=== PATIENT | female | born 1995 | race Caucasian/White ===

== ENCOUNTER 2016-11-01 23:36 | Emergency (ER) | payer OTHER ==
[2016-11-02] MEDS ORDERED: NORCO 5/325 MG PO ONE (01:12)
--- NOTE | 2016-11-02 01:18 | ERPHSYRPT ---
- History of Present Illness Time Seen by Provider: 11/02/16 01:05 Source: patient Exam Limitations: no limitations Patient Subjective Stated Complaint: 1999 pt stepped in a hole and twisted her rt ancle Triage Nursing Assessment: outter aspect of rt ancle traciolen. pt states movement is limited but she can painfully bear weight on it. pt states toes on rt side feel tingly and cool, and that in the middle top of her foot it is numb. other than ancle, negative assess. Physician History: ABOUT 5 HOURS AGO PT WAS AT HOME AND STEPPED IN A HOLE TWISTING HER RIGHT ANKLE WITH RESULTANT PAIN IN THE RIGHT ANKLE; ADMITS TO PRIOR RIGHT ANKLE FRACTURE 8 YEARS AGO; ADMITS TO TINGLING OF HER RIGHT TOES. Allergies/Adverse Reactions: amoxicillin trihydrate [From Augmentin] Allergy (Intermediate, Verified 14:57) CHILDHOOD cefaclor [From Ceclor] Allergy (Intermediate, Verified 11/06/15 14:57) Hives Home Medications: No Home Meds 11/02/16 [History] Hx Tetanus, Diphtheria Vaccination/Date Given: Yes Hx Influenza Vaccination/Date Given: Yes Hx Pneumococcal Vaccination/Date Given: No Immunizations Up to Date: Yes - Review of Systems Musculoskeletal: Joint Pain (RIGHT ANKLE PAIN) - Past Medical History Pertinent Past Medical History: Yes Neurological History: No Pertinent History ENT History: No Pertinent History Cardiac History: No Pertinent History Respiratory History: No Pertinent History Endocrine Medical History: No Pertinent History Musculoskeletal History: Other GI Medical History: Gallbladder Disease, Pancreatitis History: Other Psycho-Social History: Anxiety, Depression Female Reproductive Disorders: No Pertinent History Other Medical History: ovarian cysts,PANCREATITIS AND CHOLECYSTITIS, urinary retention 10/2015 - Past Surgical History Past Surgical History: Yes Neuro Surgical History: No Pertinent History Cardiac: No Pertinent History Respiratory: No Pertinent History Gastrointestinal: Cholecystectomy, Other Genitourinary: No Pertinent History Musculoskeletal: Orthopedic Surgery Female Surgical History: No Pertinent History Other Surgical History: TONSILLECTOMY, ERCP-rt KNEE, scope for pancreas - Social History Smoking Status: Current every day smoker How long have you smoked: 2 Exposure to second hand smoke: Yes Drug Use: none Patient Lives Alone: No - Female History Hx Last Menstrual Period: now Hx Now: No - Nursing Vital Signs Nursing Vital Signs: Initial Vital Signs Temperature 98.3 F Temperature Source Oral Pulse Rate 96 Respiratory Rate 18 Blood Pressure [Left Arm] 138/87 Pain Intensity 8 - Physical Exam General Appearance: alert Hips Exam: right: normal range of motion Legs Exam: right leg: normal range of motion Knees Exam: right knee: normal range of motion Ankle Exam: right ankle: soft tissue tenderness (MILD LATERAL TENDERNESS AND EDEMA OF THE RIGHT ANKLE WITH LIMITED ROM. ALL TOES OF THE RIGHT FOOT HAVE GOOD ROM, SENSATION AND CAPILLARY REFILL.) Foot Exam: right foot: normal range of motion Neuro/Tendon Exam: normal sensation Mental Status Exam: alert Skin Exam: warm, dry SpO2 Interpretation: normal SpO2: 98 Oxygen Delivery: Room Air - Course Nursing assessment & vital signs reviewed: Yes - Radiology Exams Right Ankle X-ray Interpretation: Interpreted by me, No Fracture Ordered Tests: Active Orders 24 hr Category Date Time Status [facility] 11/02/16 01:10 Active Crutches STAT Care 11/02/16 01:10 Active ANKLE (3 VIEWS) Stat Exams 11/02/16 01:10 Ordered Medication Summary Discontinued Medications Generic Name Dose Route Start Last Admin Trade Name Freq PRN Reason Stop Dose Admin Hydrocodone Bitart/Acetaminophen 2 tab 11/02/16 01:12 11/02/16 01:38 [place] 5/325 Mg PO 11/02/16 01:13 2 tab STAT ONE Administration Hydrocodone Bitart/Acetaminophen Confirm 11/02/16 01:37 [place] 5/325 Mg Administered 11/02/16 01:38 Dose 2 tab .ROUTE .STK-MED ONE - Departure Time of Disposition: 01:49 Departure Disposition: Home Clinical Impression: SPRAIN OF RIGHT ANKLE Condition: Fair Critical Care Time: No Instructions: Ankle Sprain Additional Instructions: FOLLOW UP WITH PRIVATE DOCTOR TOMORROW. ELEVATE RIGHT ANKLE ABOVE HEART LEVEL FOR 24 HOURS. COLT WRAP TO RIGHT ANKLE FOR 4 DAYS. NO WEIGHT BEARING ON RIGHT FOOT FOR 4 DAYS. USE CRUTCHES FOR 2 WEEKS. Prescriptions: Naproxen [Naprosyn] 500 mg PO [id number] PRN #20 tablet PRN Reason: Pain
[2016-11-02] MEDS ORDERED: NORCO 5/325 MG ONE (01:37)
[2016-11-02 02:07] VITALS: BP 138/76; PULSE 87; O2SAT 97
--- NOTE | 2016-11-02 09:10 | XRAY ---
Indication: Pain following injury. Comparison: None 3 views of the right ankle demonstrates anterior lateral soft tissue swelling. On the lateral view, there is cortical disruption involving the distal tibia anteriorly concerning for cortical fracture. No other bony, articular, or soft tissue abnormalities. Comment: Above finding not reported on preliminary interpretation by the interpreting ER clinician. I gave telephone report to Dr. Marie in the ER at 0905 hrs. on November 02, 2016.
== END 2016-11-02 02:08 | disposition home or self-care (01) ==
LOC: ED 23:36
DX: S93.401A Sprain of unspecified ligament of right ankle, initial encounter (principal); M25.571 Pain in right ankle and joints of right foot; W17.2XXA Fall into hole, initial encounter
CPT/HCPCS: 73610; 99283; A9270-GY

== ENCOUNTER 2017-01-23 13:22 | Emergency (ER) | payer OTHER ==
[2017-01-23 13:31] VITALS: O2SAT 98
[2017-01-23] MEDS ORDERED: TORAdol 30 mg Injection IM ONE (13:45)
[2017-01-23] MEDS ORDERED: BENADRYL 50 MG/ML IM ONE (13:45)
--- NOTE | 2017-01-23 13:45 | ERPHSYRPT ---
- History of Present Illness Time Seen by Provider: 01/23/17 13:35 Source: patient Exam Limitations: no limitations Patient Subjective Stated Complaint: headache since yesterday Triage Nursing Assessment: states started with lt headache since yesterday. states normally takes motrin for headache but 'couldnt get in to my doctor to get my ibuprofen 800mg'. skin warm and dry Physician History: 21-year-old white female with history of headaches, gallbladder disease, pancreatitis, anxiety, depression, urinary retention, Patient arrives with complaint of frontal headache and headache left side of head photophobia and nausea symptoms since yesterday, Patient does state she has a history of migraine she states she usually takes ibuprofen for pain however she ran out and has not been able to get into see her family doctor. She has not had any fevers been otherwise ill Past medical history includes headaches, gallbladder disease, anxiety, pancreatitis, urinary retention Past surgical history includes cholecystectomy, tonsillectomy, ERCP, Timing/Duration: yesterday Quality: aching Head Pain Location: frontal Severity of Pain-Max: moderate Severity of Pain-Current: moderate Recent Head Trauma: occasional headaches Modifying Factors: Improves With: other (patient states she took 2 Tylenol tablets today) Associated Symptoms: nausea/vomiting, other (photophobia), No confusion, No dizziness, No fatigue, No facial pain, No fever/chills, No flushing, No light- headedness, No loss of consciousness, No nasal congestion, No nasal drainage, No neck pain, No numbness in legs/feet, No rash, No sweating, No scotoma, No seizures, No sinus infection, No sensitive to light, No speech problems, No stiff neck, No trouble walking, No vision changes, No visual disturbance, No weakness Previous symptoms: same symptoms as today Allergies/Adverse Reactions: amoxicillin trihydrate [From Augmentin] Allergy (Intermediate, Verified 13:30) CHILDHOOD cefaclor [From Ceclor] Allergy (Intermediate, Verified 01/23/17 13:30) Hives Home Medications: No Home Meds 1 [facility] UD 01/23/17 [History] Hx Tetanus, Diphtheria Vaccination/Date Given: Yes Hx Influenza Vaccination/Date Given: Yes Hx Pneumococcal Vaccination/Date Given: No Immunizations Up to Date: Yes - Review of Systems Constitutional: No Fever, No Chills Eyes: Photophobia, No Discharge, No Eye Pain, No Eye Redness, No Itchy, No Tearing, No Vision Changes, No Double Vision, No Foreign Body Sensation Ears, Nose, & Throat: No Symptoms, No Ear Pain, No Ear Discharge, No Hearing Changes, No Tinnitus, No Nose Pain, No Nose Congestion, No Nose Discharge, No Sinus Drainage, No Epistaxis, No Mouth Pain, No Mouth Swelling, No Loose Teeth, No Throat Pain, No Throat Swelling, No Hoarse, No Painful Swallowing, No Snoring , No Stridor Respiratory: No Cough, No Dyspnea Cardiac: No Chest Pain, No Edema, No Syncope Abdominal/Gastrointestinal: Nausea, No Abdominal Pain, No Vomiting, No Diarrhea , No Constipation, No Hematemesis, No Hematochezia, No Melena, No Dysphagia, No Appetite Changes Genitourinary Symptoms: No Dysuria Musculoskeletal: No Back Pain, No Neck Pain Skin: No Rash Neurological: Headache, No Dizziness, No Focal Weakness, No Sensory Changes Psychological: No Symptoms Endocrine: No Symptoms All Other Systems: Reviewed and Negative - Past Medical History Pertinent Past Medical History: Yes Neurological History: No Pertinent History ENT History: No Pertinent History Cardiac History: No Pertinent History Respiratory History: No Pertinent History Endocrine Medical History: No Pertinent History Musculoskeletal History: Other GI Medical History: Gallbladder Disease, Pancreatitis History: Other Psycho-Social History: Anxiety, Depression Female Reproductive Disorders: No Pertinent History Other Medical History: ovarian cysts,PANCREATITIS AND CHOLECYSTITIS, urinary retention 10/2015 - Past Surgical History Past Surgical History: Yes Neuro Surgical History: No Pertinent History Cardiac: No Pertinent History Respiratory: No Pertinent History Gastrointestinal: Cholecystectomy, Other Genitourinary: No Pertinent History Musculoskeletal: Orthopedic Surgery Female Surgical History: No Pertinent History Other Surgical History: TONSILLECTOMY, ERCP, rt knee - Social History Smoking Status: Current every day smoker How long have you smoked: 2 Exposure to second hand smoke: No Drug Use: none Patient Lives Alone: No - Female History Hx Last Menstrual Period: 1 week Hx Now: No - Nursing Vital Signs Nursing Vital Signs: Initial Vital Signs Temperature 98.5 F 01/23/17 13:24 Pulse Rate 76 01/23/17 13:24 Respiratory Rate 18 01/23/17 13:24 Blood Pressure 143/68 01/23/17 13:24 O2 Sat by Pulse Oximetry 98 01/23/17 13:24 Pain Scale Pain Intensity 8 - Physical Exam General Appearance: other (morbidly obese white female moderate distress) Eye Exam: PERRL/EOMI, eyes nml inspection, other (fundi are unremarkable), No scleral icterus, No pale conjunctivae, No photophobia Ears, Nose, Throat Exam: normal ENT inspection, TMs normal, pharynx normal, moist mucous membranes Neck Exam: normal inspection, supple, full range of motion, other (no neck tenderness), No meningismus Respiratory Exam: normal breath sounds, lungs clear Cardiovascular Exam: regular rate/rhythm, normal heart sounds Gastrointestinal/Abdominal Exam: soft, No tenderness, No distention Back Exam: normal inspection, normal range of motion Extremity Exam: normal inspection, normal range of motion Mental Status Exam: alert, oriented x 3, cooperative 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 director Exam: normal speech, PERRL, No facial droop Coordination/Gait Exam: normal finger to nose, normal cerebellar function Motor/Sensory Exam: no motor deficit, no sensory deficit DTR Exam: ankle (R): 2+, ankle (L): 2+ Skin Exam: normal color, warm, dry, No rash SpO2 Interpretation: normal (98%) SpO2: 98 Oxygen Delivery: Room Air - Course Nursing assessment & vital signs reviewed: Yes Ordered Tests: Medication Summary Discontinued Medications Generic Name Dose Route Start Last Admin Trade Name Farhan PRN Reason Stop Dose Admin Diphenhydramine HCl 25 mg 01/23/17 13:45 01/23/17 13:53 Benadryl 50 Mg/Ml IM 01/23/17 13:46 25 mg STAT ONE Administration Diphenhydramine HCl Confirm 01/23/17 13:51 Benadryl 50 Mg/Ml Administered 01/23/17 13:52 Dose 50 mg .ROUTE .STK-MED ONE Ketorolac Tromethamine 60 mg 01/23/17 13:45 01/23/17 13:52 Toradol 30 Mg Injection IM 01/23/17 13:46 60 mg STAT ONE Administration Ketorolac Tromethamine Confirm 01/23/17 13:51 Toradol 30 Mg Injection Administered 01/23/17 13:52 Dose 60 mg .ROUTE .STK-MED ONE - Progress Progress: improved Air Movement: fair Progress Note: 01/23/17 14:27 Patient is feeling better after an injection of Toradol in the Benadryl. Will discharge patient. Patient to take [id number] Advil or Tylenol as needed for pain. Follow-up with her family doctor. - Departure Time of Disposition: 14:28 Departure Disposition: Home Clinical Impression: Headache Qualifiers: Headache type: unspecified Headache chronicity pattern: acute headache Intractability: not intractable Qualified Code(s): R51 - Headache Condition: Fair Critical Care Time: No Referrals: MELVA ROJO [Primary Care Provider] - Instructions: Headache Additional Instructions: Return home. Rest in a dark quiet room. Tylenol every 4 hours or Advil every 6 hours as needed for pain. Follow-up with your family doctor if symptoms are worse, no better in 24 hours or are recurrent. Return for acute distress or for severe symptoms.
[2017-01-23] MEDS ORDERED: BENADRYL 50 MG/ML ONE (13:51)
[2017-01-23] MEDS ORDERED: TORAdol 30 mg Injection ONE (13:51)
[2017-01-23 14:36] VITALS: BP 148/86; PULSE 78
== END 2017-01-23 14:35 | disposition home or self-care (01) ==
LOC: ED 13:22
DX: R51 Headache (principal)
CPT/HCPCS: 96372; 99284; J1200; J1885

== ENCOUNTER 2017-01-25 14:50 | Emergency (ER) | payer OTHER ==
[2017-01-25] MEDS ORDERED: Zofran 4 MG/2 ML VIAL IV ONE (15:17)
[2017-01-25] MEDS ORDERED: Sodium Chloride 0.9% 1000 ML 1,000 ML IV STA (15:17)
[2017-01-25] MEDS ORDERED: MORPHINE SULFATE 4 MG INJ IV ONE (15:17)
--- NOTE | 2017-01-25 15:22 | ERPHSYRPT ---
- History of Present Illness Time Seen by Provider: 01/25/17 15:17 Historian: patient Exam Limitations: no limitations Patient Subjective Stated Complaint: co pain to abd to upper abd that radiates to left side, states started at 0400. nausea, vomiting more than 10 times, no loose stools Triage Nursing Assessment: pt walked in crying and rocking back and forth, res\ sp easy , skin w/d,pink. abd soft with bs Physician History: This is a 21-year-old white female who was just seen here 2 days ago secondary to a headache. She arrives with complaint of pain in the epigastric area radiating to left upper abdomen symptoms since 4:00 this morning she states she vomited 10 times she has no melena no hematochezia no hematemesis she has no fevers. She describes her pain is crampy and nonradiating. Past medical history includes gallbladder disease, pancreatitis, anxiety, depression, ovarian cysts, urinary retention. Past surgical history includes tonsillectomy cholecystectomy, ERCP. Last menstrual period 2 days ago Timing/Duration: today (4:00 this morning) Activities at Onset: rest Quality: cramping Abdominal Pain Onset Location: LUQ, epigastric Pain Radiation: no radiation Severity of Pain-Max: moderate Severity of Pain-Current: moderate Modifying Factors: Improves With: nothing Associated Symptoms: nausea, vomiting, No back, No chest pain, No diaphoresis, No diarrhea, No fever/chills, No fatigue, No headache, No heartburn, No loss of appetite, No neck pain, No rash, No shortness of breath, No syncope, No weakness Previous symptoms: same symptoms as today Allergies/Adverse Reactions: amoxicillin trihydrate [From Augmentin] Allergy (Intermediate, Verified 14:56) CHILDHOOD cefaclor [From Ceclor] Allergy (Intermediate, Verified 01/25/17 14:56) Hives Home Medications: No Home Meds 1 [facility] UD 01/23/17 [History] Hx Tetanus, Diphtheria Vaccination/Date Given: Yes Hx Influenza Vaccination/Date Given: Yes Hx Pneumococcal Vaccination/Date Given: No Immunizations Up to Date: Yes - Review of Systems Constitutional: No Fever, No Chills Eyes: No Symptoms Ears, Nose, & Throat: No Symptoms Respiratory: No Cough, No Dyspnea Cardiac: No Chest Pain, No Edema, No Syncope Abdominal/Gastrointestinal: Abdominal Pain, Nausea, Vomiting, No Diarrhea, No Constipation, No Hematemesis, No Hematochezia, No Melena, No Dysphagia Genitourinary Symptoms: No Dysuria Musculoskeletal: No Back Pain, No Neck Pain Skin: No Rash Neurological: No Dizziness, No Focal Weakness, No Sensory Changes Psychological: No Symptoms Endocrine: No Symptoms All Other Systems: Reviewed and Negative - Past Medical History Pertinent Past Medical History: Yes Neurological History: No Pertinent History ENT History: No Pertinent History Cardiac History: No Pertinent History Respiratory History: No Pertinent History Endocrine Medical History: No Pertinent History Musculoskeletal History: Other GI Medical History: Gallbladder Disease, Pancreatitis History: Other Psycho-Social History: Anxiety, Depression Female Reproductive Disorders: No Pertinent History Other Medical History: ovarian cysts,PANCREATITIS AND CHOLECYSTITIS, urinary retention 10/2015 - Past Surgical History Past Surgical History: Yes Neuro Surgical History: No Pertinent History Cardiac: No Pertinent History Respiratory: No Pertinent History Gastrointestinal: Cholecystectomy, Other Genitourinary: No Pertinent History Musculoskeletal: Orthopedic Surgery Female Surgical History: No Pertinent History Other Surgical History: TONSILLECTOMY, ERCP, rt knee - Social History Smoking Status: Current every day smoker How long have you smoked: 2 Exposure to second hand smoke: Yes Drug Use: none Patient Lives Alone: No - Female History Hx Last Menstrual Period: 2 days ago Hx Now: No - Nursing Vital Signs Nursing Vital Signs: Initial Vital Signs Temperature 98.2 F 01/25/17 14:50 Pulse Rate 97 H 01/25/17 14:50 Respiratory Rate 20 01/25/17 14:50 Blood Pressure 135/67 01/25/17 14:50 O2 Sat by Pulse Oximetry 96 01/25/17 14:50 Pain Scale Pain Intensity 4 - Physical Exam General Appearance: other (morbidly obese white female moderate distress) Eye Exam: PERRL/EOMI, eyes nml inspection Ears, Nose, Throat Exam: normal ENT inspection, pharynx normal, moist mucous membranes Neck Exam: normal inspection, non-tender, supple, full range of motion Respiratory Exam: normal breath sounds, lungs clear, No respiratory distress Cardiovascular Exam: regular rate/rhythm, normal heart sounds Gastrointestinal/Abdomen Exam: soft, normal bowel sounds, tenderness (tender in the epigastric and left upper quadrant of the abdomen) Back Exam: normal inspection, normal range of motion, No CVA tenderness, No vertebral tenderness Extremity Exam: normal inspection, normal range of motion, pelvis stable Neurologic Exam: alert, oriented x 3, cooperative, normal mood/affect, nml cerebellar function, sensation nml, No motor deficits Skin Exam: normal color, warm, dry SpO2 Interpretation: normal (96%) SpO2: 96 Oxygen Delivery: Room Air - Course Nursing assessment & vital signs reviewed: Yes - CT Exams Abdomen/Pelvis CT Interpretation: Discussed w/radiologist (CT abdomen and pelvis: Impression 1. Fecal stasis without obstruction 2. 2.5 cm right ovarian cyst and increasing splenomegaly 3. No new or acute intra-abdominal/pelvic abnormalities on this noncontrast exam) Ordered Tests: Active Orders 24 hr Category Date Time Status IV Insertion STAT Care 01/25/17 15:17 Active ABDOMEN AND PELVIS W/0 CONTRAS [CT] Stat Exams 01/25/17 16:19 Completed AMYLASE Stat Lab 01/25/17 15:20 Completed CBC W DIFF Stat Lab 01/25/17 15:20 Completed CMP Stat Lab 01/25/17 15:20 Completed CULTURE,URINE Stat Lab 01/25/17 15:20 Received HCG QUALITATIVE,SERUM Stat Lab 01/25/17 15:20 Completed LIPASE Stat Lab 01/25/17 15:20 Completed Manual Differential NC Stat Lab 01/25/17 15:20 Completed UA W/ MICROSCOPIC Stat Lab 01/25/17 15:20 Completed Medication Summary Discontinued Medications Generic Name Dose Route Start Last Admin Trade Name Freq PRN Reason Stop Dose Admin Sodium Chloride 1,000 mls @ 999 mls/hr 01/25/17 15:17 01/25/17 15:28 Sodium Chloride 0.9% 1000 Ml IV 01/25/17 16:17 999 mls/hr .Q1H1M STA Administration Sodium Chloride Confirm 01/25/17 15:24 Sodium Chloride 0.9% 1000 Ml Administered 01/25/17 15:25 Dose 1,000 mls @ ud .ROUTE .STK-MED ONE Morphine Sulfate 4 mg 01/25/17 15:17 01/25/17 15:28 Morphine Sulfate 4 Mg Inj IV 01/25/17 15:18 4 mg STAT ONE Administration Morphine Sulfate Confirm 01/25/17 15:24 Morphine Sulfate 4 Mg Inj Administered 01/25/17 15:25 Dose 4 mg .ROUTE .STK-MED ONE Ondansetron HCl 4 mg 01/25/17 15:17 01/25/17 15:28 Zofran 4 Mg/2 Ml Vial IV 01/25/17 15:18 4 mg STAT ONE Administration Ondansetron HCl Confirm 01/25/17 15:23 Zofran 4 Mg/2 Ml Vial Administered 01/25/17 15:24 Dose 4 mg .ROUTE .STK-MED ONE Lab/Rad Data: Laboratory Result Diagrams 01/25/17 15:20 01/25/17 15:20 Laboratory Results 01/25/17 01/25/17 01/25/17 Range/Units 15:20 15:20 15:20 WBC 11.7 H (4.0-10.5) K/mm3 RBC 4.72 (4.1-5.4) M/mm3 Hgb 13.0 (12.0-16.0) gm/dl Hct 40.6 (35-47) % MCV 86.0 (78-100) fl MCH 27.5 (26-32) pg MCHC 32.0 (32-36) g/dl RDW 13.9 (11.5-14.0) % Plt Count 334 (150-450) K/mm3 MPV 11.6 H (6-9.5) fl Sodium 144 (136-145) mEq/L Potassium 3.7 (3.5-5.1) mEq/L Chloride 108 H (98-107) mEq/L Carbon Dioxide 26.7 (21-32) mEq/L Anion Gap 13.3 (5-15) MEQ/L BUN 10 (9-20) mg/dL Creatinine 0.95 (0.55-1.30) mg/dl Estimated GFR > 60 ML/MIN Glucose 87 (70-110) MG/DL Calcium 9.7 (8.5-10.1) mg/dL Total Bilirubin 0.30 (0.2-1.0) mg/dL AST 17 (15-37) U/L ALT 17 (12-78) U/L Alkaline Phosphatase 84 (46-116) U/L Serum Total Protein 7.8 (6.4-8.2) gm/dL Albumin 3.1 L (3.4-5.0) g/dL Amylase 39 (25-115) U/L Lipase 70 L (73-393) U/L Serum , Qual NEGATIVE (Negative) Ur Collection Type Urine Color (YELLOW) Urine Appearance (CLEAR) Urine pH (5-6) Ur Specific [place] (1.005-1.025) Urine Protein (Negative) Urine Ketones (NEGATIVE) Urine Blood (0-5) Jayden/ul Urine Nitrite (NEGATIVE) Urine Bilirubin (NEGATIVE) Urine Urobilinogen (0-1) mg/dL Ur Leukocyte Esterase (NEGATIVE) Urine Microscopic RBC (0-2) /HPF Urine Microscopic WBC (0-5) /HPF Ur Epithelial Cells (FEW) /HPF Urine Bacteria (NEGATIVE) /HPF Urine Glucose (NEGATIVE) mg/dL Specimen Received 01/25/17 Range/Units 15:20 WBC (4.0-10.5) K/mm3 RBC (4.1-5.4) M/mm3 Hgb (12.0-16.0) gm/dl Hct (35-47) % MCV (78-100) fl MCH (26-32) pg MCHC (32-36) g/dl RDW (11.5-14.0) % Plt Count (150-450) K/mm3 MPV (6-9.5) fl Sodium (136-145) mEq/L Potassium (3.5-5.1) mEq/L Chloride (98-107) mEq/L Carbon Dioxide (21-32) mEq/L Anion Gap (5-15) MEQ/L BUN (9-20) mg/dL Creatinine (0.55-1.30) mg/dl Estimated GFR ML/MIN Glucose (70-110) MG/DL Calcium (8.5-10.1) mg/dL Total Bilirubin (0.2-1.0) mg/dL AST (15-37) U/L ALT (12-78) U/L Alkaline Phosphatase (46-116) U/L Serum Total Protein (6.4-8.2) gm/dL Albumin (3.4-5.0) g/dL Amylase (25-115) U/L Lipase (73-393) U/L Serum , Qual (Negative) Ur Collection Type VOID Urine Color YELLOW (YELLOW) Urine Appearance CLEAR (CLEAR) Urine pH 5.0 (5-6) Ur Specific [place] 1.010 (1.005-1.025) Urine Protein 3+ (Negative) Urine Ketones NEGATIVE (NEGATIVE) Urine Blood 250 (0-5) Jayden/ul Urine Nitrite NEGATIVE (NEGATIVE) Urine Bilirubin NEGATIVE (NEGATIVE) Urine Urobilinogen NORMAL (0-1) mg/dL Ur Leukocyte Esterase TRACE (NEGATIVE) Urine Microscopic RBC 15-25 (0-2) /HPF Urine Microscopic WBC 2-5 (0-5) /HPF Ur Epithelial Cells FEW (FEW) /HPF Urine Bacteria FEW (NEGATIVE) /HPF Urine Glucose NEGATIVE (NEGATIVE) mg/dL Specimen Received 01/25/17 1520 - Progress Progress: improved Progress Note: 01/25/17 16:17 Patient feeling better after IV normal saline morphine and Zofran. Patient does appear to be tender in the right lower quadrant as well as the epigastric and left upper quadrant Patient does have a mild elevated white count also patient has some protein and 5-10 red cells in her urine Will go ahead and obtain CT of her abdomen and pelvis without contrast to rule out appendicitis Amylase and lipase are within normal limits 01/25/17 17:25 CT of the abdomen shows fecal stasis without obstruction at 2.5 cm right ovarian cyst, increasing splenomegaly. There are no new or acute intra-abdominal/pelvic abnormalities Appendix appears normal. Patient improved. Will plan to discharge with [place], Zofran, Brianne lax Patient is to follow-up with her family doctor - Departure Time of Disposition: 17:26 Departure Disposition: Home Clinical Impression: Right ovarian cyst, Splenomegaly Abdominal pain Qualifiers: Abdominal location: unspecified location Qualified Code(s): R10.9 - Unspecified abdominal pain Constipation Qualifiers: Constipation type: unspecified constipation type Qualified Code(s): K59.00 - Constipation, unspecified Vomiting Qualifiers: Vomiting type: unspecified Vomiting Intractability: non-intractable Condition: Fair Critical Care Time: No Instructions: Abdominal Pain-Adult Additional Instructions: Return home. Plenty of fluids clear fluids only 24-48 hours if abdominal pain nausea vomiting or diarrhea. [place] 5/325 #12 one orally every 4-6 hours as needed for pain. Zofran No. 10 one orally every 4-6 hours as needed for nausea or vomiting. Brianne lax one scoop in 8 ounces of water orally daily. Follow-up with your family doctor call for an appointment. Avoid contact activities or contusions to abdomen. Return for acute distress or for severe symptoms. Prescriptions: Hydrocodone/Acetaminophen [[place] 5-325 Tablet] 1 tab PO Q4-6HPRN PRN #12 tablet PRN Reason: Pain Ondansetron [Zofran Odt] 4 mg PO Q4-6HPRN PRN #10 tab.rapdis PRN Reason: nausea and vomiting
[2017-01-25] MEDS ORDERED: Zofran 4 MG/2 ML VIAL ONE (15:23)
[2017-01-25] MEDS ORDERED: Sodium Chloride 0.9% 1000 ML 1,000 ML ONE (15:24)
[2017-01-25] MEDS ORDERED: MORPHINE SULFATE 4 MG INJ ONE (15:24)
[2017-01-25 15:38] LABS: ADD URINE CULTURE? YES (NO); Bilirubin NEGATIVE (NEGATIVE); Blood 250 Ery/ul (0-5); COMPLETE URINE MICROSCOPIC? YES; Collection Type VOID; Glucose NEGATIVE (NEGATIVE); Leukocyte Esterase TRACE (NEGATIVE)
[2017-01-25 15:41] LABS: Mean Corpuscular Hemoglobin 27.5 pg (26-32); Mean Platelet Volume 11.6 fl (6-9.5); Platelet Count 334 K/mm3 (150-450); Red Blood Count 4.72 M/mm3 (4.1-5.4); Red Cell Distribution Width 13.9 % (11.5-14.0); White Blood Count 11.7 K/mm3 (4.0-10.5)
[2017-01-25 15:44] LABS: Bacteria FEW /HPF (NEGATIVE); Epithelial Cells FEW /HPF (FEW)
[2017-01-25 16:02] LABS: ALBUMIN 3.1 g/dL (3.4-5.0); ALKALINE PHOSPHATASE 84 U/L (46-116); ANION GAP 13.3 MEQ/L (5-15); BLOOD UREA NITROGEN 10 mg/dL (9-20); CHLORIDE 108 mEq/L (98-107); Carbon Dioxide 26.7 mEq/L (21-32); Glucose 87 MG/DL (70-110); LIPASE 70 U/L (73-393); Potassium 3.7 mEq/L (3.5-5.1); SGOT/AST 17 U/L (15-37); SGPT/ALT 17 U/L (12-78); SODIUM 144 mEq/L (136-145); Total Protein 7.8 gm/dL (6.4-8.2)
--- NOTE | 2017-01-25 17:05 | XRAY ---
Indication: Sharp abdomen pain. Vomiting bile. Multiple contiguous axial images obtained through the abdomen and pelvis without contrast as ordered. Comparison: August 08, 2015. Lung bases essentially clear. Heart is not enlarged. Noncontrasted stomach and bowel loops remain nonobstructed. Again mild scattered colonic fecal debris. Normal appendix. Again there is a dominant right ovary cyst measuring 2.5 cm. No free fluid/air. Again cholecystectomy and splenomegaly today measuring 16.1 cm in greatest axial dimension. Spleen previously measured 14.4 cm. Remaining liver, pancreas, spleen, adrenal glands, kidneys, ureters, bladder, uterus, and aorta appear unremarkable for noncontrast exam. Osseous structures intact. Impression: 1. Again fecal stasis without obstruction. 2. 2.5 cm right ovarian cyst and increasing splenomegaly. 3. No new or acute intra-abdominal/pelvic abnormalities on this noncontrast exam. CTDI 34.24
[2017-01-25 17:42] VITALS: BP 139/70; PULSE 80; O2SAT 97
== END 2017-01-25 17:44 | disposition home or self-care (01) ==
LOC: ED 14:50
DX: N83.201 Unspecified ovarian cyst, right side (principal); R10.9 Unspecified abdominal pain; K59.00 Constipation, unspecified; R11.10 Vomiting, unspecified
CPT/HCPCS: 36000; 36415; 74176; 80053; 81000; 82150; 83690; 84703; 85025; 87086; 96360; 96374; 96375; 99284; J2270; J2405

== ENCOUNTER 2017-06-06 17:53 | Emergency (ER) | payer OTHER ==
[2017-06-06 18:20] VITALS: BP 144/82; PULSE 85; O2SAT 98
[2017-06-06] MEDS ORDERED: TYLENOL 325 MG PO ONE (18:27)
--- NOTE | 2017-06-06 18:27 | ERPHSYRPT ---
- History of Present Illness Time Seen by Provider: 06/06/17 18:23 Source: patient Exam Limitations: no limitations Patient Subjective Stated Complaint: stepped in a whole around 4pm and fell down to knees. since that time the ankle has become swollen. Triage Nursing Assessment: pt was in wheelchair and limbed to the bed. ankle is swollen on the outer side. no bruising at this time. foot push on the left foot is extremely weak. pt denies numbness and can move toes. 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 Her left ankle still swollen and painful. She's been able to walk on it but it hurts to do so. She did not take any Tylenol because she did not have any at home. She did not put ice on it. She did not take ibuprofen because she had a reaction a few months ago to Toradol and she states her kidney specialist told her not to take any ibuprofen or Toradol for a few months. When she was 13 years old, she fractured her right ankle. Occurred: this afternoon, hours ago (2) Reason for Fall: tripped Injuries/Pain Location: lower extremity (left ankle) Loss of Consciousness: no loss of consciousness Quality: aching Severity of Pain-Max: moderate Severity of Pain-Current: moderate Modifying Factors: Improves With: nothing Associated Symptoms (Fall): denies symptoms Allergies/Adverse Reactions: amoxicillin trihydrate [From Augmentin] Allergy (Intermediate, Verified 14:56) CHILDHOOD cefaclor [From Ceclor] Allergy (Intermediate, Verified 01/25/17 14:56) Hives Home Medications: No Home Meds [No Home Meds] 1 [facility] UD 01/23/17 [History] Hx Tetanus, Diphtheria Vaccination/Date Given: Yes Hx Influenza Vaccination/Date Given: Yes Hx Pneumococcal Vaccination/Date Given: No Immunizations Up to Date: Yes - Review of Systems Constitutional: No Fever, No Chills Eyes: No Symptoms Ears, Nose, & Throat: No Symptoms Respiratory: No Cough, No Dyspnea Cardiac: No Chest Pain, No Edema, No Syncope Abdominal/Gastrointestinal: No Abdominal Pain, No Nausea, No Vomiting, No Diarrhea Genitourinary Symptoms: No Dysuria Musculoskeletal: Fall, Injury, Joint Pain, Joint Swelling (left ankle) Skin: No Rash Neurological: No Dizziness, No Focal Weakness, No Sensory Changes Psychological: No Symptoms Endocrine: No Symptoms Hematologic/Lymphatic: No Symptoms Immunological/Allergic: No Symptoms All Other Systems: Reviewed and Negative - Past Medical History Pertinent Past Medical History: Yes Neurological History: No Pertinent History ENT History: No Pertinent History Cardiac History: No Pertinent History Respiratory History: No Pertinent History Endocrine Medical History: No Pertinent History Musculoskeletal History: Other GI Medical History: Gallbladder Disease, Pancreatitis History: Other Psycho-Social History: Anxiety, Depression Female Reproductive Disorders: No Pertinent History Other Medical History: ovarian cysts,PANCREATITIS AND CHOLECYSTITIS, urinary retention 10/2015. KIDNEY FAILURE IN 01/2017 - Past Surgical History Past Surgical History: Yes Neuro Surgical History: No Pertinent History Cardiac: No Pertinent History Respiratory: No Pertinent History Gastrointestinal: Cholecystectomy, Other Genitourinary: No Pertinent History Musculoskeletal: Orthopedic Surgery Female Surgical History: No Pertinent History Other Surgical History: TONSILLECTOMY, ERCP, rt knee - Social History Smoking Status: Current every day smoker How long have you smoked: 4 Exposure to second hand smoke: Yes Drug Use: none Patient Lives Alone: No - Female History Hx Last Menstrual Period: 05/07/2017 Hx Now: No - Nursing Vital Signs Nursing Vital Signs: Initial Vital Signs Temperature 97.6 F 06/06/17 18:17 Pulse Rate 85 06/06/17 18:17 Respiratory Rate 20 06/06/17 18:17 Blood Pressure 144/82 06/06/17 18:17 O2 Sat by Pulse Oximetry 98 06/06/17 18:17 Pain Scale Pain Intensity 8 - Elva Coma Score Best Eye Response (Jackson): (4) open spontaneously Best Verbal Response (Elva): (5) oriented Best Motor Response (Jackson): (6) obeys commands Jackson Total: 15 - Physical Exam General Appearance: mild distress Head Injury: no evidence of injury Eye Exam: PERRL/EOMI ENT Exam: airway nml Neck Exam: normal inspection, No tenderness Respiratory/Chest Exam: normal breath sounds, No chest tenderness, No respiratory distress Cardiovascular Exam: normal heart sounds, regular rate/rhythm Gastrointestinal Exam: soft, No tenderness, No distention, No guarding, No ecchymosis Rectal Exam: not done Back Exam: normal inspection, No vertebral tenderness Extremity Exam: joint swelling (left ankle), limited range of motion, bony point tenderness, weight bearing, tenderness Neurologic Exam: alert, oriented x 3, cooperative, sensation nml, No motor deficits Skin Exam: normal color, warm, dry SpO2 Interpretation: normal SpO2: 98 Oxygen Delivery: Room Air - Radiology Exams Left Ankle X-ray Interpretation: Interpreted by me, Negative, No Fracture Ordered Tests: Active Orders 24 hr Category Date Time Status Cold Application STAT Care 06/06/17 18:27 Active ANKLE (3 VIEWS) Stat Exams 06/06/17 18:27 Taken Medication Summary Discontinued Medications Generic Name Dose Route Start Last Admin Trade Name Mikeq PRN Reason Stop Dose Admin Acetaminophen 975 mg 06/06/17 18:27 06/06/17 18:42 Tylenol 325 Mg PO 06/06/17 18:28 975 mg STAT ONE Administration Acetaminophen Confirm 06/06/17 18:42 Tylenol 325 Mg Administered 06/06/17 18:43 Dose 975 mg .ROUTE .STK-MED ONE - Progress Progress: improved - Departure Time of Disposition: 18:59 Departure Disposition: Home Clinical Impression: Left ankle sprain Condition: Stable Critical Care Time: No Referrals: MELVA ROJO [Primary Care Provider] - Additional Instructions: You have a left ankle sprain. An Colt wrap was placed to help reduce swelling. Use Colt wrap as needed. You were given Tylenol 975 mg orally in the ER. Apply ice for 10-15 minutes 2-3 times a day for the next 2 days. Keep the ankle elevated to help reduce swelling. Follow-up as needed.
[2017-06-06] MEDS ORDERED: TYLENOL 325 MG ONE (18:42)
--- NOTE | 2017-06-07 08:47 | XRAY ---
Indication: Pain following injury. Comparison: None 3 views of the left ankle demonstrates mild soft tissue swelling and small first cuneiform spurring. No other bony, articular, or soft tissue abnormalities.
== END 2017-06-06 19:14 | disposition home or self-care (01) ==
LOC: ED 17:53
DX: S93.402A Sprain of unspecified ligament of left ankle, initial encounter (principal); M25.572 Pain in left ankle and joints of left foot; W17.2XXA Fall into hole, initial encounter; X50.0XXA Overexertion from strenuous movement or load, initial encounter
CPT/HCPCS: 73610; 99282; 99283; A9270-GY

== ENCOUNTER 2017-09-23 20:11 | Emergency (ER) | payer OTHER ==
[2017-09-23] MEDS ORDERED: NORCO 5/325 MG PO ONE (20:22)
[2017-09-23] MEDS ORDERED: NORCO 5/325 MG ONE (20:24)
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
[2017-09-23 21:16] VITALS: O2SAT 99
[2017-09-23 21:39] VITALS: BP 142/100; PULSE 100
--- NOTE | 2017-09-24 08:35 | XRAY ---
Indication: Pain following fall. Comparison: None 3 views of the left knee demonstrates tiny inferior patellar spurring. No other bony, articular, or soft tissue abnormalities. Comment: Preliminary interpretation was made by [facility]. No discrepancy.
== END 2017-09-23 21:42 | disposition home or self-care (01) ==
LOC: ED 20:11
DX: S83.92XA Sprain of unspecified site of left knee, initial encounter (principal)
CPT/HCPCS: 73562; 99283; A9270-GY

== ENCOUNTER 2018-02-14 14:37 | Emergency (ER) | payer OTHER ==
--- NOTE | 2018-02-14 14:53 | ERPHSYRPT ---
- History of Present Illness Time Seen by Provider: 02/14/18 14:48 Source: patient Exam Limitations: no limitations Physician History: 22 y/o white female presents with 2 day h/o worsening rash. pt cannot take benadryl because she gets a rash from that. she has had zantac in the past without any issues. pts dog and sig other were out in the anand and likely brought in poison nimco/sumac which pt is allergic to. pt denies any respiratory issues Timing/Duration: day(s) (2) Quality: burning, itchy Severity: mild Location: generalized Possible Causes: poison nimco, other (poison sumac) Associated Symptoms: rash, No difficulty breathing, No fever, No sore throat, No swelling/mass/lumps Allergies/Adverse Reactions: amoxicillin trihydrate [From Augmentin] Allergy (Intermediate, Verified 20:27) CHILDHOOD cefaclor [From Ceclor] Allergy (Intermediate, Verified 09/23/17 20:27) Hives Home Medications: Escitalopram Oxalate [Lexapro] 20 mg PO DAILY 09/23/17 [History] Hx Tetanus, Diphtheria Vaccination/Date Given: Yes Hx Influenza Vaccination/Date Given: Yes Hx Pneumococcal Vaccination/Date Given: No - Review of Systems Constitutional: No Symptoms, No Fever Eyes: No Symptoms Ears, Nose, & Throat: No Symptoms, No Ear Pain Respiratory: No Symptoms, No Cough, No Dyspnea, No Stridor, No Wheezing Cardiac: No Symptoms Abdominal/Gastrointestinal: No Symptoms, No Abdominal Pain, No Nausea, No Vomiting Genitourinary Symptoms: No Symptoms, No Dysuria, No Frequency, No Hematuria Musculoskeletal: No Symptoms, No Back Pain, No Neck Pain, No Fall, No Injury Skin: Rash Neurological: No Symptoms Psychological: No Symptoms Endocrine: No Symptoms Hematologic/Lymphatic: No Symptoms Immunological/Allergic: No Symptoms All Other Systems: Reviewed and Negative - Past Medical History Pertinent Past Medical History: Yes Neurological History: No Pertinent History ENT History: No Pertinent History Cardiac History: No Pertinent History Respiratory History: No Pertinent History Endocrine Medical History: No Pertinent History Musculoskeletal History: Other GI Medical History: Gallbladder Disease, Pancreatitis History: Other Psycho-Social History: Anxiety, Depression Female Reproductive Disorders: No Pertinent History Other Medical History: ovarian cysts,PANCREATITIS AND CHOLECYSTITIS, urinary retention 10/2015. KIDNEY FAILURE IN 01/2017 - Past Surgical History Past Surgical History: Yes Neuro Surgical History: No Pertinent History Cardiac: No Pertinent History Respiratory: No Pertinent History Gastrointestinal: Cholecystectomy, Other Genitourinary: No Pertinent History Musculoskeletal: Orthopedic Surgery Female Surgical History: No Pertinent History Other Surgical History: TONSILLECTOMY, ERCP, rt knee - Social History Smoking Status: Current every day smoker How long have you smoked: 4 Exposure to second hand smoke: Yes Drug Use: none Patient Lives Alone: No - Nursing Vital Signs Nursing Vital Signs: Initial Vital Signs Temperature 98.1 F 02/14/18 14:46 Pulse Rate 89 02/14/18 14:46 Respiratory Rate 18 02/14/18 14:46 Blood Pressure 164/94 02/14/18 14:46 O2 Sat by Pulse Oximetry 98 02/14/18 14:46 Pain Scale Pain Intensity 4 - Physical Exam General Appearance: no apparent distress, alert, anxiety Eye Exam: PERRL/EOMI, eyes nml inspection Ears, Nose, Throat Exam: normal ENT inspection, TMs normal Neck Exam: normal inspection, non-tender, supple Respiratory Exam: normal breath sounds, lungs clear, airway intact, No chest tenderness, No respiratory distress, No accessory muscle use, No wheezing, No stridor Cardiovascular Exam: regular rate/rhythm, normal heart sounds, normal peripheral pulses Gastrointestinal/Abdomen Exam: soft, normal bowel sounds, No tenderness, No guarding, No rebound Pelvic Exam: not done Rectal Exam: not done Back Exam: normal inspection, normal range of motion, No CVA tenderness, No vertebral tenderness Extremity Exam: normal inspection Neurologic Exam: alert, oriented x 3, cooperative, 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 Skin Exam: rash (multiple small slight pink and sl raised irregular border rash patches) Lymphatic Exam: No adenopathy SpO2 Interpretation: normal Oxygen Delivery: Room Air - Course Nursing assessment & vital signs reviewed: Yes - Progress Progress: unchanged Counseled pt/family regarding: diagnosis, need for follow-up - Departure Time of Disposition: 14:54 Departure Disposition: Home Clinical Impression: Contact dermatitis Condition: Stable Critical Care Time: No Referrals: MELVA ROJO [Primary Care Provider] - Instructions: Poison Nimco, Poison [place], Poison Sumac (DC) Additional Instructions: do not scratch. keep skin clean daily with soap and water. Prescriptions: Prednisone 10 mg [Deltasone 10 mg] 10 mg PO TID #12 tablet Ranitidine HCl [Zantac] 150 mg PO BID #10 tablet
[2018-02-14] MEDS ORDERED: DELTASONE 10 MG PO ONE (14:56)
[2018-02-14] MEDS ORDERED: Pepcid 20 MG PO ONE (14:56)
[2018-02-14] MEDS ORDERED: DELTASONE 20 MG ONE (14:59)
[2018-02-14] MEDS ORDERED: Pepcid 20 MG ONE (14:59)
[2018-02-14 15:00] VITALS: BP 164/94; PULSE 89; O2SAT 98
== END 2018-02-14 15:09 | disposition home or self-care (01) ==
LOC: ED 14:37
DX: L25.9 Unspecified contact dermatitis, unspecified cause (principal)
CPT/HCPCS: 99283; A9270-GY

== ENCOUNTER 2018-05-10 18:03 | Emergency (ER) | payer OTHER ==
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
[2018-05-10] MEDS ORDERED: Adacel Vial IM ONE ×2 (19:36→19:46)
[2018-05-10] MEDS ORDERED: TORAdol 30 mg Injection IM ONE (19:36)
[2018-05-10] MEDS ORDERED: TORAdol 30 mg Injection ONE (19:43)
[2018-05-10] MEDS ORDERED: NORCO 5/325 MG PO ONE (21:02)
[2018-05-10 21:04] VITALS: BP 121/69
[2018-05-10] MEDS ORDERED: NORCO 5/325 MG ONE (21:17)
[2018-05-10 21:25] VITALS: PULSE 86; O2SAT 99
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
== END 2018-05-10 21:25 | disposition home or self-care (01) ==
LOC: ED 18:03
DX: S60.221A Contusion of right hand, initial encounter (principal); S20.211A Contusion of right front wall of thorax, initial encounter; S60.311A Abrasion of right thumb, initial encounter; M79.641 Pain in right hand; R07.81 Pleurodynia; R68.84 Jaw pain; V50.5XXA Driver of pick-up truck or van injured in collision with pedestrian or animal in traffic accident, initial encounter
CPT/HCPCS: 70110; 71250; 73130; 90471; 90715; 96372; 99285; J1885; A9270-GY

== ENCOUNTER 2018-10-08 23:22 | Emergency (ER) | payer MEDICAID, OTHER ==
[2018-10-08 23:41] VITALS: O2SAT 98
--- NOTE | 2018-10-09 00:11 | ERPHSYRPT ---
- History of Present Illness Time Seen by Provider: 10/09/18 00:02 Source: patient Exam Limitations: no limitations Patient Subjective Stated Complaint: pt c/o rt ankle pain that radiates up leg to rt hip x 2 weeks. denies injury. reports hx of rt ankle fx without surgery. Triage Nursing Assessment: [place]/warm/dry, resp easy, pt ambulated to room without difficulty, a&ox4, no deformity, swelling, or bruising noted. Physician History: 23-year-old morbidly obese white female arrives with complaints of pain in her right ankle, symptoms for several days she states a door fell and struck the posterior portion of her right ankle she also states she is having pain in her right hip she states that pain has been radiating up into her legs she states she's been having tingling she is not having any problems moving. Past medical history includes pancreatitis, gallbladder disease, anxiety, depression, ovarian cysts, pancreatitis, cholecystectomy, urinary retention, kidney failure. Past surgical history includes cholecystectomy, orthopedic surgery, tonsillectomy, ERCP, right knee surgery. Timing/Duration: other (pain in her right hip 2-3 weeks.Pain right ankle 2-3 days) Severity: moderate Modifying Factors: Improves With: nothing Associated Symptoms: No nausea, No vomiting, No abdominal pain, No shortness of breath, No heartburn, No diaphoresis, No cough, No chills, No chest pain, No fever, No headaches, No loss of appetite, No malaise, No rash, No syncope, No seizure, No weakness Allergies/Adverse Reactions: amoxicillin trihydrate [From Augmentin] Allergy (Intermediate, Verified 23:28) CHILDHOOD cefaclor [From Ceclor] Allergy (Intermediate, Verified 10/08/18 23:28) Hives ibuprofen Adverse Reaction (Verified 10/08/18 23:28) Hx Tetanus, Diphtheria Vaccination/Date Given: Yes Hx Influenza Vaccination/Date Given: No Hx Pneumococcal Vaccination/Date Given: No Immunizations Up to Date: Yes - Review of Systems Constitutional: No Fever, No Chills Eyes: No Symptoms Ears, Nose, & Throat: No Symptoms Respiratory: No Cough, No Dyspnea Cardiac: No Chest Pain, No Edema, No Syncope Abdominal/Gastrointestinal: No Abdominal Pain, No Nausea, No Vomiting, No Diarrhea Genitourinary Symptoms: No Dysuria Musculoskeletal: Other (right hip and right ankle pain) Skin: No Rash Neurological: Parasthesia (paresthesia right leg) Psychological: No Symptoms Endocrine: No Symptoms All Other Systems: Reviewed and Negative - Past Medical History Pertinent Past Medical History: Yes Neurological History: No Pertinent History ENT History: No Pertinent History Cardiac History: No Pertinent History Respiratory History: No Pertinent History Endocrine Medical History: No Pertinent History Musculoskeletal History: Other GI Medical History: Gallbladder Disease, Pancreatitis History: Other Psycho-Social History: Anxiety, Depression Female Reproductive Disorders: No Pertinent History Other Medical History: ovarian cysts,PANCREATITIS AND CHOLECYSTITIS, urinary retention 10/2015. KIDNEY FAILURE IN 01/2017 - Past Surgical History Past Surgical History: Yes Neuro Surgical History: No Pertinent History Cardiac: No Pertinent History Respiratory: No Pertinent History Gastrointestinal: Cholecystectomy, Other Genitourinary: No Pertinent History Musculoskeletal: Orthopedic Surgery Female Surgical History: No Pertinent History Other Surgical History: TONSILLECTOMY, ERCP, rt knee - Social History Smoking Status: Former smoker How long have you smoked: 4 Exposure to second hand smoke: Yes Drug Use: none Patient Lives Alone: No - Female History Hx Last Menstrual Period: 10/04/18 Hx Now: No - Nursing Vital Signs Nursing Vital Signs: Initial Vital Signs Temperature 98.2 F 10/08/18 23:29 Pulse Rate 112 H 10/08/18 23:29 Respiratory Rate 18 10/08/18 23:29 Blood Pressure 161/97 10/08/18 23:29 O2 Sat by Pulse Oximetry 98 10/08/18 23:29 Pain Scale Pain Intensity 8 - Physical Exam General Appearance: no apparent distress, alert, obese Eye Exam: PERRL/EOMI, eyes nml inspection Ears, Nose, Throat Exam: normal ENT inspection, TMs normal, pharynx normal, moist mucous membranes Neck Exam: normal inspection, non-tender, supple, full range of motion Respiratory Exam: normal breath sounds, lungs clear, No respiratory distress Cardiovascular Exam: regular rate/rhythm, normal heart sounds, normal peripheral pulses, capillary refill <2 sec Gastrointestinal/Abdomen Exam: soft, normal bowel sounds, No tenderness, No mass Extremity Exam: other (right ankle tender with palpation posterior and laterally , pain with movement right lateral hip patient able to sit with hips flexed to 90 and knees extended without pain) Neurologic Exam: alert, oriented x 3, cooperative, arts and sciences dean II-XII nml as tested, normal mood/affect, nml cerebellar function, nml station & gait, sensation nml, No motor deficits Skin Exam: normal color, warm, dry, No rash Lymphatic Exam: No adenopathy SpO2 Interpretation: normal (98%) SpO2: 98 - Course Nursing assessment & vital signs reviewed: Yes - Radiology Exams L-Spine X-ray Interpretation: Interpreted by me (x-ray lumbar spine: Chronic degenerative changes, no acute fractures or subluxation. Compared to July) Pelvis X-ray Interpretation: Interpreted by me (X-ray pelvis: No fractures or subluxation) Right Ankle X-ray Interpretation: Interpreted by me (X-ray right ankle: No fractures or subluxation) Ordered Tests: Active Orders 24 hr Category Date Time Status ANKLE (3 VIEWS) Stat Exams 10/09/18 00:50 Taken LUMBAR LIMITED (2 OR 3 VIEWS) Stat Exams 10/09/18 00:50 Taken PELVIS (1 OR 2 VIEWS) Stat Exams 10/09/18 00:50 Taken CULTURE,URINE Stat Lab 10/09/18 00:20 Received HCG,QUALITATIVE URINE Stat Lab 10/09/18 00:20 Completed UA W/RFX UR CULTURE Stat Lab 10/09/18 00:20 Completed Urine Triage Profile Stat Lab 10/09/18 00:20 Completed Medication Summary Discontinued Medications Generic Name Dose Route Start Last Admin Trade Name Farhan PRN Reason Stop Dose Admin Hydrocodone Bitart/Acetaminophen 1 tab 10/09/18 00:54 10/09/18 01:11 Raymond 5/325 Mg PO 10/09/18 00:55 1 tab STAT ONE Administration Hydrocodone Bitart/Acetaminophen Confirm 10/09/18 01:11 Raymond 5/325 Mg Administered 10/09/18 01:12 Dose 1 tab .ROUTE .STK-MED ONE Lab/Rad Data: Laboratory Results 10/09/18 10/09/18 10/09/18 Range/Units 00:20 00:20 00:20 Urine Color YELLOW (YELLOW) Urine Appearance SLIGHTLY CLOUDY (CLEAR) Urine pH 6.0 (5-6) Ur Specific [place] 1.018 (1.005-1.025) Urine Protein NEGATIVE (Negative) Urine Ketones NEGATIVE (NEGATIVE) Urine Blood LARGE (0-5) Jayden/ul Urine Nitrite NEGATIVE (NEGATIVE) Urine Bilirubin NEGATIVE (NEGATIVE) Urine Urobilinogen NEGATIVE (0-1) mg/dL Ur Leukocyte Esterase MODERATE (NEGATIVE) Urine WBC (Auto) 16-25 (0-5) /HPF Urine RBC (Auto) 11-15 (0-2) /HPF U Epithel Cells (Auto) FEW (FEW) /HPF Urine Bacteria (Auto) FEW (NEGATIVE) /HPF Urine Mucus (Auto) SLIGHT (NEGATIVE) /HPF Urine Culture Reflexed YES (NO) Urine Glucose NEGATIVE (NEGATIVE) mg/dL Urine HCG, Qual NEGATIVE (Negative) Urine Opiates Level NEGATIVE (NEGATIVE) Ur Methadone NEGATIVE (NEGATIVE) Urine Barbiturates NEGATIVE (NEGATIVE) Ur Phencyclidine (PCP) NEGATIVE (NEGATIVE) Urine Amphetamine NEGATIVE (NEGATIVE) U Benzodiazepine Level NEGATIVE (NEGATIVE) Urine Cocaine NEGATIVE (NEGATIVE) Urine Marijuana (THC) POSITIVE (NEGATIVE) - Progress Progress: improved Progress Note: 10/09/18 02:09 23-year-old white female arrives with complaint of 2-3 weeks of pain in her right hip radiating down her right leg she states she has occasional paresthesia. She is also complaining of pain in her right ankle she states a door fell and struck her right ankle several days ago. On physical examination patient with pain with movement of her right hip, patient also with tenderness with movement and palpation to the right lateral and posterior ankle. Patient's Achilles is stable patient is able to plantar flex her right foot without any problems. She is able to sit with her hips flexed to 90 and her knee straight without any problems. Sensation is intact to bilateral feet dorsal pedal posterior tibial pulses are intact. Patient does have a urinary tract infection with 16-25 white cells and 11-15 red cells hCG is negative urine drug screen is positive for THC. I have reviewed the patient's inspect report I do not see any recent narcotics. Patient's x-rays are reviewed x-ray lumbar spine chronic degenerative changes no subluxation or fractures no change from July in 2018. X-ray pelvis no fractures no subluxation. X-ray right ankle no fractures or subluxation. Will go ahead and place patient on Tapestry Flexeril and Bactrim. We'll place Aircast on the patient's right ankle. She was offered crutches she does not want this. Impression 1 right hip pain. 2 sciatica. 3 right ankle strain. Plan as noted above. Follow-up with family doctor. - Departure Departure Disposition: Home Clinical Impression: Right hip pain Sciatica Qualifiers: Laterality: right Qualified Code(s): M54.31 - Sciatica, right side Right ankle strain Qualifiers: Encounter type: initial encounter Qualified Code(s): S96.911A - Strain of unspecified muscle and tendon at ankle and foot level, right foot, initial encounter UTI (urinary tract infection) Qualifiers: Urinary tract infection type: site unspecified Hematuria presence: with hematuria Qualified Code(s): N39.0 - Urinary tract infection, site not specified ; R31.9 - Hematuria, unspecified Condition: Fair Critical Care Time: No Referrals: MELVA ROJO [Primary Care Provider] - Additional Instructions: Return home ice to right hip right ankle 24-48 hours. Raymond as prescribed. Flexeril as prescribed. Bactrim as prescribed. Follow-up with your family doctor. Return for acute distress or for severe symptoms. Your x-rays have been preliminarily read they will be reread later today. you will be contacted if any discrepancies are noted. Prescriptions: Hydrocodone/APAP 5-325 Tab^^^ [Raymond 5-325 Tablet^^^] 1 tab PO Q6HPRN PRN #10 tablet MDD 6 PRN Reason: right ankle pain Cyclobenzaprine HCl 10 mg [Cyclobenzaprine 10 MG] 10 mg PO TID PRN #15 tablet Smz/Tmp Ds Tablet [Bactrim Ds Tablet] 1 tab PO BID #20 tablet
[2018-10-09 00:51] LABS: Appearance SLIGHTLY CLOUDY (CLEAR); Bacteria FEW /HPF (NEGATIVE); Bilirubin NEGATIVE (NEGATIVE); Blood LARGE Ery/ul (0-5); Epithelial Cells FEW /HPF (FEW); Glucose NEGATIVE (NEGATIVE); Ketones NEGATIVE (NEGATIVE); Leukocyte Esterase MODERATE (NEGATIVE); Mucus SLIGHT /HPF (NEGATIVE); Nitrite NEGATIVE (NEGATIVE); Protein,Urine Dip NEGATIVE (Negative); Specific Gravity 1.018 (1.005-1.025); Urobilinogen NEGATIVE mg/dL (0-1)
[2018-10-09] MEDS ORDERED: NORCO 5/325 MG PO ONE ×2 (00:54→02:18)
[2018-10-09 00:58] LABS: Amphetamine,Urine NEGATIVE (NEGATIVE); Barbiturate,Urine NEGATIVE (NEGATIVE); Benzodiazepine,Urine NEGATIVE (NEGATIVE); Cocaine,Urine NEGATIVE (NEGATIVE); Methadone,Urine NEGATIVE (NEGATIVE); Opiate,Urine NEGATIVE (NEGATIVE); PCP,Urine NEGATIVE (NEGATIVE); THC,Urine POSITIVE (NEGATIVE)
[2018-10-09] MEDS ORDERED: NORCO 5/325 MG ONE ×2 (01:11→02:24)
[2018-10-09] MEDS ORDERED: BACTRIM DS TABLET PO ONE ×2 (02:19→02:24)
[2018-10-09 02:38] VITALS: BP 147/82; PULSE 72
--- NOTE | 2018-10-09 09:03 | XRAY ---
Indication: Right hip pain. Comparison: None Single AP pelvis demonstrates tiny radiolucency involving the tip of the right superior acetabulum. Nondisplaced fracture is of primary concern. No other bony, articular, or soft tissue abnormalities. Comment: Above finding not reported on preliminary interpretation by the interpreting ER clinician. Telephone report given to Dr. Ellington in the ER at 0858 hours on October 09, 2018.
--- NOTE | 2018-10-09 09:05 | XRAY ---
Indication: Right hip pain. Comparison: August 21, 2017. AP/lateral lumbar spine again demonstrates 4 lumbar segments with sacralized L5. Vertebral body heights and disc spaces maintained. Stable minimal multilevel anterior endplate spurring. No new/acute findings.
--- NOTE | 2018-10-09 09:07 | XRAY ---
Indication: Pain. No known injury. Comparison: None 3 views of the right ankle demonstrates tiny plantar heel spur. No other bony, articular, or soft tissue abnormalities.
== END 2018-10-09 02:36 | disposition home or self-care (01) ==
LOC: ED 23:22
DX: M25.551 Pain in right hip (principal); M54.31 Sciatica, right side; S96.911A Strain of unspecified muscle and tendon at ankle and foot level, right foot, initial encounter; N39.0 Urinary tract infection, site not specified
CPT/HCPCS: 72100; 72170; 73610; 80307; 81001; 84703; 87086; 99284; A9270-GY

== ENCOUNTER 2019-08-31 12:34 | Emergency (ER) | payer SELFPAY ==
[2019-08-31] MEDS ORDERED: BABY ASPIRIN 81 MG CHEW PO ONE (12:46)
[2019-08-31] MEDS ORDERED: MORPHINE SULFATE 4 MG INJ IV ONE (12:46)
--- NOTE | 2019-08-31 12:50 | ERPHSYRPT ---
- History of Present Illness Time Seen by Provider: 08/31/19 12:45 Historian: patient Exam Limitations: no limitations Physician History: Is a 29-year-old white female who presents with a complaint of intermittent heart racing and chest pain since yesterday evening she did have one episode of nausea and vomiting the pain comes and goes after the episode she does seem a little bit dizzy and short of breath. Her only risk factor is smoking. She has had anxiety in the past and thought this might be a panic attack. And under great stress recently because of the illness of her grandmother. Timing/Duration: yesterday Activities at Onset: none Quality: stabbing Location: substernal Chest Pain Radiation: no radiation Severity of Pain-Max: mild Severity of Pain-Current: mild Modifying Factors: Improves With: nothing Associated Symptoms: nausea, vomiting, palpitations Nitro Today/Relief: no nitro taken today Aspirin Treatment Today: no aspirin today Allergies/Adverse Reactions: amoxicillin trihydrate [From Augmentin] Allergy (Intermediate, Verified 12:48) CHILDHOOD cefaclor [From Ceclor] Allergy (Intermediate, Verified 08/31/19 12:48) Hives ibuprofen Adverse Reaction (Verified 08/31/19 12:48) Hx Tetanus, Diphtheria Vaccination/Date Given: Yes Hx Influenza Vaccination/Date Given: No Hx Pneumococcal Vaccination/Date Given: No - Review of Systems Constitutional: No Fever, No Chills Eyes: No Symptoms Ears, Nose, & Throat: No Symptoms Respiratory: Dyspnea, No Cough Cardiac: Chest Pain, No Edema, No Syncope Abdominal/Gastrointestinal: Nausea, Vomiting, No Abdominal Pain, No Diarrhea Genitourinary Symptoms: No Dysuria Musculoskeletal: No Back Pain, No Neck Pain Skin: No Rash Neurological: No Dizziness, No Focal Weakness, No Sensory Changes Psychological: No Symptoms Endocrine: No Symptoms All Other Systems: Reviewed and Negative - Past Medical History Pertinent Past Medical History: Yes Neurological History: No Pertinent History ENT History: No Pertinent History Cardiac History: No Pertinent History Respiratory History: No Pertinent History Endocrine Medical History: No Pertinent History Musculoskeletal History: Other GI Medical History: Gallbladder Disease, Pancreatitis History: Other Psycho-Social History: Anxiety, Depression Female Reproductive Disorders: No Pertinent History Other Medical History: ovarian cysts,PANCREATITIS AND CHOLECYSTITIS, urinary retention 10/2015. KIDNEY FAILURE IN 01/2017 - Past Surgical History Past Surgical History: Yes Neuro Surgical History: No Pertinent History Cardiac: No Pertinent History Respiratory: No Pertinent History Gastrointestinal: Cholecystectomy, Other Genitourinary: No Pertinent History Musculoskeletal: Orthopedic Surgery Female Surgical History: No Pertinent History Other Surgical History: TONSILLECTOMY, ERCP, rt knee - Social History Smoking Status: Former smoker How long have you smoked: 4 Exposure to second hand smoke: Yes Drug Use: none Patient Lives Alone: No - Nursing Vital Signs Nursing Vital Signs: Initial Vital Signs Temperature 97.5 F 08/31/19 12:35 Pulse Rate 97 H 08/31/19 12:35 Respiratory Rate 22 08/31/19 12:35 Blood Pressure 165/96 08/31/19 12:35 O2 Sat by Pulse Oximetry 100 08/31/19 12:35 Pain Scale Pain Intensity 4 - Physical Exam General Appearance: mild distress Eye Exam: PERRL/EOMI, eyes nml inspection Ears, Nose, Throat Exam: normal ENT inspection, moist mucous membranes Neck Exam: normal inspection, non-tender, supple, full range of motion Respiratory Exam: normal breath sounds, lungs clear, No respiratory distress Cardiovascular Exam: regular rate/rhythm, normal heart sounds Gastrointestinal/Abdomen Exam: soft, No tenderness, No mass Back Exam: normal inspection, No CVA tenderness, No vertebral tenderness Extremity Exam: normal inspection, normal range of motion Neurologic Exam: alert, oriented x 3, cooperative, normal mood/affect, sensation nml, No motor deficits Skin Exam: normal color, warm, dry - Course Nursing assessment & vital signs reviewed: Yes EKG Interpreted by Me: RATE ([id number]), Sinus Tach, NORMAL AXIS, NORMAL INTERVALS, NORMAL QRS, Non-specific ST Changes - Radiology Exams Chest X-ray Interpretation: Interpreted by me, Negative Ordered Tests: Active Orders 24 hr Category Date Time Status Assurance Specialist STAT Care 08/31/19 12:46 Active EKG-ER Only STAT Care 08/31/19 12:46 Active IV Insertion STAT Care 08/31/19 12:46 Active CHEST 1 VIEW (PORTABLE) Stat Exams 08/31/19 12:46 Taken CBC W DIFF Stat Lab 08/31/19 13:15 Completed CMP Stat Lab 08/31/19 13:15 Completed CULTURE,URINE Stat Lab 08/31/19 13:55 Received D-DIMER QUANTITATIVE Stat Lab 08/31/19 13:15 Completed HCG QUALITATIVE,SERUM Stat Lab 08/31/19 13:15 Completed NT PRO BNP Stat Lab 08/31/19 13:15 Completed TROPONIN Q3H Lab 08/31/19 13:15 Completed TROPONIN Q3H Lab 08/31/19 16:00 Ordered TROPONIN Q3H Lab 08/31/19 19:00 Ordered TROPONIN Q3H Lab 08/31/19 22:00 Ordered TROPONIN Q3H Lab 09/01/19 01:00 Ordered UA W/RFX UR CULTURE Stat Lab 08/31/19 13:55 Completed Medication Summary Generic Name Dose Route Start Last Admin Trade Name Freq PRN Reason Stop Dose Admin Sodium Chloride 1,000 mls @ 100 mls/hr 08/31/19 13:00 08/31/19 13:00 Sodium Chloride 0.9% 1000 Ml IV 09/30/19 12:59 100 mls/hr .Q10H FREDO Administration Discontinued Medications Generic Name Dose Route Start Last Admin Trade Name Freq PRN Reason Stop Dose Admin Aspirin 324 mg 08/31/19 12:46 08/31/19 12:53 Baby Aspirin 81 Mg Chew PO 08/31/19 12:47 324 mg STAT ONE Administration Aspirin Confirm 08/31/19 12:52 Baby Aspirin 81 Mg Chew Administered 08/31/19 12:53 Dose 324 mg .ROUTE .STK-MED ONE Morphine Sulfate 4 mg 08/31/19 12:46 08/31/19 12:54 Morphine Sulfate 4 Mg Inj IV 08/31/19 12:47 4 mg STAT ONE Administration Morphine Sulfate Confirm 08/31/19 12:52 Morphine Sulfate 4 Mg Inj Administered 08/31/19 12:53 Dose 4 mg .ROUTE .STK-MED ONE Lab/Rad Data: Laboratory Result Diagrams 08/31/19 13:15 08/31/19 13:15 Laboratory Results 08/31/19 08/31/19 08/31/19 Range/Units 13:55 13:15 13:15 WBC (4.0-10.5) K/mm3 RBC (4.1-5.4) M/mm3 Hgb (12.0-16.0) gm/dl Hct (35-47) % MCV (78-100) fl MCH (26-32) pg MCHC (32-36) g/dl RDW (11.5-14.0) % Plt Count (150-450) K/mm3 MPV (7.5-11.0) fl Gran % (36.0-66.0) % Eos # (Auto) (0-0.5) Absolute Lymphs (auto) (1.0-4.6) Absolute Monos (auto) (0.0-1.3) Lymphocytes % (24.0-44.0) % Monocytes % (0.0-12.0) % Eosinophils % (0.00-5.0) % Basophils % (0.0-0.4) % Absolute Granulocytes (1.4-6.9) Basophils # (0-0.4) D-Dimer (215-500) ng/mL Sodium (137-145) mmol/L Potassium (3.5-5.1) mmol/L Chloride (98-107) mmol/L Carbon Dioxide (22-30) mmol/L Anion Gap (5-15) MEQ/L BUN (7-17) mg/dL Creatinine (0.52-1.04) mg/dL Estimated GFR ML/MIN Glucose (74-106) mg/dL Calcium (8.4-10.2) mg/dL Total Bilirubin (0.2-1.3) mg/dL AST (14-36) U/L ALT (0-35) U/L Alkaline Phosphatase (38-126) U/L Troponin I < 0.012 (0.000-0.034) ng/mL NT-Pro-B Natriuret Pep (0-450) pg/mL Serum Total Protein (6.3-8.2) g/dL Albumin (3.5-5.0) g/dL Serum , Qual NEGATIVE (Negative) Urine Color YELLOW (YELLOW) Urine Appearance CLOUDY (CLEAR) Urine pH 8.0 (5-6) Ur Specific [place] 1.021 (1.005-1.025) Urine Protein 30 (Negative) Urine Ketones NEGATIVE (NEGATIVE) Urine Blood NEGATIVE (0-5) Jayden/ul Urine Nitrite NEGATIVE (NEGATIVE) Urine Bilirubin NEGATIVE (NEGATIVE) Urine Urobilinogen NEGATIVE (0-1) mg/dL Ur Leukocyte Esterase MODERATE (NEGATIVE) Urine WBC (Auto) 6-10 (0-5) /HPF Urine RBC (Auto) 3-5 (0-2) /HPF U Epithel Cells (Auto) MANY (FEW) /HPF Urine Bacteria (Auto) FEW (NEGATIVE) /HPF Urine Mucus (Auto) MODERATE (NEGATIVE) /HPF Urine Culture Reflexed YES (NO) Urine Glucose NEGATIVE (NEGATIVE) mg/dL Slides for Path Review 08/31/19 08/31/19 08/31/19 Range/Units 13:15 13:15 13:15 WBC 10.4 (4.0-10.5) K/mm3 RBC 4.33 (4.1-5.4) M/mm3 Hgb 8.9 L (12.0-16.0) gm/dl Hct 30.6 L (35-47) % MCV 70.7 L (78-100) fl MCH 20.6 L (26-32) pg MCHC 29.1 L (32-36) g/dl RDW 19.4 H (11.5-14.0) % Plt Count 410 (150-450) K/mm3 MPV 10.9 (7.5-11.0) fl Gran % 69.6 H (36.0-66.0) % Eos # (Auto) 0.33 (0-0.5) Absolute Lymphs (auto) 2.21 (1.0-4.6) Absolute Monos (auto) 0.60 (0.0-1.3) Lymphocytes % 21.2 L (24.0-44.0) % Monocytes % 5.7 (0.0-12.0) % Eosinophils % 3.2 (0.00-5.0) % Basophils % 0.3 (0.0-0.4) % Absolute Granulocytes 7.27 H (1.4-6.9) Basophils # 0.03 (0-0.4) D-Dimer 486 (215-500) ng/mL Sodium 141 (137-145) mmol/L Potassium 3.5 (3.5-5.1) mmol/L Chloride 106 (98-107) mmol/L Carbon Dioxide 28 (22-30) mmol/L Anion Gap 10.0 (5-15) MEQ/L BUN 8 (7-17) mg/dL Creatinine 0.59 (0.52-1.04) mg/dL Estimated GFR > 60.0 ML/MIN Glucose 110 H (74-106) mg/dL Calcium 9.2 (8.4-10.2) mg/dL Total Bilirubin 0.40 (0.2-1.3) mg/dL AST 29 (14-36) U/L ALT 21 (0-35) U/L Alkaline Phosphatase 78 (38-126) U/L Troponin I (0.000-0.034) ng/mL NT-Pro-B Natriuret Pep 78.1 (0-450) pg/mL Serum Total Protein 7.9 (6.3-8.2) g/dL Albumin 3.9 (3.5-5.0) g/dL Serum , Qual (Negative) Urine Color (YELLOW) Urine Appearance (CLEAR) Urine pH (5-6) Ur Specific [place] (1.005-1.025) Urine Protein (Negative) Urine Ketones (NEGATIVE) Urine Blood (0-5) Jayden/ul Urine Nitrite (NEGATIVE) Urine Bilirubin (NEGATIVE) Urine Urobilinogen (0-1) mg/dL Ur Leukocyte Esterase (NEGATIVE) Urine WBC (Auto) (0-5) /HPF Urine RBC (Auto) (0-2) /HPF U Epithel Cells (Auto) (FEW) /HPF Urine Bacteria (Auto) (NEGATIVE) /HPF Urine Mucus (Auto) (NEGATIVE) /HPF Urine Culture Reflexed (NO) Urine Glucose (NEGATIVE) mg/dL Slides for Path Review YES - Progress Progress: improved Air Movement: good Blood Culture(s) Obtained: No Antibiotics given: No - Departure Departure Disposition: Home Clinical Impression: Stress reaction, Microcytic anemia, UTI (urinary tract infection) Condition: Stable Critical Care Time: No Referrals: MELVA ROJO [Primary Care Provider] - Instructions: Adjustment Disorder, Chest Pain (DC) Prescriptions: Alprazolam 1 mg [Xanax 1 mg] 1 mg PO TID 3 Days #9 tablet Ferrous Sulfate 325 mg [Feosol 325 mg] 325 mg PO DAILY 30 Days #30 tablet Sulfamethoxazole/Trimethoprim [Bactrim Ds Tablet] 1 each PO BID 10 Days #20 tablet
[2019-08-31] MEDS ORDERED: MORPHINE SULFATE 4 MG INJ ONE (12:52)
[2019-08-31] MEDS ORDERED: Sodium Chloride 0.9% 1000 ML 1,000 ML ONE (12:52)
[2019-08-31] MEDS ORDERED: BABY ASPIRIN 81 MG CHEW ONE (12:52)
[2019-08-31] MEDS ORDERED: Sodium Chloride 0.9% 1000 ML 1,000 ML IV SCH (13:00)
[2019-08-31 13:23] LABS: Absolute Neutrophil Ct (ANC) 7.27 (1.4-6.9); BASOPHIL % 0.3 % (0.0-0.4); Basophil (Absolute #) 0.03 (0-0.4); Eosinophil % 3.2 % (0.00-5.0); Eosinophil (Absolute #) 0.33 (0-0.5); Hematocrit 30.6 % (35-47); Hemoglobin 8.9 gm/dl (12.0-16.0); Lymphocyte (Absolute #) 2.21 (1.0-4.6); Lymphocytes % 21.2 % (24.0-44.0); Mean Cell Volume 70.7 fl (78-100); Mean Corpuscular Hemoglobin 20.6 pg (26-32); Mean Corpuscular Hgb Concent. 29.1 g/dl (32-36); Mean Platelet Volume 10.9 fl (7.5-11.0); Monocytes % 5.7 % (0.0-12.0); Neutrophil % 69.6 % (36.0-66.0); Platelet Count 410 K/mm3 (150-450); Red Blood Count 4.33 M/mm3 (4.1-5.4); Red Cell Distribution Width 19.4 % (11.5-14.0); White Blood Count 10.4 K/mm3 (4.0-10.5)
[2019-08-31 13:45] LABS: ALBUMIN 3.9 g/dL (3.5-5.0); ALKALINE PHOSPHATASE 78 U/L (38-126); BLOOD UREA NITROGEN 8 mg/dL (7-17); CHLORIDE 106 mmol/L (98-107); Calcium 9.2 mg/dL (8.4-10.2); Carbon Dioxide 28 mmol/L (22-30); Creatinine 1 0.59 mg/dL (0.52-1.04); Glucose 110 mg/dL (74-106); NT PRO BNP 78.1 pg/mL (0-450); Potassium 3.5 mmol/L (3.5-5.1); SGOT/AST 29 U/L (14-36); SGPT/ALT 21 U/L (0-35); SODIUM 141 mmol/L (137-145); Total Protein 7.9 g/dL (6.3-8.2)
[2019-08-31 13:59] LABS: Slide Review 1 YES
[2019-08-31 14:03] LABS: Appearance CLOUDY (CLEAR); Bacteria FEW /HPF (NEGATIVE); Bilirubin NEGATIVE (NEGATIVE); Blood NEGATIVE Ery/ul (0-5); Epithelial Cells MANY /HPF (FEW); Glucose NEGATIVE (NEGATIVE); Ketones NEGATIVE (NEGATIVE); Leukocyte Esterase MODERATE (NEGATIVE); Mucus MODERATE /HPF (NEGATIVE); Nitrite NEGATIVE (NEGATIVE); Protein,Urine Dip 30 (Negative); Specific Gravity 1.021 (1.005-1.025); Urobilinogen NEGATIVE mg/dL (0-1)
[2019-08-31 14:45] VITALS: BP 159/90; PULSE 82; O2SAT 98
--- NOTE | 2019-08-31 20:33 | XRAY ---
Indication: Chest pain, short of breath, and tachycardia. Comparison: November 06, 2016. Portable chest again demonstrates normal heart, lungs, and bony thorax.
== END 2019-08-31 14:49 | disposition home or self-care (01) ==
LOC: ED 12:34
DX: F43.9 Reaction to severe stress, unspecified (principal); D50.9 Iron deficiency anemia, unspecified; N39.0 Urinary tract infection, site not specified; R07.9 Chest pain, unspecified; R11.2 Nausea with vomiting, unspecified; R00.2 Palpitations
CPT/HCPCS: 36415; 71045; 80053; 81001; 81025; 83880; 84484; 85025; 85379; 87086; 93005; 93041; 96360; 96374; 99284; J2270; A9270-GY

== ENCOUNTER 2019-11-02 17:22 | Emergency (ER) | payer OTHER ==
--- NOTE | 2019-11-02 18:03 | ERPHSYRPT ---
- History of Present Illness Time Seen by Provider: 11/02/19 17:35 Source: patient Exam Limitations: no limitations Patient Subjective Stated Complaint: pt reports approx 45 mins ago she stepped onto a wood pallet and it broke. pt reports her foot with through the pallet and turned inward at a sharp angle. pt reports pain to the lateral left ankle as well as the dorsal foot. pt unable to bear weight on the left foot at this time. Triage Nursing Assessment: pt is aox3, pupils perrl, afebrile, resps easy and non labored, cap refill < 3 seconds, radial pulses strong and equal, pt skin pink warm dry. slight swelling noted to the dorsal left foot. skin is intact. pedal pulse strong, regular. sensation intact, ROM decreased due to pain. Physician History: Twisted L ankle when she stepped on a pallet which broke. Happened 45 min [employer]. Unable to bear wt. c/o pain in ankle and lateral foot. Rates pain as severe. arrived per PV. Method of Injury: fell Occurred: this afternoon Quality: throbbing Severity of Pain-Max: severe Severity of Pain-Current: severe Lower Extremities Pain: foot: left, ankle: left Modifying Factors: Improves With: movement Associated Symptoms: unable to bear weight Allergies/Adverse Reactions: amoxicillin trihydrate [From Augmentin] Allergy (Intermediate, Verified 17:30) Hives cefaclor [From Ceclor] Allergy (Intermediate, Verified 11/02/19 17:30) Hives ibuprofen Adverse Reaction (Verified 11/02/19 17:30) hx of renal failure, advised by PCP to avoid Home Medications: Clonazepam 0.5 mg [Klonopin 0.5 MG] 0.5 mg PO DAILY 10/14/19 [History] Levothyroxine Sodium 25 Mcg [Synthroid 25 Mcg] 25 mcg PO DAILY 10/14/19 [ History] Sertraline HCl 50 mg [Zoloft 50 mg Tablet] 50 mg PO DAILY 10/14/19 [History] Hx Tetanus, Diphtheria Vaccination/Date Given: Yes Hx Influenza Vaccination/Date Given: Yes Hx Pneumococcal Vaccination/Date Given: No Immunizations Up to Date: Yes Travel Risk - International Travel Have you traveled outside of the country in past 3 weeks: No Have you or anyone close to you been diagnosed with or: No Do your reside in a community with a known COVID-19 case?: Yes If Yes where:: [place] - Coronavirus Screening Has patient experienced Coronavirus symptoms: No - Review of Systems Constitutional: No Fever, No Chills Eyes: No Symptoms Ears, Nose, & Throat: No Symptoms Respiratory: No Cough, No Dyspnea Cardiac: No Chest Pain, No Edema, No Syncope Abdominal/Gastrointestinal: No Abdominal Pain, No Nausea, No Vomiting, No Diarrhea Genitourinary Symptoms: No Dysuria Musculoskeletal: Joint Pain, Joint Swelling, No Back Pain, No Neck Pain Skin: No Rash Neurological: No Dizziness, No Focal Weakness, No Sensory Changes Psychological: No Symptoms Endocrine: No Symptoms All Other Systems: Reviewed and Negative - Past Medical History Pertinent Past Medical History: Yes Neurological History: No Pertinent History ENT History: No Pertinent History Cardiac History: No Pertinent History Respiratory History: No Pertinent History Endocrine Medical History: No Pertinent History Musculoskeletal History: Other GI Medical History: Gallbladder Disease, Pancreatitis History: Other Psycho-Social History: Anxiety, Depression Female Reproductive Disorders: No Pertinent History Other Medical History: ovarian cysts,PANCREATITIS AND CHOLECYSTITIS, urinary retention 10/2015. KIDNEY FAILURE IN 01/2017, low iron levels - Past Surgical History Past Surgical History: Yes Neuro Surgical History: No Pertinent History Cardiac: No Pertinent History Respiratory: No Pertinent History Gastrointestinal: Cholecystectomy, Other Genitourinary: No Pertinent History Musculoskeletal: Orthopedic Surgery Female Surgical History: No Pertinent History Other Surgical History: TONSILLECTOMY, ERCP, rt knee - Social History Smoking Status: Former smoker How long have you smoked: 4 Exposure to second hand smoke: Yes Drug Use: none Patient Lives Alone: No - Female History Hx Last Menstrual Period: 11/02/19 Hx Now: No - Nursing Vital Signs Nursing Vital Signs: Initial Vital Signs Pulse Rate 89 11/02/19 17:30 Respiratory Rate 24 11/02/19 17:30 O2 Sat by Pulse Oximetry 100 11/02/19 17:30 Pain Scale Pain Intensity 8 - Physical Exam General Appearance: mild distress Eyes, Ears, Nose, Throat Exam: moist mucous membranes Neck Exam: non-tender, supple Cardiovascular/Respiratory Exam: chest non-tender, normal breath sounds, regular rate/rhythm, no respiratory distress Gastrointestinal/Abdominal Exam: non-tender, guarding Back Exam: normal inspection, No vertebral tenderness Hips Exam: bilateral: non-tender, normal inspection, normal range of motion Legs Exam: bilateral leg: non-tender, normal inspection, normal range of motion Knees Exam: bilateral knee: non-tender, normal inspection, normal range of motion Ankle Exam: left ankle: bone tenderness, limited range of motion, pain, soft tissue tenderness, swelling Foot Exam: left foot: bone tenderness, soft tissue tenderness, swelling DTR - Lower Extremities Exam: knee (R): 2+, knee (L): 2+ Neuro/Tendon Exam: normal sensation, normal motor functions Mental Status Exam: alert, oriented x 3, cooperative Skin Exam: normal color, warm, dry SpO2 Interpretation: normal SpO2: 100 O2 Delivery: Room Air - Course Nursing assessment & vital signs reviewed: Yes - Radiology Exams Left Foot X-ray Interpretation: Interpreted by me, Other Ordered Tests: Active Orders 24 hr Category Date Time Status ANKLE (3 VIEWS) Stat Exams 11/02/19 17:52 Taken FOOT (MINIMUM 3 VIEWS) Stat Exams 11/02/19 17:52 Taken - Progress Progress: improved - Departure Departure Disposition: Home Clinical Impression: Sprain and strain of left ankle Condition: Stable Critical Care Time: No Referrals: MELVA ROJO [Primary Care Provider] - Instructions: Ankle Sprain (DC) Prescriptions: Tramadol HCl 50 mg PO Q6H 3 Days #10 tablet
[2019-11-02 18:25] VITALS: BP 118/74; PULSE 84; O2SAT 98
--- NOTE | 2019-11-02 19:30 | XRAY ---
Indication: Pain following fall. Comparison: June 06, 2017. 3 view left ankle again demonstrates mild lateral soft tissue swelling. No other bony, articular, or soft tissue abnormalities.
--- NOTE | 2019-11-02 19:32 | XRAY ---
Indication: Pain following fall. Comparison: None 3 nonweightbearing views left foot demonstrates 1st cuneiform spur similar in appearance to left ankle radiograph June 06, 2017. No other bony, articular, or soft tissue abnormalities.
== END 2019-11-02 18:24 | disposition home or self-care (01) ==
LOC: ED 17:22
DX: S93.402A Sprain of unspecified ligament of left ankle, initial encounter (principal); W01.198A Fall on same level from slipping, tripping and stumbling with subsequent striking against other object, initial encounter; Y93.89 Activity, other specified; Y92.89 Other specified places as the place of occurrence of the external cause; M25.572 Pain in left ankle and joints of left foot
CPT/HCPCS: 73610; 73630; 99283

== ENCOUNTER 2020-08-22 07:06 | Emergency (ER) | payer OTHER ==
[2020-08-22] MEDS ORDERED: Sodium Chloride 0.9% 1000 ML 1,000 ML IV STA (07:09)
[2020-08-22] MEDS ORDERED: Ativan 2 MG/1 ML VIAL IV ONE (07:19)
[2020-08-22] MEDS ORDERED: PROTONIX 40 MG IV IV ONE ×2 (07:20→07:24)
[2020-08-22] MEDS ORDERED: Sodium Chloride 0.9% 1000 ML 1,000 ML ONE (07:24)
[2020-08-22] MEDS ORDERED: Ativan 2 MG/1 ML VIAL ONE (07:24)
[2020-08-22 07:29] LABS: BASOPHIL % 0.4 % (0.0-0.4); Basophil (Absolute #) 0.04 (0-0.4); Hemoglobin 12.5 gm/dl (12.0-16.0); Lymphocyte (Absolute #) 3.46 (1.0-4.6); Lymphocytes % 34.6 % (24.0-44.0); Mean Cell Volume 83.5 fl (78-100); Mean Corpuscular Hemoglobin 25.5 pg (26-32); Mean Corpuscular Hgb Concent. 30.5 g/dl (32-36); Mean Platelet Volume 11.2 fl (7.5-11.0); PROTIME 11.3 SECONDS (9.95-12.35); Platelet Count 352 K/mm3 (150-450); Red Blood Count 4.91 M/mm3 (4.1-5.4); Red Cell Distribution Width 16.5 % (11.5-14.0)
[2020-08-22 07:37] LABS: Appearance CLOUDY (CLEAR); Bacteria FEW /HPF (NEGATIVE); Bilirubin NEGATIVE (NEGATIVE); Blood LARGE Ery/ul (0-5); Epithelial Cells RARE /HPF (FEW); Glucose NEGATIVE (NEGATIVE); Ketones NEGATIVE (NEGATIVE); Leukocyte Esterase SMALL (NEGATIVE); Nitrite NEGATIVE (NEGATIVE); Protein,Urine Dip 30 (Negative); Specific Gravity 1.009 (1.005-1.025); Urobilinogen NEGATIVE mg/dL (0-1); WBC >100 /HPF (0-5)
[2020-08-22 07:39] LABS: RBC >101 /HPF (0-2)
--- NOTE | 2020-08-22 07:43 | XRAY ---
Indication: Chest pain/pressure. Comparison: August 31, 2019. Portable chest again demonstrates normal heart, lungs, and bony thorax.
[2020-08-22 07:47] LABS: Amphetamine,Urine NEGATIVE (NEGATIVE); Barbiturate,Urine NEGATIVE (NEGATIVE); Benzodiazepine,Urine NEGATIVE (NEGATIVE); Cocaine,Urine NEGATIVE (NEGATIVE); Methadone,Urine NEGATIVE (NEGATIVE); Opiate,Urine NEGATIVE (NEGATIVE); PCP,Urine NEGATIVE (NEGATIVE); THC,Urine NEGATIVE (NEGATIVE)
[2020-08-22 07:53] LABS: NT PRO BNP 25.3 pg/mL (0-450)
[2020-08-22 07:55] LABS: ALBUMIN 3.8 g/dL (3.5-5.0); ALKALINE PHOSPHATASE 69 U/L (38-126); ANION GAP 11.1 MEQ/L (5-15); BLOOD UREA NITROGEN 11 mg/dL (7-17); CHLORIDE 106 mmol/L (98-107); Calcium 9.1 mg/dL (8.4-10.2); Carbon Dioxide 25 mmol/L (22-30); EST GLOMERULAR FILTRATION RATE > 60.0 ML/MIN; Glucose 104 mg/dL (74-106); Potassium 4.1 mmol/L (3.5-5.1); SGOT/AST 26 U/L (14-36); SGPT/ALT 27 U/L (0-35); SODIUM 137 mmol/L (137-145); TROPONIN < 0.012 ng/mL (0.000-0.034); Total Protein 7.1 g/dL (6.3-8.2)
--- NOTE | 2020-08-22 08:11 | ERPHSYRPT ---
- History of Present Illness Time Seen by Provider: 08/22/20 07:20 Source: patient Exam Limitations: no limitations Patient Subjective Stated Complaint: Chest pain Triage Nursing Assessment: Patient ambulated back to ED and transferred self to bed. Patient A+O X3. Patient's skin pink, warm and dry. Patient complains of chest pain in the middle of chest that goes underneath ari breasts constant sharp, pressure 8/10. Patient states the pain started on Sunday and it has gotten worse. Patient tearful. Patient states she had a panic attack late F riday night and the pain has gotten worse since. Lungs clear a/p ari. Physician History: Patient is a 25-year-old morbidly obese white female who presents with a complaint of chest pain and pressure. She has been followed recently for episodes of dizziness near syncope and palpitations. Her palpitations are worse at night. She had a prolonged episode of palpitations on Sunday night and had a subsequent panic attack which started her chest pain which has continued. She denies any vomiting diaphoresis she does state there is some nausea. Work-up to this point for the dizziness palpitations and near syncope etc. have included an EEG which was normal a Holter monitor which did show some episodes of Wenke Bach phenomena. And rare PACs. Risk factors are positive family history her cholesterol status is unknown. Patient has an appointment scheduled with cardio logy in 1 week. Timing/Duration: week(s) (Several) Activities at Onset: rest Quality: pressure Chest Pain Radiation: no radiation Severity of Pain-Max: moderate Severity of Pain-Current: moderate Modifying Factors: Improves With: nothing Nitro Today/Relief: no nitro taken today Aspirin Treatment Today: no aspirin today Allergies/Adverse Reactions: amoxicillin trihydrate [From Augmentin] Allergy (Intermediate, Verified 08/22/20 07:09) Hives cefaclor [From Ceclor] Allergy (Intermediate, Verified 08/22/20 07:09) Hives ibuprofen Adverse Reaction (Verified 08/22/20 07:09) hx of renal failure, advised by PCP to avoid Hx Tetanus, Diphtheria Vaccination/Date Given: Yes Hx Influenza Vaccination/Date Given: Yes Hx Pneumococcal Vaccination/Date Given: No Immunizations Up to Date: Yes Travel Risk - International Travel Have you traveled outside of the country in past 3 weeks: No - Coronavirus Screening Are you exhibiting any of the following symptoms?: No Close contact with a COVID-19 positive Pt in past 14-21 Days: No - Review of Systems Constitutional: No Fever, No Chills Eyes: No Symptoms Ears, Nose, & Throat: No Symptoms Respiratory: No Cough, No Dyspnea Cardiac: Chest Pain, Palpitations, Syncope (Near), No Edema Abdominal/Gastrointestinal: Nausea, No Abdominal Pain, No Vomiting, No Diarrhea Genitourinary Symptoms: No Dysuria Musculoskeletal: No Back Pain, No Neck Pain Skin: No Rash Neurological: No Dizziness, No Focal Weakness, No Sensory Changes Psychological: No Symptoms Endocrine: No Symptoms All Other Systems: Reviewed and Negative - Past Medical History Pertinent Past Medical History: Yes Neurological History: No Pertinent History ENT History: No Pertinent History Cardiac History: No Pertinent History Respiratory History: No Pertinent History Endocrine Medical History: No Pertinent History Musculoskeletal History: Other GI Medical History: Gallbladder Disease, Pancreatitis History: Other Psycho-Social History: Anxiety, Depression Female Reproductive Disorders: No Pertinent History Other Medical History: ovarian cysts,PANCREATITIS AND CHOLECYSTITIS, urinary retention 10/2015. KIDNEY FAILURE IN 01/2017, low iron levels - Past Surgical History Past Surgical History: Yes Neuro Surgical History: No Pertinent History Cardiac: No Pertinent History Respiratory: No Pertinent History Gastrointestinal: Cholecystectomy, Other Genitourinary: No Pertinent History Musculoskeletal: Orthopedic Surgery Female Surgical History: No Pertinent History Other Surgical History: TONSILLECTOMY, ERCP, rt knee - Social History Smoking Status: Former smoker How long have you smoked: 4 Exposure to second hand smoke: Yes Drug Use: none Patient Lives Alone: No - Female History Hx Last Menstrual Period: currently Hx Now: No - Nursing Vital Signs Nursing Vital Signs: Initial Vital Signs Temperature 98.2 F 08/22/20 07:10 Pulse Rate 92 H 08/22/20 07:10 Respiratory Rate 18 08/22/20 07:10 Blood Pressure 152/85 08/22/20 07:10 O2 Sat by Pulse Oximetry 98 08/22/20 07:10 Pain Scale Pain Intensity 8 - Physical Exam General Appearance: mild distress, alert, obese Eye Exam: PERRL/EOMI, eyes nml inspection Ears, Nose, Throat Exam: normal ENT inspection, moist mucous membranes Neck Exam: normal inspection, non-tender, supple Respiratory Exam: normal breath sounds, lungs clear, No respiratory distress Cardiovascular Exam: regular rate/rhythm, normal heart sounds, No edema Gastrointestinal/Abdomen Exam: soft, No tenderness, No mass Back Exam: normal inspection, No CVA tenderness, No vertebral tenderness Extremity Exam: normal inspection, normal range of motion Neurologic Exam: alert, oriented x 3, cooperative, normal mood/affect, nml cerebellar function, sensation nml, No motor deficits Skin Exam: normal color, warm, dry Lymphatic Exam: No adenopathy SpO2 Interpretation: normal SpO2: 98 O2 Delivery: Room Air - Course Nursing assessment & vital signs reviewed: Yes EKG Interpreted by Me: RATE (94), Sinus Rhythm, NORMAL AXIS, NORMAL INTERVALS, NORMAL QRS, NORMAL ST-T - Radiology Exams Chest X-ray Interpretation: Interpreted by me, Negative Ordered Tests: Active Orders 24 hr Category Date Time Status EKG-ER Only STAT Care 08/22/20 07:09 Active IV Insertion STAT Care 08/22/20 07:09 Active CHEST 1 VIEW (PORTABLE) Stat Exams 08/22/20 07:10 Completed AMYLASE Stat Lab 08/22/20 07:20 Completed CBC W DIFF Stat Lab 08/22/20 07:20 Completed CK-Creatinine Phosphokinase Stat Lab 08/22/20 07:20 Completed CMP Stat Lab 08/22/20 07:20 Completed CULTURE,URINE Stat Lab 08/22/20 07:27 Received D-DIMER QUANTITATIVE Stat Lab 08/22/20 07:20 Completed LIPASE Stat Lab 08/22/20 07:20 Completed Lactic Acid Stat Lab 08/22/20 07:25 Completed NT PRO BNP Stat Lab 08/22/20 07:20 Completed PROTIME WITH INR Stat Lab 08/22/20 07:20 Completed TROPONIN Q3H Lab 08/22/20 07:20 Completed TROPONIN Q3H Lab 08/22/20 10:15 Ordered TROPONIN Q3H Lab 08/22/20 13:15 Ordered TROPONIN Q3H Lab 08/22/20 16:15 Ordered TROPONIN Q3H Lab 08/22/20 19:15 Ordered UA W/RFX UR CULTURE Stat Lab 08/22/20 07:27 Completed Urine Triage Profile Stat Lab 08/22/20 07:27 Completed Medication Summary Generic Name Dose Route Start Last Admin Trade Name Freq PRN Reason Stop Dose Admin Sodium Chloride 1,000 mls @ 999 mls/hr 08/22/20 07:09 08/22/20 07:28 Sodium Chloride 0.9% 1000 Ml IV 08/22/20 08:09 999 mls/hr .Q1H1M STA Administration Discontinued Medications Generic Name Dose Route Start Last Admin Trade Name Farhan PRN Reason Stop Dose Admin Sodium Chloride Confirm 08/22/20 07:24 Sodium Chloride 0.9% 1000 Ml Administered 08/22/20 07:25 Dose 1,000 mls @ ud .ROUTE .STK-MED ONE Lorazepam 1 mg 08/22/20 07:19 08/22/20 07:28 Ativan 2 Mg/1 Ml Vial IV 08/22/20 07:20 1 mg STAT ONE Administration Lorazepam Confirm 08/22/20 07:24 Ativan 2 Mg/1 Ml Vial Administered 08/22/20 07:25 Dose 2 mg .ROUTE .STK-MED ONE Pantoprazole Sodium 40 mg 08/22/20 07:20 08/22/20 07:28 Protonix 40 Mg Iv IV 08/22/20 07:21 40 mg STAT ONE Administration Pantoprazole Sodium Confirm 08/22/20 07:24 Protonix 40 Mg Iv Administered 08/22/20 07:25 Dose 40 mg IV .STK-MED ONE Lab/Rad Data: Laboratory Result Diagrams 08/22/20 07:20 08/22/20 07:20 Laboratory Results 08/22/20 08/22/20 08/22/20 Range/Units 07:27 07:27 07:25 WBC (4.0-10.5) K/mm3 RBC (4.1-5.4) M/mm3 Hgb (12.0-16.0) gm/dl Hct (35-47) % MCV (78-100) fl MCH (26-32) pg MCHC (32-36) g/dl RDW (11.5-14.0) % Plt Count (150-450) K/mm3 MPV (7.5-11.0) fl Gran % (36.0-66.0) % Eos # (Auto) (0-0.5) Absolute Lymphs (auto) (1.0-4.6) Absolute Monos (auto) (0.0-1.3) Lymphocytes % (24.0-44.0) % Monocytes % (0.0-12.0) % Eosinophils % (0.00-5.0) % Basophils % (0.0-0.4) % Absolute Granulocytes (1.4-6.9) Basophils # (0-0.4) PT (9.95-12.35) SECONDS INR (0.8-3.0) D-Dimer (215-500) ng/mL Sodium (137-145) mmol/L Potassium (3.5-5.1) mmol/L Chloride (98-107) mmol/L Carbon Dioxide (22-30) mmol/L Anion Gap (5-15) MEQ/L BUN (7-17) mg/dL Creatinine (0.52-1.04) mg/dL Estimated GFR ML/MIN Glucose (74-106) mg/dL Lactic Acid 1.0 (0.4-2.0) Calcium (8.4-10.2) mg/dL Total Bilirubin (0.2-1.3) mg/dL AST (14-36) U/L ALT (0-35) U/L Alkaline Phosphatase (38-126) U/L Creatine Kinase (30-135) U/L Troponin I (0.000-0.034) ng/mL NT-Pro-B Natriuret Pep (0-450) pg/mL Serum Total Protein (6.3-8.2) g/dL Albumin (3.5-5.0) g/dL Amylase (30-110) U/L Lipase (23-300) U/L Urine Color RED (YELLOW) Urine Appearance CLOUDY (CLEAR) Urine pH 6.0 (5-6) Ur Specific Allen 1.009 (1.005-1.025) Urine Protein 30 (Negative) Urine Ketones NEGATIVE (NEGATIVE) Urine Blood LARGE (0-5) Jayden/ul Urine Nitrite NEGATIVE (NEGATIVE) Urine Bilirubin NEGATIVE (NEGATIVE) Urine Urobilinogen NEGATIVE (0-1) mg/dL Ur Leukocyte Esterase SMALL (NEGATIVE) Urine WBC (Auto) >100 (0-5) /HPF Urine RBC (Auto) >101 (0-2) /HPF U Epithel Cells (Auto) RARE (FEW) /HPF Urine Bacteria (Auto) FEW (NEGATIVE) /HPF Urine Culture Reflexed YES (NO) Urine Glucose NEGATIVE (NEGATIVE) mg/dL Urine Opiates Level NEGATIVE (NEGATIVE) Ur Methadone NEGATIVE (NEGATIVE) Urine Barbiturates NEGATIVE (NEGATIVE) Ur Phencyclidine (PCP) NEGATIVE (NEGATIVE) Urine Amphetamine NEGATIVE (NEGATIVE) U Benzodiazepine Level NEGATIVE (NEGATIVE) Urine Cocaine NEGATIVE (NEGATIVE) Urine Marijuana (THC) NEGATIVE (NEGATIVE) 08/22/20 08/22/20 08/22/20 Range/Units 07:20 07:20 07:20 WBC (4.0-10.5) K/mm3 RBC (4.1-5.4) M/mm3 Hgb (12.0-16.0) gm/dl Hct (35-47) % MCV (78-100) fl MCH (26-32) pg MCHC (32-36) g/dl RDW (11.5-14.0) % Plt Count (150-450) K/mm3 MPV (7.5-11.0) fl Gran % (36.0-66.0) % Eos # (Auto) (0-0.5) Absolute Lymphs (auto) (1.0-4.6) Absolute Monos (auto) (0.0-1.3) Lymphocytes % (24.0-44.0) % Monocytes % (0.0-12.0) % Eosinophils % (0.00-5.0) % Basophils % (0.0-0.4) % Absolute Granulocytes (1.4-6.9) Basophils # (0-0.4) PT 11.3 (9.95-12.35) SECONDS INR 1.00 (0.8-3.0) D-Dimer 445 (215-500) ng/mL Sodium 137 (137-145) mmol/L Potassium 4.1 (3.5-5.1) mmol/L Chloride 106 (98-107) mmol/L Carbon Dioxide 25 (22-30) mmol/L Anion Gap 11.1 (5-15) MEQ/L BUN 11 (7-17) mg/dL Creatinine 0.50 L (0.52-1.04) mg/dL Estimated GFR > 60.0 ML/MIN Glucose 104 (74-106) mg/dL Lactic Acid (0.4-2.0) Calcium 9.1 (8.4-10.2) mg/dL Total Bilirubin 0.20 (0.2-1.3) mg/dL AST 26 (14-36) U/L ALT 27 (0-35) U/L Alkaline Phosphatase 69 (38-126) U/L Creatine Kinase 43 (30-135) U/L Troponin I < 0.012 (0.000-0.034) ng/mL NT-Pro-B Natriuret Pep 25.3 (0-450) pg/mL Serum Total Protein 7.1 (6.3-8.2) g/dL Albumin 3.8 (3.5-5.0) g/dL Amylase 59 (30-110) U/L Lipase 66 (23-300) U/L Urine Color (YELLOW) Urine Appearance (CLEAR) Urine pH (5-6) Ur Specific Allen (1.005-1.025) Urine Protein (Negative) Urine Ketones (NEGATIVE) Urine Blood (0-5) Jayden/ul Urine Nitrite (NEGATIVE) Urine Bilirubin (NEGATIVE) Urine Urobilinogen (0-1) mg/dL Ur Leukocyte Esterase (NEGATIVE) Urine WBC (Auto) (0-5) /HPF Urine RBC (Auto) (0-2) /HPF U Epithel Cells (Auto) (FEW) /HPF Urine Bacteria (Auto) (NEGATIVE) /HPF Urine Culture Reflexed (NO) Urine Glucose (NEGATIVE) mg/dL Urine Opiates Level (NEGATIVE) Ur Methadone (NEGATIVE) Urine Barbiturates (NEGATIVE) Ur Phencyclidine (PCP) (NEGATIVE) Urine Amphetamine (NEGATIVE) U Benzodiazepine Level (NEGATIVE) Urine Cocaine (NEGATIVE) Urine Marijuana (THC) (NEGATIVE) 08/22/20 Range/Units 07:20 WBC 10.0 (4.0-10.5) K/mm3 RBC 4.91 (4.1-5.4) M/mm3 Hgb 12.5 (12.0-16.0) gm/dl Hct 41.0 (35-47) % MCV 83.5 (78-100) fl MCH 25.5 L (26-32) pg MCHC 30.5 L (32-36) g/dl RDW 16.5 H (11.5-14.0) % Plt Count 352 (150-450) K/mm3 MPV 11.2 H (7.5-11.0) fl Gran % 52.0 (36.0-66.0) % Eos # (Auto) 0.60 H (0-0.5) Absolute Lymphs (auto) 3.46 (1.0-4.6) Absolute Monos (auto) 0.70 (0.0-1.3) Lymphocytes % 34.6 (24.0-44.0) % Monocytes % 7.0 (0.0-12.0) % Eosinophils % 6.0 H (0.00-5.0) % Basophils % 0.4 (0.0-0.4) % Absolute Granulocytes 5.20 (1.4-6.9) Basophils # 0.04 (0-0.4) PT (9.95-12.35) SECONDS INR (0.8-3.0) D-Dimer (215-500) ng/mL Sodium (137-145) mmol/L Potassium (3.5-5.1) mmol/L Chloride (98-107) mmol/L Carbon Dioxide (22-30) mmol/L Anion Gap (5-15) MEQ/L BUN (7-17) mg/dL Creatinine (0.52-1.04) mg/dL Estimated GFR ML/MIN Glucose (74-106) mg/dL Lactic Acid (0.4-2.0) Calcium (8.4-10.2) mg/dL Total Bilirubin (0.2-1.3) mg/dL AST (14-36) U/L ALT (0-35) U/L Alkaline Phosphatase (38-126) U/L Creatine Kinase (30-135) U/L Troponin I (0.000-0.034) ng/mL NT-Pro-B Natriuret Pep (0-450) pg/mL Serum Total Protein (6.3-8.2) g/dL Albumin (3.5-5.0) g/dL Amylase (30-110) U/L Lipase (23-300) U/L Urine Color (YELLOW) Urine Appearance (CLEAR) Urine pH (5-6) Ur Specific Allen (1.005-1.025) Urine Protein (Negative) Urine Ketones (NEGATIVE) Urine Blood (0-5) Jayden/ul Urine Nitrite (NEGATIVE) Urine Bilirubin (NEGATIVE) Urine Urobilinogen (0-1) mg/dL Ur Leukocyte Esterase (NEGATIVE) Urine WBC (Auto) (0-5) /HPF Urine RBC (Auto) (0-2) /HPF U Epithel Cells (Auto) (FEW) /HPF Urine Bacteria (Auto) (NEGATIVE) /HPF Urine Culture Reflexed (NO) Urine Glucose (NEGATIVE) mg/dL Urine Opiates Level (NEGATIVE) Ur Methadone (NEGATIVE) Urine Barbiturates (NEGATIVE) Ur Phencyclidine (PCP) (NEGATIVE) Urine Amphetamine (NEGATIVE) U Benzodiazepine Level (NEGATIVE) Urine Cocaine (NEGATIVE) Urine Marijuana (THC) (NEGATIVE) - Progress Progress: improved Air Movement: good Blood Culture(s) Obtained: No Antibiotics given: No - Departure Departure Disposition: Home Clinical Impression: Palpitations Condition: Stable Critical Care Time: No Referrals: MELVA BATES [Primary Care Provider] - Instructions: Palpitations (DC) Prescriptions: Lorazepam 1 mg [Ativan 1 MG] 1 mg PO Q8H PRN PRN 3 Days #9 tablet PRN Reason: Anxiety
[2020-08-22 08:29] VITALS: BP 148/96; PULSE 73; O2SAT 97
== END 2020-08-22 08:35 | disposition home or self-care (01) ==
LOC: ED 07:06
DX: R00.2 Palpitations (principal); R07.89 Other chest pain; R55 Syncope and collapse
CPT/HCPCS: 36000; 36415; 71045; 80053; 80307; 81001; 82150; 82550; 83605; 83690; 83880; 84484; 85025; 85379; 85610; 87086; 93005; 96360; 96374; 96375; 99284; J2060

== ENCOUNTER 2020-08-27 22:00 | Emergency (ER) | payer OTHER ==
[2020-08-27] MEDS ORDERED: Ativan 2 MG/1 ML VIAL IV PRN (22:27)
[2020-08-27] MEDS ORDERED: Sodium Chloride 0.9% 1000 ML 1,000 ML IV STA (22:28)
--- NOTE | 2020-08-27 22:30 | ERPHSYRPT ---
- History of Present Illness Time Seen by Provider: 08/27/20 22:20 Historian: patient Exam Limitations: no limitations Patient Subjective Stated Complaint: chest pain through to back and up throat that worsens with taking enalapril Triage Nursing Assessment: pt is alert and oriented. pt is ambulatory with a steady gait. pt comes in with c/o chest pain radiating to back and "throat", sob, dizziness, and lightheadedness that started this AM after taking her enalapril. pt heart tones regular, tachycardic. pt skin is pwd. pt appears to be breathing nonlabored, lung sounds clear a-p throughout. no edema noted. Physician History: Patient is a 25-year-old white female seen approximately week ago for anxiety chest pain and multiple other problems. This morning she took enalapril new blood pressure pill that was prescribed for her and since then she has had chest tightness and pain in the upper chest and into the throat. Timing/Duration: today Activities at Onset: none Quality: pressure, stabbing, throbbing Location: substernal Chest Pain Radiation: neck Severity of Pain-Max: moderate Severity of Pain-Current: moderate Modifying Factors: Improves With: nothing Associated Symptoms: denies symptoms Prior Chest Pain/Cardiac Workup: recently seen/treated Nitro Today/Relief: no nitro taken today Aspirin Treatment Today: no aspirin today Allergies/Adverse Reactions: amoxicillin trihydrate [From Augmentin] Allergy (Intermediate, Verified 08/22/20 07:09) Hives cefaclor [From Ceclor] Allergy (Intermediate, Verified 08/22/20 07:09) Hives ibuprofen Adverse Reaction (Verified 08/22/20 07:09) hx of renal failure, advised by PCP to avoid Home Medications: Enalapril Maleate 2.5 mg PO BID 08/27/20 [History] Lorazepam 1 mg [Ativan 1 MG] 0.5 mg PO BID PRN 08/27/20 [History] PARoxetine HCL [Paroxetine HCl] 10 mg PO DAILY 08/27/20 [History] Hx Tetanus, Diphtheria Vaccination/Date Given: Yes Hx Influenza Vaccination/Date Given: No Hx Pneumococcal Vaccination/Date Given: No Immunizations Up to Date: Yes Travel Risk - International Travel Have you traveled outside of the country in past 3 weeks: No - Coronavirus Screening Are you exhibiting any of the following symptoms?: No Symptoms: Shortness of Breath Close contact with a COVID-19 positive Pt in past 14-21 Days: No - Review of Systems Constitutional: No Fever, No Chills Eyes: No Symptoms Ears, Nose, & Throat: No Symptoms Respiratory: No Cough, No Dyspnea Cardiac: Chest Pain, Palpitations, No Edema, No Syncope Abdominal/Gastrointestinal: No Abdominal Pain, No Nausea, No Vomiting, No Diarrhea Genitourinary Symptoms: No Dysuria Musculoskeletal: No Back Pain, No Neck Pain Skin: No Rash Neurological: No Dizziness, No Focal Weakness, No Sensory Changes Psychological: No Symptoms Endocrine: No Symptoms All Other Systems: Reviewed and Negative - Past Medical History Pertinent Past Medical History: Yes Neurological History: No Pertinent History ENT History: No Pertinent History Cardiac History: No Pertinent History, Hypertension Respiratory History: No Pertinent History Endocrine Medical History: No Pertinent History Musculoskeletal History: Other GI Medical History: Gallbladder Disease, Pancreatitis History: Other Psycho-Social History: Anxiety, Depression Female Reproductive Disorders: No Pertinent History Other Medical History: ovarian cysts,PANCREATITIS AND CHOLECYSTITIS, urinary retention 10/2015. KIDNEY FAILURE IN 01/2017, low iron levels - Past Surgical History Past Surgical History: Yes Neuro Surgical History: No Pertinent History Cardiac: No Pertinent History Respiratory: No Pertinent History Gastrointestinal: Cholecystectomy, Other Genitourinary: No Pertinent History Musculoskeletal: Orthopedic Surgery Female Surgical History: No Pertinent History Other Surgical History: TONSILLECTOMY, ERCP, rt knee - Social History Smoking Status: Former smoker How long have you smoked: 4 Exposure to second hand smoke: Yes Drug Use: none Patient Lives Alone: No - Female History Hx Last Menstrual Period: 08/27/2020 Hx Now: No - Nursing Vital Signs Nursing Vital Signs: Initial Vital Signs Temperature 98.2 F 08/27/20 22:01 Pulse Rate 115 H 08/27/20 22:01 Respiratory Rate 20 08/27/20 22:01 Blood Pressure 151/94 08/27/20 22:01 O2 Sat by Pulse Oximetry 99 08/27/20 22:01 Pain Scale Pain Intensity 7 - Physical Exam General Appearance: moderate distress, alert, anxiety, obese Eye Exam: PERRL/EOMI, eyes nml inspection Ears, Nose, Throat Exam: normal ENT inspection, moist mucous membranes Neck Exam: normal inspection, non-tender, supple, full range of motion Respiratory Exam: normal breath sounds, lungs clear, No respiratory distress Cardiovascular Exam: regular rate/rhythm, normal heart sounds Gastrointestinal/Abdomen Exam: soft, No tenderness, No mass Back Exam: normal inspection, No CVA tenderness, No vertebral tenderness Extremity Exam: normal inspection, normal range of motion Neurologic Exam: alert, oriented x 3, cooperative, normal mood/affect, sensation nml, No motor deficits Skin Exam: normal color, warm, dry SpO2: 99 - Course Nursing assessment & vital signs reviewed: Yes EKG Interpreted by Me: RATE, Sinus Tach, NORMAL AXIS, NORMAL INTERVALS, NORMAL QRS - Radiology Exams Chest X-ray Interpretation: Interpreted by me, Negative Ordered Tests: Active Orders 24 hr Category Date Time Status EKG-ER Only STAT Care 08/27/20 22:28 Active CHEST 1 VIEW (PORTABLE) Stat Exams 08/27/20 22:28 Taken CBC W DIFF Stat Lab 08/27/20 22:35 Completed CMP Stat Lab 08/27/20 22:35 Completed D-DIMER QUANTITATIVE Stat Lab 08/27/20 22:35 Completed TROPONIN Q3H Lab 08/27/20 22:35 Completed TROPONIN Q3H Lab 08/28/20 01:30 Ordered TROPONIN Q3H Lab 08/28/20 04:30 Ordered TROPONIN Q3H Lab 08/28/20 07:30 Ordered TROPONIN Q3H Lab 08/28/20 10:30 Ordered Medication Summary Generic Name Dose Route Start Last Admin Trade Name Freq PRN Reason Stop Dose Admin Sodium Chloride 1,000 mls @ 999 mls/hr 08/27/20 22:28 08/27/20 22:33 Sodium Chloride 0.9% 1000 Ml IV 08/27/20 23:28 999 mls/hr .Q1H1M STA Administration Lorazepam 1 mg 08/27/20 22:27 08/27/20 22:35 Ativan 2 Mg/1 Ml Vial IV 09/26/20 22:26 1 mg PRN PRN Administration CIWA SCORE Discontinued Medications Generic Name Dose Route Start Last Admin Trade Name Freq PRN Reason Stop Dose Admin Sodium Chloride Confirm 08/27/20 22:32 Sodium Chloride 0.9% 1000 Ml Administered 08/27/20 22:33 Dose 1,000 mls @ ud .ROUTE .STK-MED ONE Lab/Rad Data: Laboratory Result Diagrams 08/27/20 22:35 08/27/20 22:35 Laboratory Results 08/27/20 08/27/20 08/27/20 Range/Units 22:35 22:35 22:35 WBC (4.0-10.5) K/mm3 RBC (4.1-5.4) M/mm3 Hgb (12.0-16.0) gm/dl Hct (35-47) % MCV (78-100) fl MCH (26-32) pg MCHC (32-36) g/dl RDW (11.5-14.0) % Plt Count (150-450) K/mm3 MPV (7.5-11.0) fl Gran % (36.0-66.0) % Eos # (Auto) (0-0.5) Absolute Lymphs (auto) (1.0-4.6) Absolute Monos (auto) (0.0-1.3) Lymphocytes % (24.0-44.0) % Monocytes % (0.0-12.0) % Eosinophils % (0.00-5.0) % Basophils % (0.0-0.4) % Absolute Granulocytes (1.4-6.9) Basophils # (0-0.4) D-Dimer 431 (215-500) ng/mL Sodium 139 (137-145) mmol/L Potassium 3.9 (3.5-5.1) mmol/L Chloride 102 (98-107) mmol/L Carbon Dioxide 30 (22-30) mmol/L Anion Gap 11.1 (5-15) MEQ/L BUN 10 (7-17) mg/dL Creatinine 0.70 (0.52-1.04) mg/dL Estimated GFR > 60.0 ML/MIN Glucose 107 H (74-106) mg/dL Calcium 9.9 (8.4-10.2) mg/dL Total Bilirubin 0.20 (0.2-1.3) mg/dL AST 30 (14-36) U/L ALT 30 (0-35) U/L Alkaline Phosphatase 76 (38-126) U/L Troponin I < 0.012 (0.000-0.034) ng/mL Serum Total Protein 8.1 (6.3-8.2) g/dL Albumin 4.3 (3.5-5.0) g/dL 08/27/20 Range/Units 22:35 WBC 12.6 H (4.0-10.5) K/mm3 RBC 4.95 (4.1-5.4) M/mm3 Hgb 12.8 (12.0-16.0) gm/dl Hct 41.3 (35-47) % MCV 83.4 (78-100) fl MCH 25.9 L (26-32) pg MCHC 31.0 L (32-36) g/dl RDW 16.3 H (11.5-14.0) % Plt Count 379 (150-450) K/mm3 MPV 11.1 H (7.5-11.0) fl Gran % 58.3 (36.0-66.0) % Eos # (Auto) 0.52 H (0-0.5) Absolute Lymphs (auto) 3.75 (1.0-4.6) Absolute Monos (auto) 0.95 (0.0-1.3) Lymphocytes % 29.8 (24.0-44.0) % Monocytes % 7.5 (0.0-12.0) % Eosinophils % 4.1 (0.00-5.0) % Basophils % 0.3 (0.0-0.4) % Absolute Granulocytes 7.34 H (1.4-6.9) Basophils # 0.04 (0-0.4) D-Dimer (215-500) ng/mL Sodium (137-145) mmol/L Potassium (3.5-5.1) mmol/L Chloride (98-107) mmol/L Carbon Dioxide (22-30) mmol/L Anion Gap (5-15) MEQ/L BUN (7-17) mg/dL Creatinine (0.52-1.04) mg/dL Estimated GFR ML/MIN Glucose (74-106) mg/dL Calcium (8.4-10.2) mg/dL Total Bilirubin (0.2-1.3) mg/dL AST (14-36) U/L ALT (0-35) U/L Alkaline Phosphatase (38-126) U/L Troponin I (0.000-0.034) ng/mL Serum Total Protein (6.3-8.2) g/dL Albumin (3.5-5.0) g/dL - Progress Progress: improved Air Movement: good Blood Culture(s) Obtained: No Antibiotics given: No - Departure Departure Disposition: Home Clinical Impression: Stress reaction, Medication reaction Condition: Stable Critical Care Time: No Referrals: MELVA BATES [Primary Care Provider] - Instructions: Adverse Drug Reactions, Adult (DC) Prescriptions: Paroxetine HCl 20 mg [Paxil 20 MG] 20 mg PO DAILY 30 Days #30 tablet
[2020-08-27] MEDS ORDERED: Sodium Chloride 0.9% 1000 ML 1,000 ML ONE (22:32)
[2020-08-27] MEDS ORDERED: Ativan 2 MG/1 ML VIAL ONE (22:32)
[2020-08-27 22:42] LABS: Absolute Neutrophil Ct (ANC) 7.34 (1.4-6.9); BASOPHIL % 0.3 % (0.0-0.4); Basophil (Absolute #) 0.04 (0-0.4); Eosinophil % 4.1 % (0.00-5.0); Eosinophil (Absolute #) 0.52 (0-0.5); Hematocrit 41.3 % (35-47); Hemoglobin 12.8 gm/dl (12.0-16.0); Lymphocyte (Absolute #) 3.75 (1.0-4.6); Lymphocytes % 29.8 % (24.0-44.0); Mean Cell Volume 83.4 fl (78-100); Mean Corpuscular Hemoglobin 25.9 pg (26-32); Mean Platelet Volume 11.1 fl (7.5-11.0); Monocyte (Absolute #) 0.95 (0.0-1.3); Monocytes % 7.5 % (0.0-12.0); Neutrophil % 58.3 % (36.0-66.0); Platelet Count 379 K/mm3 (150-450); Red Blood Count 4.95 M/mm3 (4.1-5.4); Red Cell Distribution Width 16.3 % (11.5-14.0); White Blood Count 12.6 K/mm3 (4.0-10.5)
[2020-08-27 22:55] LABS: ALBUMIN 4.3 g/dL (3.5-5.0); ALKALINE PHOSPHATASE 76 U/L (38-126); ANION GAP 11.1 MEQ/L (5-15); BLOOD UREA NITROGEN 10 mg/dL (7-17); CHLORIDE 102 mmol/L (98-107); Calcium 9.9 mg/dL (8.4-10.2); Carbon Dioxide 30 mmol/L (22-30); EST GLOMERULAR FILTRATION RATE > 60.0 ML/MIN; Glucose 107 mg/dL (74-106); Potassium 3.9 mmol/L (3.5-5.1); SGOT/AST 30 U/L (14-36); SGPT/ALT 30 U/L (0-35); SODIUM 139 mmol/L (137-145); Total Protein 8.1 g/dL (6.3-8.2)
[2020-08-27 23:11] VITALS: BP 161/100; PULSE 88
[2020-08-27 23:20] VITALS: O2SAT 99
--- NOTE | 2020-08-28 07:39 | XRAY ---
Indication: Pain. Comparison: August 22, 2020. Portable chest again demonstrates normal heart, lungs, and bony thorax.
== END 2020-08-27 23:37 | disposition home or self-care (01) ==
LOC: ED 22:00
DX: R07.9 Chest pain, unspecified (principal); R07.0 Pain in throat; R06.02 Shortness of breath; F43.9 Reaction to severe stress, unspecified; R42 Dizziness and giddiness; R00.0 Tachycardia, unspecified; I10 Essential (primary) hypertension; T50.905A Adverse effect of unspecified drugs, medicaments and biological substances, initial encounter
CPT/HCPCS: 36000; 36415; 71045; 80053; 84484; 85025; 85379; 93005; 96360; 96374; 99284; J2060

== ENCOUNTER 2020-10-31 07:08 | Emergency (ER) | payer OTHER ==
[2020-10-31] MEDS ORDERED: MORPHINE SULFATE 4 MG INJ IV ONE (07:20)
[2020-10-31] MEDS ORDERED: Pepcid 20 MG VIAL IV ONE ×2 (07:20→07:29)
[2020-10-31] MEDS ORDERED: Zofran 4 MG/2 ML VIAL IV ONE (07:20)
[2020-10-31] MEDS ORDERED: BABY ASPIRIN 81 MG CHEW PO ONE (07:20)
--- NOTE | 2020-10-31 07:26 | ERPHSYRPT ---
- History of Present Illness Time Seen by Provider: 10/31/20 07:19 Historian: patient Exam Limitations: no limitations Patient Subjective Stated Complaint: Chest pain Triage Nursing Assessment: Patient ambulated back to ED and transferred self to bed. Patient A+O x3. Patient's skin pink, warm and dry. Patient complains of waking up around 0630 with chest pain. Patient states pain is 7/10 in the middle of chest, constant sharp pain. Physician History: 25 years old morbidly obese female with history of hypertension, a nxiety/depression presented in the ER with chief complaint of sudden onset of substernal chest pain waking her up from sleep almost an hour prior to arrival. Continuous sharp nonradiating pain without any significant aggravating or relieving factors and minimal shortness of breath associated with it. Denies any palpitations. Patient denies any history of lower extremity swelling, DVT/PEs. Does have similar chest pains in the past with no known history of CAD. Denies fever chills or cough. Timing/Duration: hour(s) (1), sudden, worse Activities at Onset: sleep Quality: sharpness Location: central Chest Pain Radiation: no radiation Severity of Pain-Max: moderate Severity of Pain-Current: moderate Modifying Factors: Improves With: nothing Associated Symptoms: shortness of breath Prior Chest Pain/Cardiac Workup: non-cardiac Nitro Today/Relief: no nitro taken today Aspirin Treatment Today: no aspirin today Allergies/Adverse Reactions: amoxicillin trihydrate [From Augmentin] Allergy (Intermediate, Verified 10/31/20 07:18) Hives cefaclor [From Ceclor] Allergy (Intermediate, Verified 10/31/20 07:18) Hives ibuprofen Adverse Reaction (Verified 10/31/20 07:18) hx of renal failure, advised by PCP to avoid Home Medications: Amlodipine Besylate 1 tab PO DAILY 10/31/20 [History] Losartan/Hydrochlorothiazide [Losartan-Hctz 50-12.5 mg Tab] 1 tab PO DAILY 10/31/20 [History] Hx Tetanus, Diphtheria Vaccination/Date Given: Yes Hx Influenza Vaccination/Date Given: No Hx Pneumococcal Vaccination/Date Given: No Immunizations Up to Date: Yes Travel Risk - International Travel Have you traveled outside of the country in past 3 weeks: No - Coronavirus Screening Are you exhibiting any of the following symptoms?: No Close contact with a COVID-19 positive Pt in past 14-21 Days: No - Vaccine Status Have you recieved a Covid-19 vaccination: Yes [employer] Chief: [employer] - Vaccination Dates Date of 2cond Vaccination (if applicable): 10/22/2020 - Review of Systems Constitutional: No Symptoms Eyes: No Symptoms Ears, Nose, & Throat: No Symptoms Respiratory: Dyspnea Cardiac: Chest Pain Abdominal/Gastrointestinal: No Symptoms Genitourinary Symptoms: No Symptoms Musculoskeletal: No Symptoms Neurological: No Symptoms Psychological: No Symptoms Endocrine: No Symptoms Hematologic/Lymphatic: No Symptoms Immunological/Allergic: No Symptoms - Past Medical History Pertinent Past Medical History: Yes Neurological History: No Pertinent History ENT History: No Pertinent History Cardiac History: Hypertension Respiratory History: No Pertinent History Endocrine Medical History: No Pertinent History Musculoskeletal History: Other GI Medical History: Gallbladder Disease, Pancreatitis History: Other Psycho-Social History: Anxiety, Depression Female Reproductive Disorders: No Pertinent History Other Medical History: ovarian cysts,PANCREATITIS AND CHOLECYSTITIS, urinary retention 10/2015. KIDNEY FAILURE IN 01/2017, low iron levels - Past Surgical History Past Surgical History: Yes Neuro Surgical History: No Pertinent History Cardiac: No Pertinent History Respiratory: No Pertinent History Gastrointestinal: Cholecystectomy, Other Genitourinary: No Pertinent History Musculoskeletal: Orthopedic Surgery Female Surgical History: No Pertinent History Other Surgical History: TONSILLECTOMY, ERCP, rt knee - Social History Smoking Status: Former smoker How long have you smoked: 4 Exposure to second hand smoke: No Drug Use: none Patient Lives Alone: No - Female History Hx Last Menstrual Period: one month ago Hx Now: No - Nursing Vital Signs Nursing Vital Signs: Initial Vital Signs Temperature 97.9 F 10/31/20 07:11 Pulse Rate 85 10/31/20 07:11 Respiratory Rate 18 10/31/20 07:11 Blood Pressure 148/84 10/31/20 07:11 O2 Sat by Pulse Oximetry 97 10/31/20 07:11 Pain Scale Pain Intensity 0 - Physical Exam General Appearance: no apparent distress, alert, anxiety Eye Exam: PERRL/EOMI, eyes nml inspection Ears, Nose, Throat Exam: normal ENT inspection, dry mucous membranes Neck Exam: normal inspection, non-tender, supple, full range of motion Respiratory Exam: normal breath sounds, lungs clear Cardiovascular Exam: regular rate/rhythm, normal heart sounds Gastrointestinal/Abdomen Exam: soft, No tenderness Back Exam: normal inspection Extremity Exam: normal inspection, normal range of motion, pelvis stable Neurologic Exam: alert, oriented x 3, cooperative Skin Exam: normal color SpO2 Interpretation: normal SpO2: 97 O2 Delivery: Room Air - Course EKG Interpreted by Me: RATE ([id number]), Sinus Rhythm, NORMAL AXIS, NORMAL INTERVALS, NORMAL QRS Ordered Tests: Active Orders 24 hr Category Date Time Status Quality Control Scientist STAT Care 10/31/20 07:20 Completed EKG-ER Only STAT Care 10/31/20 07:20 Completed IV Insertion STAT Care 10/31/20 07:20 Completed CHEST 1 VIEW (PORTABLE) Stat Exams 10/31/20 07:20 Completed CBC W DIFF Stat Lab 10/31/20 07:23 Completed CMP Stat Lab 10/31/20 07:23 Completed D-DIMER QUANTITATIVE Stat Lab 10/31/20 07:23 Completed HCG,QUALITATIVE URINE Stat Lab 10/31/20 07:26 Completed NT PRO BNP Stat Lab 10/31/20 07:23 Completed TROPONIN Q3H Lab 10/31/20 07:23 Completed TROPONIN Q3H Lab 10/31/20 10:50 Completed Medication Summary Discontinued Medications Generic Name Dose Route Start Last Admin Trade Name Freq PRN Reason Stop Dose Admin Aspirin 324 mg 10/31/20 07:20 10/31/20 07:32 Baby Aspirin 81 Mg Chew PO 10/31/20 07:21 324 mg STAT ONE Administration Aspirin Confirm 10/31/20 07:29 Baby Aspirin 81 Mg Chew Administered 10/31/20 07:30 Dose 324 mg .ROUTE .STK-MED ONE Famotidine 20 mg 10/31/20 07:20 10/31/20 07:31 Pepcid 20 Mg Vial IV 10/31/20 07:21 20 mg STAT ONE Administration Famotidine Confirm 10/31/20 07:29 Pepcid 20 Mg Vial Administered 10/31/20 07:30 Dose 20 mg IV .STK-MED ONE Morphine Sulfate 4 mg 10/31/20 07:20 10/31/20 07:31 Morphine Sulfate 4 Mg Inj IV 10/31/20 07:21 4 mg STAT ONE Administration Morphine Sulfate Confirm 10/31/20 07:29 Morphine Sulfate 4 Mg Inj Administered 10/31/20 07:30 Dose 4 mg .ROUTE .STK-MED ONE Ondansetron HCl 4 mg 10/31/20 07:20 10/31/20 07:31 Zofran 4 Mg/2 Ml Vial IV 10/31/20 07:21 4 mg STAT ONE Administration Ondansetron HCl Confirm 10/31/20 07:29 Zofran 4 Mg/2 Ml Vial Administered 10/31/20 07:30 Dose 4 mg .ROUTE .STK-MED ONE Lab/Rad Data: Laboratory Result Diagrams 10/31/20 07:23 10/31/20 07:23 Laboratory Results 10/31/20 10/31/20 10/31/20 Range/Units 10:50 07:26 07:23 WBC (4.0-10.5) K/mm3 RBC (4.1-5.4) M/mm3 Hgb (12.0-16.0) gm/dl Hct (35-47) % MCV (78-100) fl MCH (26-32) pg MCHC (32-36) g/dl RDW (11.5-14.0) % Plt Count (150-450) K/mm3 MPV (7.5-11.0) fl Gran % (36.0-66.0) % Eos # (Auto) (0-0.5) Absolute Lymphs (auto) (1.0-4.6) Absolute Monos (auto) (0.0-1.3) Lymphocytes % (24.0-44.0) % Monocytes % (0.0-12.0) % Eosinophils % (0.00-5.0) % Basophils % (0.0-0.4) % Absolute Granulocytes (1.4-6.9) Basophils # (0-0.4) D-Dimer (215-500) ng/mL Sodium (137-145) mmol/L Potassium (3.5-5.1) mmol/L Chloride (98-107) mmol/L Carbon Dioxide (22-30) mmol/L Anion Gap (5-15) MEQ/L BUN (7-17) mg/dL Creatinine (0.52-1.04) mg/dL Estimated GFR ML/MIN Glucose (74-106) mg/dL Calcium (8.4-10.2) mg/dL Total Bilirubin (0.2-1.3) mg/dL AST (14-36) U/L ALT (0-35) U/L Alkaline Phosphatase (38-126) U/L Troponin I < 0.012 < 0.012 (0.000-0.034) ng/mL NT-Pro-B Natriuret Pep (0-450) pg/mL Serum Total Protein (6.3-8.2) g/dL Albumin (3.5-5.0) g/dL Urine HCG, Qual NEGATIVE (Negative) 10/31/20 10/31/20 10/31/20 Range/Units 07:23 07:23 07:23 WBC 8.4 (4.0-10.5) K/mm3 RBC 5.14 (4.1-5.4) M/mm3 Hgb 13.4 (12.0-16.0) gm/dl Hct 43.0 (35-47) % MCV 83.7 (78-100) fl MCH 26.1 (26-32) pg MCHC 31.2 L (32-36) g/dl RDW 14.6 H (11.5-14.0) % Plt Count 329 (150-450) K/mm3 MPV 11.2 H (7.5-11.0) fl Gran % 50.9 (36.0-66.0) % Eos # (Auto) 0.39 (0-0.5) Absolute Lymphs (auto) 3.05 (1.0-4.6) Absolute Monos (auto) 0.65 (0.0-1.3) Lymphocytes % 36.4 (24.0-44.0) % Monocytes % 7.8 (0.0-12.0) % Eosinophils % 4.7 (0.00-5.0) % Basophils % 0.2 (0.0-0.4) % Absolute Granulocytes 4.26 (1.4-6.9) Basophils # 0.02 (0-0.4) D-Dimer 375 (215-500) ng/mL Sodium 140 (137-145) mmol/L Potassium 3.8 (3.5-5.1) mmol/L Chloride 102 (98-107) mmol/L Carbon Dioxide 29 (22-30) mmol/L Anion Gap 12.5 (5-15) MEQ/L BUN 15 (7-17) mg/dL Creatinine 0.57 (0.52-1.04) mg/dL Estimated GFR > 60.0 ML/MIN Glucose 94 (74-106) mg/dL Calcium 9.6 (8.4-10.2) mg/dL Total Bilirubin 0.40 (0.2-1.3) mg/dL AST 27 (14-36) U/L ALT 27 (0-35) U/L Alkaline Phosphatase 75 (38-126) U/L Troponin I (0.000-0.034) ng/mL NT-Pro-B Natriuret Pep 34.0 (0-450) pg/mL Serum Total Protein 7.9 (6.3-8.2) g/dL Albumin 4.2 (3.5-5.0) g/dL Urine HCG, Qual (Negative) - Progress Progress: improved, re-examined Air Movement: fair Progress Note: 10/31/20 11:15 Ruled out acute coronary syndrome, pneumonia, pneumothorax, pulmonary embolism. Feeling better on reevaluation after symptomatic treatment. Low heart score. Do not seem cardiac in nature. Recommended outpatient follow-up with primary care and cardiology. Discussed signs symptoms of worsening needing return to ER which she seemed understanding. Blood Culture(s) Obtained: No Antibiotics given: No Counseled pt/family regarding: lab results, diagnosis, need for follow-up, rad results - Departure Departure Disposition: Home Clinical Impression: Atypical chest pain Condition: Stable Critical Care Time: No Referrals: MELVA BATES [Primary Care Provider] - (1-2 days for reevaluation) Manan Drew MD [CONSULTING PHYSICIAN] - (1-2 days for reevaluation.) Instructions: Chest Pain (DC) Additional Instructions: And Tylenol as needed for pain. Follow-up with your primary care and french teacher for reevaluation. Return to ER for worsening pain or if develop increasing shortness of breath palpitations etc.
[2020-10-31] MEDS ORDERED: BABY ASPIRIN 81 MG CHEW ONE (07:29)
[2020-10-31] MEDS ORDERED: MORPHINE SULFATE 4 MG INJ ONE (07:29)
[2020-10-31] MEDS ORDERED: Zofran 4 MG/2 ML VIAL ONE (07:29)
[2020-10-31 07:37] LABS: Absolute Neutrophil Ct (ANC) 4.26 (1.4-6.9); BASOPHIL % 0.2 % (0.0-0.4); Basophil (Absolute #) 0.02 (0-0.4); Eosinophil % 4.7 % (0.00-5.0); Eosinophil (Absolute #) 0.39 (0-0.5); Hemoglobin 13.4 gm/dl (12.0-16.0); Lymphocyte (Absolute #) 3.05 (1.0-4.6); Lymphocytes % 36.4 % (24.0-44.0); Mean Cell Volume 83.7 fl (78-100); Mean Corpuscular Hemoglobin 26.1 pg (26-32); Mean Corpuscular Hgb Concent. 31.2 g/dl (32-36); Mean Platelet Volume 11.2 fl (7.5-11.0); Monocyte (Absolute #) 0.65 (0.0-1.3); Monocytes % 7.8 % (0.0-12.0); Neutrophil % 50.9 % (36.0-66.0); Platelet Count 329 K/mm3 (150-450); Red Blood Count 5.14 M/mm3 (4.1-5.4); Red Cell Distribution Width 14.6 % (11.5-14.0); White Blood Count 8.4 K/mm3 (4.0-10.5)
[2020-10-31 07:58] LABS: ALBUMIN 4.2 g/dL (3.5-5.0); ALKALINE PHOSPHATASE 75 U/L (38-126); ANION GAP 12.5 MEQ/L (5-15); BLOOD UREA NITROGEN 15 mg/dL (7-17); CHLORIDE 102 mmol/L (98-107); Calcium 9.6 mg/dL (8.4-10.2); Carbon Dioxide 29 mmol/L (22-30); Creatinine 1 0.57 mg/dL (0.52-1.04); EST GLOMERULAR FILTRATION RATE > 60.0 ML/MIN; Glucose 94 mg/dL (74-106); Potassium 3.8 mmol/L (3.5-5.1); SGOT/AST 27 U/L (14-36); SGPT/ALT 27 U/L (0-35); SODIUM 140 mmol/L (137-145); Total Protein 7.9 g/dL (6.3-8.2)
[2020-10-31 11:21] VITALS: BP 125/67; PULSE 58
--- NOTE | 2020-10-31 18:11 | XRAY ---
Indication: Chest pain and short of breath. Comparison: August 27, 2020. Portable chest again demonstrates normal heart, lungs, and bony thorax.
[2020-10-31 23:02] VITALS: O2SAT 97
== END 2020-10-31 11:49 | disposition home or self-care (01) ==
LOC: ED 07:08
DX: R07.89 Other chest pain (principal); I10 Essential (primary) hypertension; I25.10 Atherosclerotic heart disease of native coronary artery without angina pectoris
CPT/HCPCS: 36000; 36415; 71045; 80053; 83880; 84484; 84703; 85025; 85379; 93005; 93041; 96374; 96375; 99284; J2270; J2405; A9270-GY

== ENCOUNTER 2020-11-20 22:34 | Emergency (ER) | payer OTHER ==
[2020-11-20] MEDS ORDERED: Sodium Chloride 0.9% 1000 ML 1,000 ML IV STA (22:52)
[2020-11-20] MEDS ORDERED: Zofran 4 MG/2 ML VIAL IV ONE (22:52)
[2020-11-20] MEDS ORDERED: Zofran 4 MG/2 ML VIAL ONE (22:55)
[2020-11-20] MEDS ORDERED: Sodium Chloride 0.9% 1000 ML 1,000 ML ONE (22:55)
--- NOTE | 2020-11-20 22:57 | ERPHSYRPT ---
- History of Present Illness Time Seen by Provider: 11/20/20 22:54 Source: patient Exam Limitations: no limitations Patient Subjective Stated Complaint: pt c/o chest pain, sob, tightness to chest Triage Nursing Assessment: pt c/o tightness to chest, chest pain that radiated to back, hands were evan and sob. Lungs clear, heart tones reg. Pt does not appear to be sob, talking without diff. Pt started new b/p pill yesterday (verapamil) and losartan was increased. Physician History: pt c/o chest pain, sob, tightness to chest started around 9.30 pm tonight. pt c/o tightness to chest, chest pain that radiated to back, hands were tingly and sob. talking without diff. Pt started new b/p pill yesterday (verapamil) and losartan was increased. c/o nausea and vomiting Timing/Duration: today Severity: moderate Associated Symptoms: nausea, vomiting Allergies/Adverse Reactions: amoxicillin trihydrate [From Augmentin] Allergy (Intermediate, Verified 11/20/20 22:44) Hives cefaclor [From Ceclor] Allergy (Intermediate, Verified 11/20/20 22:44) Hives enalapril Adverse Reaction (Intermediate, Verified 11/20/20 22:44) Cough ibuprofen Adverse Reaction (Verified 11/20/20 22:44) hx of renal failure, advised by PCP to avoid Home Medications: Buspirone HCl [Buspar] 15 mg PO DAILY 11/20/20 [History] Losartan/Hydrochlorothiazide [Losartan-Hctz 100-12.5 mg Tab] 1 tab PO DAILY 11/20/20 [History] Paroxetine HCl 20 mg [Paxil 20 MG] 10 mg PO DAILY 11/20/20 [History] Verapamil HCl [Verapamil ER] 120 mg PO DAILY 11/20/20 [History] Hx Tetanus, Diphtheria Vaccination/Date Given: Yes Hx Influenza Vaccination/Date Given: No Hx Pneumococcal Vaccination/Date Given: No Immunizations Up to Date: Yes Travel Risk - International Travel Have you traveled outside of the country in past 3 weeks: No - Coronavirus Screening Are you exhibiting any of the following symptoms?: No Close contact with a COVID-19 positive Pt in past 14-21 Days: No - Vaccine Status Have you recieved a Covid-19 vaccination: Yes [employer]: [employer] - Vaccination Dates Date of 2cond Vaccination (if applicable): 10/22/20 - Review of Systems Constitutional: No Fever, No Chills Eyes: No Symptoms Ears, Nose, & Throat: No Symptoms Respiratory: No Cough, No Dyspnea Cardiac: Chest Pain, No Edema, No Syncope Abdominal/Gastrointestinal: Nausea, Vomiting, No Abdominal Pain, No Diarrhea Genitourinary Symptoms: No Dysuria Musculoskeletal: No Back Pain, No Neck Pain Skin: No Rash Neurological: No Dizziness, No Focal Weakness, No Sensory Changes Psychological: No Symptoms Endocrine: No Symptoms All Other Systems: Reviewed and Negative - Past Medical History Pertinent Past Medical History: Yes Neurological History: No Pertinent History ENT History: No Pertinent History Cardiac History: Hypertension Respiratory History: No Pertinent History Endocrine Medical History: No Pertinent History Musculoskeletal History: Other GI Medical History: Gallbladder Disease, Pancreatitis History: Other Psycho-Social History: Anxiety, Depression Female Reproductive Disorders: No Pertinent History Other Medical History: ovarian cysts,PANCREATITIS AND CHOLECYSTITIS, urinary retention 10/2015. KIDNEY FAILURE IN 01/2017, low iron levels - Past Surgical History Past Surgical History: Yes Neuro Surgical History: No Pertinent History Cardiac: No Pertinent History Respiratory: No Pertinent History Gastrointestinal: Cholecystectomy, Other Genitourinary: No Pertinent History Musculoskeletal: Orthopedic Surgery Female Surgical History: No Pertinent History Other Surgical History: ERCP, rt knee - Social History Smoking Status: Never smoker How long have you smoked: 4 Exposure to second hand smoke: No Drug Use: none Patient Lives Alone: No - Female History Hx Now: No - Nursing Vital Signs Nursing Vital Signs: Initial Vital Signs Temperature 98.2 F 11/20/20 22:35 Pulse Rate 96 H 11/20/20 22:35 Respiratory Rate 22 11/20/20 22:35 Blood Pressure 133/60 11/20/20 22:35 O2 Sat by Pulse Oximetry 100 11/20/20 22:35 Pain Scale Pain Intensity 7 - Physical Exam General Appearance: mild distress, alert Eye Exam: PERRL/EOMI, eyes nml inspection Ears, Nose, Throat Exam: normal ENT inspection, TMs normal, pharynx normal, moist mucous membranes Neck Exam: normal inspection, non-tender, supple, full range of motion Respiratory Exam: normal breath sounds, lungs clear, No respiratory distress Cardiovascular Exam: regular rate/rhythm, normal heart sounds, normal peripheral pulses Gastrointestinal/Abdomen Exam: soft, normal bowel sounds, No tenderness, No mass Back Exam: normal inspection, normal range of motion, No CVA tenderness, No vertebral tenderness Extremity Exam: normal inspection, normal range of motion, pelvis stable Neurologic Exam: alert, oriented x 3, cooperative, normal mood/affect, nml cerebellar function, nml station & gait, sensation nml, No motor deficits Skin Exam: normal color, warm, dry, No rash Lymphatic Exam: No adenopathy SpO2: 100 - Course Nursing assessment & vital signs reviewed: Yes - Radiology Exams Chest X-ray Interpretation: Reviewed by me, Negative Ordered Tests: Active Orders 24 hr Category Date Time Status EKG-ER Only STAT Care 11/20/20 22:52 Active CHEST 1 VIEW (PORTABLE) Stat Exams 11/20/20 22:53 Taken AMYLASE Stat Lab 11/20/20 23:06 Completed CBC W DIFF Stat Lab 11/20/20 23:06 Completed CMP Stat Lab 11/20/20 23:06 Completed LIPASE Stat Lab 11/20/20 23:06 Completed Lactic Acid Stat Lab 11/20/20 22:52 Completed TROPONIN Q3H Lab 11/20/20 23:06 Completed TROPONIN Q3H Lab 11/21/20 02:00 Ordered TROPONIN Q3H Lab 11/21/20 05:00 Ordered TROPONIN Q3H Lab 11/21/20 08:00 Ordered TROPONIN Q3H Lab 11/21/20 11:00 Ordered UA W/RFX UR CULTURE Stat Lab 11/20/20 22:52 Completed Medication Summary Discontinued Medications Generic Name Dose Route Start Last Admin Trade Name Freq PRN Reason Stop Dose Admin Sodium Chloride 1,000 mls @ 999 mls/hr 11/20/20 22:52 11/20/20 23:00 Sodium Chloride 0.9% 1000 Ml IV 11/20/20 23:52 999 mls/hr .Q1H1M STA Administration Sodium Chloride Confirm 11/20/20 22:55 Sodium Chloride 0.9% 1000 Ml Administered 11/20/20 22:56 Dose 1,000 mls @ ud .ROUTE .STK-MED ONE Ondansetron HCl 4 mg 11/20/20 22:52 11/20/20 23:00 Zofran 4 Mg/2 Ml Vial IV 11/20/20 22:53 4 mg STAT ONE Administration Ondansetron HCl Confirm 11/20/20 22:55 Zofran 4 Mg/2 Ml Vial Administered 11/20/20 22:56 Dose 4 mg .ROUTE .STK-MED ONE Lab/Rad Data: Laboratory Result Diagrams 11/20/20 23:06 11/20/20 23:06 Laboratory Results 11/20/20 11/20/20 11/20/20 Range/Units 23:06 23:06 23:06 WBC 10.2 (4.0-10.5) K/mm3 RBC 5.10 (4.1-5.4) M/mm3 Hgb 13.1 (12.0-16.0) gm/dl Hct 42.9 (35-47) % MCV 84.1 (78-100) fl MCH 25.7 L (26-32) pg MCHC 30.5 L (32-36) g/dl RDW 15.0 H (11.5-14.0) % Plt Count 350 (150-450) K/mm3 MPV 11.2 H (7.5-11.0) fl Gran % 60.9 (36.0-66.0) % Eos # (Auto) 0.39 (0-0.5) Absolute Lymphs (auto) 2.86 (1.0-4.6) Absolute Monos (auto) 0.72 (0.0-1.3) Lymphocytes % 28.0 (24.0-44.0) % Monocytes % 7.0 (0.0-12.0) % Eosinophils % 3.8 (0.00-5.0) % Basophils % 0.3 (0.0-0.4) % Absolute Granulocytes 6.22 (1.4-6.9) Basophils # 0.03 (0-0.4) Sodium 139 (137-145) mmol/L Potassium 3.6 (3.5-5.1) mmol/L Chloride 100 (98-107) mmol/L Carbon Dioxide 30 (22-30) mmol/L Anion Gap 13.3 (5-15) MEQ/L BUN 14 (7-17) mg/dL Creatinine 0.60 (0.52-1.04) mg/dL Estimated GFR > 60.0 ML/MIN Glucose 74 (74-106) mg/dL Lactic Acid (0.4-2.0) Calcium 9.7 (8.4-10.2) mg/dL Total Bilirubin 0.40 (0.2-1.3) mg/dL AST 45 H (14-36) U/L ALT 53 H (0-35) U/L Alkaline Phosphatase 77 (38-126) U/L Troponin I < 0.012 (0.000-0.034) ng/mL Serum Total Protein 8.4 H (6.3-8.2) g/dL Albumin 4.5 (3.5-5.0) g/dL Amylase 65 (30-110) U/L Lipase 71 (23-300) U/L Urine Color (YELLOW) Urine Appearance (CLEAR) Urine pH (5-6) Ur Specific Finley (1.005-1.025) Urine Protein (Negative) Urine Ketones (NEGATIVE) Urine Blood (0-5) Jayden/ul Urine Nitrite (NEGATIVE) Urine Bilirubin (NEGATIVE) Urine Urobilinogen (0-1) mg/dL Ur Leukocyte Esterase (NEGATIVE) Urine WBC (Auto) (0-5) /HPF Urine RBC (Auto) (0-2) /HPF U Epithel Cells (Auto) (FEW) /HPF Urine Bacteria (Auto) (NEGATIVE) /HPF Urine Mucus (Auto) (NEGATIVE) /HPF Urine Culture Reflexed (NO) Urine Glucose (NEGATIVE) mg/dL 11/20/20 11/20/20 Range/Units 22:52 22:52 WBC (4.0-10.5) K/mm3 RBC (4.1-5.4) M/mm3 Hgb (12.0-16.0) gm/dl Hct (35-47) % MCV (78-100) fl MCH (26-32) pg MCHC (32-36) g/dl RDW (11.5-14.0) % Plt Count (150-450) K/mm3 MPV (7.5-11.0) fl Gran % (36.0-66.0) % Eos # (Auto) (0-0.5) Absolute Lymphs (auto) (1.0-4.6) Absolute Monos (auto) (0.0-1.3) Lymphocytes % (24.0-44.0) % Monocytes % (0.0-12.0) % Eosinophils % (0.00-5.0) % Basophils % (0.0-0.4) % Absolute Granulocytes (1.4-6.9) Basophils # (0-0.4) Sodium (137-145) mmol/L Potassium (3.5-5.1) mmol/L Chloride (98-107) mmol/L Carbon Dioxide (22-30) mmol/L Anion Gap (5-15) MEQ/L BUN (7-17) mg/dL Creatinine (0.52-1.04) mg/dL Estimated GFR ML/MIN Glucose (74-106) mg/dL Lactic Acid 1.3 (0.4-2.0) Calcium (8.4-10.2) mg/dL Total Bilirubin (0.2-1.3) mg/dL AST (14-36) U/L ALT (0-35) U/L Alkaline Phosphatase (38-126) U/L Troponin I (0.000-0.034) ng/mL Serum Total Protein (6.3-8.2) g/dL Albumin (3.5-5.0) g/dL Amylase (30-110) U/L Lipase (23-300) U/L Urine Color STRAW (YELLOW) Urine Appearance CLEAR (CLEAR) Urine pH 6.0 (5-6) Ur Specific Finley 1.004 (1.005-1.025) Urine Protein NEGATIVE (Negative) Urine Ketones NEGATIVE (NEGATIVE) Urine Blood NEGATIVE (0-5) Jayden/ul Urine Nitrite NEGATIVE (NEGATIVE) Urine Bilirubin NEGATIVE (NEGATIVE) Urine Urobilinogen NEGATIVE (0-1) mg/dL Ur Leukocyte Esterase NEGATIVE (NEGATIVE) Urine WBC (Auto) NONE (0-5) /HPF Urine RBC (Auto) NONE (0-2) /HPF U Epithel Cells (Auto) RARE (FEW) /HPF Urine Bacteria (Auto) NONE (NEGATIVE) /HPF Urine Mucus (Auto) SLIGHT (NEGATIVE) /HPF Urine Culture Reflexed NO (NO) Urine Glucose NEGATIVE (NEGATIVE) mg/dL - Progress Progress: improved Counseled pt/family regarding: lab results, diagnosis, need for follow-up (with Dr Hinkle), rad results - Departure Departure Disposition: Home Clinical Impression: Atypical chest pain Adverse drug effect Qualifiers: Encounter type: initial encounter Qualified Code(s): T50.905A - Adverse effect of unspecified drugs, medicaments and biological substances, initial encounter Nausea and vomiting Qualifiers: Vomiting type: unspecified Vomiting Intractability: non-intractable Qualified Code(s): R11.2 - Nausea with vomiting, unspecified Condition: Stable Critical Care Time: No Referrals: MELVA HINKLE [Primary Care Provider] - Follow Up with PCP/3 days Instructions: Adverse Drug Reactions, Adult (DC), Adverse Drug Reactions, Adult, Side Effects From Medicines Additional Instructions: STOP VERAPAMIL. YOU CAN START YOUR ATENOLOL BACK. SEE DR. HINKLE ON SUNDAY. Discharge/Care Plan ALLIE BERGMAN was seen on 11/21/20 in the Emergency Room. The patient was counseled regarding Diagnosis,Lab results, Imaging studies, need for follow up and when to return to the Emergency Room. Prescriptions given: Discharge Note I have spoken with the patient and/or caregivers. I have explained the patient's condition, diagnosis and treatment plan based on the information available to me at this time. I have answered the patient's and/or caregiver's questions and addressed any concerns. The patient and/or caregivers have as good understanding of the patient's diagnosis, condition and treatment plan as can be expected at this point. The vital signs have been stable. The patient's condition is stable and appropriate for discharge from the emergency department. The patient will pursue further outpatient evaluation with the primary care physician or other designated or consulting physician as outlined in the discharge instructions. The patient and/or caregivers are agreeable to this plan of care and follow-up instructions have been explained in detail. The patient and/or caregivers have received these instruction. The patient/and or caregivers are aware that any significant change in condition or worsening of symptoms should prompt an immediate return to this or the closest emergency department or call 911. ALLIE BERGMAN was seen on 11/21/20 n the Emergency Room. At that time you were treated for an emergent condition, during your visit Laboratory, Radiology and/or other procedures may have been ordered. It is very important that you follow-up with your Primary Care Physician MELVA HINKLE within the next 24-48 hours to review your Emergency Room visit and the final results of testing that was ordered. Some test results such as Urine Cultures, Blood Cultures, and other cultures if ordered will not be finalized for 24-48 hours. If you do not have a Primary Care Provider please call the medical records department at [phone] to obtain a copy of your results or you may sign into our patient portal to obtain these results by visiting us @ [email or web address] and completing the following steps: 1. Click on the Patient Portal link 2. Click the Patient Self Enrollment Link to complete the enrollment form and entering your 3. Once the enrollment form is completed you will receive an email with a temporary ID and password at the email address you provided. 4. Next choose a user name and password. Your user name must be at least 4 characters long and your password must be at least 4 characters long. 5. Choose a security question from the list and provide your answer to the quest ion. If you already have signed into the Health Portal you may access your Health Care Information 15/01 by the following steps: 1. Login to our website @ [email or web address] 2. Enter your original user name and password. FAQS [facility] Health Portal is an online tool that contains your Lab Results, Radiology Reports, Visit History, Discharge Instructions and Health Summary Lab and Radiology Results will not be available for 72 hours on the portal. The Portal is a secure site, passwords are encryted and URLs are re-written so they cannot be copied and pasted. You and authorized family members are the only ones who can access your Portal. Also there is a timeout feature that protects your information if you leave the Portal page open. If you have technical difficulty please use the Contact Us link on the page this will allow you to submit any questions you have regarding the Portal or you may contact the Medical Record Department at [phone] ext [phone].
[2020-11-20 23:10] LABS: Absolute Neutrophil Ct (ANC) 6.22 (1.4-6.9); BASOPHIL % 0.3 % (0.0-0.4); Basophil (Absolute #) 0.03 (0-0.4); Eosinophil % 3.8 % (0.00-5.0); Eosinophil (Absolute #) 0.39 (0-0.5); Hematocrit 42.9 % (35-47); Hemoglobin 13.1 gm/dl (12.0-16.0); Lymphocyte (Absolute #) 2.86 (1.0-4.6); Mean Cell Volume 84.1 fl (78-100); Mean Corpuscular Hemoglobin 25.7 pg (26-32); Mean Corpuscular Hgb Concent. 30.5 g/dl (32-36); Mean Platelet Volume 11.2 fl (7.5-11.0); Monocyte (Absolute #) 0.72 (0.0-1.3); Neutrophil % 60.9 % (36.0-66.0); Platelet Count 350 K/mm3 (150-450); White Blood Count 10.2 K/mm3 (4.0-10.5)
[2020-11-20 23:23] LABS: ALBUMIN 4.5 g/dL (3.5-5.0); ALKALINE PHOSPHATASE 77 U/L (38-126); AMYLASE 65 U/L (30-110); ANION GAP 13.3 MEQ/L (5-15); BLOOD UREA NITROGEN 14 mg/dL (7-17); CHLORIDE 100 mmol/L (98-107); Calcium 9.7 mg/dL (8.4-10.2); Carbon Dioxide 30 mmol/L (22-30); EST GLOMERULAR FILTRATION RATE > 60.0 ML/MIN; Glucose 74 mg/dL (74-106); LIPASE 71 U/L (23-300); Potassium 3.6 mmol/L (3.5-5.1); SGOT/AST 45 U/L (14-36); SGPT/ALT 53 U/L (0-35); SODIUM 139 mmol/L (137-145); Total Protein 8.4 g/dL (6.3-8.2)
[2020-11-20 23:35] LABS: Appearance CLEAR (CLEAR); Bilirubin NEGATIVE (NEGATIVE); Blood NEGATIVE Ery/ul (0-5); Epithelial Cells RARE /HPF (FEW); Glucose NEGATIVE (NEGATIVE); Ketones NEGATIVE (NEGATIVE); Leukocyte Esterase NEGATIVE (NEGATIVE); Mucus SLIGHT /HPF (NEGATIVE); Nitrite NEGATIVE (NEGATIVE); Protein,Urine Dip NEGATIVE (Negative); Specific Gravity 1.004 (1.005-1.025); Urobilinogen NEGATIVE mg/dL (0-1)
[2020-11-21 00:35] VITALS: BP 90/54; PULSE 79; O2SAT 96
--- NOTE | 2020-11-21 07:25 | XRAY ---
Indication: Chest pain, nausea, and vomiting. Comparison: October 31, 2020. Portable apical lordotic chest continues to demonstrate normal heart, lungs, and bony thorax.
== END 2020-11-21 00:36 | disposition home or self-care (01) ==
LOC: ED 22:34
DX: R07.89 Other chest pain (principal); T50.905A Adverse effect of unspecified drugs, medicaments and biological substances, initial encounter; R11.2 Nausea with vomiting, unspecified
CPT/HCPCS: 36000; 36415; 71045; 80053; 81001; 82150; 83605; 83690; 84484; 85025; 93005; 96374; 99284; J2405

== ENCOUNTER 2021-03-30 18:14 | Emergency (ER) | payer OTHER ==
--- NOTE | 2021-03-30 18:26 | ERPHSYRPT ---
- History of Present Illness Time Seen by Provider: 03/30/21 18:25 Historian: patient Exam Limitations: no limitations Patient Subjective Stated Complaint: Pt states "My chest is really hurting. It started about an hour ago." Triage Nursing Assessment: Pt presented alert and oriented X 3, skin pwd. Pt ambulates with an upright steady gait, able to speak in clear full sentences. pt tachypneic, holding her chest. Physician History: This is a 25-year-old morbidly obese white female patient of Dr. Manan Gant who 1 hour prior to arrival had sudden onset of central chest pain which was described as sharp and radiated around bilaterally into her back. Patient has a history of anxiety, depression, pancreatitis and hypertension. Patient was recently given a prescription for Lasix to treat leg swelling. However, the patient has not filled the prescription as of yet. Patient has seen Dr. Drew as her photography editor. She just saw him Sunday prior to this evaluation and from the cardiac standpoint it was clear per her report. Timing/Duration: today Activities at Onset: none Quality: sharpness Location: substernal, central Chest Pain Radiation: back (And bilateral subcostal regions around to her back) Severity of Pain-Max: mild (To moderate) Severity of Pain-Current: mild (To moderate) Associated Symptoms: denies symptoms Prior Chest Pain/Cardiac Workup: recently seen/treated Nitro Today/Relief: no nitro taken today Aspirin Treatment Today: 81 mg x 4, provided by ED Allergies/Adverse Reactions: amoxicillin trihydrate [From Augmentin] Allergy (Intermediate, Verified 11/20/20 22:44) Hives cefaclor [From Ceclor] Allergy (Intermediate, Verified 11/20/20 22:44) Hives enalapril Adverse Reaction (Intermediate, Verified 11/20/20 22:44) Cough ibuprofen Adverse Reaction (Verified 11/20/20 22:44) hx of renal failure, advised by PCP to avoid Home Medications: Buspirone HCl [Buspar] 15 mg PO BID 11/20/20 [History] Losartan/Hydrochlorothiazide [Losartan-Hctz 100-12.5 mg Tab] 1 tab PO DAILY 11/20/20 [History] Norethindrone [Incassia] 0.35 mg PO DAILY 03/30/21 [History] Spironolactone 25 mg [Aldactone 25 MG] 25 mg PO DAILY 03/30/21 [History] Hx Tetanus, Diphtheria Vaccination/Date Given: Yes Hx Influenza Vaccination/Date Given: Yes Hx Pneumococcal Vaccination/Date Given: No Immunizations Up to Date: Yes Travel Risk - International Travel Have you traveled outside of the country in past 3 weeks: No - Coronavirus Screening Are you exhibiting any of the following symptoms?: No Close contact with a COVID-19 positive Pt in past 14-21 Days: No - Vaccine Status Have you recieved a Covid-19 vaccination: Yes 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[employer] - Vaccination Dates Date of 2cond Vaccination (if applicable): 10/2020 - Review of Systems Constitutional: No Symptoms Eyes: No Symptoms Ears, Nose, & Throat: No Symptoms Respiratory: No Symptoms Cardiac: Chest Pain Abdominal/Gastrointestinal: No Symptoms Genitourinary Symptoms: No Symptoms Musculoskeletal: No Symptoms Skin: No Symptoms Neurological: No Symptoms Psychological: Anxiety Endocrine: No Symptoms Hematologic/Lymphatic: No Symptoms Immunological/Allergic: No Symptoms All Other Systems: Reviewed and Negative - Past Medical History Pertinent Past Medical History: Yes Neurological History: No Pertinent History ENT History: No Pertinent History Cardiac History: Hypertension Respiratory History: No Pertinent History Endocrine Medical History: No Pertinent History Musculoskeletal History: Other GI Medical History: Gallbladder Disease, Pancreatitis History: Other Psycho-Social History: Anxiety, Depression Female Reproductive Disorders: No Pertinent History Other Medical History: ovarian cysts,PANCREATITIS AND CHOLECYSTITIS, urinary retention 10/2015. KIDNEY FAILURE IN 01/2017, low iron levels - Past Surgical History Past Surgical History: Yes Neuro Surgical History: No Pertinent History Cardiac: No Pertinent History Respiratory: No Pertinent History Gastrointestinal: Cholecystectomy, Other Genitourinary: No Pertinent History Musculoskeletal: Orthopedic Surgery Female Surgical History: No Pertinent History Other Surgical History: ERCP, rt knee - Social History Smoking Status: Former smoker How long have you smoked: 4 Exposure to second hand smoke: Yes Drug Use: none Patient Lives Alone: No - Female History Hx Last Menstrual Period: 02/28/2021 Hx Now: No - Nursing Vital Signs Nursing Vital Signs: Initial Vital Signs Temperature 98.1 F 03/30/21 18:18 Pulse Rate 108 H 03/30/21 18:18 Respiratory Rate 26 H 03/30/21 18:18 Blood Pressure 143/94 03/30/21 18:18 O2 Sat by Pulse Oximetry 97 03/30/21 18:18 Pain Scale Pain Intensity 8 - Physical Exam General Appearance: no apparent distress, alert, anxiety, obese Eye Exam: PERRL/EOMI, eyes nml inspection Ears, Nose, Throat Exam: normal ENT inspection, moist mucous membranes Neck Exam: normal inspection, non-tender, supple, full range of motion Respiratory Exam: normal breath sounds, chest tenderness, lungs clear, airway intact, No respiratory distress Cardiovascular Exam: regular rate/rhythm, normal heart sounds, normal peripheral pulses Gastrointestinal/Abdomen Exam: soft, normal bowel sounds, No tenderness Pelvic Exam: not done Rectal Exam: not done Back Exam: normal inspection, normal range of motion, No CVA tenderness Extremity Exam: normal range of motion, pelvis stable, other (Patient has bilateral lower extremity lymphedema. No evidence of cellulitis) Neurologic Exam: alert, oriented x 3, cooperative, banana grader II-XII nml as tested, normal mood/affect, nml cerebellar function, nml station & gait, sensation nml Skin Exam: normal color, warm, dry Lymphatic Exam: other (Bilateral lower extremity lymphedema (chronic)) SpO2 Interpretation: normal SpO2: 97 O2 Delivery: Room Air - Course Nursing assessment & vital signs reviewed: Yes EKG Interpreted by Me: RATE (90), NORMAL AXIS, NORMAL INTERVALS, NORMAL QRS, NORMAL ST-T, Other (No acute ischemic changes. No changes when compared to comparison EKG dated 02/23/2021) Ordered Tests: Active Orders 24 hr Category Date Time Status EKG-ER Only STAT Care 03/30/21 18:28 Active IV Insertion STAT Care 03/30/21 18:28 Active Pulse Oximetry (ED) STAT Care 03/30/21 18:28 Active CHEST 1 VIEW (PORTABLE) Stat Exams 03/30/21 18:29 Taken CHEST WITH CONTRAST [CT] Stat Exams 03/30/21 19:45 Taken CBC W DIFF Stat Lab 03/30/21 18:40 Completed CMP Stat Lab 03/30/21 18:40 Completed D-DIMER QUANTITATIVE Stat Lab 03/30/21 18:40 Completed PROTIME WITH INR Stat Lab 03/30/21 18:40 Completed TROPONIN Q3H Lab 03/30/21 18:40 Completed TROPONIN Q3H Lab 03/30/21 21:43 Received TROPONIN Q3H Lab 03/31/21 00:30 Ordered TROPONIN Q3H Lab 03/31/21 03:30 Ordered TROPONIN Q3H Lab 03/31/21 06:30 Ordered Medication Summary Discontinued Medications Generic Name Dose Route Start Last Admin Trade Name Farhan PRN Reason Stop Dose Admin Aspirin 324 mg 03/30/21 18:28 03/30/21 18:32 Baby Aspirin 81 Mg Chew PO 03/30/21 18:29 324 mg STAT ONE Administration Sodium Chloride 500 mls @ 500 mls/hr 03/30/21 19:46 03/30/21 19:51 Sodium Chloride 0.9% 500 Ml IV 03/30/21 20:45 500 mls/hr .Q1H ONE Administration Sodium Chloride Confirm 03/30/21 19:48 Sodium Chloride 0.9% 500 Ml Administered 03/30/21 19:49 Dose 500 mls @ ud IV .STK-MED ONE Lab/Rad Data: Laboratory Result Diagrams 03/30/21 18:40 03/30/21 18:40 Laboratory Results 03/30/21 03/30/21 03/30/21 Range/Units 18:40 18:40 18:40 WBC (4.0-10.5) K/mm3 RBC (4.1-5.4) M/mm3 Hgb (12.0-16.0) gm/dl Hct (35-47) % MCV (78-100) fl MCH (26-32) pg MCHC (32-36) g/dl RDW (11.5-14.0) % Plt Count (150-450) K/mm3 MPV (7.5-11.0) fl Gran % (36.0-66.0) % Eos # (Auto) (0-0.5) Absolute Lymphs (auto) (1.0-4.6) Absolute Monos (auto) (0.0-1.3) Lymphocytes % (24.0-44.0) % Monocytes % (0.0-12.0) % Eosinophils % (0.00-5.0) % Basophils % (0.0-0.4) % Absolute Granulocytes (1.4-6.9) Basophils # (0-0.4) PT 11.5 (9.4-12.5) SECONDS INR 0.97 (0.8-3.0) D-Dimer 591 H* (215-500) ng/mL Sodium 140 (137-145) mmol/L Potassium 3.5 (3.5-5.1) mmol/L Chloride 102 (98-107) mmol/L Carbon Dioxide 26 (22-30) mmol/L Anion Gap 15.6 H (5-15) MEQ/L BUN 18 H (7-17) mg/dL Creatinine 0.66 (0.52-1.04) mg/dL Estimated GFR > 60.0 ML/MIN Glucose 127 H (74-106) mg/dL Calcium 9.4 (8.4-10.2) mg/dL Total Bilirubin 0.30 (0.2-1.3) mg/dL AST 31 (14-36) U/L ALT 30 (0-35) U/L Alkaline Phosphatase 69 (38-126) U/L Troponin I < 0.012 (0.000-0.034) ng/mL Serum Total Protein 7.5 (6.3-8.2) g/dL Albumin 4.0 (3.5-5.0) g/dL 03/30/21 Range/Units 18:40 WBC 11.2 H (4.0-10.5) K/mm3 RBC 4.63 (4.1-5.4) M/mm3 Hgb 12.4 (12.0-16.0) gm/dl Hct 39.0 (35-47) % MCV 84.2 (78-100) fl MCH 26.8 (26-32) pg MCHC 31.8 L (32-36) g/dl RDW 14.9 H (11.5-14.0) % Plt Count 314 (150-450) K/mm3 MPV 11.2 H (7.5-11.0) fl Gran % 63.2 (36.0-66.0) % Eos # (Auto) 0.29 (0-0.5) Absolute Lymphs (auto) 3.12 (1.0-4.6) Absolute Monos (auto) 0.68 (0.0-1.3) Lymphocytes % 27.9 (24.0-44.0) % Monocytes % 6.1 (0.0-12.0) % Eosinophils % 2.6 (0.00-5.0) % Basophils % 0.2 (0.0-0.4) % Absolute Granulocytes 7.08 H (1.4-6.9) Basophils # 0.02 (0-0.4) PT (9.4-12.5) SECONDS INR (0.8-3.0) D-Dimer (215-500) ng/mL Sodium (137-145) mmol/L Potassium (3.5-5.1) mmol/L Chloride (98-107) mmol/L Carbon Dioxide (22-30) mmol/L Anion Gap (5-15) MEQ/L BUN (7-17) mg/dL Creatinine (0.52-1.04) mg/dL Estimated GFR ML/MIN Glucose (74-106) mg/dL Calcium (8.4-10.2) mg/dL Total Bilirubin (0.2-1.3) mg/dL AST (14-36) U/L ALT (0-35) U/L Alkaline Phosphatase (38-126) U/L Troponin I (0.000-0.034) ng/mL Serum Total Protein (6.3-8.2) g/dL Albumin (3.5-5.0) g/dL - Progress Progress: improved, re-examined Air Movement: good Progress Note: 03/30/21 21:46 CAT scan of the chest with contrast shows poor opacification. However there are no central pulmonary emboli appreciated. Blood Culture(s) Obtained: No Antibiotics given: No Counseled pt/family regarding: lab results, diagnosis, need for follow-up, rad results - Departure Departure Disposition: Home Clinical Impression: Chest pain, non-cardiac Condition: Stable Critical Care Time: No Referrals: MELVA DEGROOT [Primary Care Provider] - Additional Instructions: Follow-up with your primary care physician and photography editor tomorrow morning for further management. Take all your medications as prescribed.
[2021-03-30] MEDS ORDERED: BABY ASPIRIN 81 MG CHEW PO ONE (18:28)
[2021-03-30 18:50] LABS: Absolute Neutrophil Ct (ANC) 7.08 (1.4-6.9); BASOPHIL % 0.2 % (0.0-0.4); Basophil (Absolute #) 0.02 (0-0.4); Eosinophil % 2.6 % (0.00-5.0); Eosinophil (Absolute #) 0.29 (0-0.5); Hemoglobin 12.4 gm/dl (12.0-16.0); Lymphocyte (Absolute #) 3.12 (1.0-4.6); Lymphocytes % 27.9 % (24.0-44.0); Mean Cell Volume 84.2 fl (78-100); Mean Corpuscular Hemoglobin 26.8 pg (26-32); Mean Corpuscular Hgb Concent. 31.8 g/dl (32-36); Mean Platelet Volume 11.2 fl (7.5-11.0); Monocyte (Absolute #) 0.68 (0.0-1.3); Monocytes % 6.1 % (0.0-12.0); Neutrophil % 63.2 % (36.0-66.0); Platelet Count 314 K/mm3 (150-450); Red Blood Count 4.63 M/mm3 (4.1-5.4); Red Cell Distribution Width 14.9 % (11.5-14.0); White Blood Count 11.2 K/mm3 (4.0-10.5)
[2021-03-30 18:58] LABS: INR 0.97 (0.8-3.0); PROTIME 11.5 SECONDS (9.4-12.5)
[2021-03-30 19:02] LABS: ALKALINE PHOSPHATASE 69 U/L (38-126); ANION GAP 15.6 MEQ/L (5-15); BLOOD UREA NITROGEN 18 mg/dL (7-17); CHLORIDE 102 mmol/L (98-107); Calcium 9.4 mg/dL (8.4-10.2); Carbon Dioxide 26 mmol/L (22-30); Creatinine 1 0.66 mg/dL (0.52-1.04); EST GLOMERULAR FILTRATION RATE > 60.0 ML/MIN; Glucose 127 mg/dL (74-106); Potassium 3.5 mmol/L (3.5-5.1); SGOT/AST 31 U/L (14-36); SGPT/ALT 30 U/L (0-35); SODIUM 140 mmol/L (137-145); Total Protein 7.5 g/dL (6.3-8.2)
[2021-03-30] MEDS ORDERED: Sodium Chloride 0.9% 500 ML 500 ML IV ONE ×2 (19:46→19:48)
[2021-03-30 22:07] VITALS: BP 132/64; PULSE 88; O2SAT 96
--- NOTE | 2021-03-31 09:01 | XRAY ---
Indication: Chest pain and short of breath. Elevated d-dimer. Multiple contiguous axial images obtained through the chest using 100 cc Isovue 370 contrast and PE protocol. Comparison: May 10, 2018. There is poor opacification of the pulmonary arteries limiting evaluation for pulmonary embolus. No obvious central pulmonary embolus. Heart remains enlarged. Aorta is normal in course and caliber. No pathologic mediastinal/hilar lymphadenopathy. Lungs are inflated and clear. Bony thorax intact. Limited upper abdomen again demonstrates fatty liver, 17 cm splenomegaly, and cholecystectomy clips. Impression: 1. Pulmonary embolus evaluation limited by poor contrast opacification. No obvious central pulmonary embolus. 2. Again cardiomegaly, fatty liver, and splenomegaly. 3. Remaining CT chest with contrast exam is negative.
--- NOTE | 2021-03-31 09:03 | XRAY ---
Indication: Chest pain. Comparison: February 23, 2021. Portable chest less inflated and remains clear. Heart within normal limits for AP portable technique. Bony thorax intact. No new/acute findings.
== END 2021-03-30 22:10 | disposition home or self-care (01) ==
LOC: ED 18:14
DX: R07.89 Other chest pain (principal)
CPT/HCPCS: 36000; 36415; 71045; 71260; 80053; 84484; 85025; 85379; 85610; 93005; 94760; 99284; A9270-GY

== ENCOUNTER 2021-05-01 15:13 | Emergency (ER) | payer OTHER ==
[2021-05-01] MEDS ORDERED: TORAdol 30 mg Injection IM ONE (15:28)
[2021-05-01] MEDS ORDERED: Cleocin Phosphate IV 600 MG/4 ML IM STA (15:31)
[2021-05-01] MEDS ORDERED: Cleocin Phosphate IV 600 MG/4 ML ONE (15:35)
[2021-05-01] MEDS ORDERED: TORAdol 30 mg Injection ONE (15:35)
--- NOTE | 2021-05-01 15:37 | ERPHSYRPT ---
- History of Present Illness Time Seen by Provider: 05/01/21 15:28 Source: patient Exam Limitations: no limitations Patient Subjective Stated Complaint: Pt complains of an abcess on her labia Triage Nursing Assessment: Pt was brought to the ER by her fiance, hypertensive, rates pain as 8/10, reddened/swollen area to the right labia, no visible discharge Physician History: 25 years old morbidly obese female presented to the ER with chief complaint of right labial swelling/lump noticed 2 days ago with progressively worsening. Patient report associated moderate to severe sharp throbbing pain which is more with ambulation/palpation and better with being still. She has been taking [id number] medication with no significant relief. Patient denies any history of MRSA. Timing/Duration: day(s) (2), constant, gradual onset, worse Quality: painful Severity: moderate Location: genitalia Possible Causes: no cause identified Associated Symptoms: rash, swelling/mass/lumps Allergies/Adverse Reactions: amoxicillin trihydrate [From Augmentin] Allergy (Intermediate, Verified 05/01/21 15:29) Hives cefaclor [From Ceclor] Allergy (Intermediate, Verified 05/01/21 15:29) Hives enalapril Adverse Reaction (Intermediate, Verified 05/01/21 15:29) Cough ibuprofen Adverse Reaction (Verified 05/01/21 15:29) hx of renal failure, advised by PCP to avoid Home Medications: Buspirone HCl [Buspar] 15 mg PO BID 11/20/20 [History] Losartan/Hydrochlorothiazide [Losartan-Hctz 100-12.5 mg Tab] 1 tab PO DAILY 11/20/20 [History] Norethindrone [Incassia] 0.35 mg PO DAILY 03/30/21 [History] Spironolactone 25 mg [Aldactone 25 MG] 25 mg PO DAILY 03/30/21 [History] Hx Tetanus, Diphtheria Vaccination/Date Given: Yes Hx Influenza Vaccination/Date Given: Yes Hx Pneumococcal Vaccination/Date Given: No Travel Risk - International Travel Have you traveled outside of the country in past 3 weeks: No - Coronavirus Screening Are you exhibiting any of the following symptoms?: No Close contact with a COVID-19 positive Pt in past 14-21 Days: No - Vaccine Status Have you recieved a Covid-19 vaccination: Yes 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[employer] - Vaccination Dates Date of 2cond Vaccination (if applicable): 10/2020 - Review of Systems Constitutional: No Symptoms Eyes: No Symptoms Ears, Nose, & Throat: No Symptoms Respiratory: No Symptoms Cardiac: No Symptoms Musculoskeletal: No Symptoms Skin: Cellulitis, Rash Neurological: No Symptoms Endocrine: No Symptoms Hematologic/Lymphatic: No Symptoms Immunological/Allergic: No Symptoms - Past Medical History Pertinent Past Medical History: Yes Neurological History: No Pertinent History ENT History: No Pertinent History Cardiac History: Hypertension Respiratory History: No Pertinent History Endocrine Medical History: No Pertinent History Musculoskeletal History: Other GI Medical History: Gallbladder Disease, Pancreatitis History: Other Psycho-Social History: Anxiety, Depression Female Reproductive Disorders: No Pertinent History Other Medical History: ovarian cysts,PANCREATITIS AND CHOLECYSTITIS, urinary retention 10/2015. KIDNEY FAILURE IN 01/2017, low iron levels - Past Surgical History Past Surgical History: Yes Neuro Surgical History: No Pertinent History Cardiac: No Pertinent History Respiratory: No Pertinent History Gastrointestinal: Cholecystectomy, Other Genitourinary: No Pertinent History Musculoskeletal: Orthopedic Surgery Female Surgical History: No Pertinent History Other Surgical History: ERCP, rt knee - Social History Smoking Status: Former smoker How long have you smoked: 4 Exposure to second hand smoke: No Drug Use: none Patient Lives Alone: No - Female History Hx Last Menstrual Period: 04/18/2021 Hx Now: No - Nursing Vital Signs Nursing Vital Signs: Initial Vital Signs Temperature 97.6 F 05/01/21 15:21 Pulse Rate 100 H 05/01/21 15:21 Blood Pressure 167/101 05/01/21 15:21 O2 Sat by Pulse Oximetry 98 05/01/21 15:21 Pain Scale Pain Intensity 8 - Physical Exam General Appearance: no apparent distress Eye Exam: PERRL/EOMI Neck Exam: normal inspection, full range of motion Respiratory Exam: normal breath sounds, lungs clear Cardiovascular Exam: regular rate/rhythm, normal heart sounds Gastrointestinal/Abdomen Exam: soft, No tenderness Pelvic Exam: other (3 x 2 cm area of induration right lower labial fold. Warm, firm consistency, tender to touch. Negative fluctuation.) Extremity Exam: normal inspection Neurologic Exam: alert, oriented x 3, cooperative Skin Exam: normal color SpO2 Interpretation: normal SpO2: 98 O2 Delivery: Room Air - Progress Progress: unchanged Progress Note: 11/07/21 15:37 She is given Toradol for symptomatic relief and started on clindamycin. Do not think she needs incision drainage at this point. Recommended outpatient follow- up. Counseled pt/family regarding: diagnosis, need for follow-up - Departure Departure Disposition: Home Clinical Impression: Labial swelling Condition: Stable Critical Care Time: No Referrals: MELVA DEGROOT [Primary Care Provider] - Follow up/PCP as directed (In 2 days for reevaluation) Instructions: Skin Abscess, MRSA (DC) Additional Instructions: Take Tylenol as needed for pain. Apply warm compresses. Follow-up with primary care/[facility] MANUFACTURING CONSULTANT for reevaluation. Return to ER for increasing pain, swelling, fever chills etc. Prescriptions: Ibuprofen 600 mg PO Q6HPRN PRN 10 Days #20 tablet PRN Reason: Pain Clindamycin HCl 150 mg [Cleocin 150 mg Capsule] 2 cap PO QID #56 cap
== END 2021-05-01 15:56 | disposition home or self-care (01) ==
LOC: ED 15:13
DX: N76.89 Other specified inflammation of vagina and vulva (principal)
CPT/HCPCS: 96372; 99283; J1885

== ENCOUNTER 2021-07-17 14:21 | Emergency (ER) | payer OTHER ==
[2021-07-17 14:35] VITALS: O2SAT 98
[2021-07-17] MEDS ORDERED: Imitrex 6 MG/0.5 ML SQ STA ×2 (14:42→15:48)
--- NOTE | 2021-07-17 14:45 | ERPHSYRPT ---
- History of Present Illness Time Seen by Provider: 07/17/21 14:30 Source: patient Exam Limitations: no limitations Patient Subjective Stated Complaint: Pt has had a migraine for 3 days with no relief, hx of migraines Triage Nursing Assessment: Pt was brought to the ER by her boyfriend, hypertensive, rates pain as 03/04, usually treats migraines with Tylenol but unsuccessful this time, photophobia, N&V, dizziness Physician History: Patient is a 26-year-old female with a history of migraines who has not suffered an attack for some time she presents today with a 3-day headache which will not get relief. She has had nausea and vomiting photophobia. This headache is very typical of her migraines. Timing/Duration: day(s) (3) Quality: throbbing Head Pain Location: global Severity of Pain-Max: moderate Severity of Pain-Current: moderate Recent Head Trauma: no recent headache/trauma Modifying Factors: Improves With: exposure to light, noise Associated Symptoms: nausea/vomiting, sensitive to light Previous symptoms: same symptoms as today Allergies/Adverse Reactions: amoxicillin trihydrate [From Augmentin] Allergy (Intermediate, Verified 07/17/21 14:35) Hives cefaclor [From Ceclor] Allergy (Intermediate, Verified 07/17/21 14:35) Hives enalapril Adverse Reaction (Intermediate, Verified 07/17/21 14:35) Cough ibuprofen Adverse Reaction (Verified 07/17/21 14:35) hx of renal failure, advised by PCP to avoid Home Medications: Buspirone HCl [Buspar] 15 mg PO BID 11/20/20 [History] Losartan/Hydrochlorothiazide [Losartan-Hctz 100-12.5 mg Tab] 1 tab PO DAILY 11/20/20 [History] Spironolactone 25 mg [Aldactone 25 MG] 25 mg PO DAILY 03/30/21 [History] Hx Tetanus, Diphtheria Vaccination/Date Given: Yes Hx Influenza Vaccination/Date Given: Yes Hx Pneumococcal Vaccination/Date Given: No Travel Risk - International Travel Have you traveled outside of the country in past 3 weeks: No - Coronavirus Screening Are you exhibiting any of the following symptoms?: Yes Symptoms: Headaches/Body Aches/Fatigue Close contact with a COVID-19 positive Pt in past 14-21 Days: No - Vaccine Status Have you recieved a Covid-19 vaccination: Yes 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[employer] - Vaccination Dates Date of 2cond Vaccination (if applicable): 11/2020 - Review of Systems Constitutional: No Fever, No Chills Eyes: No Symptoms Ears, Nose, & Throat: No Symptoms Respiratory: No Cough, No Dyspnea Cardiac: No Chest Pain, No Edema, No Syncope Abdominal/Gastrointestinal: No Abdominal Pain, No Nausea, No Vomiting, No Diarrhea Genitourinary Symptoms: No Dysuria Musculoskeletal: No Back Pain, No Neck Pain Skin: No Rash Neurological: Headache, No Dizziness, No Focal Weakness, No Sensory Changes Psychological: No Symptoms Endocrine: No Symptoms All Other Systems: Reviewed and Negative - Past Medical History Pertinent Past Medical History: Yes Neurological History: Migraines ENT History: No Pertinent History Cardiac History: Hypertension Respiratory History: No Pertinent History Endocrine Medical History: No Pertinent History Musculoskeletal History: Other GI Medical History: Gallbladder Disease, Pancreatitis History: Other Psycho-Social History: Anxiety, Depression Female Reproductive Disorders: No Pertinent History Other Medical History: ovarian cysts,PANCREATITIS AND CHOLECYSTITIS, urinary retention 10/2015. KIDNEY FAILURE IN 01/2017, low iron levels - Past Surgical History Past Surgical History: Yes Neuro Surgical History: No Pertinent History Cardiac: No Pertinent History Respiratory: No Pertinent History Gastrointestinal: Cholecystectomy, Other Genitourinary: No Pertinent History Musculoskeletal: Orthopedic Surgery Female Surgical History: No Pertinent History Other Surgical History: ERCP, rt knee - Social History Smoking Status: Never smoker How long have you smoked: 4 Exposure to second hand smoke: Yes Drug Use: none Patient Lives Alone: No - Female History Hx Last Menstrual Period: 06/17/2021 Hx Now: No - Nursing Vital Signs Nursing Vital Signs: Initial Vital Signs Temperature 97.7 F 07/17/21 14:28 Pulse Rate 108 H 07/17/21 14:28 Blood Pressure 163/99 07/17/21 14:28 O2 Sat by Pulse Oximetry 98 07/17/21 14:28 Pain Scale Pain Intensity 9 - Physical Exam General Appearance: mild distress Eye Exam: PERRL/EOMI Ears, Nose, Throat Exam: normal ENT inspection, moist mucous membranes Neck Exam: normal inspection, supple, full range of motion, No meningismus Respiratory Exam: normal breath sounds, lungs clear Cardiovascular Exam: regular rate/rhythm, normal heart sounds Gastrointestinal/Abdominal Exam: soft, No tenderness, No distention Back Exam: normal inspection, normal range of motion Mental Status Exam: alert, oriented x 3, 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 Exam: normal speech, PERRL, No facial droop Coordination/Gait Exam: normal cerebellar function Motor/Sensory Exam: no motor deficit, no sensory deficit Skin Exam: normal color, warm, dry, No rash SpO2: 98 - Course Nursing assessment & vital signs reviewed: Yes Ordered Tests: Medication Summary Discontinued Medications Generic Name Dose Route Start Last Admin Trade Name Freq PRN Reason Stop Dose Admin Hydromorphone HCl 1 mg 07/17/21 15:49 07/17/21 15:59 Hydromorphone 1 Mg/1ml Inj 1 Mg/Ml Syringe IM 07/17/21 15:50 1 mg STAT ONE Administration Hydromorphone HCl Confirm 07/17/21 15:58 Hydromorphone 1 Mg/1ml Inj 1 Mg/Ml Syringe Administered 07/17/21 15:59 Dose 1 mg .ROUTE .STK-MED ONE Sumatriptan Succinate 6 mg 07/17/21 14:42 07/17/21 14:58 Sumatriptan Succinate 6 Mg/0.5 Ml Vial SQ 07/17/21 14:43 6 mg STAT STA Administration Sumatriptan Succinate Confirm 07/17/21 14:56 Sumatriptan Succinate 6 Mg/0.5 Ml Vial Administered 07/17/21 14:57 Dose 6 mg SQ .STK-MED ONE Sumatriptan Succinate 6 mg 07/17/21 15:48 07/17/21 15:59 Sumatriptan Succinate 6 Mg/0.5 Ml Vial SQ 07/17/21 15:49 6 mg STAT STA Administration Sumatriptan Succinate Confirm 07/17/21 15:58 Sumatriptan Succinate 6 Mg/0.5 Ml Vial Administered 07/17/21 15:59 Dose 6 mg SQ .STK-MED ONE - Progress Progress: improved Air Movement: good Blood Culture(s) Obtained: No Antibiotics given: No - Departure Departure Disposition: Home Clinical Impression: Migraine headache Condition: Stable Critical Care Time: No Referrals: MELVA DEGROOT [Primary Care Provider] - Follow up/PCP as directed Instructions: Headache, Adult (DC) Prescriptions: SUMAtriptan succinate [Imitrex 50 mg] 50 mg PO DAILY PRN PRN #9 tablet PRN Reason: Headache
[2021-07-17] MEDS ORDERED: Imitrex 6 MG/0.5 ML SQ ONE ×2 (14:56→15:58)
[2021-07-17] MEDS ORDERED: Hydromorphone 1 mg/ml Injection IM ONE (15:49)
[2021-07-17] MEDS ORDERED: Hydromorphone 1 mg/ml Injection ONE (15:58)
[2021-07-17 16:42] VITALS: BP 115/63; PULSE 66
== END 2021-07-17 16:46 | disposition home or self-care (01) ==
LOC: ED 14:21
DX: G43.909 Migraine, unspecified, not intractable, without status migrainosus (principal); I10 Essential (primary) hypertension
CPT/HCPCS: 96372; 99283; J1170; J3030

== ENCOUNTER 2021-07-19 17:49 | Emergency (ER) | payer OTHER ==
[2021-07-19] MEDS ORDERED: HYDROCODONE-ACETAMIN 2.5-108/5 ML SOLUTION PO STA (18:00)
[2021-07-19] MEDS ORDERED: solu-MEDROL 125 MG, Sterile H2O 10 ml 2 ML IV ONE ×2 (18:00)
--- NOTE | 2021-07-19 18:00 | ERPHSYRPT ---
- History of Present Illness Time Seen by Provider: 07/19/21 17:55 Source: patient Exam Limitations: no limitations Physician History: This is a 26-year-old morbidly obese white female with a history of anxiety and hypertension and chronic recurring migraine headaches. She presents today with complaints of sore throat and throat tightening. She thinks she might be having an allergic reaction. 2 days ago, she was seen in this emergency department and was diagnosed and treated for a migraine headache with both intramuscular/subcutaneous Imitrex and Dilaudid. She tolerated the Imitrex well. However, she took her 1st dose of Imitrex approximately 45 minutes before her sudden onset of sore throat and throat swelling. She has also been exposed to individuals with flulike symptoms. She has no chest pain. She is not short of breath. She has no abdominal pain. She has no nausea vomiting or diarrhea. Cough Quality/Degree: no cough Possible Cause: illness exposure, unknown cause (Possible allergic reaction to oral Imitrex) Modifying Factors: Improves With: activity Associated Symptoms: sore throat Allergies/Adverse Reactions: amoxicillin trihydrate [From Augmentin] Allergy (Intermediate, Verified 07/19/21 18:01) Hives cefaclor [From Ceclor] Allergy (Intermediate, Verified 07/19/21 18:01) Hives enalapril Adverse Reaction (Intermediate, Verified 07/19/21 18:01) Cough ibuprofen Adverse Reaction (Verified 07/19/21 18:01) hx of renal failure, advised by PCP to avoid Home Medications: Buspirone HCl [Buspar] 15 mg PO BID 11/20/20 [History] Losartan/Hydrochlorothiazide [Losartan-Hctz 100-12.5 mg Tab] 1 tab PO DAILY 11/20/20 [History] Spironolactone 25 mg [Aldactone 25 MG] 25 mg PO DAILY 03/30/21 [History] Hx Tetanus, Diphtheria Vaccination/Date Given: Yes Hx Influenza Vaccination/Date Given: Yes Hx Pneumococcal Vaccination/Date Given: No Travel Risk - International Travel Have you traveled outside of the country in past 3 weeks: No - Coronavirus Screening Are you exhibiting any of the following symptoms?: No Close contact with a COVID-19 positive Pt in past 14-21 Days: Yes - Vaccine Status Have you recieved a Covid-19 vaccination: Yes 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: [place] - Vaccination Dates Date of 2cond Vaccination (if applicable): 11/2020 - Review of Systems Constitutional: No Symptoms Eyes: No Symptoms Ears, Nose, & Throat: Throat Pain Respiratory: No Symptoms Cardiac: No Symptoms Abdominal/Gastrointestinal: No Symptoms Genitourinary Symptoms: No Symptoms Musculoskeletal: No Symptoms Skin: No Symptoms Neurological: No Symptoms Psychological: No Symptoms Endocrine: No Symptoms Hematologic/Lymphatic: No Symptoms Immunological/Allergic: No Symptoms All Other Systems: Reviewed and Negative - Past Medical History Pertinent Past Medical History: Yes Neurological History: Migraines ENT History: No Pertinent History Cardiac History: Hypertension Respiratory History: No Pertinent History Endocrine Medical History: No Pertinent History Musculoskeletal History: Other GI Medical History: Gallbladder Disease, Pancreatitis History: Other Psycho-Social History: Anxiety, Depression Female Reproductive Disorders: No Pertinent History Other Medical History: ovarian cysts,PANCREATITIS AND CHOLECYSTITIS, urinary retention 10/2015. KIDNEY FAILURE IN 01/2017, low iron levels - Past Surgical History Past Surgical History: Yes Neuro Surgical History: No Pertinent History Cardiac: No Pertinent History Respiratory: No Pertinent History Gastrointestinal: Cholecystectomy, Other Genitourinary: No Pertinent History Musculoskeletal: Orthopedic Surgery Female Surgical History: No Pertinent History Other Surgical History: ERCP, rt knee - Social History Smoking Status: Never smoker How long have you smoked: 4 Exposure to second hand smoke: Yes Drug Use: none Patient Lives Alone: No - Nursing Vital Signs Nursing Vital Signs: Initial Vital Signs Temperature 96.6 F 07/19/21 17:50 Pulse Rate 103 H 07/19/21 17:50 Blood Pressure 177/117 07/19/21 17:50 O2 Sat by Pulse Oximetry 98 07/19/21 17:50 Pain Scale Pain Intensity 5 - Physical Exam General Appearance: no apparent distress, alert, anxiety, obese Eye Exam: PERRL/EOMI, eyes nml inspection Ears, Nose, Throat Exam: normal ENT inspection, pharynx normal, moist mucous membranes Neck Exam: normal inspection, non-tender, supple, full range of motion Respiratory Exam: normal breath sounds, lungs clear, airway intact, No chest tenderness, No respiratory distress Cardiovascular Exam: regular rate/rhythm, normal heart sounds, normal peripheral pulses Gastrointestinal/Abdomen Exam: soft, normal bowel sounds, No tenderness Pelvic Exam: not done Rectal Exam: not done Back Exam: normal inspection, normal range of motion, No CVA tenderness, No vert ebral tenderness Extremity Exam: normal inspection, normal range of motion, pelvis stable Neurologic Exam: alert, oriented x 3, cooperative, 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 as tested, normal mood/affect, nml cerebellar function, nml station & gait, sensation nml Skin Exam: normal color, warm, dry Lymphatic Exam: No adenopathy SpO2 Interpretation: normal O2 Delivery: Room Air - Course Nursing assessment & vital signs reviewed: Yes Ordered Tests: Active Orders 24 hr Category Date Time Status IV Insertion STAT Care 07/19/21 18:00 Active Isolation, Initiate & Maintain STAT Care 07/19/21 18:01 Active COVID AG-BINAX NOW RAPID TEST Stat Lab 07/19/21 18:25 Completed INFLUENZA A+B MACY Stat Lab 07/19/21 18:04 Completed [place] Screen Stat Lab 07/19/21 17:55 Completed Medication Summary Discontinued Medications Generic Name Dose Route Start Last Admin Trade Name Freq PRN Reason Stop Dose Admin Hydrocodone Bitart/Acetaminophen 10 ml 07/19/21 18:00 07/19/21 18:09 Hydrocodone/Acetaminophen 5 Ml Udcup PO 07/19/21 18:01 10 ml STAT STA Administration Hydrocodone Bitart/Acetaminophen Confirm 07/19/21 18:06 Hydrocodone/Acetaminophen 5 Ml Udcup Administered 07/19/21 18:07 Dose 10 ml .ROUTE .STK-MED ONE Methylprednisolone Sodium 0 mg 07/19/21 18:00 07/19/21 18:17 Succinate 125 mg/ Sterile IV 07/19/21 18:01 125 mg Water 2 ml STAT ONE Administration Diphenhydramine HCl 25 mg 07/19/21 18:02 07/19/21 18:17 Diphenhydramine Hcl 50 Mg/Ml Vial IV 07/19/21 18:03 25 mg STAT ONE Administration Diphenhydramine HCl Confirm 07/19/21 18:06 Diphenhydramine Hcl 50 Mg/Ml Vial Administered 07/19/21 18:07 Dose 50 mg .ROUTE .STK-MED ONE Famotidine 20 mg 07/19/21 18:03 07/19/21 18:10 Famotidine 20 Mg/1 Vial IV 07/19/21 18:04 20 mg STAT ONE Administration Famotidine Confirm 07/19/21 18:06 Famotidine 20 Mg/1 Vial Administered 07/19/21 18:07 Dose 20 mg IV .STK-MED ONE Methylprednisolone Sodium Succinate Confirm 07/19/21 18:07 Methylprednis Sod Succ 125 Mg/2 Ml Vial Administered 07/19/21 18:08 Dose 125 mg .ROUTE .STK-MED ONE Sterile Water Confirm 07/19/21 18:07 Water For Injection,Sterile 10 Ml Vial Administered 07/19/21 18:08 Dose 10 ml IJ .STK-MED ONE Lab/Rad Data: Laboratory Results 07/19/21 07/19/21 07/19/21 Range/Units 18:25 18:04 18:04 Monoscreen (Negative) Influenza Type A Ag NEGATIVE (NEGATIVE) Influenza Type B Ag NEGATIVE (NEGATIVE) SARS-CoV-2 Ag (Rapid) NEGATIVE (NEGATIVE) Group A Strep Antibody NOT DETECTED (NEGATIVE) 07/19/21 Range/Units 17:55 Monoscreen NEGATIVE (Negative) Influenza Type A Ag (NEGATIVE) Influenza Type B Ag (NEGATIVE) SARS-CoV-2 Ag (Rapid) (NEGATIVE) Group A Strep Antibody (NEGATIVE) - Progress Progress: improved, re-examined Air Movement: good Progress Note: 07/19/21 19:20 I looked at the medication profile of oral Imitrex. The symptoms the patient is experiencing could be merely a side effect of the patient's medication. It is not uncommon to see a sore throat or neck pain after taking the medication. We will treat her as though this is a medication side effect since her serology and strep tests are negative. She does not have any shortness of breath or rash. 07/19/21 19:21 Blood Culture(s) Obtained: No Antibiotics given: No - Departure Departure Disposition: Home Clinical Impression: Medication side effect Condition: Stable Critical Care Time: No Referrals: MELVA DEGROOT [Primary Care Provider] - Follow up/PCP as directed Additional Instructions: Take your medication as prescribed. Note the side effects of the medication. Follow-up with your prescribing physician for further management.
[2021-07-19] MEDS ORDERED: BENADRYL 50 MG/ML IV ONE (18:02)
[2021-07-19] MEDS ORDERED: Pepcid 20 MG VIAL IV ONE ×2 (18:03→18:06)
[2021-07-19] MEDS ORDERED: HYDROCODONE-ACETAMIN 2.5-108/5 ML SOLUTION ONE (18:06)
[2021-07-19] MEDS ORDERED: BENADRYL 50 MG/ML ONE (18:06)
[2021-07-19] MEDS ORDERED: solu-MEDROL ONE (18:07)
[2021-07-19] MEDS ORDERED: Sterile H2O 10 ml IJ ONE (18:07)
[2021-07-19 18:50] LABS: INFLUENZA A NEGATIVE (NEGATIVE); INFLUENZA B NEGATIVE (NEGATIVE)
[2021-07-19 19:12] LABS: COVID AG -BINAX NOW RAPID TEST NEGATIVE (NEGATIVE)
[2021-07-19 19:18] VITALS: BP 123/77; O2SAT 97
[2021-07-19 19:32] VITALS: PULSE 82
== END 2021-07-19 19:32 | disposition home or self-care (01) ==
LOC: ED 17:49
DX: R07.0 Pain in throat (principal); T39.8X5A Adverse effect of other nonopioid analgesics and antipyretics, not elsewhere classified, initial encounter; I10 Essential (primary) hypertension; F41.9 Anxiety disorder, unspecified
CPT/HCPCS: 36000; 36415; 86308; 87400; 87651; 96374; 96375; 99000; 99284; J1200; J2930; A9270-GY

== ENCOUNTER 2021-07-21 20:57 | Emergency (ER) | payer OTHER ==
[2021-07-21] MEDS ORDERED: PROTONIX 40 MG IV IV ONE ×2 (21:41→23:51)
[2021-07-21] MEDS ORDERED: Zofran 4 MG/2 ML VIAL IV ONE (21:41)
[2021-07-21] MEDS ORDERED: Sodium Chloride 0.9% 1000 ML 1,000 ML IV STA (21:41)
[2021-07-21] MEDS ORDERED: MORPHINE SULFATE 4 MG INJ IV ONE (21:41)
[2021-07-21 21:49] LABS: COVID AG -BINAX NOW RAPID TEST NEGATIVE (NEGATIVE)
[2021-07-21 22:57] LABS: Absolute Neutrophil Ct (ANC) 6.54 (1.4-6.9); Basophil (Absolute #) 0.03 (0-0.4); Eosinophil (Absolute #) 0.22 (0-0.5); Hematocrit 42.5 % (35-47); Hemoglobin 13.5 gm/dl (12.0-16.0); Lymphocyte (Absolute #) 3.62 (1.0-4.6); Lymphocytes % 32.3 % (24.0-44.0); Mean Cell Volume 83.3 fl (78-100); Mean Corpuscular Hemoglobin 26.5 pg (26-32); Mean Corpuscular Hgb Concent. 31.8 g/dl (32-36); Monocyte (Absolute #) 0.79 (0.0-1.3); Monocytes % 7.1 % (0.0-12.0); Neutrophil % 58.3 % (36.0-66.0); Platelet Count 338 K/mm3 (150-450); Red Cell Distribution Width 14.9 % (11.5-14.0); White Blood Count 11.2 K/mm3 (4.0-10.5)
[2021-07-21 23:02] LABS: Appearance CLEAR (CLEAR); Bilirubin NEGATIVE (NEGATIVE); Blood LARGE Ery/ul (0-5); Glucose NEGATIVE (NEGATIVE); Ketones NEGATIVE (NEGATIVE); Leukocyte Esterase NEGATIVE (NEGATIVE); Nitrite NEGATIVE (NEGATIVE); Protein,Urine Dip NEGATIVE (Negative); RBC 26-50 /HPF (0-2); Specific Gravity 1.017 (1.005-1.025); Urobilinogen NEGATIVE mg/dL (0-1); WBC 0-2 /HPF (0-5)
[2021-07-21 23:10] LABS: ALBUMIN 4.3 g/dL (3.5-5.0); ALKALINE PHOSPHATASE 72 U/L (38-126); ANION GAP 13.7 MEQ/L (5-15); BLOOD UREA NITROGEN 13 mg/dL (7-17); CHLORIDE 100 mmol/L (98-107); Calcium 9.3 mg/dL (8.4-10.2); Carbon Dioxide 31 mmol/L (22-30); Creatinine 1 0.75 mg/dL (0.52-1.04); EST GLOMERULAR FILTRATION RATE > 60.0 ML/MIN; Glucose 107 mg/dL (74-106); LIPASE 47 U/L (23-300); SGOT/AST 34 U/L (14-36); SGPT/ALT 42 U/L (0-35); SODIUM 141 mmol/L (137-145)
--- NOTE | 2021-07-21 23:28 | ERPHSYRPT ---
- History of Present Illness Time Seen by Provider: 07/21/21 20:59 Historian: patient Exam Limitations: no limitations Patient Subjective Stated Complaint: vomiting several times today Triage Nursing Assessment: pt was here for headache/vomiting with the pain on Sunday07/19/21. Pt felt better Sunday. This morning began vomiting again. Has vomited several times today, but is now down to just bile. Pt c/o abd pain all over, radiating to mid back area. Abd lg, obese with active bs x4 quad, tender on palpation. Pt has had diarrhea 1-2 times today. Pt was swabbed for Covid, Flu A & B, strep and [place] on 07/19/21 and was negative for all. Physician History: 26 years old morbidly obese female presented in the ER with 3-4 days history of nausea vomiting with upper abdominal pain. Patient reports multiple episodes of nonprojectile, nonbilious vomiting without hematemesis and is not able to hold anything down. He is complaining of pain in the upper abdomen with radiation to the back. Denies associated fever chills or shortness of breath. No diarrhea. Timing/Duration: day(s) (3), constant, gradual onset, worse Activities at Onset: rest Quality: sharpness Abdominal Pain Onset Location: RUQ, LUQ, epigastric, periumbilical Pain Radiation: back Severity of Pain-Max: severe Severity of Pain-Current: moderate Modifying Factors: Improves With: nothing Associated Symptoms: nausea, vomiting Previous symptoms: no prior history Allergies/Adverse Reactions: amoxicillin trihydrate [From Augmentin] Allergy (Intermediate, Verified 07/21/21 21:05) Hives cefaclor [From Ceclor] Allergy (Intermediate, Verified 07/21/21 21:05) Hives enalapril Adverse Reaction (Intermediate, Verified 07/21/21 21:05) Cough ibuprofen Adverse Reaction (Verified 07/21/21 21:05) hx of renal failure, advised by PCP to avoid Home Medications: Buspirone HCl [Buspar] 15 mg PO BID 11/20/20 [History] Losartan/Hydrochlorothiazide [Losartan-Hctz 100-12.5 mg Tab] 1 tab PO DAILY 11/20/20 [History] Spironolactone 25 mg [Aldactone 25 MG] 25 mg PO DAILY 03/30/21 [History] Hx Tetanus, Diphtheria Vaccination/Date Given: Yes Hx Influenza Vaccination/Date Given: Yes Hx Pneumococcal Vaccination/Date Given: No Immunizations Up to Date: Yes Travel Risk - International Travel Have you traveled outside of the country in past 3 weeks: No - Coronavirus Screening Are you exhibiting any of the following symptoms?: Yes Symptoms: Vomiting/Diarrhea, Headaches/Body Aches/Fatigue Close contact with a COVID-19 positive Pt in past 14-21 Days: No - Vaccine Status Have you recieved a Covid-19 vaccination: Yes 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: [facility] - Vaccination Dates Date of 2cond Vaccination (if applicable): 11/18/20 - Review of Systems Constitutional: No Symptoms Eyes: No Symptoms Ears, Nose, & Throat: No Symptoms Respiratory: No Symptoms Cardiac: No Symptoms Abdominal/Gastrointestinal: Abdominal Pain, Nausea, Vomiting Genitourinary Symptoms: No Symptoms Musculoskeletal: Myalgias Neurological: No Symptoms Psychological: No Symptoms Endocrine: No Symptoms Hematologic/Lymphatic: No Symptoms Immunological/Allergic: No Symptoms - Past Medical History Pertinent Past Medical History: Yes Neurological History: Migraines ENT History: No Pertinent History Cardiac History: Hypertension Respiratory History: No Pertinent History Endocrine Medical History: No Pertinent History Musculoskeletal History: Other GI Medical History: Gallbladder Disease, Pancreatitis History: Other Psycho-Social History: Anxiety, Depression Female Reproductive Disorders: No Pertinent History Other Medical History: ovarian cysts,PANCREATITIS AND CHOLECYSTITIS, urinary retention 10/2015. KIDNEY FAILURE IN 01/2017, low iron levels - Past Surgical History Past Surgical History: Yes Neuro Surgical History: No Pertinent History Cardiac: No Pertinent History Respiratory: No Pertinent History Gastrointestinal: Cholecystectomy, Other Genitourinary: No Pertinent History Musculoskeletal: Orthopedic Surgery Female Surgical History: No Pertinent History Other Surgical History: ERCP, rt knee - Social History Smoking Status: Former smoker How long have you smoked: 4 Exposure to second hand smoke: Yes Drug Use: none Patient Lives Alone: No - Female History Hx Last Menstrual Period: 07/19/21 Hx Now: (Unknown) - Nursing Vital Signs Nursing Vital Signs: Initial Vital Signs Temperature 98.3 F 07/21/21 20:58 Pulse Rate 105 H 07/21/21 20:58 Respiratory Rate 20 07/21/21 20:58 Blood Pressure 173/92 07/21/21 20:58 O2 Sat by Pulse Oximetry 99 07/21/21 20:58 Pain Scale Pain Intensity 8 - Physical Exam General Appearance: no apparent distress, alert Eye Exam: PERRL/EOMI, eyes nml inspection Ears, Nose, Throat Exam: TMs normal, moist mucous membranes, pharyngeal erythema Neck Exam: normal inspection, non-tender, full range of motion Respiratory Exam: normal breath sounds, lungs clear Cardiovascular Exam: regular rate/rhythm, normal heart sounds Gastrointestinal/Abdomen Exam: soft, normal bowel sounds, tenderness (Upper abdomen), No guarding Back Exam: normal inspection, normal range of motion Extremity Exam: normal inspection, normal range of motion Neurologic Exam: alert, oriented x 3, cooperative, 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 as tested, normal mood/affect, sensation nml Skin Exam: normal color SpO2 Interpretation: normal SpO2: 98 O2 Delivery: Room Air Ordered Tests: Active Orders 24 hr Category Date Time Status IV Insertion STAT Care 07/21/21 21:41 Active NPO (ED) STAT Care 07/21/21 21:41 Active ABDOMEN AND PELVIS W/0 CONTRAS [CT] Stat Exams 07/21/21 21:41 Taken CBC W DIFF Stat Lab 07/21/21 22:35 Completed CMP Stat Lab 07/21/21 22:35 Completed COVID AG-BINAX NOW RAPID TEST Stat Lab 07/21/21 21:30 Completed HCG,QUALITATIVE URINE Stat Lab 07/21/21 22:28 Completed LIPASE Stat Lab 07/21/21 22:35 Completed UA W/RFX UR CULTURE Stat Lab 07/21/21 22:28 Completed Medication Summary Discontinued Medications Generic Name Dose Route Start Last Admin Trade Name Farhan PRN Reason Stop Dose Admin Sodium Chloride 1,000 mls @ 999 mls/hr 07/21/21 21:41 07/21/21 23:56 Sodium Chloride 0.9% 1000 Ml IV 07/21/21 22:41 999 mls/hr .Q1H1M STA Administration Sodium Chloride Confirm 07/21/21 23:52 Sodium Chloride 0.9% 1000 Ml Administered 07/21/21 23:53 Dose 1,000 mls @ ud .ROUTE .STK-MED ONE Morphine Sulfate 4 mg 07/21/21 21:41 07/21/21 23:57 Morphine Sulfate 4 Mg/Ml Injection IV 07/21/21 21:42 4 mg STAT ONE Administration Morphine Sulfate Confirm 07/21/21 23:51 Morphine Sulfate 4 Mg/Ml Injection Administered 07/21/21 23:52 Dose 4 mg .ROUTE .STK-MED ONE Ondansetron HCl 4 mg 07/21/21 21:41 07/21/21 23:54 Ondansetron Hcl 4 Mg/2 Ml Vial IV 07/21/21 21:42 4 mg STAT ONE Administration Ondansetron HCl Confirm 07/21/21 23:51 Ondansetron Hcl 4 Mg/2 Ml Vial Administered 07/21/21 23:52 Dose 4 mg .ROUTE .STK-MED ONE Pantoprazole Sodium 40 mg 07/21/21 21:41 07/21/21 23:54 Pantoprazole 40 Mg Vial IV 07/21/21 21:42 40 mg STAT ONE Administration Pantoprazole Sodium Confirm 07/21/21 23:51 Pantoprazole 40 Mg Vial Administered 07/21/21 23:52 Dose 40 mg IV .STK-MED ONE Lab/Rad Data: Laboratory Result Diagrams 07/21/21 22:35 07/21/21 22:35 Laboratory Results 07/21/21 07/21/21 07/21/21 Range/Units 22:35 22:35 22:28 WBC 11.2 H (4.0-10.5) K/mm3 RBC 5.10 (4.1-5.4) M/mm3 Hgb 13.5 (12.0-16.0) gm/dl Hct 42.5 (35-47) % MCV 83.3 (78-100) fl MCH 26.5 (26-32) pg MCHC 31.8 L (32-36) g/dl RDW 14.9 H (11.5-14.0) % Plt Count 338 (150-450) K/mm3 MPV 11.0 (7.5-11.0) fl Gran % 58.3 (36.0-66.0) % Eos # (Auto) 0.22 (0-0.5) Absolute Lymphs (auto) 3.62 (1.0-4.6) Absolute Monos (auto) 0.79 (0.0-1.3) Lymphocytes % 32.3 (24.0-44.0) % Monocytes % 7.1 (0.0-12.0) % Eosinophils % 2.0 (0.00-5.0) % Basophils % 0.3 (0.0-0.4) % Absolute Granulocytes 6.54 (1.4-6.9) Basophils # 0.03 (0-0.4) Sodium 141 (137-145) mmol/L Potassium 4.0 (3.5-5.1) mmol/L Chloride 100 (98-107) mmol/L Carbon Dioxide 31 H (22-30) mmol/L Anion Gap 13.7 (5-15) MEQ/L BUN 13 (7-17) mg/dL Creatinine 0.75 (0.52-1.04) mg/dL Estimated GFR > 60.0 ML/MIN Glucose 107 H (74-106) mg/dL Calcium 9.3 (8.4-10.2) mg/dL Total Bilirubin 0.40 (0.2-1.3) mg/dL AST 34 (14-36) U/L ALT 42 H (0-35) U/L Alkaline Phosphatase 72 (38-126) U/L Serum Total Protein 8.0 (6.3-8.2) g/dL Albumin 4.3 (3.5-5.0) g/dL Lipase 47 (23-300) U/L Urine Color (YELLOW) Urine Appearance (CLEAR) Urine pH (5-6) Ur Specific [place] (1.005-1.025) Urine Protein (Negative) Urine Ketones (NEGATIVE) Urine Blood (0-5) Jayden/ul Urine Nitrite (NEGATIVE) Urine Bilirubin (NEGATIVE) Urine Urobilinogen (0-1) mg/dL Ur Leukocyte Esterase (NEGATIVE) Urine WBC (Auto) (0-5) /HPF Urine RBC (Auto) (0-2) /HPF U Epithel Cells (Auto) (FEW) /HPF Urine Bacteria (Auto) (NEGATIVE) /HPF Urine Culture Reflexed (NO) Urine Glucose (NEGATIVE) mg/dL Urine HCG, Qual NEGATIVE (Negative) SARS-CoV-2 Ag (Rapid) (NEGATIVE) 07/21/21 07/21/21 Range/Units 22:28 21:30 WBC (4.0-10.5) K/mm3 RBC (4.1-5.4) M/mm3 Hgb (12.0-16.0) gm/dl Hct (35-47) % MCV (78-100) fl MCH (26-32) pg MCHC (32-36) g/dl RDW (11.5-14.0) % Plt Count (150-450) K/mm3 MPV (7.5-11.0) fl Gran % (36.0-66.0) % Eos # (Auto) (0-0.5) Absolute Lymphs (auto) (1.0-4.6) Absolute Monos (auto) (0.0-1.3) Lymphocytes % (24.0-44.0) % Monocytes % (0.0-12.0) % Eosinophils % (0.00-5.0) % Basophils % (0.0-0.4) % Absolute Granulocytes (1.4-6.9) Basophils # (0-0.4) Sodium (137-145) mmol/L Potassium (3.5-5.1) mmol/L Chloride (98-107) mmol/L Carbon Dioxide (22-30) mmol/L Anion Gap (5-15) MEQ/L BUN (7-17) mg/dL Creatinine (0.52-1.04) mg/dL Estimated GFR ML/MIN Glucose (74-106) mg/dL Calcium (8.4-10.2) mg/dL Total Bilirubin (0.2-1.3) mg/dL AST (14-36) U/L ALT (0-35) U/L Alkaline Phosphatase (38-126) U/L Serum Total Protein (6.3-8.2) g/dL Albumin (3.5-5.0) g/dL Lipase (23-300) U/L Urine Color YELLOW (YELLOW) Urine Appearance CLEAR (CLEAR) Urine pH 8.0 (5-6) Ur Specific [place] 1.017 (1.005-1.025) Urine Protein NEGATIVE (Negative) Urine Ketones NEGATIVE (NEGATIVE) Urine Blood LARGE (0-5) Jayden/ul Urine Nitrite NEGATIVE (NEGATIVE) Urine Bilirubin NEGATIVE (NEGATIVE) Urine Urobilinogen NEGATIVE (0-1) mg/dL Ur Leukocyte Esterase NEGATIVE (NEGATIVE) Urine WBC (Auto) 0-2 (0-5) /HPF Urine RBC (Auto) 26-50 (0-2) /HPF U Epithel Cells (Auto) NONE (FEW) /HPF Urine Bacteria (Auto) NONE (NEGATIVE) /HPF Urine Culture Reflexed NO (NO) Urine Glucose NEGATIVE (NEGATIVE) mg/dL Urine HCG, Qual (Negative) SARS-CoV-2 Ag (Rapid) NEGATIVE (NEGATIVE) - Progress Progress: improved, pain not gone completely, re-examined Progress Note: 07/22/21 00:08 26 years old is evaluated for upper abdominal pain with multiple episodes of vomiting. She is given fluid bolus and symptomatic treatment for pain. Acute abdomen work-up is grossly negative including CT abdomen pelvis. Could be viral etiology symptoms but has negative COVID-19. Recommended increase hydration, Tylenol and Zofran as needed and outpatient follow-up. Do not think she needs to be admitted and stable for discharge. Counseled pt/family regarding: lab results, diagnosis, need for follow-up, rad results - Departure Departure Disposition: Home Clinical Impression: Nausea and vomiting, Upper abdominal pain Condition: Stable Critical Care Time: No Referrals: MELVA DEGROOT [Primary Care Provider] - Follow up/PCP as directed (1-2 days for reevaluation) Instructions: Acute Abdomen (Belly Pain), Adult (DC), Nausea and Vomiting, Adult (DC) Additional Instructions: Drink plenty of fluids. Take Zofran/Tylenol as needed. Follow-up with primary care for reevaluation. Return to ER for worsening abdominal pain, nausea vomiting/fever chills etc. Prescriptions: PANTOPRAZOLE 40 mg Tablet [Protonix 40MG Tablet] 40 mg PO QAM #30 tab Ondansetron ODT 4 MG [Zofran Odt 4 mg] 1 ea PO QIDPRN PRN #7 tablet PRN Reason: n/v
[2021-07-21] MEDS ORDERED: Zofran 4 MG/2 ML VIAL ONE (23:51)
[2021-07-21] MEDS ORDERED: MORPHINE SULFATE 4 MG INJ ONE (23:51)
[2021-07-21] MEDS ORDERED: Sodium Chloride 0.9% 1000 ML 1,000 ML ONE (23:52)
[2021-07-22 00:19] VITALS: PULSE 70
[2021-07-22 01:14] VITALS: BP 121/61; O2SAT 97
--- NOTE | 2021-07-22 08:52 | XRAY ---
Indication: Abdomen and back pain. Nausea, vomiting, diarrhea. Multiple contiguous axial images obtained through the abdomen and pelvis without contrast. Comparison: January 25, 2017. Lung bases demonstrates minimal dependent atelectasis. No infiltrate or effusion. Heart not enlarged. Noncontrasted stomach and bowel loops nonobstructed. Normal appendix. Fatty hepatomegaly measuring 27.9 cm and 16.8 cm splenomegaly. Previous cholecystectomy. No free fluid/air. Remaining pancreas, adrenal glands, kidneys, ureters, bladder, uterus, and aorta are unremarkable for noncontrast exam. Osseous structures intact. Impression: 1. Fatty hepatomegaly and splenomegaly. 2. Remaining CT abdomen/pelvis without contrast exam is negative. Comment: Preliminary interpretation made by C. No critical discrepancy.
== END 2021-07-22 01:10 | disposition home or self-care (01) ==
LOC: ED 20:57
DX: R10.11 Right upper quadrant pain (principal); R10.12 Left upper quadrant pain; R11.2 Nausea with vomiting, unspecified; I10 Essential (primary) hypertension; Z79.899 Other long term (current) drug therapy
CPT/HCPCS: 36000; 36415; 74176; 80053; 81001; 83690; 84703; 85025; 96360; 96374; 96375; 99000; 99284; J2270; J2405

== ENCOUNTER 2021-09-20 23:38 | Emergency (ER) | payer OTHER ==
--- NOTE | 2021-09-20 23:47 | ERPHSYRPT ---
- History of Present Illness Time Seen by Provider: 09/20/21 23:50 Historian: patient Exam Limitations: no limitations Physician History: Patient is a 26-year-old female presents to our ED with complaints of left-sided chest pain. Chest pain occurred while she was asleep. Patient awoke from her sleep due to the pain. Pain described as an ache that is well localized. No radiation. Palpation to left chest reproduces symptoms. Pain improved with rest. No nausea vomiting or diaphoresis. Patient denies history of the same. Patient otherwise healthy. She voices no other complaints or concerns at this time. Timing/Duration: today Activities at Onset: sleep Quality: aching Location: other (Left chest) Chest Pain Radiation: no radiation Severity of Pain-Max: moderate Severity of Pain-Current: mild Modifying Factors: Improves With: palpation (Palpation to left chest reproduces symptoms.) Associated Symptoms: nausea, No vomiting, No palpitations, No cough, No hurts to breathe, No diaphoresis, No fever, No syncope, No headache, No dizziness, No edema Nitro Today/Relief: no nitro taken today Aspirin Treatment Today: no aspirin today Allergies/Adverse Reactions: amoxicillin trihydrate [From Augmentin] Allergy (Intermediate, Verified 09/20/21 23:40) Hives cefaclor [From Ceclor] Allergy (Intermediate, Verified 09/20/21 23:40) Hives enalapril Adverse Reaction (Intermediate, Verified 09/20/21 23:40) Cough ibuprofen Adverse Reaction (Verified 09/20/21 23:40) hx of renal failure, advised by PCP to avoid Home Medications: Buspirone HCl [Buspar] 15 mg PO BID 11/20/20 [History] Losartan/Hydrochlorothiazide [Losartan-Hctz 100-12.5 mg Tab] 1 tab PO DAILY 11/20/20 [History] Spironolactone 25 mg [Aldactone 25 MG] 25 mg PO DAILY 03/30/21 [History] Topiramate [Topamax] 1 tab PO BID 09/20/21 [History] Hx Tetanus, Diphtheria Vaccination/Date Given: Yes Hx Influenza Vaccination/Date Given: Yes Hx Pneumococcal Vaccination/Date Given: No Travel Risk - Vaccine Status Have you recieved a Covid-19 vaccination: Yes [employer]: [employer] - Vaccination Dates Date of 2cond Vaccination (if applicable): 11/18/20 - Review of Systems Constitutional: No Symptoms, No Fever, No Chills Eyes: No Symptoms Ears, Nose, & Throat: No Symptoms Respiratory: No Symptoms, No Cough, No Dyspnea Cardiac: No Symptoms, No Chest Pain, No Edema, No Syncope Abdominal/Gastrointestinal: No Symptoms, No Abdominal Pain, No Nausea, No Vomiting, No Diarrhea Genitourinary Symptoms: No Symptoms, No Dysuria Musculoskeletal: No Symptoms, No Back Pain, No Neck Pain Skin: No Symptoms, No Rash Neurological: No Symptoms, No Dizziness, No Focal Weakness, No Sensory Changes Psychological: No Symptoms Endocrine: No Symptoms Hematologic/Lymphatic: No Symptoms Immunological/Allergic: No Symptoms All Other Systems: Reviewed and Negative - Past Medical History Pertinent Past Medical History: Yes Neurological History: Migraines ENT History: No Pertinent History Cardiac History: Hypertension Respiratory History: No Pertinent History Endocrine Medical History: No Pertinent History Musculoskeletal History: Other GI Medical History: Gallbladder Disease, Pancreatitis History: Other Psycho-Social History: Anxiety, Depression Female Reproductive Disorders: No Pertinent History Other Medical History: ovarian cysts,PANCREATITIS AND CHOLECYSTITIS, urinary retention 10/2015. KIDNEY FAILURE IN 01/2017, low iron levels - Past Surgical History Past Surgical History: Yes Neuro Surgical History: No Pertinent History Cardiac: No Pertinent History Respiratory: No Pertinent History Gastrointestinal: Cholecystectomy, Other Genitourinary: No Pertinent History Musculoskeletal: Orthopedic Surgery Female Surgical History: No Pertinent History Other Surgical History: ERCP, rt knee - Social History Smoking Status: Former smoker How long have you smoked: 4 Exposure to second hand smoke: Yes Drug Use: none Patient Lives Alone: No - Female History Hx Now: No - Nursing Vital Signs Nursing Vital Signs: Initial Vital Signs Temperature 97.9 F 09/20/21 23:43 Pulse Rate 89 09/20/21 23:43 Respiratory Rate 18 09/20/21 23:43 Blood Pressure 116/46 09/20/21 23:43 O2 Sat by Pulse Oximetry 100 09/20/21 23:43 Pain Scale Pain Intensity 8 - Physical Exam General Appearance: no apparent distress, alert Eye Exam: PERRL/EOMI, eyes nml inspection Ears, Nose, Throat Exam: normal ENT inspection, TMs normal, pharynx normal, moist mucous membranes Neck Exam: normal inspection, non-tender, supple, full range of motion Respiratory Exam: normal breath sounds, lungs clear, airway intact, No respiratory distress Cardiovascular Exam: regular rate/rhythm, normal heart sounds, normal peripheral pulses Gastrointestinal/Abdomen Exam: soft, normal bowel sounds, No tenderness, No distention, No mass Back Exam: normal inspection, No CVA tenderness, No vertebral tenderness Extremity Exam: normal inspection, normal range of motion Neurologic Exam: alert, oriented x 3, cooperative, enterer II-XII nml as tested, normal mood/affect, nml cerebellar function, nml station & gait, sensation nml, No motor deficits Skin Exam: normal color, warm, dry Lymphatic Exam: No adenopathy SpO2 Interpretation: normal SpO2: 100 O2 Delivery: Room Air - Course Nursing assessment & vital signs reviewed: Yes EKG Interpreted by Me: RATE (90), Sinus Rhythm, NORMAL AXIS, NORMAL INTERVALS - Radiology Exams Chest X-ray Interpretation: Interpreted by me (Lungs are clear. Normal cardiac silhouette. Intact bony thorax.) Ordered Tests: Active Orders 24 hr Category Date Time Status CHEST 1 VIEW (PORTABLE) Stat Exams 09/21/21 01:26 Taken TROPONIN Q3H Lab 09/21/21 02:53 Completed TROPONIN Q3H Lab 09/21/21 05:45 Ordered TROPONIN Q3H Lab 09/21/21 08:45 Ordered TROPONIN Q3H Lab 09/21/21 11:45 Ordered Lab/Rad Data: Laboratory Result Diagrams 09/20/21 00:59 09/20/21 00:59 Laboratory Results 09/21/21 09/20/21 09/20/21 Range/Units 02:53 00:59 00:59 WBC (4.0-10.5) K/mm3 RBC (4.1-5.4) M/mm3 Hgb (12.0-16.0) gm/dl Hct (35-47) % MCV (78-100) fl MCH (26-32) pg MCHC (32-36) g/dl RDW (11.5-14.0) % Plt Count (150-450) K/mm3 MPV (7.5-11.0) fl Gran % (36.0-66.0) % Eos # (Auto) (0-0.5) Absolute Lymphs (auto) (1.0-4.6) Absolute Monos (auto) (0.0-1.3) Lymphocytes % (24.0-44.0) % Monocytes % (0.0-12.0) % Eosinophils % (0.00-5.0) % Basophils % (0.0-0.4) % Absolute Granulocytes (1.4-6.9) Basophils # (0-0.4) D-Dimer 401 (215-500) ng/mL Sodium (137-145) mmol/L Potassium (3.5-5.1) mmol/L Chloride (98-107) mmol/L Carbon Dioxide (22-30) mmol/L Anion Gap (5-15) MEQ/L BUN (7-17) mg/dL Creatinine (0.52-1.04) mg/dL Estimated GFR ML/MIN Glucose (74-106) mg/dL Calcium (8.4-10.2) mg/dL Total Bilirubin (0.2-1.3) mg/dL AST (14-36) U/L ALT (0-35) U/L Alkaline Phosphatase (38-126) U/L Troponin I < 0.012 < 0.012 (0.000-0.034) ng/mL NT-Pro-B Natriuret Pep (0-450) pg/mL Serum Total Protein (6.3-8.2) g/dL Albumin (3.5-5.0) g/dL 09/20/21 09/20/21 Range/Units 00:59 00:59 WBC 10.7 H (4.0-10.5) K/mm3 RBC 4.71 (4.1-5.4) M/mm3 Hgb 12.9 (12.0-16.0) gm/dl Hct 39.5 (35-47) % MCV 83.9 (78-100) fl MCH 27.4 (26-32) pg MCHC 32.7 (32-36) g/dl RDW 15.0 H (11.5-14.0) % Plt Count 354 (150-450) K/mm3 MPV 10.5 (7.5-11.0) fl Gran % 60.3 (36.0-66.0) % Eos # (Auto) 0.31 (0-0.5) Absolute Lymphs (auto) 3.16 (1.0-4.6) Absolute Monos (auto) 0.76 (0.0-1.3) Lymphocytes % 29.5 (24.0-44.0) % Monocytes % 7.1 (0.0-12.0) % Eosinophils % 2.9 (0.00-5.0) % Basophils % 0.2 (0.0-0.4) % Absolute Granulocytes 6.45 (1.4-6.9) Basophils # 0.02 (0-0.4) D-Dimer (215-500) ng/mL Sodium 139 (137-145) mmol/L Potassium 3.7 (3.5-5.1) mmol/L Chloride 107 (98-107) mmol/L Carbon Dioxide 23 (22-30) mmol/L Anion Gap 13.3 (5-15) MEQ/L BUN 12 (7-17) mg/dL Creatinine 0.60 (0.52-1.04) mg/dL Estimated GFR > 60.0 ML/MIN Glucose 124 H (74-106) mg/dL Calcium 9.2 (8.4-10.2) mg/dL Total Bilirubin 0.40 (0.2-1.3) mg/dL AST 29 (14-36) U/L ALT 34 (0-35) U/L Alkaline Phosphatase 71 (38-126) U/L Troponin I (0.000-0.034) ng/mL NT-Pro-B Natriuret Pep 28.3 (0-450) pg/mL Serum Total Protein 7.6 (6.3-8.2) g/dL Albumin 4.0 (3.5-5.0) g/dL - Progress Progress: improved Air Movement: good Progress Note: No aspirin given. Patient is allergic to NSAIDs. 09/20/21 23:59 Patient reassessed. She remains asymptomatic. EKG normal sinus rhythm. Troponin negative x2. X-ray unchanged as compared to 03/30/2021. Vital stable. Patient's pain was reproduced with chest palpation. It is possible that her symptoms is likely chest wall tenderness. However patient may benefit from continued outpatient cardiac work-up including exercise stress test and echocardiogram. Heart score is 2 Patient states he is ready for discharge. She voices no other complaints or concerns at this time. Patient agrees to follow-up with her primary care doctor within 48 hours for evaluation. Portions of this note were created with voice recognition technology. There may be grammatical, spelling, punctuation or sound alike errors 09/21/21 03:50 09/21/21 03:51 Blood Culture(s) Obtained: No Antibiotics given: No Counseled pt/family regarding: lab results, diagnosis, need for follow-up, rad results - Departure Departure Disposition: Home Clinical Impression: Nonspecific chest pain, Chest wall tenderness Condition: Stable Critical Care Time: No Referrals: MELVA DEGROOT [Primary Care Provider] - Follow up/PCP as directed Additional Instructions: Discharge/Care Plan TAYLOR BERGMANN ANA was seen on 09/21/21 in the Emergency Room. The patient was counseled regarding Diagnosis,Lab results, Imaging studies, need for follow up and when to return to the Emergency Room. Prescriptions given: Discharge Note I have spoken with the patient and/or caregivers. I have explained the patient's condition, diagnosis and treatment plan based on the information available to me at this time. I have answered the patient's and/or caregiver's questions and addressed any concerns. The patient and/or caregivers have as good understanding of the patient's diagnosis, condition and treatment plan as can be expected at this point. The vital signs have been stable. The patient's condition is stable and appropriate for discharge from the emergency department. The patient will pursue further outpatient evaluation with the primary care physician or other designated or consulting physician as outlined in the discharge instructions. The patient and/or caregivers are agreeable to this plan of care and follow-up instructions have been explained in detail. The patient and/or caregivers have received these instruction. The patient/and or caregivers are aware that any significant change in condition or worsening of symptoms should prompt an immediate return to this or the closest emergency department or call 911.
[2021-09-21 01:09] LABS: Absolute Neutrophil Ct (ANC) 6.45 (1.4-6.9); Basophil (Absolute #) 0.02 (0-0.4); Eosinophil % 2.9 % (0.00-5.0); Eosinophil (Absolute #) 0.31 (0-0.5); Hematocrit 39.5 % (35-47); Hemoglobin 12.9 gm/dl (12.0-16.0); Lymphocyte (Absolute #) 3.16 (1.0-4.6); Lymphocytes % 29.5 % (24.0-44.0); Mean Cell Volume 83.9 fl (78-100); Mean Corpuscular Hemoglobin 27.4 pg (26-32); Mean Corpuscular Hgb Concent. 32.7 g/dl (32-36); Mean Platelet Volume 10.5 fl (7.5-11.0); Monocyte (Absolute #) 0.76 (0.0-1.3); Monocytes % 7.1 % (0.0-12.0); Neutrophil % 60.3 % (36.0-66.0); Platelet Count 354 K/mm3 (150-450); Red Blood Count 4.71 M/mm3 (4.1-5.4); White Blood Count 10.7 K/mm3 (4.0-10.5)
[2021-09-21 01:24] LABS: ALKALINE PHOSPHATASE 71 U/L (38-126); ANION GAP 13.3 MEQ/L (5-15); BLOOD UREA NITROGEN 12 mg/dL (7-17); CHLORIDE 107 mmol/L (98-107); Calcium 9.2 mg/dL (8.4-10.2); Carbon Dioxide 23 mmol/L (22-30); EST GLOMERULAR FILTRATION RATE > 60.0 ML/MIN; Glucose 124 mg/dL (74-106); NT PRO BNP 28.3 pg/mL (0-450); Potassium 3.7 mmol/L (3.5-5.1); SGOT/AST 29 U/L (14-36); SGPT/ALT 34 U/L (0-35); SODIUM 139 mmol/L (137-145); Total Protein 7.6 g/dL (6.3-8.2)
[2021-09-21 04:01] VITALS: BP 107/65; PULSE 88; O2SAT 95
--- NOTE | 2021-09-21 08:53 | XRAY ---
Indication: Chest pain. Comparison: March 30, 2021. Portable apical chest again demonstrates normal heart, lungs, and bony thorax.
== END 2021-09-21 04:02 | disposition home or self-care (01) ==
LOC: ED 23:38
DX: R07.9 Chest pain, unspecified (principal); R11.0 Nausea; I10 Essential (primary) hypertension; Z79.899 Other long term (current) drug therapy
CPT/HCPCS: 36000; 36415; 71045; 80053; 83880; 84484; 85025; 85379; 93005; 99284

== ENCOUNTER 2021-12-05 14:10 | Emergency (ER) | payer OTHER ==
--- NOTE | 2021-12-05 14:26 | ERPHSYRPT ---
- History of Present Illness Time Seen by Provider: 12/05/21 14:26 Historian: patient Exam Limitations: no limitations Physician History: This is a morbidly obese 26-year-old white female who presents with abdominal pain. The pain is generalized. She is also had associated vomiting as well. Patient denies flank pain. She denies dysuria and hematuria. Patient denies chest pain. She denies shortness of breath. She has not had fevers or chills. Patient has a history of migraine headaches, hypertension and anxiety. She also has a history of pancreatitis and ovarian cysts. Patient has had a cholecystectomy in the past. Timing/Duration: day(s) (Symptoms for the last day or 2 that have worsened), worse Quality: cramping, pressure Abdominal Pain Onset Location: generalized abdomen Severity of Pain-Max: moderate Severity of Pain-Current: moderate Modifying Factors: Improves With: vomiting Associated Symptoms: loss of appetite, nausea, vomiting Previous symptoms: no prior history, recently seen Allergies/Adverse Reactions: amoxicillin trihydrate [From Augmentin] Allergy (Intermediate, Verified 09/20/21 23:40) Hives cefaclor [From Ceclor] Allergy (Intermediate, Verified 09/20/21 23:40) Hives enalapril Adverse Reaction (Intermediate, Verified 09/20/21 23:40) Cough ibuprofen Adverse Reaction (Verified 09/20/21 23:40) hx of renal failure, advised by PCP to avoid Home Medications: Losartan/Hydrochlorothiazide [Losartan-Hctz 100-12.5 mg Tab] 1 tab PO DAILY 11/20/20 [History] Spironolactone 25 mg [Aldactone 25 MG] 25 mg PO DAILY 03/30/21 [History] Topiramate [Topamax] 1 tab PO BID 09/20/21 [History] Hx Tetanus, Diphtheria Vaccination/Date Given: Yes Hx Influenza Vaccination/Date Given: Yes Hx Pneumococcal Vaccination/Date Given: No Travel Risk - International Travel Have you traveled outside of the country in past 3 weeks: No - Coronavirus Screening Are you exhibiting any of the following symptoms?: Yes Symptoms: Vomiting/Diarrhea, Headaches/Body Aches/Fatigue - Vaccine Status Have you recieved a Covid-19 vaccination: Yes R[employer]: [employer] - Vaccination Dates Date of 2cond Vaccination (if applicable): 11/18/20 - Review of Systems Constitutional: Weakness Eyes: No Symptoms Ears, Nose, & Throat: No Symptoms Respiratory: No Symptoms Cardiac: No Symptoms Abdominal/Gastrointestinal: Abdominal Pain, Nausea, Vomiting Genitourinary Symptoms: No Symptoms Musculoskeletal: Arthralgias, Myalgias Skin: No Symptoms Neurological: No Symptoms Psychological: No Symptoms Endocrine: No Symptoms Hematologic/Lymphatic: No Symptoms Immunological/Allergic: No Symptoms All Other Systems: Reviewed and Negative - Past Medical History Pertinent Past Medical History: Yes Neurological History: Migraines ENT History: No Pertinent History Cardiac History: Hypertension Respiratory History: No Pertinent History Endocrine Medical History: No Pertinent History Musculoskeletal History: Other GI Medical History: Gallbladder Disease, Pancreatitis History: Other Psycho-Social History: Anxiety, Depression Female Reproductive Disorders: No Pertinent History Other Medical History: ovarian cysts,PANCREATITIS AND CHOLECYSTITIS, urinary retention 10/2015. KIDNEY FAILURE IN 01/2017, low iron levels - Past Surgical History Past Surgical History: Yes Neuro Surgical History: No Pertinent History Cardiac: No Pertinent History Respiratory: No Pertinent History Gastrointestinal: Cholecystectomy, Other Genitourinary: No Pertinent History Musculoskeletal: Orthopedic Surgery Female Surgical History: No Pertinent History Other Surgical History: ERCP, rt knee - Social History Smoking Status: Former smoker How long have you smoked: 4 Exposure to second hand smoke: Yes Drug Use: none Patient Lives Alone: No - Nursing Vital Signs Nursing Vital Signs: Initial Vital Signs Temperature 98.8 F 12/05/21 14:37 Pulse Rate 88 12/05/21 14:37 Respiratory Rate 16 12/05/21 14:37 Blood Pressure 105/81 12/05/21 14:37 O2 Sat by Pulse Oximetry 99 12/05/21 14:37 Pain Scale Pain Intensity 7 - Physical Exam General Appearance: mild distress, alert, anxiety, obese Eye Exam: PERRL/EOMI, eyes nml inspection Ears, Nose, Throat Exam: normal ENT inspection, moist mucous membranes Neck Exam: normal inspection, non-tender, supple, full range of motion Respiratory Exam: normal breath sounds, lungs clear, No chest tenderness, No respiratory distress Cardiovascular Exam: regular rate/rhythm, normal heart sounds, normal peripheral pulses Gastrointestinal/Abdomen Exam: soft, normal bowel sounds, tenderness, guarding (Mild diffuse) Pelvic Exam: not done Rectal Exam: not done Back Exam: normal inspection, normal range of motion, No CVA tenderness, No vertebral tenderness Extremity Exam: normal inspection, normal range of motion, pelvis stable Neurologic Exam: alert, oriented x 3, cooperative, clinical audiologist II-XII nml as tested, normal mood/affect, nml cerebellar function, nml station & gait, sensation nml Skin Exam: normal color, warm, dry Lymphatic Exam: No adenopathy SpO2 Interpretation: normal O2 Delivery: Room Air - Course Nursing assessment & vital signs reviewed: Yes Ordered Tests: Active Orders 24 hr Category Date Time Status IV Insertion STAT Care 12/05/21 14:47 Active ABDOMEN AND PELVIS W/0 CONTRAS [CT] Stat Exams 12/05/21 14:47 Completed AMYLASE Stat Lab 12/05/21 15:00 Completed CBC W DIFF Stat Lab 12/05/21 15:00 Completed CMP Stat Lab 12/05/21 15:00 Completed CULTURE,URINE Stat Lab 12/05/21 15:04 Received HCG,QUALITATIVE URINE Stat Lab 12/05/21 15:04 Completed LIPASE Stat Lab 12/05/21 15:00 Completed Lactic Acid Stat Lab 12/05/21 14:47 Completed [place] Screen Stat Lab 12/05/21 17:05 Completed UA W/RFX CULTURE Stat Lab 12/05/21 15:04 Completed Medication Summary Discontinued Medications Generic Name Dose Route Start Last Admin Trade Name Freq PRN Reason Stop Dose Admin Ciprofloxacin 500 mg 12/05/21 16:39 12/05/21 16:50 Ciprofloxacin 500 Mg Tablet PO 12/05/21 16:40 500 mg STAT ONE Administration Ciprofloxacin Confirm 12/05/21 16:49 Ciprofloxacin 500 Mg Tablet Administered 12/05/21 16:50 Dose 500 mg .ROUTE .STK-MED ONE Hydromorphone HCl 1 mg 12/05/21 15:15 12/05/21 15:22 Hydromorphone 1 Mg/1ml Inj 1 Mg/Ml Syringe IV 12/05/21 15:16 1 mg STAT ONE Administration Hydromorphone HCl Confirm 12/05/21 15:17 Hydromorphone 1 Mg/1ml Inj 1 Mg/Ml Syringe Administered 12/05/21 15:18 Dose 1 mg .ROUTE .STK-MED ONE Sodium Chloride 1,000 mls @ 999 mls/hr 12/05/21 14:47 12/05/21 16:36 Sodium Chloride 0.9% 1000 Ml IV 12/05/21 15:47 Infused .Q1H1M STA Infusion Sodium Chloride Confirm 12/05/21 14:53 Sodium Chloride 0.9% 1000 Ml Administered 12/05/21 14:54 Dose 1,000 mls @ ud .ROUTE .STK-MED ONE Ondansetron HCl 4 mg 12/05/21 14:47 12/05/21 14:55 Ondansetron Hcl 4 Mg/2 Ml Vial IV 12/05/21 14:48 4 mg STAT ONE Administration Ondansetron HCl Confirm 12/05/21 14:53 Ondansetron Hcl 4 Mg/2 Ml Vial Administered 12/05/21 14:54 Dose 4 mg .ROUTE .STK-MED ONE Lab/Rad Data: Laboratory Result Diagrams 12/05/21 15:00 12/05/21 15:00 Laboratory Results 12/05/21 12/05/21 12/05/21 Range/Units 17:05 15:04 15:04 WBC (4.0-10.5) x10^3/uL RBC (4.1-5.4) x10^6/uL Hgb (12.0-16.0) g/dL Hct (35-47) % MCV (78-100) fL MCH (26-32) pg MCHC (32-36) g/dL RDW (11.5-14.0) % Plt Count (150-450) x10^3/uL MPV (7.5-11.0) fL Gran % (36.0-66.0) % Immature Gran % (Auto) (0.00-0.4) % Nucleat RBC Rel Count (0.00-0.1) % Eos # (Auto) (0-0.5) x10^3/uL Immature Gran # (Auto) (0.00-0.03) x10^3u/L Absolute Lymphs (auto) (1.0-4.6) x10^3/uL Absolute Monos (auto) (0.0-1.3) x10^3/uL Absolute Nucleated RBC (0.00-0.01) x10^3u/L Lymphocytes % (24.0-44.0) % Monocytes % (0.0-12.0) % Eosinophils % (0.00-5.0) % Basophils % (0.0-0.4) % Absolute Granulocytes (1.4-6.9) x10^3/uL Basophils # (0-0.4) x10^3/uL Sodium (137-145) mmol/L Potassium (3.5-5.1) mmol/L Chloride (98-107) mmol/L Carbon Dioxide (22-30) mmol/L Anion Gap (5-15) MEQ/L BUN (7-17) mg/dL Creatinine (0.52-1.04) mg/dL Estimated GFR ML/MIN Glucose (74-106) mg/dL Lactic Acid (0.4-2.0) Calcium (8.4-10.2) mg/dL Total Bilirubin (0.2-1.3) mg/dL AST (14-36) U/L ALT (0-35) U/L Alkaline Phosphatase (38-126) U/L Serum Total Protein (6.3-8.2) g/dL Albumin (3.5-5.0) g/dL Amylase (30-110) U/L Lipase (23-300) U/L Urinalys Dipstick Clnc MAIN LAB Urine Color YELLOW (YELLOW) Urine Appearance CLOUDY (CLEAR) Urine pH 5.5 (5-6) Ur Specific Buckner 1.025 (1.005-1.025) POC Urine Protein Conf NEGATIVE (Negative) Urine Ketones NEGATIVE (NEGATIVE) Urine Nitrite NEGATIVE (NEGATIVE) Urine Bilirubin NEGATIVE (NEGATIVE) Urine Urobilinogen 0.2 (0-1) mg/dL Urine Leukocytes SMALL (NEGATIVE) Urine WBC (Auto) 6-10 (0-5) /HPF Urine RBC (Auto) 6-10 (0-2) /HPF U Epithel Cells (Auto) FEW (FEW) /HPF Urine Bacteria (Auto) NONE (NEGATIVE) /HPF Urine RBC NEGATIVE (0-5) Jayden/ul Urine Mucus (Auto) SLIGHT (NEGATIVE) /HPF Ur Culture Indicated? YES Urine Glucose NEGATIVE (NEGATIVE) mg/dL Urine HCG, Qual NEGATIVE (Negative) Monoscreen WEAKLY POSITIVE (Negative) Slides for Path Review 12/05/21 12/05/21 12/05/21 Range/Units 15:00 15:00 14:47 WBC 8.4 (4.0-10.5) x10^3/uL RBC 4.94 (4.1-5.4) x10^6/uL Hgb 13.4 (12.0-16.0) g/dL Hct 42.3 (35-47) % MCV 85.6 (78-100) fL MCH 27.1 (26-32) pg MCHC 31.7 L (32-36) g/dL RDW 13.7 (11.5-14.0) % Plt Count 334 (150-450) x10^3/uL MPV 11.2 H (7.5-11.0) fL Gran % 58.0 (36.0-66.0) % Immature Gran % (Auto) 0.5 H (0.00-0.4) % Nucleat RBC Rel Count 0.0 (0.00-0.1) % Eos # (Auto) 0.24 (0-0.5) x10^3/uL Immature Gran # (Auto) 0.04 H (0.00-0.03) x10^3u/L Absolute Lymphs (auto) 2.61 (1.0-4.6) x10^3/uL Absolute Monos (auto) 0.60 (0.0-1.3) x10^3/uL Absolute Nucleated RBC 0.00 (0.00-0.01) x10^3u/L Lymphocytes % 31.0 (24.0-44.0) % Monocytes % 7.1 (0.0-12.0) % Eosinophils % 2.9 (0.00-5.0) % Basophils % 0.5 (0.0-0.4) % Absolute Granulocytes 4.89 (1.4-6.9) x10^3/uL Basophils # 0.04 (0-0.4) x10^3/uL Sodium 141 (137-145) mmol/L Potassium 4.0 (3.5-5.1) mmol/L Chloride 105 (98-107) mmol/L Carbon Dioxide 25 (22-30) mmol/L Anion Gap 14.7 (5-15) MEQ/L BUN 11 (7-17) mg/dL Creatinine 0.80 (0.52-1.04) mg/dL Estimated GFR > 60.0 ML/MIN Glucose 95 (74-106) mg/dL Lactic Acid 1.0 (0.4-2.0) Calcium 9.4 (8.4-10.2) mg/dL Total Bilirubin 0.60 (0.2-1.3) mg/dL AST 31 (14-36) U/L ALT 34 (0-35) U/L Alkaline Phosphatase 80 (38-126) U/L Serum Total Protein 7.7 (6.3-8.2) g/dL Albumin 4.1 (3.5-5.0) g/dL Amylase 63 (30-110) U/L Lipase 62 (23-300) U/L Urinalys Dipstick Clnc Urine Color (YELLOW) Urine Appearance (CLEAR) Urine pH (5-6) Ur Specific Buckner (1.005-1.025) POC Urine Protein Conf (Negative) Urine Ketones (NEGATIVE) Urine Nitrite (NEGATIVE) Urine Bilirubin (NEGATIVE) Urine Urobilinogen (0-1) mg/dL Urine Leukocytes (NEGATIVE) Urine WBC (Auto) (0-5) /HPF Urine RBC (Auto) (0-2) /HPF U Epithel Cells (Auto) (FEW) /HPF Urine Bacteria (Auto) (NEGATIVE) /HPF Urine RBC (0-5) Jayden/ul Urine Mucus (Auto) (NEGATIVE) /HPF Ur Culture Indicated? Urine Glucose (NEGATIVE) mg/dL Urine HCG, Qual (Negative) Monoscreen (Negative) Slides for Path Review NO - Progress Progress: improved, re-examined Progress Note: 12/05/21 17:09 The pharmacist from the patient's pharmacy called and felt that we should not prescribe Bactrim because of the interactions that are present with her other medicines. He recommended Cipro. I gave the pharmacist a verbal order over the phone for Cipro 500 mg orally twice a day for 7 days. I also canceled the prescription for the Bactrim DS. 12/05/21 17:28 CAT scan of the abdomen pelvis without contrast shows no acute intra-abdominal or intrapelvic abnormality Counseled pt/family regarding: lab results, diagnosis, need for follow-up, rad results - Departure Departure Disposition: Home Clinical Impression: Abdominal pain, Vomiting, UTI (urinary tract infection) Condition: Stable Critical Care Time: No Referrals: MELVA DEGROOT [Primary Care Provider] - Follow up/PCP as directed Additional Instructions: Drink plenty of fluids. Take your medication as prescribed. Follow-up with your primary care physician for further evaluation and management. Prescriptions: Ondansetron ODT 4 MG [Zofran Odt 4 mg] 4 mg PO Q6H PRN PRN #10 tablet PRN Reason: Vomiting
[2021-12-05] MEDS ORDERED: Zofran 4 MG/2 ML VIAL IV ONE ×2 (14:47→17:30)
[2021-12-05] MEDS ORDERED: Sodium Chloride 0.9% 1000 ML 1,000 ML IV STA (14:47)
[2021-12-05] MEDS ORDERED: Sodium Chloride 0.9% 1000 ML 1,000 ML ONE (14:53)
[2021-12-05] MEDS ORDERED: Zofran 4 MG/2 ML VIAL ONE ×2 (14:53→17:32)
[2021-12-05] MEDS ORDERED: Hydromorphone 1 mg/ml Injection IV ONE (15:15)
[2021-12-05] MEDS ORDERED: Hydromorphone 1 mg/ml Injection ONE (15:17)
[2021-12-05 15:23] LABS: ALBUMIN 4.1 g/dL (3.5-5.0); ALKALINE PHOSPHATASE 80 U/L (38-126); AMYLASE 63 U/L (30-110); ANION GAP 14.7 MEQ/L (5-15); BLOOD UREA NITROGEN 11 mg/dL (7-17); CHLORIDE 105 mmol/L (98-107); Calcium 9.4 mg/dL (8.4-10.2); Carbon Dioxide 25 mmol/L (22-30); EST GLOMERULAR FILTRATION RATE > 60.0 ML/MIN; Glucose 95 mg/dL (74-106); LIPASE 62 U/L (23-300); SGOT/AST 31 U/L (14-36); SGPT/ALT 34 U/L (0-35); SODIUM 141 mmol/L (137-145); Total Protein 7.7 g/dL (6.3-8.2)
[2021-12-05 15:48] LABS: Absolute Neutrophil Ct (ANC) 4.89 x10^3/uL (1.4-6.9); Basophil (Absolute #) 0.04 x10^3/uL (0-0.4); Eosinophil % 2.9 % (0.00-5.0); Eosinophil (Absolute #) 0.24 x10^3/uL (0-0.5); Hematocrit 42.3 % (35-47); Hemoglobin 13.4 g/dL (12.0-16.0); Lymphocyte (Absolute #) 2.61 x10^3/uL (1.0-4.6); Mean Cell Volume 85.6 fL (78-100); Mean Corpuscular Hemoglobin 27.1 pg (26-32); Mean Corpuscular Hgb Concent. 31.7 g/dL (32-36); Mean Platelet Volume 11.2 fL (7.5-11.0); Monocytes % 7.1 % (0.0-12.0); Platelet Count 334 x10^3/uL (150-450); Red Blood Count 4.94 x10^6/uL (4.1-5.4); Red Cell Distribution Width 13.7 % (11.5-14.0)
[2021-12-05 16:13] VITALS: BP 113/66
[2021-12-05 16:25] LABS: Epithelial Cells FEW /HPF (FEW); Mucus SLIGHT /HPF (NEGATIVE)
[2021-12-05 16:30] LABS: White Blood Count 8.4 x10^3/uL (4.0-10.5)
[2021-12-05 16:34] LABS: Appearance CLOUDY (CLEAR); Bilirubin NEGATIVE (NEGATIVE); Glucose NEGATIVE (NEGATIVE); Ketones NEGATIVE (NEGATIVE); Nitrite NEGATIVE (NEGATIVE); Ph 5.5 (5-6); Protein,Urine Dip NEGATIVE (Negative); RBC NEGATIVE Ery/ul (0-5); Specific Gravity 1.025 (1.005-1.025); Urobilinogen 0.2 mg/dL (0-1)
[2021-12-05 16:36] LABS: Urine Cultured Indicated? YES
[2021-12-05 16:37] LABS: Slide Review 1 NO
[2021-12-05 16:39] LABS: Dipstick done @ ? MAIN LAB
[2021-12-05] MEDS ORDERED: Cipro 500 MG PO ONE (16:39)
[2021-12-05] MEDS ORDERED: Cipro 500 MG ONE (16:49)
[2021-12-05 17:21] VITALS: PULSE 84; O2SAT 97
--- NOTE | 2021-12-05 17:21 | XRAY ---
Indication: Abdomen pain, nausea, and vomiting. Multiple contiguous axial images obtained through the abdomen and pelvis without contrast. Comparison: July 21, 2021. Lung bases remain clear. Heart now borderline enlarged. Noncontrasted stomach and bowel loops remain nonobstructed with normal appendix. Minimal scattered colonic diverticulosis without diverticulitis. Again fatty hepatomegaly measuring 26 cm, 16.8 cm splenomegaly, and cholecystectomy. No free fluid/air. Remaining pancreas, adrenal glands, kidneys, ureters, bladder, uterus, and aorta are unremarkable for noncontrast exam. Osseous structures intact. Impression: 1. Again colonic diverticulosis, fatty hepatomegaly, and splenomegaly. 2. Remaining CT abdomen/pelvis without contrast exam continues to be negative.
[2021-12-05] MEDS ORDERED: NORCO 5/325 MG PO ONE (17:29)
[2021-12-05] MEDS ORDERED: NORCO 5/325 MG ONE (17:32)
[2021-12-05 17:49] LABS: INFLUENZA A NEGATIVE (NEGATIVE); INFLUENZA B NEGATIVE (NEGATIVE); RESPIRATORY SYNCTIAL VIRUS NEGATIVE (Negative); SARS-CoV-2 Xpert Express NEGATIVE (NEGATIVE)
== END 2021-12-05 17:57 | disposition home or self-care (01) ==
LOC: ED 14:10
DX: N39.0 Urinary tract infection, site not specified (principal); B27.90 Infectious mononucleosis, unspecified without complication; R10.84 Generalized abdominal pain; R11.2 Nausea with vomiting, unspecified; I10 Essential (primary) hypertension; Z79.899 Other long term (current) drug therapy
CPT/HCPCS: 0241U; 36000; 36415; 74176; 80053; 81015; 81025; 82150; 83605; 83690; 85025; 86308; 87086; 96360; 96374; 96375; 96376; 99284; J1170; J2405; A9270-GY

== ENCOUNTER 2021-12-14 23:01 | Emergency (ER) | payer OTHER ==
[2021-12-14 23:20] VITALS: O2SAT 98
[2021-12-15] MEDS ORDERED: TYLENOL 325 MG PO ONE (00:04)
[2021-12-15] MEDS ORDERED: TYLENOL 325 MG ONE (00:13)
--- NOTE | 2021-12-15 00:30 | ERPHSYRPT ---
- History of Present Illness Time Seen by Provider: 12/14/21 23:15 Exam Limitations: no limitations Patient Subjective Stated Complaint: pt states "My foot and ankle are swollen Triage Nursing Assessment: pt ambulated into the er; pt is axo x4; c/o swelling to RLE; pt states 8/10 to RLE; pt is obese; 2+ edema to rt foot and ankle; pt denies trauma or injury to RLE; strong rt pedal pulse; good cap refill to RLE; no reddness or warmth present to RLE Physician History: Patient is a 26-year-old female presents to our ED with complaints of right ankle pain and swelling for 1 day. Pain described as an ache that is localized to the anterior lateral ankle. There is minimal pain at the proximal dorsum foot at the junction of the ankle joint. No recent trauma. Patient states she fractured her distal tibial growth plate at the age of 14. Patient symptoms are mild to moderate in intensity. Patient took a gram of Tylenol at approximately noon today. Patient cannot take ibuprofen as it has caused her to develop renal compromise in the past. Patient denies chest pain or shortness of breath. No nausea vomiting or diaphoresis. Patient otherwise has no pain in any other locale. Patient voices no other complaints or concerns at this time. Method of Injury: unknown Occurred: this afternoon Quality: constant Severity of Pain-Max: moderate Severity of Pain-Current: mild Lower Extremities Pain: ankle: right Modifying Factors: Improves With: other (Movement palpation and weightbearing reproduce symptoms.) Associated Symptoms: none, No dizzy, No fainted, No seizure, No snapping sensation, No popping sensation Allergies/Adverse Reactions: amoxicillin trihydrate [From Augmentin] Allergy (Intermediate, Verified 12/14/21 23:10) Hives cefaclor [From Ceclor] Allergy (Intermediate, Verified 12/14/21 23:10) Hives enalapril Adverse Reaction (Intermediate, Verified 12/14/21 23:10) Cough ibuprofen Adverse Reaction (Verified 12/14/21 23:10) hx of renal failure, advised by PCP to avoid Home Medications: Losartan/Hydrochlorothiazide [Losartan-Hctz 100-12.5 mg Tab] 1 tab PO DAILY 11/20/20 [History] Spironolactone 25 mg [Aldactone 25 MG] 25 mg PO DAILY 03/30/21 [History] Topiramate [Topamax] 1 tab PO BID 09/20/21 [History] Hx Tetanus, Diphtheria Vaccination/Date Given: Yes Hx Influenza Vaccination/Date Given: Yes Hx Pneumococcal Vaccination/Date Given: No Travel Risk - International Travel Have you traveled outside of the country in past 3 weeks: No - Coronavirus Screening Are you exhibiting any of the following symptoms?: No Close contact with a COVID-19 positive Pt in past 14-21 Days: No - Vaccine Status Have you recieved a Covid-19 vaccination: Yes 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[email or web address] - Vaccination Dates Date of 2cond Vaccination (if applicable): 11/18/20 - Review of Systems Constitutional: No Symptoms, No Fever, No Chills Eyes: No Symptoms Ears, Nose, & Throat: No Symptoms Respiratory: No Symptoms, No Cough, No Dyspnea Cardiac: No Symptoms, No Chest Pain, No Edema, No Syncope Abdominal/Gastrointestinal: No Symptoms, No Abdominal Pain, No Nausea, No Vomiting, No Diarrhea Genitourinary Symptoms: No Symptoms, No Dysuria Musculoskeletal: No Symptoms, No Back Pain, No Neck Pain Skin: No Symptoms, No Rash Neurological: No Symptoms, No Dizziness, No Focal Weakness, No Sensory Changes Psychological: No Symptoms Endocrine: No Symptoms Hematologic/Lymphatic: No Symptoms Immunological/Allergic: No Symptoms All Other Systems: Reviewed and Negative - Past Medical History Pertinent Past Medical History: Yes Neurological History: Migraines ENT History: No Pertinent History Cardiac History: Hypertension Respiratory History: No Pertinent History Endocrine Medical History: No Pertinent History Musculoskeletal History: Other GI Medical History: Gallbladder Disease, Pancreatitis History: Other Psycho-Social History: Anxiety, Depression Female Reproductive Disorders: No Pertinent History Other Medical History: ovarian cysts,PANCREATITIS AND CHOLECYSTITIS, urinary retention 10/2015. KIDNEY FAILURE IN 01/2017, low iron levels - Past Surgical History Past Surgical History: Yes Neuro Surgical History: No Pertinent History Cardiac: No Pertinent History Respiratory: No Pertinent History Gastrointestinal: Cholecystectomy, Other Genitourinary: No Pertinent History Musculoskeletal: Orthopedic Surgery Female Surgical History: No Pertinent History Other Surgical History: ERCP, rt knee - Social History Smoking Status: Former smoker How long have you smoked: 4 Exposure to second hand smoke: Yes Drug Use: none Patient Lives Alone: No - Female History Hx Now: No - Nursing Vital Signs Nursing Vital Signs: Initial Vital Signs Temperature 97.8 F 12/14/21 23:11 Pulse Rate 89 12/14/21 23:11 Respiratory Rate 20 12/14/21 23:11 Blood Pressure 134/81 12/14/21 23:11 O2 Sat by Pulse Oximetry 98 12/14/21 23:11 Pain Scale Pain Intensity 8 - Physical Exam General Appearance: no apparent distress, alert, obese Eyes, Ears, Nose, Throat Exam: normal ENT inspection, TMs normal, pharynx normal, moist mucous membranes Neck Exam: normal inspection, non-tender, supple, full range of motion Cardiovascular/Respiratory Exam: chest non-tender, normal breath sounds, regular rate/rhythm, heart sounds normal, no respiratory distress Gastrointestinal/Abdominal Exam: non-tender, soft, guarding Back Exam: normal inspection, normal range of motion, No CVA tenderness, No vertebral tenderness Hips Exam: bilateral: non-tender, normal inspection, normal range of motion, no evidence of injury Legs Exam: bilateral leg: non-tender, normal inspection, normal range of motion, no evidence of injury Knees Exam: bilateral knee: non-tender, normal inspection, normal range of motion, no evidence of injury Ankle Exam: right ankle: pain, soft tissue tenderness, swelling, other (Tenderness to palpation over the anterolateral ankle. There is swelling at this location as well. Pain rated 8 out of 10. ), left ankle: non-tender, normal inspection, normal range of motion, no evidence of injury Foot Exam: bilateral foot: non-tender, normal inspection, normal range of motion, no evidence of injury Neuro/Tendon Exam: normal sensation, normal motor functions Mental Status Exam: alert, oriented x 3, cooperative Skin Exam: normal color, warm, dry SpO2 Interpretation: normal SpO2: 98 O2 Delivery: Room Air - Course Nursing assessment & vital signs reviewed: Yes - Radiology Exams Foot X-ray Interpretation: Interpreted by me (Old distal fibular fracture versus ossicle. No acute fractures or dislocations. Soft tissue swelling over the lateral malleolus. Heel spur pes planus) - Radiology Ultrasound Exam Venous Lower Extremity Ultrasound: discussed w/radiologist (Per high speed operator exam limited however no DVT visualized.) Ordered Tests: Active Orders 24 hr Category Date Time Status ANKLE (3 VIEWS) Stat Exams 12/15/21 00:02 Taken VENOUS UNILAT/LIMITED EXTREMIT [US] Stat Exams 12/15/21 00:03 Ordered Medication Summary Discontinued Medications Generic Name Dose Route Start Last Admin Trade Name Farhan PRN Reason Stop Dose Admin Acetaminophen 975 mg 12/15/21 00:04 12/15/21 00:13 Acetaminophen 325 Mg Tablet PO 12/15/21 00:05 975 mg STAT ONE Administration Acetaminophen Confirm 12/15/21 00:13 Acetaminophen 325 Mg Tablet Administered 12/15/21 00:14 Dose 975 mg .ROUTE .STK-MED ONE - Progress Progress: improved Progress Note: Patient reassessed. She feels well. Patient received Tylenol for pain control. X-ray negative for fracture dislocation. There is soft tissue swelling consistent with a ankle sprain. Incidental pes planus and heel spur. Right lower extremity ultrasound performed to rule out DVT. Ultrasound was negative. No indication for further work-up at this time. Patient agrees to follow-up with primary care doctor within 48 hours for evaluation. She voices no other complaints or concerns at this time. Portions of this note were created with voice recognition technology. There may be grammatical, spelling, punctuation or sound alike errors 12/15/21 01:10 Patient declined crutches and Colt wrap. 12/15/21 01:15 Counseled pt/family regarding: diagnosis, need for follow-up, rad results - Departure Departure Disposition: Home Clinical Impression: Ankle sprain, Pes planus Condition: Stable Critical Care Time: No Referrals: MELVA DEGROOT [Primary Care Provider] - Follow up/PCP as directed Additional Instructions: Discharge/Care Plan JAMALALLIE ANA was seen on 12/15/21 in the Emergency Room. The patient was counseled regarding Diagnosis,Lab results, Imaging studies, need for follow up and when to return to the Emergency Room. Prescriptions given: Discharge Note I have spoken with the patient and/or caregivers. I have explained the patient's condition, diagnosis and treatment plan based on the information available to me at this time. I have answered the patient's and/or caregiver's questions and addressed any concerns. The patient and/or caregivers have as good understanding of the patient's diagnosis, condition and treatment plan as can be expected at this point. The vital signs have been stable. The patient's condition is stable and appropriate for discharge from the emergency department. The patient will pursue further outpatient evaluation with the primary care physician or other designated or consulting physician as outlined in the discharge instructions. The patient and/or caregivers are agreeable to this plan of care and follow-up instructions have been explained in detail. The patient and/or caregivers have received these instruction. The patient/and or caregivers are aware that any significant change in condition or worsening of symptoms should prompt an immediate return to this or the closest emergency department or call 911.
[2021-12-15 01:35] VITALS: BP 134/86; PULSE 73
--- NOTE | 2021-12-15 08:58 | XRAY ---
Indication: Pain. No known injury. Comparison: None 3 view right ankle demonstrates small well-circumscribed lateral malleolus tip heterotopic ossification either degenerative versus old injury and tiny plantar heel spur. No other bony, articular, or soft tissue abnormalities.
--- NOTE | 2021-12-15 08:58 | XRAY ---
Indication: Swelling. Two-dimensional sonogram and color Doppler imaging of the major venous vessels of the right leg performed. Comparison: None No thrombus seen in the examined deep venous vessels of the right leg including greater saphenous vein. Veins demonstrate normal compressibility. Venous waveforms are normal with and without augmentation. Impression: Right leg negative for DVT. Comment: Preliminary report was given.
== END 2021-12-15 01:36 | disposition home or self-care (01) ==
LOC: ED 23:01
DX: S93.401A Sprain of unspecified ligament of right ankle, initial encounter (principal); M21.41 Flat foot [pes planus] (acquired), right foot; M25.571 Pain in right ankle and joints of right foot; I10 Essential (primary) hypertension; Z79.899 Other long term (current) drug therapy
CPT/HCPCS: 73610; 93971; 99284; A9270-GY

== ENCOUNTER 2022-01-07 18:28 | Emergency (ER) | payer OTHER ==
[2022-01-07 18:39] VITALS: BP 138/73
[2022-01-07] MEDS ORDERED: HYDROCODONE-ACETAMIN 10-325 MG PO ONE (18:50)
--- NOTE | 2022-01-07 18:55 | ERPHSYRPT ---
- History of Present Illness Source: patient Exam Limitations: no limitations Patient Subjective Stated Complaint: pt here for abscess to vagina for a couple days,no fever Triage Nursing Assessment: pt alert,resp easy.skin w.d.p, crying with pain, face mask in place, Physician History: 26 yo wf w labial lesion x 2 days. Pt states that it is painful. She denies trauma/discharge/dysuria/hematuria/fever. Timing/Duration: other (2 days) Activites at Onset: none Quality: sharpness Onset Location: other (L labia minora) Pain Radiation: none Severity of Pain-Max: moderate Severity of Pain-Current: moderate Prior abdominal problems: none Sexual intercourse history: non-contributory Modifying Factors: Improves With: nothing, movement Associated Symptoms: denies symptoms Allergies/Adverse Reactions: amoxicillin trihydrate [From Augmentin] Allergy (Intermediate, Verified 01/07/22 18:33) Hives cefaclor [From Ceclor] Allergy (Intermediate, Verified 01/07/22 18:33) Hives enalapril Adverse Reaction (Intermediate, Verified 01/07/22 18:33) Cough ibuprofen Adverse Reaction (Verified 01/07/22 18:33) hx of renal failure, advised by PCP to avoid Home Medications: Losartan/Hydrochlorothiazide [Losartan-Hctz 100-12.5 mg Tab] 1 tab PO DAILY 11/20/20 [History] Spironolactone 25 mg [Aldactone 25 MG] 25 mg PO DAILY 03/30/21 [History] Topiramate [Topamax] 1 tab PO BID 09/20/21 [History] Hx Tetanus, Diphtheria Vaccination/Date Given: Yes Hx Influenza Vaccination/Date Given: Yes Hx Pneumococcal Vaccination/Date Given: No Travel Risk - International Travel Have you traveled outside of the country in past 3 weeks: No - Coronavirus Screening Are you exhibiting any of the following symptoms?: No - Vaccine Status Have you recieved a Covid-19 vaccination: Yes 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[employer] - Vaccination Dates Date of 2cond Vaccination (if applicable): 11/18/20 - Review of Systems Constitutional: No Symptoms Eyes: No Symptoms Ears, Nose, & Throat: No Symptoms Respiratory: No Symptoms Cardiac: No Symptoms Abdominal/Gastrointestinal: No Symptoms Genitourinary Symptoms: No Dysuria, No Frequency, No Hematuria, No Hesitancy, No Incontinence, No Urgency, No Urinary Retention, No Flank Pain, No Menorrhagia, No , No Vaginal Bleeding, No Vaginal Discharge, No Vaginal Itching Musculoskeletal: No Symptoms Skin: No Symptoms Neurological: No Symptoms Psychological: No Symptoms Endocrine: No Symptoms Hematologic/Lymphatic: No Symptoms Immunological/Allergic: No Symptoms - Past Medical History Pertinent Past Medical History: Yes Neurological History: Migraines ENT History: No Pertinent History Cardiac History: Hypertension Respiratory History: No Pertinent History Endocrine Medical History: No Pertinent History Musculoskeletal History: Other GI Medical History: Gallbladder Disease, Pancreatitis History: Other Psycho-Social History: Anxiety, Depression Female Reproductive Disorders: No Pertinent History Other Medical History: ovarian cysts,PANCREATITIS AND CHOLECYSTITIS, urinary retention 10/2015. KIDNEY FAILURE IN 01/2017, low iron levels - Past Surgical History Past Surgical History: Yes Neuro Surgical History: No Pertinent History Cardiac: No Pertinent History Respiratory: No Pertinent History Gastrointestinal: Cholecystectomy, Other Genitourinary: No Pertinent History Musculoskeletal: Orthopedic Surgery Female Surgical History: No Pertinent History Other Surgical History: ERCP, rt knee - Social History Smoking Status: Former smoker How long have you smoked: 4 Exposure to second hand smoke: No Drug Use: none Patient Lives Alone: No Significant Family History: no pertinent family hx - Female History Hx Last Menstrual Period: october Hx Now: No - Nursing Vital Signs Nursing Vital Signs: Initial Vital Signs Temperature 98.3 F 01/07/22 18:34 Pulse Rate 78 01/07/22 18:34 Respiratory Rate 24 01/07/22 18:34 Blood Pressure 138/73 01/07/22 18:34 O2 Sat by Pulse Oximetry 97 01/07/22 18:34 Pain Scale Pain Intensity 8 Borderline hypertension - Physical Exam General Appearance: no apparent distress Eye Exam: PERRL/EOMI, eyes nml inspection Ears, Nose, Throat Exam: normal ENT inspection, TMs normal, pharynx normal, moist mucous membranes Neck Exam: normal inspection, non-tender, supple, full range of motion, No meningismus, No mass, No Brudzinski, No Kernig's Respiratory Exam: normal breath sounds, lungs clear, airway intact Cardiovascular Exam: regular rate/rhythm, normal heart sounds, normal peripheral pulses, capillary refill <2 sec, No murmur Gastrointestinal/Abdomen Exam: soft, normal bowel sounds, No tenderness Pelvic Exam: other (Very small early, abscess formation L labia minora/No drainage/TTP) Back Exam: normal inspection, normal range of motion, No CVA tenderness, No vertebral tenderness Extremity Exam: normal inspection, normal range of motion Neurologic Exam: alert, oriented x 3, cooperative, 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, normal mood/affect, nml cerebellar function, nml station & gait, sensation nml Skin Exam: normal color, warm, dry Lymphatic Exam: No adenopathy SpO2 Interpretation: normal SpO2: 97 O2 Delivery: Room Air - Course Nursing assessment & vital signs reviewed: Yes Ordered Tests: Medication Summary Discontinued Medications Generic Name Dose Route Start Last Admin Trade Name Mikeq PRN Reason Stop Dose Admin Hydrocodone Bitart/Acetaminophen 1 tablet 01/07/22 18:50 01/07/22 18:52 Hydrocodone/Acetamin 10-325 Mg Tablet PO 01/07/22 18:51 1 tablet STAT ONE Administration - Progress Progress: improved Progress Note: 01/07/22 18:54 Norco10 po x1 Counseled pt/family regarding: diagnosis, need for follow-up - Departure Departure Disposition: Home Clinical Impression: Labial abscess Condition: Stable Critical Care Time: No Referrals: MELVA DEGROOT [Primary Care Provider] - Follow up/PCP as directed Instructions: Skin Abscess Additional Instructions: Start Doxycycline twice a day for 1 week Warm compresses 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
[2022-01-07 19:06] VITALS: PULSE 72
[2022-01-07 20:46] VITALS: O2SAT 97
== END 2022-01-07 19:06 | disposition home or self-care (01) ==
LOC: ED 18:28
DX: N76.4 Abscess of vulva (principal); I10 Essential (primary) hypertension; Z79.899 Other long term (current) drug therapy
CPT/HCPCS: 99281; A9270-GY

== ENCOUNTER 2022-01-08 15:03 | Observation (INO) | payer OTHER ==
[2022-01-08] MEDS ORDERED: MORPHINE SULFATE 4 MG INJ IM ONE (15:37)
[2022-01-08] MEDS ORDERED: MORPHINE SULFATE 4 MG INJ ONE (15:42)
--- NOTE | 2022-01-08 15:42 | ERPHSYRPT ---
- History of Present Illness Time Seen by Provider: 01/08/22 15:04 Source: patient Exam Limitations: no limitations Patient Subjective Stated Complaint: Pt has an abcsess by her left side of vagina and was here yesterday and states that the pain has gotten worse and that it has gotten larger, pt unable to sleep or sit Triage Nursing Assessment: Pt was brought to the ER by her , hypertensive, tachycardic, rates pain 10/10, pulses normal, skin n/w/d, painful when walking, uncomfortable when laying in the bed and shifts from side to side Physician History: 26 years old morbidly obese female presented in the ER with chief complaint of left labial swelling/abscess. Patient report this has been slowly growing for almost 1 week. She was seen in the ER here yesterday, was small enough that did not need I&D and was placed on antibiotics but its getting way worse and swelling and pain. Reports 10/10 intensity sharp shooting pain with movements and palpation. Denies any discharge. No fever or chills reported. Timing/Duration: week(s) Activites at Onset: rest Quality: sharpness, stabbing Onset Location: vulvar pain Severity of Pain-Max: severe Severity of Pain-Current: severe Sexual intercourse history: non-contributory Modifying Factors: Worsens With: movement, palpation Associated Symptoms: No vaginal discharge, No vaginal fluid leakage Allergies/Adverse Reactions: amoxicillin trihydrate [From Augmentin] Allergy (Intermediate, Verified 01/08/22 15:23) Hives cefaclor [From Ceclor] Allergy (Intermediate, Verified 01/08/22 15:23) Hives enalapril Adverse Reaction (Intermediate, Verified 01/08/22 15:23) Cough ibuprofen Adverse Reaction (Verified 01/08/22 15:23) hx of renal failure, advised by PCP to avoid Home Medications: Losartan/Hydrochlorothiazide [Losartan-Hctz 100-12.5 mg Tab] 1 tab PO DAILY 11/20/20 [History] Spironolactone 25 mg [Aldactone 25 MG] 25 mg PO DAILY 03/30/21 [History] Topiramate [Topamax] 1 tab PO BID 09/20/21 [History] Hx Tetanus, Diphtheria Vaccination/Date Given: Yes Hx Influenza Vaccination/Date Given: Yes Hx Pneumococcal Vaccination/Date Given: No Travel Risk - International Travel Have you traveled outside of the country in past 3 weeks: No - Coronavirus Screening Are you exhibiting any of the following symptoms?: No Close contact with a COVID-19 positive Pt in past 14-21 Days: No - Vaccine Status Have you recieved a Covid-19 vaccination: Yes [employer]: Pfizer - Vaccination Dates Date of 2cond Vaccination (if applicable): 11/18/20 - Review of Systems Constitutional: No Symptoms Ears, Nose, & Throat: No Symptoms Respiratory: No Symptoms Cardiac: No Symptoms Abdominal/Gastrointestinal: No Symptoms Genitourinary Symptoms: Other Musculoskeletal: No Symptoms Skin: No Symptoms Neurological: No Symptoms Endocrine: No Symptoms Hematologic/Lymphatic: No Symptoms - Past Medical History Pertinent Past Medical History: Yes Neurological History: Migraines ENT History: No Pertinent History Cardiac History: Hypertension Respiratory History: No Pertinent History Endocrine Medical History: No Pertinent History Musculoskeletal History: Other GI Medical History: Gallbladder Disease, Pancreatitis History: Other Psycho-Social History: Anxiety, Depression Female Reproductive Disorders: No Pertinent History Other Medical History: ovarian cysts,PANCREATITIS AND CHOLECYSTITIS, urinary retention 10/2015. KIDNEY FAILURE IN 01/2017, low iron levels - Past Surgical History Past Surgical History: Yes Neuro Surgical History: No Pertinent History Cardiac: No Pertinent History Respiratory: No Pertinent History Gastrointestinal: Cholecystectomy, Other Genitourinary: No Pertinent History Musculoskeletal: Orthopedic Surgery Female Surgical History: No Pertinent History Other Surgical History: ERCP, rt knee - Social History Smoking Status: Former smoker How long have you smoked: 4 Exposure to second hand smoke: No Drug Use: none Patient Lives Alone: No Significant Family History: no pertinent family hx - Female History Hx Last Menstrual Period: unknown Hx Now: No - Nursing Vital Signs Nursing Vital Signs: Initial Vital Signs Temperature 99.0 F 01/08/22 15:09 Pulse Rate 109 H 01/08/22 15:09 Blood Pressure 148/93 01/08/22 15:09 O2 Sat by Pulse Oximetry 97 01/08/22 15:09 Pain Scale Pain Intensity 4 - Physical Exam General Appearance: no apparent distress, alert Ears, Nose, Throat Exam: normal ENT inspection Neck Exam: normal inspection, full range of motion Respiratory Exam: normal breath sounds, lungs clear Cardiovascular Exam: normal heart sounds, tachycardia Gastrointestinal/Abdomen Exam: soft, No tenderness Pelvic Exam: other (5 x 4 cm left upper labia minora swelling, positive fluctuation. Very tender to touch. Induration around.) Back Exam: normal inspection, normal range of motion Extremity Exam: normal inspection, normal range of motion, pelvis stable Neurologic Exam: alert, oriented x 3, cooperative Skin Exam: normal color SpO2 Interpretation: normal SpO2: 97 O2 Delivery: Room Air Ordered Tests: Medication Summary Discontinued Medications Generic Name Dose Route Start Last Admin Trade Name Freq PRN Reason Stop Dose Admin Acetaminophen 650 mg 01/08/22 17:56 Acetaminophen 325 Mg Tablet PO 02/07/22 17:55 Q4H PRN PRN PAIN AND/OR FEVER Hydrocodone Bitart/Acetaminophen 1 tablet 01/08/22 18:33 01/09/22 23:57 Hydrocodone/Acetamin 10-325 Mg Tablet PO 01/13/22 18:32 1 tablet Q4H PRN PRN Administration PAIN Albuterol/Ipratropium 3 ml 01/08/22 17:56 Ipratropium/Albuterol Sulfate 3 Ml Ampul.Neb IH 02/07/22 17:55 Q4HPRN PRN SHORTNESS OF BREATH/WHEEZING Hydrochlorothiazide 12.5 mg 01/09/22 10:00 01/09/22 09:56 Hydrochlorothiazide 25 Mg Tablet PO 02/08/22 09:59 Not Given DAILY FREDO Sodium Chloride 1,000 mls @ 100 mls/hr 01/08/22 16:30 01/08/22 17:04 Sodium Chloride 0.9% 1000 Ml IV 02/07/22 16:29 100 mls/hr .Q10H FREDO Administration Clindamycin HCl/Dextrose 900 mg in 50 mls @ 100 mls/hr 01/08/22 16:17 01/08 17:37 Clindamycin-D5w 900 Mg/50 Ml IV 01/08/22 16:46 Infused STAT STA Infusion Clindamycin HCl/Dextrose Confirm 01/08/22 16:59 Clindamycin-D5w 900 Mg/50 Ml Administered 01/08/22 17:00 Dose 900 mg in 50 mls @ ud IV .STK-MED ONE Sodium Chloride Confirm 01/08/22 17:00 Sodium Chloride 0.9% 1000 Ml Administered 01/08/22 17:01 Dose 1,000 mls @ ud .ROUTE .STK-MED ONE Clindamycin HCl/Dextrose 600 mg in 50 mls @ 100 mls/hr 01/08/22 22:00 01/09/22 22:09 Clindamycin-D5w 600 Mg/50 Ml IV 02/07/22 21:59 100 mls/hr Q8HT FREDO Administration Sodium Chloride Confirm 01/09/22 02:53 Sodium Chloride 0.9% 1000 Ml Administered 01/09/22 02:54 Dose 1,000 mls @ ud .ROUTE .STK-MED ONE Losartan Potassium 100 mg 01/09/22 10:00 01/09/22 09:55 Losartan Potassium 50 Mg Tablet PO 02/08/22 09:59 Not Given DAILY FREDO Miscellaneous Information 1 each 01/09/22 08:00 Medication Intervention 1 Each Each 02/08/22 07:59 .RN TO CHECK FREDO Morphine Sulfate 4 mg 01/08/22 15:37 01/08/22 15:45 Morphine Sulfate 4 Mg/Ml Injection IM 01/08/22 15:38 4 mg STAT ONE Administration Morphine Sulfate Confirm 01/08/22 15:42 Morphine Sulfate 4 Mg/Ml Injection Administered 01/08/22 15:43 Dose 4 mg .ROUTE .STK-MED ONE Morphine Sulfate 4 mg 01/08/22 17:56 01/09/22 22:08 Morphine Sulfate 4 Mg/Ml Injection IV 01/13/22 17:55 4 mg Q4H PRN PRN Administration PAIN Non-Formulary Medication 1 tab 01/09/22 10:00 Losartan/Hydrochlorothiazide [Losartan-Hctz 100-12.5 Mg Tab] PO 02/08/22 09:59 DAILY FREDO Non-Formulary Medication 100 mg 01/09/22 10:00 Doxycycline Monohydrate [Doxycycline Monohydrate] PO 02/08/22 09:59 BID FREDO Ondansetron HCl 4 mg 01/08/22 17:56 01/09/22 20:39 Ondansetron Hcl 4 Mg/2 Ml Vial IV 02/07/22 17:55 4 mg Q6H PRN PRN Administration NAUSEA/VOMITING Ondansetron HCl 4 mg 01/08/22 19:17 Zofran 4 Mg/Udtablet Orally Disintegrating PO 02/07/22 19:16 Q6H PRN PRN NAUSEA/VOMITING Ondansetron HCl 4 mg 01/09/22 07:51 Zofran 4 Mg/Udtablet Orally Disintegrating PO 02/08/22 07:50 Q6H PRN PRN VOMITING Pantoprazole Sodium 40 mg 01/09/22 10:00 01/09/22 09:30 Pantoprazole 40 Mg Vial IV 02/08/22 09:59 40 mg Q24H10 FREDO Administration Spironolactone 25 mg 01/09/22 10:00 01/09/22 09:55 Spironolactone 25 Mg Tablet PO 02/08/22 09:59 Not Given DAILY FREDO Topiramate 50 mg 01/08/22 22:00 01/09/22 20:20 Topiramate 50 Mg Tablet PO 02/07/22 21:59 50 mg BID FREDO Administration Lab/Rad Data: Laboratory Result Diagrams 01/08/22 16:30 01/08/22 16:30 Laboratory Results 01/08/22 01/08/22 01/08/22 Range/Units 16:30 16:30 16:30 WBC 13.5 H (4.0-10.5) x10^3/uL RBC 5.05 (4.1-5.4) x10^6/uL Hgb 13.5 (12.0-16.0) g/dL Hct 43.0 (35-47) % MCV 85.1 (78-100) fL MCH 26.7 (26-32) pg MCHC 31.4 L (32-36) g/dL RDW 13.7 (11.5-14.0) % Plt Count 314 (150-450) x10^3/uL MPV 10.5 (7.5-11.0) fL Gran % 76.4 H (36.0-66.0) % Immature Gran % (Auto) 0.4 (0.00-0.4) % Nucleat RBC Rel Count 0.0 (0.00-0.1) % Eos # (Auto) 0.11 (0-0.5) x10^3/uL Immature Gran # (Auto) 0.05 H (0.00-0.03) x10^3u/L Absolute Lymphs (auto) 2.19 (1.0-4.6) x10^3/uL Absolute Monos (auto) 0.80 (0.0-1.3) x10^3/uL Absolute Nucleated RBC 0.00 (0.00-0.01) x10^3u/L Lymphocytes % 16.3 L (24.0-44.0) % Monocytes % 5.9 (0.0-12.0) % Eosinophils % 0.8 (0.00-5.0) % Basophils % 0.2 (0.0-0.4) % Absolute Granulocytes 10.27 H (1.4-6.9) x10^3/uL Basophils # 0.03 (0-0.4) x10^3/uL Sodium 139 (137-145) mmol/L Potassium 3.5 (3.5-5.1) mmol/L Chloride 102 (98-107) mmol/L Carbon Dioxide 27 (22-30) mmol/L Anion Gap 13.1 (5-15) MEQ/L BUN 10 (7-17) mg/dL Creatinine 0.76 (0.52-1.04) mg/dL Estimated GFR > 60.0 ML/MIN Glucose 105 (74-106) mg/dL Hemoglobin A1c (4.5-6.0) % Calcium 9.7 (8.4-10.2) mg/dL Total Bilirubin 0.80 (0.2-1.3) mg/dL AST 32 (14-36) U/L ALT 37 H (0-35) U/L Alkaline Phosphatase 82 (38-126) U/L Serum Total Protein 8.3 H (6.3-8.2) g/dL Albumin 4.3 (3.5-5.0) g/dL Urinalys Dipstick Clnc Urine Color (YELLOW) Urine Appearance (CLEAR) Urine pH (5-6) Ur Specific Garrison (1.005-1.025) POC Urine Protein Conf (Negative) Urine Ketones (NEGATIVE) Urine Nitrite (NEGATIVE) Urine Bilirubin (NEGATIVE) Urine Urobilinogen (0-1) mg/dL Urine Leukocytes (NEGATIVE) Urine WBC (Auto) (0-5) /HPF Urine RBC (Auto) (0-2) /HPF U Epithel Cells (Auto) (FEW) /HPF Urine Bacteria (Auto) (NEGATIVE) /HPF Urine RBC (0-5) Jayden/ul Ur Culture Indicated? Urine Glucose (NEGATIVE) mg/dL Urine HCG, Qual (Negative) Influenza Type A Ag NEGATIVE (NEGATIVE) Influenza Type B Ag NEGATIVE (NEGATIVE) RSV (PCR) NEGATIVE (Negative) SARS-CoV-2 (PCR) NEGATIVE (NEGATIVE) 01/08/22 01/08/22 01/08/22 Range/Units 16:17 16:17 15:45 WBC (4.0-10.5) x10^3/uL RBC (4.1-5.4) x10^6/uL Hgb (12.0-16.0) g/dL Hct (35-47) % MCV (78-100) fL MCH (26-32) pg MCHC (32-36) g/dL RDW (11.5-14.0) % Plt Count (150-450) x10^3/uL MPV (7.5-11.0) fL Gran % (36.0-66.0) % Immature Gran % (Auto) (0.00-0.4) % Nucleat RBC Rel Count (0.00-0.1) % Eos # (Auto) (0-0.5) x10^3/uL Immature Gran # (Auto) (0.00-0.03) x10^3u/L Absolute Lymphs (auto) (1.0-4.6) x10^3/uL Absolute Monos (auto) (0.0-1.3) x10^3/uL Absolute Nucleated RBC (0.00-0.01) x10^3u/L Lymphocytes % (24.0-44.0) % Monocytes % (0.0-12.0) % Eosinophils % (0.00-5.0) % Basophils % (0.0-0.4) % Absolute Granulocytes (1.4-6.9) x10^3/uL Basophils # (0-0.4) x10^3/uL Sodium (137-145) mmol/L Potassium (3.5-5.1) mmol/L Chloride (98-107) mmol/L Carbon Dioxide (22-30) mmol/L Anion Gap (5-15) MEQ/L BUN (7-17) mg/dL Creatinine (0.52-1.04) mg/dL Estimated GFR ML/MIN Glucose (74-106) mg/dL Hemoglobin A1c 5.35 (4.5-6.0) % Calcium (8.4-10.2) mg/dL Total Bilirubin (0.2-1.3) mg/dL AST (14-36) U/L ALT (0-35) U/L Alkaline Phosphatase (38-126) U/L Serum Total Protein (6.3-8.2) g/dL Albumin (3.5-5.0) g/dL Urinalys Dipstick Clnc MAIN LAB Urine Color YELLOW (YELLOW) Urine Appearance CLEAR (CLEAR) Urine pH 7.0 (5-6) Ur Specific Garrison 1.020 (1.005-1.025) POC Urine Protein Conf NEGATIVE (Negative) Urine Ketones NEGATIVE (NEGATIVE) Urine Nitrite NEGATIVE (NEGATIVE) Urine Bilirubin NEGATIVE (NEGATIVE) Urine Urobilinogen 0.2 (0-1) mg/dL Urine Leukocytes NEGATIVE (NEGATIVE) Urine WBC (Auto) NONE (0-5) /HPF Urine RBC (Auto) NONE (0-2) /HPF U Epithel Cells (Auto) NONE (FEW) /HPF Urine Bacteria (Auto) NONE (NEGATIVE) /HPF Urine RBC NEGATIVE (0-5) Jayden/ul Ur Culture Indicated? NO Urine Glucose NEGATIVE (NEGATIVE) mg/dL Urine HCG, Qual NEGATIVE (Negative) Influenza Type A Ag (NEGATIVE) Influenza Type B Ag (NEGATIVE) RSV (PCR) (Negative) SARS-CoV-2 (PCR) (NEGATIVE) - Progress Progress: improved Air Movement: good Progress Note: 01/08/22 15:41 Patient has excruciating pain left labia. I have discussed with patient about local anesthesia and incision and drainage which she refused. I have discussed with Dr. Burrell who recommended transfer patient to [place] for I&D under sedation. [facility] is on diversion and [facility] transfer center is called. 01/08/22 16:37 I have discussed with Dr. Aguilar Arreola, reviewed history and recommended admission and will plan on doing I&D either tonight or tomorrow. In the meanwhile patient is started on antibiotics. Discussed with Dr. Nelson and patient is admitted to hospitalist/primary care service in consultation with general surgery. Blood Culture(s) Obtained: No Antibiotics given: No Discussed with Dr.: Wilberto, Other (Aguilar Arreola MD) Counseled pt/family regarding: diagnosis, need for follow-up - Departure Departure Disposition: Observation Clinical Impression: Labial abscess Condition: Stable Critical Care Time: No
[2022-01-08] MEDS ORDERED: CLINDAMYCIN-D5W 900 MG/50 ML*** 900 MG/50 ML BAG IV STA (16:17)
[2022-01-08] MEDS ORDERED: Sodium Chloride 0.9% 1000 ML 1,000 ML IV SCH (16:30)
[2022-01-08 16:34] LABS: Absolute Neutrophil Ct (ANC) 10.27 x10^3/uL (1.4-6.9); Basophil (Absolute #) 0.03 x10^3/uL (0-0.4); Eosinophil % 0.8 % (0.00-5.0); Eosinophil (Absolute #) 0.11 x10^3/uL (0-0.5); Hemoglobin 13.5 g/dL (12.0-16.0); Lymphocyte (Absolute #) 2.19 x10^3/uL (1.0-4.6); Lymphocytes % 16.3 % (24.0-44.0); Mean Cell Volume 85.1 fL (78-100); Mean Corpuscular Hemoglobin 26.7 pg (26-32); Mean Corpuscular Hgb Concent. 31.4 g/dL (32-36); Mean Platelet Volume 10.5 fL (7.5-11.0); Monocytes % 5.9 % (0.0-12.0); Neutrophil % 76.4 % (36.0-66.0); Platelet Count 314 x10^3/uL (150-450); Red Blood Count 5.05 x10^6/uL (4.1-5.4); Red Cell Distribution Width 13.7 % (11.5-14.0); White Blood Count 13.5 x10^3/uL (4.0-10.5)
[2022-01-08 16:57] LABS: ALBUMIN 4.3 g/dL (3.5-5.0); ALKALINE PHOSPHATASE 82 U/L (38-126); ANION GAP 13.1 MEQ/L (5-15); BLOOD UREA NITROGEN 10 mg/dL (7-17); CHLORIDE 102 mmol/L (98-107); Calcium 9.7 mg/dL (8.4-10.2); Carbon Dioxide 27 mmol/L (22-30); Creatinine 1 0.76 mg/dL (0.52-1.04); EST GLOMERULAR FILTRATION RATE > 60.0 ML/MIN; Glucose 105 mg/dL (74-106); Potassium 3.5 mmol/L (3.5-5.1); SGOT/AST 32 U/L (14-36); SGPT/ALT 37 U/L (0-35); SODIUM 139 mmol/L (137-145); Total Protein 8.3 g/dL (6.3-8.2)
[2022-01-08] MEDS ORDERED: CLINDAMYCIN-D5W 900 MG/50 ML*** 900 MG/50 ML BAG IV ONE (16:59)
[2022-01-08] MEDS ORDERED: Sodium Chloride 0.9% 1000 ML 1,000 ML ONE (17:00)
[2022-01-08 17:24] LABS: INFLUENZA A NEGATIVE (NEGATIVE); INFLUENZA B NEGATIVE (NEGATIVE); RESPIRATORY SYNCTIAL VIRUS NEGATIVE (Negative); SARS-CoV-2 Xpert Express NEGATIVE (NEGATIVE)
[2022-01-08] MEDS ORDERED: Zofran 4 MG/2 ML VIAL IV PRN (17:56)
[2022-01-08] MEDS ORDERED: DUONEB 0.5-3 MG/3 ml Neb IH PRN (17:56)
[2022-01-08] MEDS ORDERED: TYLENOL 325 MG PO PRN (17:56)
[2022-01-08 19:07] LABS: Appearance CLEAR (CLEAR); Bilirubin NEGATIVE (NEGATIVE); Glucose NEGATIVE (NEGATIVE); Ketones NEGATIVE (NEGATIVE); RBC NEGATIVE Ery/ul (0-5)
[2022-01-08 19:08] LABS: Dipstick done @ ? MAIN LAB; Nitrite NEGATIVE (NEGATIVE); Protein,Urine Dip NEGATIVE (Negative); Urobilinogen 0.2 mg/dL (0-1)
[2022-01-08 19:12] LABS: Urine Cultured Indicated? NO
[2022-01-08] MEDS ORDERED: ZOFRAN ODT 4 MG PO PRN (19:17)
[2022-01-08] MEDS: HYDROCODONE-ACETAMIN 10-325 MG PO PRN (20:03)
[2022-01-08] MEDS: TOPIRAMATE PO SCH (21:39)
[2022-01-08] MEDS: CLINDAMYCIN-D5W 600 MG/50 ML*** 600 MG/50 ML BAG IV SCH (23:44)
[2022-01-08] MEDS: MORPHINE SULFATE 4 MG INJ IV PRN (23:58)
[2022-01-09] MEDS ORDERED: Sodium Chloride 0.9% 1000 ML 0 ML ONE (02:53)
[2022-01-09] MEDS: MORPHINE SULFATE 4 MG INJ IV PRN ×4 (04:26→22:08)
[2022-01-09] MEDS: CLINDAMYCIN-D5W 600 MG/50 ML*** 600 MG/50 ML BAG IV SCH ×3 (06:23→22:09)
[2022-01-09] MEDS: HYDROCODONE-ACETAMIN 10-325 MG PO PRN ×4 (07:33→23:57)
[2022-01-09] MEDS ORDERED: NON-FORMULARY ITEM (Sumatriptan Succinate [Imitrex 50 Mg] 50 MG Tablet) PO PRN (07:51)
[2022-01-09] MEDS ORDERED: ZOFRAN ODT 4 MG PO PRN (07:51)
[2022-01-09] MEDS ORDERED: MEDICATION INTERVENTION MC SCH (08:00)
[2022-01-09] MEDS: TOPIRAMATE PO SCH ×2 (09:35→20:20)
[2022-01-09] MEDS ORDERED: Cozaar 50 MG PO SCH (10:00)
[2022-01-09] MEDS ORDERED: PROTONIX 40 MG IV IV SCH (10:00)
[2022-01-09] MEDS ORDERED: Aldactone 25 MG PO SCH (10:00)
[2022-01-09] MEDS ORDERED: DOXYCYCLINE MONOHYDRATE 100 MG PO SCH (10:00)
[2022-01-09] MEDS ORDERED: hydroDIURIL 25 MG PO SCH (10:00)
[2022-01-09] MEDS ORDERED: NON-FORMULARY ITEM (Losartan/Hydrochlorothiazide [Losartan-Hctz 100-12.5 Mg Tab] 1 EACH Ta PO SCH (10:00)
--- NOTE | 2022-01-09 22:56 | PCM.HP ---
History of Present Illness - Chief Complaint Chief Complaint: Labial abscess History of Present Illness: is a 26 year old morbidly obese female patient of Dr Johnson who presented to ER for the 2nd time c/o swelling and pain left vagina/labia . C/O pain 04/03. Denies fever or vaginal discharge or abdominal pain. PMHx includes HTN,PCOS,Hx ERIC and pancreatitis post cholecystectomy . IV Clindamycin started in ER and admitted to [facility] awaiting surgery consult. - Review of Systems Constitutional: No Symptoms Eyes: No Symptoms Ears, Nose, & Throat: No Symptoms Respiratory: No Symptoms Cardiac: No Symptoms Abdominal/Gastrointestinal: No Symptoms Genitourinary Symptoms: Other (see HPI) Musculoskeletal: No Symptoms Psychological: No Symptoms Endocrine: No Symptoms Hematologic/Lymphatic: No Symptoms Medications & Allergies Home Medications: Home Medication List Losartan/Hydrochlorothiazide [Losartan-Hctz 100-12.5 mg Tab] 1 tab PO DAILY 11/20/20 [History Confirmed 01/08/22] Spironolactone 25 mg [Aldactone 25 MG] 25 mg PO DAILY 03/30/21 [History Confirmed 01/08/22] SUMAtriptan succinate [Imitrex 50 mg] 50 mg PO DAILY PRN PRN #9 tablet 07/17/21 [Rx Confirmed 01/08/22] Topiramate [Topamax] 1 tab PO BID 09/20/21 [History Confirmed 01/08/22] Ondansetron ODT 4 MG [Zofran Odt 4 mg] 4 mg PO Q6H PRN PRN #10 tablet 12/05/21 [Rx Confirmed 01/08/22] Doxycycline Monohydrate 100 mg PO BID #14 01/07/22 [Rx Confirmed 01/08/22] Allergies/Adverse Reactions: Allergies Allergy/AdvReac Type Severity Reaction Status Date / Time amoxicillin trihydrate Allergy Intermediate Hives Verified 01/08/22 15:23 [From Augmentin] cefaclor [From Ceclor] Allergy Intermediate Hives Verified 01/08/22 15:23 enalapril AdvReac Intermediate Cough Verified 01/08/22 15:23 ibuprofen AdvReac Verified 01/08/22 15:23 - Past Medical History Past Medical History: Yes Neurological History: Migraines ENT History: No Pertinent History Cardiac History: Hypertension Respiratory History: No Pertinent History Endocrine Medical History: No Pertinent History Musculoskelatal History: Other GI Medical History: No Pertinent History History: Other Pyscho-Social History: Anxiety, Depression Reproductive Disorders: No Pertinent History Comment: KIDNEY FAILURE IN 01/2017, low iron levels - Female History Hx Last Menstrual Period: 12/12/21 Are you now?: No - Past Surgical History Past Surgical History: Yes Neuro Surgical History: No Pertinent History Cardiac History: No Pertinent History Respiratory Surgery: No Pertinent History GI Surgical History: Cholecystectomy, Other Genitourinary Surgical Hx: No Pertinent History Musculskeletal Surgical Hx: Orthopedic Surgery Female Surgical History: No Pertinent History Other Surgical History: ERCP, rt knee scope - Social History Smoking Status: Former smoker How long have you smoked: 4 Exposure to second hand smoke: No Alcohol: None Drug Use: none Significant Family History: no pertinent family hx - Physical Exam Vital Signs: Vital Signs - 24 hr Temp Pulse Resp BP Pulse Ox 01/09/22 18:35 97.9 F 95 H 18 120/71 97 01/09/22 16:00 97.5 F 97 H 23 132/67 98 01/09/22 12:00 97.1 F 81 19 121/63 97 01/09/22 08:00 97.5 F 91 H 21 109/65 95 01/09/22 04:00 97.8 F 95 H 22 108/68 95 01/08/22 23:55 97 H 126/58 01/08/22 23:36 97.3 F 101 H 16 101/52 95 General Appearance: mild distress (lying still in bed ,pain increases with movement) Neurologic Exam: alert, oriented x 3, cooperative, normal mood/affect Eye Exam: eyes nml inspection Ears, Nose, Throat Exam: normal ENT inspection Neck Exam: normal inspection Respiratory Exam: normal breath sounds Cardiovascular Exam: regular rate/rhythm Gastrointestinal/Abdomen Exam: soft (nontender) Pelvic Exam: other (external exam -left labial fullness,tenderness,no vaginal discharge) Rectal Exam: not done Back Exam: normal inspection Extremity Exam: normal inspection Skin Exam: warm, dry, pale Wound Assessment: Skin/Wound Assessment Wound/Incision Assessment Start: 01/08/22 19:05 Text: Status: Active Freq: Q6H Protocol: Document 01/09/22 19:00 RB (Rec: 01/09/22 21:19 RB [id number]) Wound/Incision Assessment LEFT lABIA Wound Assessment Shift Assessment Wound Type ABCESS Wound Stage Non Pressure Wound Drainage Amount None Drainage Odor None/Absent General Appearance Open to air,Reddened Surrounding Tissue Bright Red,Taut,Edematous Comment open to air, no drainage. fresh ice pack applied Assessment/Plan (1) Labial abscess Current Visit: Yes Status: Acute Assessment & Plan: plan I&D ,general anesthesia-needs bariatric surgery setting,confirmed with Orin at [facility] surgery that this is available Code(s): N76.4 - ABSCESS OF VULVA (2) Morbid obesity Current Visit: Yes Status: Chronic Code(s): E66.01 - MORBID (SEVERE) OBESITY DUE TO EXCESS CALORIES (3) HTN (hypertension) Current Visit: Yes Status: Chronic Assessment & Plan: continue present meds and monitor Code(s): I10 - ESSENTIAL (PRIMARY) HYPERTENSION (4) Leukocytosis Current Visit: Yes Status: Acute Assessment & Plan: IV Clindamycin Code(s): D72.829 - ELEVATED WHITE BLOOD CELL COUNT, UNSPECIFIED
[2022-01-09 23:30] VITALS: BP 138/71; PULSE 99
[2022-01-12 07:52] VITALS: O2SAT 97
== END 2022-01-10 00:55 | disposition home or self-care (01) ==
LOC: ED 15:03 → MED SURG 17:47
PROVIDERS: ADMIT Family Medicine; ATTEND Family Medicine
DX: N76.4 Abscess of vulva (principal); I10 Essential (primary) hypertension; E66.01 Morbid (severe) obesity due to excess calories; D72.829 Elevated white blood cell count, unspecified; E28.2 Polycystic ovarian syndrome; Z79.899 Other long term (current) drug therapy; Z20.828 Contact with and (suspected) exposure to other viral communicable diseases
CPT/HCPCS: 0241U; 36000; 36415; 80053; 81015; 81025; 83036; 85025; 96365; 96372; 99284; G0378; J2270; J2405; A9270-GY

== ENCOUNTER 2022-04-13 20:35 | Emergency (ER) | payer OTHER ==
--- NOTE | 2022-04-13 20:37 | ERPHSYRPT ---
- History of Present Illness Time Seen by Provider: 04/13/22 20:37 Historian: patient Exam Limitations: no limitations Physician History: This is a morbidly obese 26-year-old white female patient who recently underwent a laparoscopic gastric bypass procedure presents with left anterior chest pain that radiates into and down her left arm. Patient has no diagnosed cardiac history. She does have a history of hypertension and migraine headaches as well as anxiety and depression. The pain is sharp. She cannot take aspirin or ibuprofen secondary to the bypass procedure. Patient denies cough and shortness of breath. She denies fever. Timing/Duration: yesterday Quality: sharpness Location: other (Left anterior chest wall) Chest Pain Radiation: arm (Left shoulder and left arm) Severity of Pain-Max: mild (To moderate) Severity of Pain-Current: mild (To moderate) Modifying Factors: Improves With: nothing Associated Symptoms: denies symptoms Prior Chest Pain/Cardiac Workup: no prior chest pain Nitro Today/Relief: no nitro taken today Aspirin Treatment Today: no aspirin today Allergies/Adverse Reactions: amoxicillin trihydrate [From Augmentin] Allergy (Intermediate, Verified 04/13/22 21:03) Hives cefaclor [From Ceclor] Allergy (Intermediate, Verified 04/13/22 21:03) Hives enalapril Adverse Reaction (Intermediate, Verified 04/13/22 21:03) Cough ibuprofen Adverse Reaction (Verified 04/13/22 21:03) hx of renal failure, advised by PCP to avoid Home Medications: Topiramate [Topamax] 1 tab PO BID 09/20/21 [History] Hx Tetanus, Diphtheria Vaccination/Date Given: Yes Hx Influenza Vaccination/Date Given: Yes Hx Pneumococcal Vaccination/Date Given: No Travel Risk - International Travel Have you traveled outside of the country in past 3 weeks: No - Coronavirus Screening Are you exhibiting any of the following symptoms?: No Close contact with a COVID-19 positive Pt in past 14-21 Days: No - Vaccine Status Have you recieved a Covid-19 vaccination: Yes 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[employer] - Vaccination Dates Date of 2cond Vaccination (if applicable): 11/18/20 - Review of Systems Constitutional: No Symptoms Eyes: No Symptoms Ears, Nose, & Throat: No Symptoms Respiratory: No Symptoms Cardiac: Chest Pain Abdominal/Gastrointestinal: No Symptoms Genitourinary Symptoms: No Symptoms Musculoskeletal: No Symptoms Skin: No Symptoms Neurological: No Symptoms Psychological: No Symptoms Endocrine: No Symptoms Hematologic/Lymphatic: No Symptoms Immunological/Allergic: No Symptoms All Other Systems: Reviewed and Negative - Past Medical History Pertinent Past Medical History: Yes Neurological History: Migraines ENT History: No Pertinent History Cardiac History: Hypertension Respiratory History: No Pertinent History Endocrine Medical History: No Pertinent History Musculoskeletal History: Other GI Medical History: Gallbladder Disease, Pancreatitis History: Other Psycho-Social History: Anxiety, Depression Female Reproductive Disorders: No Pertinent History Other Medical History: ovarian cysts,PANCREATITIS AND CHOLECYSTITIS, urinary retention 10/2015. KIDNEY FAILURE IN 01/2017, low iron levels - Past Surgical History Past Surgical History: Yes Neuro Surgical History: No Pertinent History Cardiac: No Pertinent History Respiratory: No Pertinent History Gastrointestinal: Cholecystectomy, Other Genitourinary: No Pertinent History Musculoskeletal: Orthopedic Surgery Female Surgical History: No Pertinent History Other Surgical History: ERCP, rt knee - Social History Smoking Status: Former smoker How long have you smoked: 4 Exposure to second hand smoke: No Drug Use: none Patient Lives Alone: No Significant Family History: no pertinent family hx - Nursing Vital Signs Nursing Vital Signs: Initial Vital Signs Temperature 98.1 F 04/13/22 20:40 Pulse Rate 80 04/13/22 20:40 Respiratory Rate 18 04/13/22 20:40 Blood Pressure 150/83 04/13/22 20:40 O2 Sat by Pulse Oximetry 99 04/13/22 20:40 Pain Scale Pain Intensity 0 - Physical Exam General Appearance: no apparent distress, alert, anxiety, obese Eye Exam: PERRL/EOMI, eyes nml inspection Ears, Nose, Throat Exam: normal ENT inspection, moist mucous membranes Neck Exam: normal inspection, non-tender, supple, full range of motion Respiratory Exam: normal breath sounds, chest tenderness, lungs clear, airway intact, No respiratory distress Cardiovascular Exam: regular rate/rhythm, normal heart sounds, normal peripheral pulses Gastrointestinal/Abdomen Exam: soft, normal bowel sounds, other (Incision sites are healing well without evidence of infection.), No tenderness Pelvic Exam: not done Rectal Exam: not done Back Exam: normal inspection, normal range of motion, No CVA tenderness, No vertebral tenderness Extremity Exam: normal inspection, normal range of motion, pelvis stable Neurologic Exam: alert, oriented x 3, cooperative, telephone clerk II-XII nml as tested, normal mood/affect, nml cerebellar function, nml station & gait, sensation nml Skin Exam: normal color, warm, dry Lymphatic Exam: No adenopathy SpO2 Interpretation: normal O2 Delivery: Room Air - Course Nursing assessment & vital signs reviewed: Yes EKG Interpreted by Me: RATE (92), Sinus Rhythm, NORMAL AXIS, NORMAL INTERVALS, NORMAL QRS, NORMAL ST-T, Other (No acute ischemic changes.) Ordered Tests: Active Orders 24 hr Category Date Time Status EKG-ER Only STAT Care 04/13/22 21:09 Active IV Insertion STAT Care 04/13/22 21:09 Active Pulse Oximetry (ED) STAT Care 04/13/22 21:09 Active CHEST WITH CONTRAST [CT] Stat Exams 04/13/22 21:59 Taken CBC W DIFF Stat Lab 04/13/22 21:14 Completed D-DIMER QUANTITATIVE Stat Lab 04/13/22 21:14 Completed TROPONIN Q4H Lab 04/13/22 21:15 Completed TROPONIN Q4H Lab 04/14/22 05:15 Ordered TROPONIN Q4H Lab 04/14/22 12:00 Completed Medication Summary Discontinued Medications Generic Name Dose Route Start Last Admin Trade Name Mikeq PRN Reason Stop Dose Admin Sodium Chloride 500 mls @ 500 mls/hr 04/13/22 22:00 04/13/22 23:57 Sodium Chloride 0.9% 500 Ml IV 04/13/22 22:59 Infused .Q1H ONE Infusion Sodium Chloride Confirm 04/13/22 22:03 Sodium Chloride 0.9% 500 Ml Administered 04/13/22 22:04 Dose 500 mls @ ud IV .STK-MED ONE Ondansetron HCl 4 mg 04/13/22 23:35 04/13/22 23:38 Ondansetron Hcl 4 Mg/2 Ml Vial IV 04/13/22 23:36 4 mg STAT ONE Administration Ondansetron HCl Confirm 04/13/22 23:36 Ondansetron Hcl 4 Mg/2 Ml Vial Administered 04/13/22 23:37 Dose 4 mg .ROUTE .STK-MED ONE Lab/Rad Data: Laboratory Result Diagrams 04/13/22 21:14 Laboratory Results 04/14/22 04/13/22 04/13/22 Range/Units 12:00 21:15 21:14 WBC (4.0-10.5) x10^3/uL RBC (4.1-5.4) x10^6/uL Hgb (12.0-16.0) g/dL Hct (35-47) % MCV (78-100) fL MCH (26-32) pg MCHC (32-36) g/dL RDW (11.5-14.0) % Plt Count (150-450) x10^3/uL MPV (7.5-11.0) fL Gran % (36.0-66.0) % Immature Gran % (Auto) (0.00-0.4) % Nucleat RBC Rel Count (0.00-0.1) % Eos # (Auto) (0-0.5) x10^3/uL Immature Gran # (Auto) (0.00-0.03) x10^3u/L Absolute Lymphs (auto) (1.0-4.6) x10^3/uL Absolute Monos (auto) (0.0-1.3) x10^3/uL Absolute Nucleated RBC (0.00-0.01) x10^3u/L Lymphocytes % (24.0-44.0) % Monocytes % (0.0-12.0) % Eosinophils % (0.00-5.0) % Basophils % (0.0-0.4) % Absolute Granulocytes (1.4-6.9) x10^3/uL Basophils # (0-0.4) x10^3/uL D-Dimer 3.23 H* (0.0-0.50) mg/L Troponin I < 0.012 < 0.012 (0.000-0.034) ng/mL 04/13/22 Range/Units 21:14 WBC 7.6 (4.0-10.5) x10^3/uL RBC 4.83 (4.1-5.4) x10^6/uL Hgb 12.8 (12.0-16.0) g/dL Hct 41.9 (35-47) % MCV 86.7 (78-100) fL MCH 26.5 (26-32) pg MCHC 30.5 L (32-36) g/dL RDW 15.0 H (11.5-14.0) % Plt Count 358 (150-450) x10^3/uL MPV 11.3 H (7.5-11.0) fL Gran % 54.3 (36.0-66.0) % Immature Gran % (Auto) 0.4 (0.00-0.4) % Nucleat RBC Rel Count 0.0 (0.00-0.1) % Eos # (Auto) 0.54 H (0-0.5) x10^3/uL Immature Gran # (Auto) 0.03 (0.00-0.03) x10^3u/L Absolute Lymphs (auto) 2.30 (1.0-4.6) x10^3/uL Absolute Monos (auto) 0.55 (0.0-1.3) x10^3/uL Absolute Nucleated RBC 0.00 (0.00-0.01) x10^3u/L Lymphocytes % 30.3 (24.0-44.0) % Monocytes % 7.2 (0.0-12.0) % Eosinophils % 7.1 H (0.00-5.0) % Basophils % 0.7 (0.0-0.4) % Absolute Granulocytes 4.13 (1.4-6.9) x10^3/uL Basophils # 0.05 (0-0.4) x10^3/uL D-Dimer (0.0-0.50) mg/L Troponin I (0.000-0.034) ng/mL - Progress Progress: improved, re-examined Air Movement: good Progress Note: 04/14/22 00:23 CTA of the chest shows no pulmonary embolus. However there is right lobe infiltrate present. There are slightly enlarged mediastinal and hilar lymph nodes present. Blood Culture(s) Obtained: No Antibiotics given: Yes Counseled pt/family regarding: lab results, diagnosis, need for follow-up, rad results - Departure Departure Disposition: Home Clinical Impression: Chest pain, Right pulmonary infiltrate on CXR Condition: Stable Critical Care Time: No Referrals: MELVA DEGROOT [Primary Care Provider] - Follow up/PCP as directed Additional Instructions: Take antibiotics as prescribed. Follow all your other postoperative instructions. Call your primary care physician for further evaluation and management. Prescriptions: Azithromycin 250 mg [Zithromax 250 MG TABLET] 250 mg PO ZPACK #6 tablet
[2022-04-13 21:15] LABS: Absolute Neutrophil Ct (ANC) 4.13 x10^3/uL (1.4-6.9); Basophil (Absolute #) 0.05 x10^3/uL (0-0.4); Eosinophil % 7.1 % (0.00-5.0); Eosinophil (Absolute #) 0.54 x10^3/uL (0-0.5); Hematocrit 41.9 % (35-47); Hemoglobin 12.8 g/dL (12.0-16.0); Lymphocytes % 30.3 % (24.0-44.0); Mean Cell Volume 86.7 fL (78-100); Mean Corpuscular Hemoglobin 26.5 pg (26-32); Mean Corpuscular Hgb Concent. 30.5 g/dL (32-36); Mean Platelet Volume 11.3 fL (7.5-11.0); Monocyte (Absolute #) 0.55 x10^3/uL (0.0-1.3); Monocytes % 7.2 % (0.0-12.0); Neutrophil % 54.3 % (36.0-66.0); Platelet Count 358 x10^3/uL (150-450); Red Blood Count 4.83 x10^6/uL (4.1-5.4); White Blood Count 7.6 x10^3/uL (4.0-10.5)
[2022-04-13] MEDS ORDERED: Sodium Chloride 0.9% 500 ML 500 ML IV ONE ×2 (22:00→22:03)
[2022-04-13 23:05] VITALS: PULSE 71
[2022-04-13] MEDS ORDERED: Zofran 4 MG/2 ML VIAL IV ONE (23:35)
[2022-04-13] MEDS ORDERED: Zofran 4 MG/2 ML VIAL ONE (23:36)
[2022-04-14 00:13] VITALS: BP 119/67; O2SAT 98
[2022-04-14] MEDS ORDERED: ROCEPHIN 1 Gm-D5w 50 ml Bag** 0 G/0 ML IVPB IV ONE (00:25)
[2022-04-14] MEDS: ROCEPHIN 1 Gm-D5w 50 ml Bag** 1 G/50 ML IVPB IV STA ×2 (00:26→02:17)
[2022-04-14] MEDS ORDERED: Levofloxacin 500 MG Tablet ONE (00:40)
[2022-04-14] MEDS ORDERED: Levofloxacin 500 MG Tablet PO ONE (02:17)
--- NOTE | 2022-04-14 08:49 | XRAY ---
Indication: Chest pain. Elevated d-dimer. Multiple contiguous axial images obtained through the chest using 100 cc Isovue 370 contrast and PE protocol. Comparison: March 30, 2021 Suboptimal opacification of the pulmonary arteries and diffuse respiration artifact limits evaluation for pulmonary embolus. No obvious central pulmonary embolus. Heart remains enlarged. Aorta is normal in course and caliber without aneurysm/dissection. New right hilar lymphadenopathy, largest 2.4 x 2.8 cm. Lungs demonstrates new small patchy consolidation in the superior segment of the right lower lobe with air bronchograms favoring pneumonic infiltrate. No effusion. Minimal bilateral dependent atelectasis. Bony thorax intact. Limited upper abdomen again demonstrates cholecystectomy clips, fatty liver, and 16.5 cm splenomegaly. New postsurgical changes related to gastric bypass surgery. Impression: 1. Pulmonary embolus evaluation again limited due to suboptimal contrast opacification and respiration artifact. No obvious central pulmonary embolus. 2. New patchy right lower lobe pneumonic infiltrate. Also new right hilar reactive lymphadenopathy. 3. Again cardiomegaly, fatty liver, and splenomegaly. Comment: Preliminary interpretation made by C. No critical discrepancy.
== END 2022-04-14 00:32 | disposition home or self-care (01) ==
LOC: ED 20:35
DX: R91.8 Other nonspecific abnormal finding of lung field (principal); R07.9 Chest pain, unspecified; I10 Essential (primary) hypertension; Z98.84 Bariatric surgery status; Z98.0 Intestinal bypass and anastomosis status; Z79.899 Other long term (current) drug therapy
CPT/HCPCS: 36000; 36415; 71260; 84484; 85025; 85379; 93005; 94760; 96360; 96375; 99284; J0696; J2405; A9270-GY

== ENCOUNTER 2022-04-25 23:43 | Emergency (ER) | payer OTHER ==
[2022-04-26 00:17] VITALS: O2SAT 98
[2022-04-26 00:28] LABS: Absolute Neutrophil Ct (ANC) 2.55 x10^3/uL (1.4-6.9); Basophil (Absolute #) 0.03 x10^3/uL (0-0.4); Eosinophil % 6.9 % (0.00-5.0); Eosinophil (Absolute #) 0.38 x10^3/uL (0-0.5); Hematocrit 42.3 % (35-47); Hemoglobin 13.2 g/dL (12.0-16.0); Lymphocyte (Absolute #) 1.87 x10^3/uL (1.0-4.6); Lymphocytes % 34.1 % (24.0-44.0); Mean Cell Volume 85.6 fL (78-100); Mean Corpuscular Hemoglobin 26.7 pg (26-32); Mean Corpuscular Hgb Concent. 31.2 g/dL (32-36); Mean Platelet Volume 12.2 fL (7.5-11.0); Monocyte (Absolute #) 0.63 x10^3/uL (0.0-1.3); Monocytes % 11.5 % (0.0-12.0); Neutrophil % 46.6 % (36.0-66.0); Platelet Count 230 x10^3/uL (150-450); Red Blood Count 4.94 x10^6/uL (4.1-5.4); Red Cell Distribution Width 15.9 % (11.5-14.0); White Blood Count 5.5 x10^3/uL (4.0-10.5)
[2022-04-26 00:45] LABS: ALBUMIN 4.3 g/dL (3.5-5.0); ALKALINE PHOSPHATASE 82 U/L (38-126); ANION GAP 17.5 MEQ/L (5-15); BLOOD UREA NITROGEN 6 mg/dL (7-17); CHLORIDE 101 mmol/L (98-107); Calcium 9.2 mg/dL (8.4-10.2); Carbon Dioxide 24 mmol/L (22-30); Creatinine 1 0.78 mg/dL (0.52-1.04); EST GLOMERULAR FILTRATION RATE > 60.0 ML/MIN; Glucose 91 mg/dL (74-106); Potassium 3.2 mmol/L (3.5-5.1); SGOT/AST 78 U/L (14-36); SGPT/ALT 94 U/L (0-35); SODIUM 139 mmol/L (137-145); Total Protein 7.7 g/dL (6.3-8.2)
--- NOTE | 2022-04-26 02:54 | ERPHSYRPT ---
- History of Present Illness Time Seen by Provider: 04/26/22 02:57 Source: patient Exam Limitations: no limitations Patient Subjective Stated Complaint: pt states she has been having heavy vaginal bleeding, changing her pad approx 5 times every hour. states she is passing large blood clots. heavy bleeding started at approx 2000 Triage Nursing Assessment: pt alert and oriented, answers questions approp. pt ambulatory with steady gait noted. respirations nonlabored. skin pink warm and dry. abd soft and nontender. Physician History: Patient is a 26-year-old female presents to emergency department for evaluation of vaginal bleeding. Patient reports that she is soaking through 5 pads per hour. Vaginal bleeding began today. No trauma. No fever. Intermittent pelvic cramping. Patient believes she is not . However she is not 100% sure. Patient has no other complaints. Significant other at bedside. Patient denies the possibility of STI. Patient declined a pelvic exam. Patient voices no other complaints or concerns at this time. Portions of this note were created with voice recognition technology. There may be grammatical, spelling, punctuation or sound alike errors Timing/Duration: today Severity: moderate Modifying Factors: Improves With: nothing Associated Symptoms: denies symptoms Allergies/Adverse Reactions: amoxicillin trihydrate [From Augmentin] Allergy (Intermediate, Verified 04/26/22 00:22) Hives cefaclor [From Ceclor] Allergy (Intermediate, Verified 04/26/22 00:22) Hives enalapril Adverse Reaction (Intermediate, Verified 04/26/22 00:22) Cough ibuprofen Adverse Reaction (Verified 04/26/22 00:22) hx of renal failure, advised by PCP to avoid Home Medications: Topiramate [Topamax] 1 tab PO BID 09/20/21 [History] Hx Tetanus, Diphtheria Vaccination/Date Given: Yes Hx Influenza Vaccination/Date Given: Yes Hx Pneumococcal Vaccination/Date Given: No Immunizations Up to Date: Yes Travel Risk - International Travel Have you traveled outside of the country in past 3 weeks: No - Coronavirus Screening Are you exhibiting any of the following symptoms?: No Close contact with a COVID-19 positive Pt in past 14-21 Days: No - Vaccine Status Have you recieved a Covid-19 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: 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[employer] - Vaccination Dates Date of 2cond Vaccination (if applicable): 11/18/20 - Review of Systems Constitutional: No Symptoms, No Fever, No Chills Eyes: No Symptoms Ears, Nose, & Throat: No Symptoms Respiratory: No Symptoms, No Cough, No Dyspnea Cardiac: No Symptoms, No Chest Pain, No Edema, No Syncope Abdominal/Gastrointestinal: No Symptoms, No Abdominal Pain, No Nausea, No Vomiting, No Diarrhea Genitourinary Symptoms: No Symptoms, No Dysuria Musculoskeletal: No Symptoms, No Back Pain, No Neck Pain Skin: No Symptoms, No Rash Neurological: No Symptoms, No Dizziness, No Focal Weakness, No Sensory Changes Psychological: No Symptoms Endocrine: No Symptoms Hematologic/Lymphatic: No Symptoms Immunological/Allergic: No Symptoms All Other Systems: Reviewed and Negative - Past Medical History Pertinent Past Medical History: Yes Neurological History: Migraines ENT History: No Pertinent History Cardiac History: Hypertension Respiratory History: No Pertinent History Endocrine Medical History: No Pertinent History Musculoskeletal History: Other GI Medical History: Gallbladder Disease, Pancreatitis History: Other Psycho-Social History: Anxiety, Depression Female Reproductive Disorders: No Pertinent History Other Medical History: ovarian cysts,PANCREATITIS AND CHOLECYSTITIS, urinary retention 10/2015. KIDNEY FAILURE IN 01/2017, low iron levels - Past Surgical History Past Surgical History: Yes Neuro Surgical History: No Pertinent History Cardiac: No Pertinent History Respiratory: No Pertinent History Gastrointestinal: Cholecystectomy, Other Genitourinary: No Pertinent History Musculoskeletal: Orthopedic Surgery Female Surgical History: No Pertinent History Other Surgical History: ERCP, rt knee, gastric bypass apr 04, 2022 - Social History Smoking Status: Former smoker How long have you smoked: 4 Exposure to second hand smoke: No Drug Use: none Patient Lives Alone: No Significant Family History: no pertinent family hx - Female History Hx Last Menstrual Period: current Hx Now: No - Nursing Vital Signs Nursing Vital Signs: Initial Vital Signs Temperature 97.8 F 04/25/22 23:56 Pulse Rate 93 H 04/25/22 23:56 Respiratory Rate 18 04/25/22 23:56 Blood Pressure 164/91 04/25/22 23:56 O2 Sat by Pulse Oximetry 98 04/25/22 23:56 Pain Scale Pain Intensity 8 - Physical Exam General Appearance: no apparent distress, alert Eye Exam: PERRL/EOMI, eyes nml inspection Ears, Nose, Throat Exam: normal ENT inspection, TMs normal, pharynx normal, moist mucous membranes Neck Exam: normal inspection, non-tender, supple, full range of motion Respiratory Exam: normal breath sounds, lungs clear, airway intact, No respi ratory distress Cardiovascular Exam: regular rate/rhythm, normal heart sounds, normal peripheral pulses Gastrointestinal/Abdomen Exam: soft, normal bowel sounds, No tenderness, No mass Pelvic Exam: not done (Patient declined a pelvic exam.) Back Exam: normal inspection, normal range of motion, No CVA tenderness, No vertebral tenderness Extremity Exam: normal inspection, normal range of motion, pelvis stable Neurologic Exam: alert, oriented x 3, cooperative, normal mood/affect, nml cerebellar function, nml station & gait, sensation nml, No motor deficits Skin Exam: normal color, warm, dry, No rash Lymphatic Exam: No adenopathy SpO2 Interpretation: normal SpO2: 98 O2 Delivery: Room Air - Course Nursing assessment & vital signs reviewed: Yes - Radiology Ultrasound Exam Pelvis Ultrasound: discussed w/radiologist (Per sociology faculty member pelvic ultrasound is negative for torsion.) Ordered Tests: Active Orders 24 hr Category Date Time Status PELVIC [US] Stat Exams 04/26/22 01:06 Ordered CBC W DIFF Stat Lab 04/26/22 00:25 Completed CMP Stat Lab 04/26/22 00:25 Completed HCG QUALITATIVE,SERUM Stat Lab 04/26/22 Ordered HCG,QUALITATIVE URINE Stat Lab 04/26/22 00:11 Ordered UA W/RFX CULTURE Stat Lab 04/26/22 Ordered Medication Summary Discontinued Medications Generic Name Dose Route Start Last Admin Trade Name Freq PRN Reason Stop Dose Admin Potassium Chloride 40 meq 04/26/22 02:52 Potassium Chloride Tab 10 Meq Tab PO 04/26/22 02:53 STAT ONE Lab/Rad Data: Laboratory Result Diagrams 04/26/22 00:25 04/26/22 00:25 Laboratory Results 04/26/22 04/26/22 Range/Units 00:25 00:25 WBC 5.5 (4.0-10.5) x10^3/uL RBC 4.94 (4.1-5.4) x10^6/uL Hgb 13.2 (12.0-16.0) g/dL Hct 42.3 (35-47) % MCV 85.6 (78-100) fL MCH 26.7 (26-32) pg MCHC 31.2 L (32-36) g/dL RDW 15.9 H (11.5-14.0) % Plt Count 230 (150-450) x10^3/uL MPV 12.2 H (7.5-11.0) fL Gran % 46.6 (36.0-66.0) % Immature Gran % (Auto) 0.4 (0.00-0.4) % Nucleat RBC Rel Count 0.0 (0.00-0.1) % Eos # (Auto) 0.38 (0-0.5) x10^3/uL Immature Gran # (Auto) 0.02 (0.00-0.03) x10^3u/L Absolute Lymphs (auto) 1.87 (1.0-4.6) x10^3/uL Absolute Monos (auto) 0.63 (0.0-1.3) x10^3/uL Absolute Nucleated RBC 0.00 (0.00-0.01) x10^3u/L Lymphocytes % 34.1 (24.0-44.0) % Monocytes % 11.5 (0.0-12.0) % Eosinophils % 6.9 H (0.00-5.0) % Basophils % 0.5 (0.0-0.4) % Absolute Granulocytes 2.55 (1.4-6.9) x10^3/uL Basophils # 0.03 (0-0.4) x10^3/uL Sodium 139 (137-145) mmol/L Potassium 3.2 L (3.5-5.1) mmol/L Chloride 101 (98-107) mmol/L Carbon Dioxide 24 (22-30) mmol/L Anion Gap 17.5 H (5-15) MEQ/L BUN 6 L (7-17) mg/dL Creatinine 0.78 (0.52-1.04) mg/dL Estimated GFR > 60.0 ML/MIN Glucose 91 (74-106) mg/dL Calcium 9.2 (8.4-10.2) mg/dL Total Bilirubin 0.70 (0.2-1.3) mg/dL AST 78 H (14-36) U/L ALT 94 H (0-35) U/L Alkaline Phosphatase 82 (38-126) U/L Serum Total Protein 7.7 (6.3-8.2) g/dL Albumin 4.3 (3.5-5.0) g/dL - Progress Progress: improved Progress Note: Patient reassessed. No active vaginal bleeding. Patient has had the same pad on since her arrival which has been approximately 3 hours. Pad is not saturated. Patient resting comfortably. No active cramping. Patient declined pelvic exam. Patient agrees to follow-up with her primary care doctor within 48 hours for evaluation. Incidental hypokalemia observed. Potassium replacement ordered. Patient voices no other complaints or concerns at this time. Portions of this note were created with voice recognition technology. There may be grammatical, spelling, punctuation or sound alike errors 04/26/22 02:59 Counseled pt/family regarding: lab results, diagnosis, need for follow-up, rad results - Departure Departure Disposition: Home Clinical Impression: Vaginal bleeding, Hypokalemia Condition: Stable Critical Care Time: No Referrals: MELVA DEGROOT [Primary Care Provider] - Follow up/PCP as directed Additional Instructions: Discharge/Care Plan ALLIE BERRY ANA was seen on 04/26/22 in the Emergency Room. The patient was counseled regarding Diagnosis,Lab results, Imaging studies, need for follow up and when to return to the Emergency Room. Prescriptions given: Discharge Note I have spoken with the patient and/or caregivers. I have explained the patient's condition, diagnosis and treatment plan based on the information available to me at this time. I have answered the patient's and/or caregiver's questions and addressed any concerns. The patient and/or caregivers have as good understanding of the patient's diagnosis, condition and treatment plan as can be expected at this point. The vital signs have been stable. The patient's condition is stable and appropriate for discharge from the emergency department. The patient will pursue further outpatient evaluation with the primary care physician or other designated or consulting physician as outlined in the discharge instructions. The patient and/or caregivers are agreeable to this plan of care and follow-up instructions have been explained in detail. The patient and/or caregivers have received these instruction. The patient/and or caregivers are aware that any significant change in condition or worsening of symptoms should prompt an immediate return to this or the closest emergency department or call 911.
[2022-04-26 03:02] VITALS: BP 109/60; PULSE 89
[2022-04-26] MEDS ORDERED: Klor Con PO ONE (03:04)
[2022-04-26] MEDS: Klor Con PO ONE (03:05)
--- NOTE | 2022-04-26 09:19 | XRAY ---
Indication: Vaginal bleeding. Torsion. Two-dimensional transvaginal pelvic sonogram performed. Comparison: November 14, 2016 Uterus again anteverted measuring 8.3 x 3.6 x 3.8 cm. Lower uterine segment/cervix demonstrates new nabothian cysts, largest 7 mm. Endometrial stripe measures 1 cm. No endometrial cavity mass or fluid collection. Right ovary measures 2.3 x 3.0 x 2.2 cm and the left measures 2.7 x 2.9 x 2.4 cm. Normal follicular cysts and perfusion bilaterally. No suspicious solid adnexal mass or free fluid. Impression: New nabothian cysts. Remaining transvaginal pelvic sonogram is negative. Comment: Preliminary report was given.
== END 2022-04-26 03:11 | disposition home or self-care (01) ==
LOC: ED 23:43
DX: N93.9 Abnormal uterine and vaginal bleeding, unspecified (principal); E87.6 Hypokalemia; R10.2 Pelvic and perineal pain; I10 Essential (primary) hypertension; Z79.899 Other long term (current) drug therapy
CPT/HCPCS: 36415; 76830; 80053; 84703; 85025; 99283; A9270-GY

== ENCOUNTER 2022-05-05 13:23 | Emergency (ER) | payer OTHER ==
--- NOTE | 2022-05-05 13:40 | ERPHSYRPT ---
- History of Present Illness Time Seen by Provider: 05/05/22 13:39 Historian: patient Exam Limitations: no limitations Patient Subjective Stated Complaint: pt here for n/v/d since sun, pt has gastric bypass last month Triage Nursing Assessment: pt alert, resp easy, face mask in place, abd large and soft, skin w/d/p Physician History: This is a morbidly obese 26-year-old white female patient of Dr. Manan Gant who has had 48-hour history of nausea vomiting and diarrhea. Patient states she has significant generalized abdominal pain. Patient underwent a laparoscopic gastric bypass approximately 1 month ago. She has a history of pancreatitis. She is already had a cholecystectomy in the past. Patient states that she cannot take aspirin or ibuprofen secondary to the gastric bypass. Patient also has a history of hypertension, migraine headaches, anxiety and depression. Patient denies chest pain. She denies shortness of breath. She does not have a cough. She has not measured a fever. Timing/Duration: day(s) (2) Abdominal Pain Onset Location: generalized abdomen Pain Radiation: no radiation Severity of Pain-Max: moderate Severity of Pain-Current: moderate Modifying Factors: Improves With: vomiting Associated Symptoms: loss of appetite, nausea, vomiting, No chest pain, No fever/chills, No shortness of breath Previous symptoms: no prior history Allergies/Adverse Reactions: amoxicillin trihydrate [From Augmentin] Allergy (Intermediate, Verified 05/05/22 13:37) Hives cefaclor [From Ceclor] Allergy (Intermediate, Verified 05/05/22 13:37) Hives enalapril Adverse Reaction (Intermediate, Verified 05/05/22 13:37) Cough ibuprofen Adverse Reaction (Verified 05/05/22 13:37) hx of renal failure, advised by PCP to avoid Home Medications: Topiramate [Topamax] 1 tab PO BID 09/20/21 [History] Cyanocobalamin (Vitamin B-12) [Liquid B-12] 1 ea UD 05/05/22 [History] Losartan Potassium [Cozaar] 100 mg PO DAILY 05/05/22 [History] Omeprazole 20 mg PO DAILY 05/05/22 [History] Sucralfate 1 ea DAILY 05/05/22 [History] Hx Tetanus, Diphtheria Vaccination/Date Given: Yes Hx Influenza Vaccination/Date Given: Yes Hx Pneumococcal Vaccination/Date Given: No Immunizations Up to Date: Yes Travel Risk - International Travel Have you traveled outside of the country in past 3 weeks: No - Coronavirus Screening Are you exhibiting any of the following symptoms?: Yes Symptoms: Vomiting/Diarrhea Close contact with a COVID-19 positive Pt in past 14-21 Days: No - Vaccine Status Have you recieved a Covid-19 vaccination: Yes 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: [employer] - Vaccination Dates Date of 2cond Vaccination (if applicable): 11/18/20 - Review of Systems Constitutional: Weakness Eyes: No Symptoms Ears, Nose, & Throat: No Symptoms Respiratory: No Symptoms Cardiac: No Symptoms Abdominal/Gastrointestinal: Abdominal Pain, Nausea, Vomiting (Diffuse), Diarrhea, No Constipation Genitourinary Symptoms: No Symptoms Musculoskeletal: No Symptoms Skin: No Symptoms Neurological: No Symptoms Psychological: No Symptoms Endocrine: No Symptoms Hematologic/Lymphatic: No Symptoms Immunological/Allergic: No Symptoms All Other Systems: Reviewed and Negative - Past Medical History Pertinent Past Medical History: Yes Neurological History: Migraines ENT History: No Pertinent History Cardiac History: Hypertension Respiratory History: No Pertinent History Endocrine Medical History: No Pertinent History Musculoskeletal History: Other GI Medical History: Gallbladder Disease, Pancreatitis History: Other Psycho-Social History: Anxiety, Depression Female Reproductive Disorders: No Pertinent History Other Medical History: ovarian cysts,PANCREATITIS AND CHOLECYSTITIS, urinary retention 10/2015. KIDNEY FAILURE IN 01/2017, low iron levels - Past Surgical History Past Surgical History: Yes Neuro Surgical History: No Pertinent History Cardiac: No Pertinent History Respiratory: No Pertinent History Gastrointestinal: Cholecystectomy, Other Genitourinary: No Pertinent History Musculoskeletal: Orthopedic Surgery Female Surgical History: No Pertinent History Other Surgical History: ERCP, rt knee, gastric bypass apr 04, 2022 - Social History Smoking Status: Former smoker How long have you smoked: 4 Exposure to second hand smoke: No Drug Use: none Patient Lives Alone: No Significant Family History: no pertinent family hx - Female History Hx Last Menstrual Period: last week Hx Now: No - Nursing Vital Signs Nursing Vital Signs: Initial Vital Signs Temperature 97.9 F 05/05/22 13:32 Pulse Rate 88 05/05/22 13:32 Respiratory Rate 18 05/05/22 13:32 Blood Pressure 128/95 05/05/22 13:32 O2 Sat by Pulse Oximetry 97 05/05/22 13:32 Pain Scale Pain Intensity 9 - Physical Exam General Appearance: mild distress, alert, anxiety, obese Eye Exam: PERRL/EOMI, eyes nml inspection Ears, Nose, Throat Exam: normal ENT inspection, moist mucous membranes Neck Exam: normal inspection, non-tender, supple, full range of motion Respiratory Exam: normal breath sounds, lungs clear, airway intact, No chest tenderness, No respiratory distress Cardiovascular Exam: regular rate/rhythm, normal heart sounds, normal peripheral pulses Gastrointestinal/Abdomen Exam: soft, normal bowel sounds, tenderness (Mild diffuse to palpation), guarding (Mild diffuse to palpation mild), No rebound Pelvic Exam: not done Rectal Exam: not done Back Exam: normal inspection, normal range of motion, No CVA tenderness, No vertebral tenderness Extremity Exam: normal inspection, normal range of motion, pelvis stable Neurologic Exam: alert, oriented x 3, cooperative, chronic disease manager II-XII nml as tested, normal mood/affect, nml cerebellar function, nml station & gait, sensation nml Skin Exam: normal color, warm, dry Lymphatic Exam: No adenopathy SpO2 Interpretation: normal SpO2: 97 O2 Delivery: Room Air - Course Nursing assessment & vital signs reviewed: Yes Ordered Tests: Active Orders 24 hr Category Date Time Status IV Insertion STAT Care 05/05/22 13:43 Active ABDOMEN AND PELVIS W/0 CONTRAS [CT] Stat Exams 05/05/22 13:41 Completed AMYLASE Stat Lab 05/05/22 14:30 Completed BLOOD CULTURE Stat Lab 05/05/22 14:15 Received CBC W DIFF Stat Lab 05/05/22 14:30 Completed CMP Stat Lab 05/05/22 14:30 Completed CULTURE,URINE Stat Lab 05/05/22 13:56 Received HCG,QUALITATIVE URINE Stat Lab 05/05/22 13:56 Completed LIPASE Stat Lab 05/05/22 14:30 Completed Lactic Acid Stat Lab 05/05/22 13:43 Completed [place] Screen Stat Lab 05/05/22 14:30 Completed UA W/RFX CULTURE Stat Lab 05/05/22 13:56 Completed Medication Summary Generic Name Dose Route Start Last Admin Trade Name Freq PRN Reason Stop Dose Admin Levofloxacin/Dextrose 500 mg in 100 mls @ 100 mls/hr 05/05/22 14:33 05/05/22 14:54 Levofloxacin 500mg/100ml D5w IV 05/05/22 15:32 100 mls/hr STAT STA 100 mls/hr Administration Discontinued Medications Generic Name Dose Route Start Last Admin Trade Name Farhan PRN Reason Stop Dose Admin Sodium Chloride 1,000 mls @ 999 mls/hr 05/05/22 13:43 05/05/22 14:08 Sodium Chloride 0.9% 1000 Ml IV 05/05/22 14:43 999 mls/hr .Q1H1M STA Administration Sodium Chloride Confirm 05/05/22 14:02 Sodium Chloride 0.9% 1000 Ml Administered 05/05/22 14:03 Dose 1,000 mls @ ud .ROUTE .STK-MED ONE Levofloxacin/Dextrose Confirm 05/05/22 14:48 Levofloxacin 500mg/100ml D5w Administered 05/05/22 14:49 Dose 500 mg in 100 mls @ ud IV .STK-MED ONE Ondansetron HCl 4 mg 05/05/22 13:43 05/05/22 14:09 Ondansetron Hcl 4 Mg/2 Ml Vial IV 05/05/22 13:44 4 mg STAT ONE Administration Ondansetron HCl Confirm 05/05/22 14:02 Ondansetron Hcl 4 Mg/2 Ml Vial Administered 05/05/22 14:03 Dose 4 mg .ROUTE .STK-MED ONE Pantoprazole Sodium 40 mg 05/05/22 13:43 05/05/22 14:09 Pantoprazole 40 Mg Vial IV 05/05/22 13:44 40 mg STAT ONE Administration Pantoprazole Sodium Confirm 05/05/22 14:02 Pantoprazole 40 Mg Vial Administered 05/05/22 14:03 Dose 40 mg IV .STK-MED ONE Lab/Rad Data: Laboratory Result Diagrams 05/05/22 14:30 05/05/22 14:30 Laboratory Results 05/05/22 05/05/22 05/05/22 Range/Units 14:30 14:30 14:30 WBC 5.3 (4.0-10.5) x10^3/uL RBC 4.56 (4.1-5.4) x10^6/uL Hgb 12.3 (12.0-16.0) g/dL Hct 40.1 (35-47) % MCV 87.9 (78-100) fL MCH 27.0 (26-32) pg MCHC 30.7 L (32-36) g/dL RDW 16.0 H (11.5-14.0) % Plt Count 227 (150-450) x10^3/uL MPV 11.9 H (7.5-11.0) fL Gran % 55.3 (36.0-66.0) % Immature Gran % (Auto) 0.4 (0.00-0.4) % Nucleat RBC Rel Count 0.0 (0.00-0.1) % Eos # (Auto) 0.36 (0-0.5) x10^3/uL Immature Gran # (Auto) 0.02 (0.00-0.03) x10^3u/L Absolute Lymphs (auto) 1.30 (1.0-4.6) x10^3/uL Absolute Monos (auto) 0.64 (0.0-1.3) x10^3/uL Absolute Nucleated RBC 0.00 (0.00-0.01) x10^3u/L Lymphocytes % 24.7 (24.0-44.0) % Monocytes % 12.2 H (0.0-12.0) % Eosinophils % 6.8 H (0.00-5.0) % Basophils % 0.6 (0.0-0.4) % Absolute Granulocytes 2.91 (1.4-6.9) x10^3/uL Basophils # 0.03 (0-0.4) x10^3/uL Sodium 137 (137-145) mmol/L Potassium 3.1 L (3.5-5.1) mmol/L Chloride 104 (98-107) mmol/L Carbon Dioxide 21 L (22-30) mmol/L Anion Gap 15.4 H (5-15) MEQ/L BUN 6 L (7-17) mg/dL Creatinine 0.68 (0.52-1.04) mg/dL Estimated GFR > 60.0 ML/MIN Glucose 87 (74-106) mg/dL Lactic Acid (0.4-2.0) Calcium 8.6 (8.4-10.2) mg/dL Total Bilirubin 0.60 (0.2-1.3) mg/dL AST 39 H (14-36) U/L ALT 45 H (0-35) U/L Alkaline Phosphatase 76 (38-126) U/L Serum Total Protein 7.2 (6.3-8.2) g/dL Albumin 3.7 (3.5-5.0) g/dL Amylase 76 (30-110) U/L Lipase 282 (23-300) U/L Urinalys Dipstick Clnc Urine Color (YELLOW) Urine Appearance (CLEAR) Urine pH (5-6) Ur Specific Arthur (1.005-1.025) POC Urine Protein Conf (Negative) Urine Ketones (NEGATIVE) Urine Nitrite (NEGATIVE) Urine Bilirubin (NEGATIVE) Urine Urobilinogen (0-1) mg/dL Urine Leukocytes (NEGATIVE) Urine WBC (Auto) (0-5) /HPF Urine RBC (Auto) (0-2) /HPF U Epithel Cells (Auto) (FEW) /HPF Urine Bacteria (Auto) (NEGATIVE) /HPF Urine RBC (0-5) Jayden/ul Urine Mucus (Auto) (NEGATIVE) /HPF Ur Culture Indicated? Urine Glucose (NEGATIVE) mg/dL Urine HCG, Qual (Negative) Monoscreen POSITIVE (Negative) Influenza Type A Ag (NEGATIVE) Influenza Type B Ag (NEGATIVE) RSV (PCR) (Negative) SARS-CoV-2 (PCR) (NEGATIVE) 05/05/22 05/05/22 05/05/22 Range/Units 14:15 13:56 13:56 WBC (4.0-10.5) x10^3/uL RBC (4.1-5.4) x10^6/uL Hgb (12.0-16.0) g/dL Hct (35-47) % MCV (78-100) fL MCH (26-32) pg MCHC (32-36) g/dL RDW (11.5-14.0) % Plt Count (150-450) x10^3/uL MPV (7.5-11.0) fL Gran % (36.0-66.0) % Immature Gran % (Auto) (0.00-0.4) % Nucleat RBC Rel Count (0.00-0.1) % Eos # (Auto) (0-0.5) x10^3/uL Immature Gran # (Auto) (0.00-0.03) x10^3u/L Absolute Lymphs (auto) (1.0-4.6) x10^3/uL Absolute Monos (auto) (0.0-1.3) x10^3/uL Absolute Nucleated RBC (0.00-0.01) x10^3u/L Lymphocytes % (24.0-44.0) % Monocytes % (0.0-12.0) % Eosinophils % (0.00-5.0) % Basophils % (0.0-0.4) % Absolute Granulocytes (1.4-6.9) x10^3/uL Basophils # (0-0.4) x10^3/uL Sodium (137-145) mmol/L Potassium (3.5-5.1) mmol/L Chloride (98-107) mmol/L Carbon Dioxide (22-30) mmol/L Anion Gap (5-15) MEQ/L BUN (7-17) mg/dL Creatinine (0.52-1.04) mg/dL Estimated GFR ML/MIN Glucose (74-106) mg/dL Lactic Acid (0.4-2.0) Calcium (8.4-10.2) mg/dL Total Bilirubin (0.2-1.3) mg/dL AST (14-36) U/L ALT (0-35) U/L Alkaline Phosphatase (38-126) U/L Serum Total Protein (6.3-8.2) g/dL Albumin (3.5-5.0) g/dL Amylase (30-110) U/L Lipase (23-300) U/L Urinalys Dipstick Clnc MAIN LAB Urine Color YELLOW (YELLOW) Urine Appearance TURBID (CLEAR) Urine pH 6.0 (5-6) Ur Specific Arthur >=1.030 A (1.005-1.025) POC Urine Protein Conf 100 A (Negative) Urine Ketones LARGE-160 A (NEGATIVE) Urine Nitrite NEGATIVE (NEGATIVE) Urine Bilirubin MODERATE A (NEGATIVE) Urine Urobilinogen 1 A (0-1) mg/dL Urine Leukocytes MODERATE A (NEGATIVE) Urine WBC (Auto) 51-100 A (0-5) /HPF Urine RBC (Auto) 11-15 A (0-2) /HPF U Epithel Cells (Auto) PACKED (FEW) /HPF Urine Bacteria (Auto) MODERATE A (NEGATIVE) /HPF Urine RBC TRACE-LYSED A (0-5) Jayden/ul Urine Mucus (Auto) MANY A (NEGATIVE) /HPF Ur Culture Indicated? YES Urine Glucose NEGATIVE (NEGATIVE) mg/dL Urine HCG, Qual NEGATIVE (Negative) Monoscreen (Negative) Influenza Type A Ag NEGATIVE (NEGATIVE) Influenza Type B Ag NEGATIVE (NEGATIVE) RSV (PCR) NEGATIVE (Negative) SARS-CoV-2 (PCR) NEGATIVE (NEGATIVE) 05/05/22 Range/Units 13:43 WBC (4.0-10.5) x10^3/uL RBC (4.1-5.4) x10^6/uL Hgb (12.0-16.0) g/dL Hct (35-47) % MCV (78-100) fL MCH (26-32) pg MCHC (32-36) g/dL RDW (11.5-14.0) % Plt Count (150-450) x10^3/uL MPV (7.5-11.0) fL Gran % (36.0-66.0) % Immature Gran % (Auto) (0.00-0.4) % Nucleat RBC Rel Count (0.00-0.1) % Eos # (Auto) (0-0.5) x10^3/uL Immature Gran # (Auto) (0.00-0.03) x10^3u/L Absolute Lymphs (auto) (1.0-4.6) x10^3/uL Absolute Monos (auto) (0.0-1.3) x10^3/uL Absolute Nucleated RBC (0.00-0.01) x10^3u/L Lymphocytes % (24.0-44.0) % Monocytes % (0.0-12.0) % Eosinophils % (0.00-5.0) % Basophils % (0.0-0.4) % Absolute Granulocytes (1.4-6.9) x10^3/uL Basophils # (0-0.4) x10^3/uL Sodium (137-145) mmol/L Potassium (3.5-5.1) mmol/L Chloride (98-107) mmol/L Carbon Dioxide (22-30) mmol/L Anion Gap (5-15) MEQ/L BUN (7-17) mg/dL Creatinine (0.52-1.04) mg/dL Estimated GFR ML/MIN Glucose (74-106) mg/dL Lactic Acid 1.4 (0.4-2.0) Calcium (8.4-10.2) mg/dL Total Bilirubin (0.2-1.3) mg/dL AST (14-36) U/L ALT (0-35) U/L Alkaline Phosphatase (38-126) U/L Serum Total Protein (6.3-8.2) g/dL Albumin (3.5-5.0) g/dL Amylase (30-110) U/L Lipase (23-300) U/L Urinalys Dipstick Clnc Urine Color (YELLOW) Urine Appearance (CLEAR) Urine pH (5-6) Ur Specific Arthur (1.005-1.025) POC Urine Protein Conf (Negative) Urine Ketones (NEGATIVE) Urine Nitrite (NEGATIVE) Urine Bilirubin (NEGATIVE) Urine Urobilinogen (0-1) mg/dL Urine Leukocytes (NEGATIVE) Urine WBC (Auto) (0-5) /HPF Urine RBC (Auto) (0-2) /HPF U Epithel Cells (Auto) (FEW) /HPF Urine Bacteria (Auto) (NEGATIVE) /HPF Urine RBC (0-5) Jayden/ul Urine Mucus (Auto) (NEGATIVE) /HPF Ur Culture Indicated? Urine Glucose (NEGATIVE) mg/dL Urine HCG, Qual (Negative) Monoscreen (Negative) Influenza Type A Ag (NEGATIVE) Influenza Type B Ag (NEGATIVE) RSV (PCR) (Negative) SARS-CoV-2 (PCR) (NEGATIVE) - Progress Progress: improved, pain not gone completely, re-examined Progress Note: 05/05/22 15:07 CAT scan of the abdomen pelvis without contrast shows an interval gastric bypass procedure performed. There are no complications. There is no acute intra- abdominal or intrapelvic abnormality. Counseled pt/family regarding: lab results, diagnosis, need for follow-up, rad results - Departure Departure Disposition: Home Clinical Impression: UTI (urinary tract infection), Dehydration, Mononucleosis Condition: Stable Critical Care Time: No Referrals: MELVA DEGROOT [Primary Care Provider] - Follow up/PCP as directed Additional Instructions: Drink plenty fluids. Take your antibiotics as prescribed. Follow-up with your primary care provider for further evaluation and management. Use Tylenol for fever control and control of abdominal pain. Prescriptions: Promethazine HCl 25 mg [Phenergan 25 mg] 25 mg PO Q8H PRN PRN #10 tablet PRN Reason: Nausea/Vomiting Ciprofloxacin [Cipro 500 MG] 500 mg PO BID #14 tablet
[2022-05-05] MEDS ORDERED: Sodium Chloride 0.9% 1000 ML 1,000 ML IV STA (13:43)
[2022-05-05] MEDS ORDERED: PROTONIX 40 MG IV IV ONE ×2 (13:43→14:02)
[2022-05-05] MEDS ORDERED: Zofran 4 MG/2 ML VIAL IV ONE ×2 (13:43→16:34)
[2022-05-05] MEDS ORDERED: Zofran 4 MG/2 ML VIAL ONE ×2 (14:02→16:36)
[2022-05-05] MEDS ORDERED: Sodium Chloride 0.9% 1000 ML 1,000 ML ONE (14:02)
[2022-05-05 14:31] LABS: Appearance TURBID (CLEAR); Bilirubin MODERATE (NEGATIVE); Dipstick done @ ? MAIN LAB; Glucose NEGATIVE (NEGATIVE); Ketones LARGE-160 (NEGATIVE); Nitrite NEGATIVE (NEGATIVE); Protein,Urine Dip 100 (Negative); RBC TRACE-LYSED Ery/ul (0-5); Specific Gravity >=1.030 (1.005-1.025); Urobilinogen 1 mg/dL (0-1)
[2022-05-05 14:32] LABS: Absolute Neutrophil Ct (ANC) 2.91 x10^3/uL (1.4-6.9); Basophil (Absolute #) 0.03 x10^3/uL (0-0.4); Eosinophil % 6.8 % (0.00-5.0); Eosinophil (Absolute #) 0.36 x10^3/uL (0-0.5); Hematocrit 40.1 % (35-47); Hemoglobin 12.3 g/dL (12.0-16.0); Lymphocytes % 24.7 % (24.0-44.0); Mean Cell Volume 87.9 fL (78-100); Mean Corpuscular Hgb Concent. 30.7 g/dL (32-36); Mean Platelet Volume 11.9 fL (7.5-11.0); Monocyte (Absolute #) 0.64 x10^3/uL (0.0-1.3); Monocytes % 12.2 % (0.0-12.0); Neutrophil % 55.3 % (36.0-66.0); Platelet Count 227 x10^3/uL (150-450); Red Blood Count 4.56 x10^6/uL (4.1-5.4); White Blood Count 5.3 x10^3/uL (4.0-10.5)
[2022-05-05] MEDS ORDERED: Levofloxacin 500MG/100ML D5W 500 MG/100 ML BAG IV STA (14:33)
[2022-05-05 14:37] LABS: Bacteria MODERATE /HPF (NEGATIVE); Epithelial Cells PACKED /HPF (FEW); Mucus MANY /HPF (NEGATIVE); WBC 51-100 /HPF (0-5)
[2022-05-05 14:39] LABS: Urine Cultured Indicated? YES
[2022-05-05 14:48] LABS: ALBUMIN 3.7 g/dL (3.5-5.0); ALKALINE PHOSPHATASE 76 U/L (38-126); AMYLASE 76 U/L (30-110); ANION GAP 15.4 MEQ/L (5-15); BLOOD UREA NITROGEN 6 mg/dL (7-17); CHLORIDE 104 mmol/L (98-107); Calcium 8.6 mg/dL (8.4-10.2); Carbon Dioxide 21 mmol/L (22-30); Creatinine 1 0.68 mg/dL (0.52-1.04); EST GLOMERULAR FILTRATION RATE > 60.0 ML/MIN; Glucose 87 mg/dL (74-106); LIPASE 282 U/L (23-300); Potassium 3.1 mmol/L (3.5-5.1); SGOT/AST 39 U/L (14-36); SGPT/ALT 45 U/L (0-35); SODIUM 137 mmol/L (137-145); Total Protein 7.2 g/dL (6.3-8.2)
[2022-05-05] MEDS ORDERED: Levofloxacin 500MG/100ML D5W 500 MG/100 ML BAG IV ONE (14:48)
--- NOTE | 2022-05-05 14:58 | XRAY ---
Indication: Abdomen pain, nausea, vomiting, diarrhea one month. Status post gastric bypass surgery. Multiple contiguous axial images obtained through the abdomen and pelvis without contrast. Comparison: December 05, 2021 Lung bases again clear. Heart not enlarged. There has been interval gastric bypass surgery. Noncontrasted stomach and bowel loops nonobstructed again with normal appendix. Again 23 cm fatty hepatomegaly, 16.7 cm splenomegaly, and cholecystectomy. No free fluid/air. Remaining liver, pancreas, spleen, adrenal glands, kidneys, ureters, bladder, uterus, and aorta are unremarkable for noncontrast exam. Osseous structures intact. No ventral or inguinal hernias. Impression: 1. Interval gastric bypass surgery. No complications. 2. Again fatty hepatomegaly and splenomegaly. 3. Remaining CT abdomen/pelvis without contrast exam continues to be negative.
[2022-05-05 15:10] LABS: INFLUENZA A NEGATIVE (NEGATIVE); INFLUENZA B NEGATIVE (NEGATIVE); RESPIRATORY SYNCTIAL VIRUS NEGATIVE (Negative); SARS-CoV-2 Xpert Express NEGATIVE (NEGATIVE)
[2022-05-05] MEDS ORDERED: K-LYTE PO ONE (15:40)
[2022-05-05] MEDS ORDERED: K-LYTE ONE (15:42)
[2022-05-05] MEDS ORDERED: Sodium Chloride 0.9% 500 ML 500 ML IV ONE ×2 (16:34→16:36)
[2022-05-05 17:04] VITALS: BP 109/66; O2SAT 97
[2022-05-05 17:28] VITALS: PULSE 72
== END 2022-05-05 17:28 | disposition home or self-care (01) ==
LOC: ED 13:23
DX: B27.90 Infectious mononucleosis, unspecified without complication (principal); N39.0 Urinary tract infection, site not specified; E86.0 Dehydration; E87.6 Hypokalemia; R11.2 Nausea with vomiting, unspecified; R19.7 Diarrhea, unspecified; R10.84 Generalized abdominal pain; Z98.84 Bariatric surgery status; I10 Essential (primary) hypertension; Z79.899 Other long term (current) drug therapy
CPT/HCPCS: 0241U; 36000; 36415; 74176; 80053; 81015; 81025; 82150; 83605; 83690; 85025; 86308; 87040; 87086; 96374; 96375; 96376; 99284; J1956; J2405; A9270-GY

== ENCOUNTER 2022-05-15 13:22 | Emergency (ER) | payer OTHER ==
--- NOTE | 2022-05-15 14:14 | ERPHSYRPT ---
- History of Present Illness Historian: patient Exam Limitations: no limitations Patient Subjective Stated Complaint: Pt states "I had gastric bypass on april 04 of this year and today I started to vomit blood. My belly hurts as well." Triage Nursing Assessment: Pt presented alert and oriented X 3, skin wpd. Pt ambulates with an upright steady gait, able to speak in clear full sentences pt in no apparent respiratory distress. PT resting comfortably on the bed. Physician History: 26 yo morbidly obese WF s/p gastric bypass on 04/04/22 in [facility] presents w N/V x 1 hr w mild hematemesis. Pt has epigastric pain rated 8/10 on scale that is d escribed as cramping. Pt denies diarrhea/melena/hematochezia/dyspnea/dysuria/hematuria. Timing/Duration: today Activities at Onset: rest Quality: cramping Abdominal Pain Onset Location: epigastric Pain Radiation: no radiation Severity of Pain-Max: severe Severity of Pain-Current: severe Modifying Factors: Improves With: nothing Associated Symptoms: denies symptoms, nausea, vomiting Previous symptoms: no prior history Allergies/Adverse Reactions: amoxicillin trihydrate [From Augmentin] Allergy (Intermediate, Verified 05/05/22 13:37) Hives cefaclor [From Ceclor] Allergy (Intermediate, Verified 05/05/22 13:37) Hives ciprofloxacin [From Cipro] Adverse Reaction (Intermediate, Verified 05/15/22 13:55) nausea vomiting enalapril Adverse Reaction (Intermediate, Verified 05/05/22 13:37) Cough ibuprofen Adverse Reaction (Verified 05/05/22 13:37) hx of renal failure, advised by PCP to avoid Home Medications: Topiramate [Topamax] 1 tab PO BID 09/20/21 [History] Cyanocobalamin (Vitamin B-12) [Liquid B-12] 1 ea UD 05/05/22 [History] Omeprazole 20 mg PO DAILY 05/05/22 [History] Sucralfate 1 ea DAILY 05/05/22 [History] Hx Tetanus, Diphtheria Vaccination/Date Given: Yes Hx Influenza Vaccination/Date Given: Yes Hx Pneumococcal Vaccination/Date Given: No Immunizations Up to Date: Yes Travel Risk - International Travel Have you traveled outside of the country in past 3 weeks: No - Coronavirus Screening Are you exhibiting any of the following symptoms?: No Close contact with a COVID-19 positive Pt in past 14-21 Days: No - Vaccine Status Have you recieved a Covid-19 vaccination: Yes [employer]: [email or web address] - Vaccination Dates Date of 2cond Vaccination (if applicable): 11/18/20 - Review of Systems Constitutional: No Symptoms Eyes: No Symptoms Ears, Nose, & Throat: No Symptoms Respiratory: No Symptoms Cardiac: No Symptoms Abdominal/Gastrointestinal: No Symptoms, Abdominal Pain, Nausea, Vomiting, Hematemesis Genitourinary Symptoms: No Symptoms Musculoskeletal: No Symptoms Skin: No Symptoms Neurological: No Symptoms Psychological: No Symptoms Endocrine: No Symptoms Hematologic/Lymphatic: No Symptoms Immunological/Allergic: No Symptoms - Past Medical History Pertinent Past Medical History: Yes Neurological History: Migraines ENT History: No Pertinent History Cardiac History: Hypertension Respiratory History: No Pertinent History Endocrine Medical History: No Pertinent History Musculoskeletal History: Other GI Medical History: Gallbladder Disease, Pancreatitis History: Other Psycho-Social History: Anxiety, Depression Female Reproductive Disorders: No Pertinent History Other Medical History: ovarian cysts,PANCREATITIS AND CHOLECYSTITIS, urinary retention 10/2015. KIDNEY FAILURE IN 01/2017, low iron levels - Past Surgical History Past Surgical History: Yes Neuro Surgical History: No Pertinent History Cardiac: No Pertinent History Respiratory: No Pertinent History Gastrointestinal: Cholecystectomy, Other Genitourinary: No Pertinent History Musculoskeletal: Orthopedic Surgery Female Surgical History: No Pertinent History Other Surgical History: ERCP, rt knee, gastric bypass apr 04, 2022 - Social History Smoking Status: Former smoker How long have you smoked: 4 Exposure to second hand smoke: No Drug Use: none Patient Lives Alone: No Significant Family History: no pertinent family hx - Female History Hx Last Menstrual Period: 05/15/2022 Hx Now: No - Nursing Vital Signs Nursing Vital Signs: Initial Vital Signs Temperature 97.7 F 05/15/22 13:49 Pulse Rate 90 05/15/22 13:49 Respiratory Rate 20 05/15/22 13:49 Blood Pressure 152/90 05/15/22 13:49 O2 Sat by Pulse Oximetry 97 05/15/22 13:49 Pain Scale Pain Intensity 0 Hypertensive - Physical Exam General Appearance: no apparent distress Eye Exam: PERRL/EOMI, eyes nml inspection Ears, Nose, Throat Exam: normal ENT inspection, TMs normal, pharynx normal, moist mucous membranes Neck Exam: normal inspection, non-tender, supple, full range of motion, No meningismus, No mass, No Brudzinski, No Kernig's Respiratory Exam: normal breath sounds, lungs clear, airway intact Cardiovascular Exam: regular rate/rhythm, normal heart sounds, normal peripheral pulses, capillary refill <2 sec, No murmur Gastrointestinal/Abdomen Exam: soft, normal bowel sounds, tenderness (Moderate epigastric TTP w guarding but no rebound) Back Exam: normal inspection, normal range of motion, No CVA tenderness, No vertebral tenderness Extremity Exam: normal inspection, normal range of motion Neurologic Exam: alert, oriented x 3, cooperative, 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 as tested, normal mood/affect, nml cerebellar function, nml station & gait, sensation nml Skin Exam: normal color, warm, dry Lymphatic Exam: No adenopathy SpO2 Interpretation: normal SpO2: 97 O2 Delivery: Room Air - Course Nursing assessment & vital signs reviewed: Yes - CT Exams Abdomen/Pelvis CT Interpretation: Discussed w/radiologist (No significant change compaed to 05/05/22) Ordered Tests: Active Orders 24 hr Category Date Time Status ABDOMEN AND PELVIS W CONTRAST [CT] Stat Exams 05/15/22 16:13 Completed AMYLASE Stat Lab 05/15/22 14:15 Completed CBC W DIFF Stat Lab 05/15/22 14:15 Completed CMP Stat Lab 05/15/22 14:15 Completed CULTURE,URINE Stat Lab 05/15/22 14:00 Received LIPASE Stat Lab 05/15/22 14:15 Completed TROPONIN Q4H Lab 05/15/22 14:15 Completed UA W/RFX CULTURE Stat Lab 05/15/22 14:00 Completed Medication Summary Discontinued Medications Generic Name Dose Route Start Last Admin Trade Name Mikeq PRN Reason Stop Dose Admin Sodium Chloride 1,000 mls @ 999 mls/hr 05/15/22 14:00 05/15/22 15:39 Sodium Chloride 0.9% 1000 Ml IV 05/15/22 15:00 Infused .Q1H1M STA Infusion Sodium Chloride Confirm 05/15/22 14:22 Sodium Chloride 0.9% 1000 Ml Administered 05/15/22 14:23 Dose 1,000 mls @ ud .ROUTE .STK-MED ONE Ondansetron HCl 4 mg 05/15/22 14:00 05/15/22 14:25 Ondansetron Hcl 4 Mg/2 Ml Vial IV 05/15/22 14:01 4 mg STAT ONE Administration Ondansetron HCl Confirm 05/15/22 14:22 Ondansetron Hcl 4 Mg/2 Ml Vial Administered 05/15/22 14:23 Dose 4 mg .ROUTE .STK-MED ONE Pantoprazole Sodium 40 mg 05/15/22 16:39 05/15/22 16:47 Pantoprazole 40 Mg Vial IV 05/15/22 16:40 40 mg STAT ONE Administration Pantoprazole Sodium Confirm 05/15/22 16:47 Pantoprazole 40 Mg Vial Administered 05/15/22 16:48 Dose 40 mg IV .STK-MED ONE Lab/Rad Data: Laboratory Result Diagrams 05/15/22 14:15 05/15/22 14:15 Laboratory Results 05/15/22 05/15/22 05/15/22 Range/Units 14:15 14:15 14:00 WBC 4.3 (4.0-10.5) x10^3/uL RBC 4.70 (4.1-5.4) x10^6/uL Hgb 12.3 (12.0-16.0) g/dL Hct 39.7 (35-47) % MCV 84.5 (78-100) fL MCH 26.2 (26-32) pg MCHC 31.0 L (32-36) g/dL RDW 15.6 H (11.5-14.0) % Plt Count 250 (150-450) x10^3/uL MPV 12.4 H (7.5-11.0) fL Gran % 45.8 (36.0-66.0) % Immature Gran % (Auto) 0.0 (0.00-0.4) % Nucleat RBC Rel Count 0.0 (0.00-0.1) % Eos # (Auto) 0.42 (0-0.5) x10^3/uL Immature Gran # (Auto) 0.00 (0.00-0.03) x10^3u/L Absolute Lymphs (auto) 1.37 (1.0-4.6) x10^3/uL Absolute Monos (auto) 0.53 (0.0-1.3) x10^3/uL Absolute Nucleated RBC 0.00 (0.00-0.01) x10^3u/L Lymphocytes % 31.6 (24.0-44.0) % Monocytes % 12.2 H (0.0-12.0) % Eosinophils % 9.7 H (0.00-5.0) % Basophils % 0.7 (0.0-0.4) % Absolute Granulocytes 1.99 (1.4-6.9) x10^3/uL Basophils # 0.03 (0-0.4) x10^3/uL Sodium 138 (137-145) mmol/L Potassium 3.2 L (3.5-5.1) mmol/L Chloride 102 (98-107) mmol/L Carbon Dioxide 26 (22-30) mmol/L Anion Gap 12.9 (5-15) MEQ/L BUN 4 L (7-17) mg/dL Creatinine 0.64 (0.52-1.04) mg/dL Estimated GFR > 60.0 ML/MIN Glucose 87 (74-106) mg/dL Calcium 8.7 (8.4-10.2) mg/dL Total Bilirubin 0.90 (0.2-1.3) mg/dL AST 59 H (14-36) U/L ALT 57 H (0-35) U/L Alkaline Phosphatase 75 (38-126) U/L Troponin I < 0.012 (0.000-0.034) ng/mL Serum Total Protein 7.2 (6.3-8.2) g/dL Albumin 3.5 (3.5-5.0) g/dL Amylase 55 (30-110) U/L Lipase 238 (23-300) U/L Urinalys Dipstick Clnc MAIN LAB Urine Color BROWN A (YELLOW) Urine Appearance CLOUDY A (CLEAR) Urine pH 5.5 (5-6) Ur Specific [place] >=1.030 A (1.005-1.025) POC Urine Protein Conf 100 A (Negative) Urine Ketones >=160 A (NEGATIVE) Urine Nitrite NEGATIVE (NEGATIVE) Urine Bilirubin MODERATE A (NEGATIVE) Urine Urobilinogen 0.2 (0-1) mg/dL Urine Leukocytes NEGATIVE (NEGATIVE) Urine WBC (Auto) 26-50 A (0-5) /HPF Urine RBC (Auto) >101 A (0-2) /HPF U Hyaline Cast (Auto) 6-10 A (0-2) /LPF U Epithel Cells (Auto) RARE (FEW) /HPF Urine Bacteria (Auto) RARE (NEGATIVE) /HPF Urine RBC LARGE A (0-5) Jayden/ul Calcium Oxalate Crystal 11-25 A (NEGATIVE) /HPF Urine Mucus (Auto) MANY A (NEGATIVE) /HPF Ur Culture Indicated? YES Urine Glucose NEGATIVE (NEGATIVE) mg/dL - Progress Progress: improved Progress Note: 05/15/22 16:40 1L NS bolus/4mg IV Zofran 40mg IV Protonix No emesis in ER Counseled pt/family regarding: lab results, diagnosis, need for follow-up, rad results - Departure Departure Disposition: Home Clinical Impression: Nausea & vomiting Condition: Stable Critical Care Time: No Referrals: MELVA DEGROOT [Primary Care Provider] - Follow up/PCP as directed Instructions: Nausea and Vomiting, Adult (DC) Additional Instructions: Follow up with your surgeon in the morning Return to ER for increasing abdominal pain, continued blood in emesis or stool, or temperature greater than 100.5 Prescriptions: Ondansetron ODT 4 MG [Zofran Odt 4 mg] 4 mg PO Q6H PRN PRN #10 tablet PRN Reason: Nausea
[2022-05-15] MEDS ORDERED: Sodium Chloride 0.9% 1000 ML 1,000 ML ONE (14:22)
[2022-05-15] MEDS ORDERED: Zofran 4 MG/2 ML VIAL ONE (14:22)
[2022-05-15] MEDS: Sodium Chloride 0.9% 1000 ML 1,000 ML IV STA (14:24)
[2022-05-15] MEDS: Zofran 4 MG/2 ML VIAL IV ONE (14:25)
[2022-05-15 14:38] LABS: Absolute Neutrophil Ct (ANC) 1.99 x10^3/uL (1.4-6.9); Basophil (Absolute #) 0.03 x10^3/uL (0-0.4); Eosinophil % 9.7 % (0.00-5.0); Eosinophil (Absolute #) 0.42 x10^3/uL (0-0.5); Hematocrit 39.7 % (35-47); Hemoglobin 12.3 g/dL (12.0-16.0); Lymphocyte (Absolute #) 1.37 x10^3/uL (1.0-4.6); Lymphocytes % 31.6 % (24.0-44.0); Mean Cell Volume 84.5 fL (78-100); Mean Corpuscular Hemoglobin 26.2 pg (26-32); Mean Platelet Volume 12.4 fL (7.5-11.0); Monocyte (Absolute #) 0.53 x10^3/uL (0.0-1.3); Monocytes % 12.2 % (0.0-12.0); Neutrophil % 45.8 % (36.0-66.0); Platelet Count 250 x10^3/uL (150-450); Red Cell Distribution Width 15.6 % (11.5-14.0); White Blood Count 4.3 x10^3/uL (4.0-10.5)
[2022-05-15 14:50] LABS: ALBUMIN 3.5 g/dL (3.5-5.0); ALKALINE PHOSPHATASE 75 U/L (38-126); AMYLASE 55 U/L (30-110); ANION GAP 12.9 MEQ/L (5-15); BLOOD UREA NITROGEN 4 mg/dL (7-17); CHLORIDE 102 mmol/L (98-107); Calcium 8.7 mg/dL (8.4-10.2); Carbon Dioxide 26 mmol/L (22-30); Creatinine 1 0.64 mg/dL (0.52-1.04); EST GLOMERULAR FILTRATION RATE > 60.0 ML/MIN; Glucose 87 mg/dL (74-106); LIPASE 238 U/L (23-300); Potassium 3.2 mmol/L (3.5-5.1); SGOT/AST 59 U/L (14-36); SGPT/ALT 57 U/L (0-35); SODIUM 138 mmol/L (137-145); TROPONIN < 0.012 ng/mL (0.000-0.034); Total Protein 7.2 g/dL (6.3-8.2)
[2022-05-15 14:54] LABS: Appearance CLOUDY (CLEAR); Glucose NEGATIVE (NEGATIVE)
[2022-05-15 14:55] LABS: Bilirubin MODERATE (NEGATIVE); Dipstick done @ ? MAIN LAB; Ketones >=160 (NEGATIVE); Nitrite NEGATIVE (NEGATIVE); Ph 5.5 (5-6); Protein,Urine Dip 100 (Negative); RBC LARGE Ery/ul (0-5); Specific Gravity >=1.030 (1.005-1.025); Urobilinogen 0.2 mg/dL (0-1)
[2022-05-15 14:56] LABS: Bacteria RARE /HPF (NEGATIVE); Epithelial Cells RARE /HPF (FEW); Mucus MANY /HPF (NEGATIVE); WBC 26-50 /HPF (0-5)
[2022-05-15 14:57] LABS: RBC >101 /HPF (0-2); Urine Cultured Indicated? YES
--- NOTE | 2022-05-15 16:37 | XRAY ---
Indication: Abdomen pain and vomiting blood. Status post gastric bypass surgery April 04, 2022. Multiple contiguous axial images obtained through abdomen and pelvis using 80 cc Isovue 370 contrast. Comparison: May 05, 2022 Lung bases remain clear. Heart not enlarged. Again gastric bypass surgery. Noncontrasted stomach and bowel loops remain nonobstructed again with normal appendix. No free fluid/air. Again cholecystectomy, 23 cm fatty hepatomegaly, and 17 cm splenomegaly. Remaining liver, pancreas, spleen, adrenal glands, kidneys, ureters, bladder, uterus, and aorta are unremarkable. No pathologic retroperitoneal lymphadenopathy. Impression: No change compared to CT 10 days ago. Again gastric bypass surgery without complications, fatty hepatomegaly, and splenomegaly. No new/acute findings.
[2022-05-15] MEDS: PROTONIX 40 MG IV IV ONE (16:47)
[2022-05-15] MEDS ORDERED: PROTONIX 40 MG IV IV ONE (16:47)
[2022-05-15 17:04] VITALS: BP 128/64; PULSE 76
[2022-05-15 22:00] VITALS: O2SAT 97
== END 2022-05-15 17:07 | disposition home or self-care (01) ==
LOC: ED 13:22
DX: R11.2 Nausea with vomiting, unspecified (principal); R10.13 Epigastric pain; Z98.84 Bariatric surgery status; I10 Essential (primary) hypertension; Z79.899 Other long term (current) drug therapy
CPT/HCPCS: 36000; 36415; 74177; 80053; 81015; 82150; 83690; 84484; 85025; 87086; 96360; 96374; 96375; 99284; J2405

== ENCOUNTER 2022-06-21 17:15 | Emergency (ER) | payer OTHER ==
[2022-06-21] MEDS ORDERED: Sodium Chloride 0.9% 1000 ML 1,000 ML IV STA ×2 (19:18→23:28)
[2022-06-21] MEDS ORDERED: Zofran 4 MG/2 ML VIAL IV ONE (19:18)
[2022-06-21] MEDS ORDERED: SUBLIMAZE 100 MCG/2 ML IV ONE (19:18)
[2022-06-21] MEDS ORDERED: Zofran 4 MG/2 ML VIAL ONE (19:38)
[2022-06-21] MEDS ORDERED: SUBLIMAZE 100 MCG/2 ML ONE (19:38)
[2022-06-21] MEDS ORDERED: Sodium Chloride 0.9% 1000 ML 1,000 ML ONE ×2 (19:39→23:36)
[2022-06-21 19:55] LABS: Absolute Neutrophil Ct (ANC) 2.97 x10^3/uL (1.4-6.9); Basophil (Absolute #) 0.02 x10^3/uL (0-0.4); Eosinophil % 1.8 % (0.00-5.0); Eosinophil (Absolute #) 0.08 x10^3/uL (0-0.5); Hematocrit 44.5 % (35-47); Hemoglobin 13.9 g/dL (12.0-16.0); Lymphocyte (Absolute #) 0.98 x10^3/uL (1.0-4.6); Lymphocytes % 21.7 % (24.0-44.0); Mean Cell Volume 85.1 fL (78-100); Mean Corpuscular Hemoglobin 26.6 pg (26-32); Mean Corpuscular Hgb Concent. 31.2 g/dL (32-36); Mean Platelet Volume 12.4 fL (7.5-11.0); Monocyte (Absolute #) 0.45 x10^3/uL (0.0-1.3); Neutrophil % 65.9 % (36.0-66.0); Platelet Count 258 x10^3/uL (150-450); Red Blood Count 5.23 x10^6/uL (4.1-5.4); Red Cell Distribution Width 15.3 % (11.5-14.0); White Blood Count 4.5 x10^3/uL (4.0-10.5)
[2022-06-21 20:01] LABS: ALBUMIN 3.7 g/dL (3.5-5.0); ALKALINE PHOSPHATASE 105 U/L (38-126); AMYLASE 59 U/L (30-110); ANION GAP 14.3 MEQ/L (5-15); BLOOD UREA NITROGEN 6 mg/dL (7-17); CHLORIDE 99 mmol/L (98-107); Carbon Dioxide 26 mmol/L (22-30); Creatinine 1 0.51 mg/dL (0.52-1.04); EST GLOMERULAR FILTRATION RATE > 60.0 ML/MIN; Glucose 96 mg/dL (74-106); LIPASE 159 U/L (23-300); Potassium 3.8 mmol/L (3.5-5.1); SGOT/AST 55 U/L (14-36); SGPT/ALT 36 U/L (0-35); SODIUM 135 mmol/L (137-145); Total Protein 8.2 g/dL (6.3-8.2)
[2022-06-21 20:57] LABS: INR 1.11 (0.8-3.0); PROTIME 11.7 SECONDS (9.4-12.5)
[2022-06-21] MEDS ORDERED: Reglan 10 MG/2 ML IV ONE (22:31)
[2022-06-21] MEDS ORDERED: Reglan 10 MG/2 ML ONE (22:34)
[2022-06-22] LABS: Appearance SLIGHTLY CLOUDY (CLEAR); Bilirubin LARGE (NEGATIVE); Glucose NEGATIVE (NEGATIVE); Ketones LARGE-80 (NEGATIVE); RBC LARGE Ery/ul (0-5)
[2022-06-22 00:01] LABS: Dipstick done @ ? MAIN LAB; Nitrite NEGATIVE (NEGATIVE); Ph 5.5 (5-6); Protein,Urine Dip 100 (Negative); Urobilinogen 1 mg/dL (0-1)
[2022-06-22 00:06] LABS: Epithelial Cells RARE /HPF (FEW); Mucus MANY /HPF (NEGATIVE)
--- NOTE | 2022-06-22 00:12 | ERPHSYRPT ---
- History of Present Illness Time Seen by Provider: 06/21/22 19:15 Historian: patient Exam Limitations: no limitations Patient Subjective Stated Complaint: pt states she has been vomiting for the last week. had a temp of 100 this am, has generalized body aches and pain across her abd radiating to her back Triage Nursing Assessment: pt alert and oriented, answers questions approp. pt ambulatory with steady gait noted. respirations nonlabored. skin warm and dry. abd soft. pt reports tenderness to palpation in upper abd. bowel sounds present and hypo. Physician History: Patient is a 27-year-old white female presents with a complaint of abdominal pain and vomiting which started 1 week ago she has had nausea and vomiting and abdominal pain she also has had no appetite and has not been drinking. This morning she had a fever of 100. She has had no diarrhea her pain is the epigastric area and goes through to the back. She has a gastric bypass which was done April 04. Timing/Duration: week(s) (1) Activities at Onset: none Quality: cramping Abdominal Pain Onset Location: epigastric Pain Radiation: back Severity of Pain-Max: severe Severity of Pain-Current: moderate Modifying Factors: Improves With: nothing Associated Symptoms: headache, loss of appetite, nausea, vomiting Allergies/Adverse Reactions: amoxicillin trihydrate [From Augmentin] Allergy (Intermediate, Verified 06/21/22 19:09) Hives cefaclor [From Ceclor] Allergy (Intermediate, Verified 06/21/22 19:09) Hives ciprofloxacin [From Cipro] Adverse Reaction (Intermediate, Verified 06/21/22 19 :09) nausea vomiting enalapril Adverse Reaction (Intermediate, Verified 06/21/22 19:09) Cough ibuprofen Adverse Reaction (Verified 06/21/22 19:09) hx of renal failure, advised by PCP to avoid Home Medications: Cyanocobalamin (Vitamin B-12) [Liquid B-12] 1 ea UD 05/05/22 [History] Omeprazole 20 mg PO DAILY 05/05/22 [History] Sucralfate 1 ea DAILY 05/05/22 [History] Hx Tetanus, Diphtheria Vaccination/Date Given: Yes Hx Influenza Vaccination/Date Given: No Hx Pneumococcal Vaccination/Date Given: No Travel Risk - International Travel Have you traveled outside of the country in past 3 weeks: No - Coronavirus Screening Are you exhibiting any of the following symptoms?: Yes Symptoms: Fever, Vomiting/Diarrhea, Headaches/Body Aches/Fatigue Close contact with a COVID-19 positive Pt in past 14-21 Days: No - Vaccine Status Have you recieved a Covid-19 vaccination: Yes 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: [employer] - Vaccination Dates Date of 2cond Vaccination (if applicable): 11/18/20 - Review of Systems Constitutional: Fever, No Chills Eyes: No Symptoms Ears, Nose, & Throat: No Symptoms Respiratory: No Cough, No Dyspnea Cardiac: No Chest Pain, No Edema, No Syncope Abdominal/Gastrointestinal: Abdominal Pain, Nausea, Vomiting, No Diarrhea Genitourinary Symptoms: No Dysuria Musculoskeletal: No Back Pain, No Neck Pain Skin: No Rash Neurological: No Dizziness, No Focal Weakness, No Sensory Changes Psychological: No Symptoms Endocrine: No Symptoms All Other Systems: Reviewed and Negative - Past Medical History Pertinent Past Medical History: Yes Neurological History: Migraines ENT History: No Pertinent History Cardiac History: Hypertension Respiratory History: No Pertinent History Endocrine Medical History: No Pertinent History Musculoskeletal History: Other GI Medical History: Gallbladder Disease, Pancreatitis History: Other Psycho-Social History: Anxiety, Depression Female Reproductive Disorders: No Pertinent History Other Medical History: ovarian cysts,PANCREATITIS AND CHOLECYSTITIS, urinary retention 10/2015. KIDNEY FAILURE IN 01/2017, low iron levels - Past Surgical History Past Surgical History: Yes Neuro Surgical History: No Pertinent History Cardiac: No Pertinent History Respiratory: No Pertinent History Gastrointestinal: Cholecystectomy, Other Genitourinary: No Pertinent History Musculoskeletal: Orthopedic Surgery Female Surgical History: No Pertinent History Other Surgical History: ERCP, rt knee, gastric bypass apr 04, 2022 - Social History Smoking Status: Former smoker How long have you smoked: 4 Exposure to second hand smoke: No Drug Use: none Patient Lives Alone: No Significant Family History: no pertinent family hx - Female History Hx Last Menstrual Period: currently Hx Now: No - Nursing Vital Signs Nursing Vital Signs: Initial Vital Signs Temperature 97.0 F 06/21/22 19:01 Pulse Rate 86 06/21/22 19:01 Respiratory Rate 18 06/21/22 19:01 Blood Pressure 125/89 06/21/22 19:01 O2 Sat by Pulse Oximetry 98 06/21/22 19:01 Pain Scale Pain Intensity 9 - Physical Exam General Appearance: mild distress, alert Eye Exam: PERRL/EOMI, eyes nml inspection Ears, Nose, Throat Exam: normal ENT inspection, pharynx normal, moist mucous membranes Neck Exam: normal inspection, non-tender, supple, full range of motion Respiratory Exam: normal breath sounds, lungs clear, No respiratory distress Cardiovascular Exam: regular rate/rhythm, normal heart sounds Gastrointestinal/Abdomen Exam: soft, No tenderness, No mass Back Exam: normal inspection, normal range of motion, No CVA tenderness, No vertebral tenderness Extremity Exam: normal inspection, normal range of motion, pelvis stable Neurologic Exam: alert, oriented x 3, cooperative, normal mood/affect, nml cerebellar function, sensation nml, No motor deficits Skin Exam: normal color, warm, dry SpO2 Interpretation: normal SpO2: 99 O2 Delivery: Room Air - Course Nursing assessment & vital signs reviewed: Yes - CT Exams Abdomen/Pelvis CT Interpretation: Negative (No acute changes no change from previous CT scans) Ordered Tests: Active Orders 24 hr Category Date Time Status IV Insertion STAT Care 06/21/22 19:18 Active ABDOMEN AND PELVIS W CONTRAST [CT] Stat Exams 06/21/22 19:19 Taken CHEST 1 VIEW (PORTABLE) Stat Exams 06/21/22 19:19 Taken AMYLASE Stat Lab 06/21/22 19:38 Completed CBC W DIFF Stat Lab 06/21/22 19:38 Completed CMP Stat Lab 06/21/22 19:38 Completed HCG QUALITATIVE,SERUM Stat Lab 06/21/22 19:38 Completed LIPASE Stat Lab 06/21/22 19:38 Completed Lactic Acid Stat Lab 06/21/22 19:31 Completed PROTIME WITH INR Stat Lab 06/21/22 19:38 Completed UA W/RFX CULTURE Stat Lab 06/21/22 23:34 Results Urine Triage Profile Stat Lab 06/21/22 23:34 Received Medication Summary Generic Name Dose Route Start Last Admin Trade Name Freq PRN Reason Stop Dose Admin Sodium Chloride 1,000 mls @ 999 mls/hr 06/21/22 23:28 06/21/22 23:40 Sodium Chloride 0.9% 1000 Ml IV 06/22/22 00:28 999 mls/hr .Q1H1M STA Administration Discontinued Medications Generic Name Dose Route Start Last Admin Trade Name Freq PRN Reason Stop Dose Admin Fentanyl Citrate 100 mcg 06/21/22 19:18 06/21/22 19:39 Fentanyl Citrate 100 Mcg/2 Ml* Vial IV 06/21/22 19:19 100 mcg STAT ONE Administration Fentanyl Citrate Confirm 06/21/22 19:38 Fentanyl Citrate 100 Mcg/2 Ml* Vial Administered 06/21/22 19:39 Dose 100 mcg .ROUTE .STK-MED ONE Sodium Chloride 1,000 mls @ 999 mls/hr 06/21/22 19:18 06/21/22 20:40 Sodium Chloride 0.9% 1000 Ml IV 06/21/22 20:18 Infused .Q1H1M STA Infusion Sodium Chloride Confirm 06/21/22 19:39 Sodium Chloride 0.9% 1000 Ml Administered 06/21/22 19:40 Dose 1,000 mls @ ud .ROUTE .STK-MED ONE Sodium Chloride Confirm 06/21/22 23:36 Sodium Chloride 0.9% 1000 Ml Administered 06/21/22 23:37 Dose 1,000 mls @ ud .ROUTE .STK-MED ONE Metoclopramide HCl 10 mg 06/21/22 22:31 06/21/22 22:35 Metoclopramide Hcl 10 Mg/2 Ml Vial IV 06/21/22 22:32 10 mg STAT ONE Administration Metoclopramide HCl Confirm 06/21/22 22:34 Metoclopramide Hcl 10 Mg/2 Ml Vial Administered 06/21/22 22:35 Dose 10 mg .ROUTE .STK-MED ONE Ondansetron HCl 4 mg 06/21/22 19:18 06/21/22 19:39 Ondansetron Hcl 4 Mg/2 Ml Vial IV 06/21/22 19:19 4 mg STAT ONE Administration Ondansetron HCl Confirm 06/21/22 19:38 Ondansetron Hcl 4 Mg/2 Ml Vial Administered 06/21/22 19:39 Dose 4 mg .ROUTE .STK-MED ONE Lab/Rad Data: Laboratory Result Diagrams 06/21/22 19:38 06/21/22 19:38 Laboratory Results 06/21/22 06/21/22 06/21/22 Range/Units 23:34 19:38 19:38 WBC (4.0-10.5) x10^3/uL RBC (4.1-5.4) x10^6/uL Hgb (12.0-16.0) g/dL Hct (35-47) % MCV (78-100) fL MCH (26-32) pg MCHC (32-36) g/dL RDW (11.5-14.0) % Plt Count (150-450) x10^3/uL MPV (7.5-11.0) fL Gran % (36.0-66.0) % Immature Gran % (Auto) (0.00-0.4) % Nucleat RBC Rel Count (0.00-0.1) % Eos # (Auto) (0-0.5) x10^3/uL Immature Gran # (Auto) (0.00-0.03) x10^3u/L Absolute Lymphs (auto) (1.0-4.6) x10^3/uL Absolute Monos (auto) (0.0-1.3) x10^3/uL Absolute Nucleated RBC (0.00-0.01) x10^3u/L Lymphocytes % (24.0-44.0) % Monocytes % (0.0-12.0) % Eosinophils % (0.00-5.0) % Basophils % (0.0-0.4) % Absolute Granulocytes (1.4-6.9) x10^3/uL Basophils # (0-0.4) x10^3/uL PT 11.7 (9.4-12.5) SECONDS INR 1.11 (0.8-3.0) Sodium (137-145) mmol/L Potassium (3.5-5.1) mmol/L Chloride (98-107) mmol/L Carbon Dioxide (22-30) mmol/L Anion Gap (5-15) MEQ/L BUN (7-17) mg/dL Creatinine (0.52-1.04) mg/dL Estimated GFR ML/MIN Glucose (74-106) mg/dL Lactic Acid (0.4-2.0) Calcium (8.4-10.2) mg/dL Total Bilirubin (0.2-1.3) mg/dL AST (14-36) U/L ALT (0-35) U/L Alkaline Phosphatase (38-126) U/L Serum Total Protein (6.3-8.2) g/dL Albumin (3.5-5.0) g/dL Amylase (30-110) U/L Lipase (23-300) U/L Serum , Qual NEGATIVE (Negative) Urinalys Dipstick Clnc MAIN LAB Urine Color MICHAEL (YELLOW) Urine Appearance SLIGHTLY CLOUDY A (CLEAR) Urine pH 5.5 (5-6) Ur Specific [place] 1.020 (1.005-1.025) POC Urine Protein Conf 100 A (Negative) Urine Ketones LARGE-80 A (NEGATIVE) Urine Nitrite NEGATIVE (NEGATIVE) Urine Bilirubin LARGE A (NEGATIVE) Urine Urobilinogen 1 A (0-1) mg/dL Urine Leukocytes NEGATIVE (NEGATIVE) Urine WBC (Auto) Pending Urine RBC (Auto) Pending U Epithel Cells (Auto) Pending Urine Bacteria (Auto) Pending Urine RBC LARGE A (0-5) Jayden/ul Ur Culture Indicated? Pending Urine Glucose NEGATIVE (NEGATIVE) mg/dL 06/21/22 06/21/22 06/21/22 Range/Units 19:38 19:38 19:31 WBC 4.5 (4.0-10.5) x10^3/uL RBC 5.23 (4.1-5.4) x10^6/uL Hgb 13.9 (12.0-16.0) g/dL Hct 44.5 (35-47) % MCV 85.1 (78-100) fL MCH 26.6 (26-32) pg MCHC 31.2 L (32-36) g/dL RDW 15.3 H (11.5-14.0) % Plt Count 258 (150-450) x10^3/uL MPV 12.4 H (7.5-11.0) fL Gran % 65.9 (36.0-66.0) % Immature Gran % (Auto) 0.2 (0.00-0.4) % Nucleat RBC Rel Count 0.0 (0.00-0.1) % Eos # (Auto) 0.08 (0-0.5) x10^3/uL Immature Gran # (Auto) 0.01 (0.00-0.03) x10^3u/L Absolute Lymphs (auto) 0.98 L (1.0-4.6) x10^3/uL Absolute Monos (auto) 0.45 (0.0-1.3) x10^3/uL Absolute Nucleated RBC 0.00 (0.00-0.01) x10^3u/L Lymphocytes % 21.7 L (24.0-44.0) % Monocytes % 10.0 (0.0-12.0) % Eosinophils % 1.8 (0.00-5.0) % Basophils % 0.4 (0.0-0.4) % Absolute Granulocytes 2.97 (1.4-6.9) x10^3/uL Basophils # 0.02 (0-0.4) x10^3/uL PT (9.4-12.5) SECONDS INR (0.8-3.0) Sodium 135 L (137-145) mmol/L Potassium 3.8 (3.5-5.1) mmol/L Chloride 99 (98-107) mmol/L Carbon Dioxide 26 (22-30) mmol/L Anion Gap 14.3 (5-15) MEQ/L BUN 6 L (7-17) mg/dL Creatinine 0.51 L (0.52-1.04) mg/dL Estimated GFR > 60.0 ML/MIN Glucose 96 (74-106) mg/dL Lactic Acid 1.0 (0.4-2.0) Calcium 9.0 (8.4-10.2) mg/dL Total Bilirubin 1.10 (0.2-1.3) mg/dL AST 55 H (14-36) U/L ALT 36 H (0-35) U/L Alkaline Phosphatase 105 (38-126) U/L Serum Total Protein 8.2 (6.3-8.2) g/dL Albumin 3.7 (3.5-5.0) g/dL Amylase 59 (30-110) U/L Lipase 159 (23-300) U/L Serum , Qual (Negative) Urinalys Dipstick Clnc Urine Color (YELLOW) Urine Appearance (CLEAR) Urine pH (5-6) Ur Specific [place] (1.005-1.025) POC Urine Protein Conf (Negative) Urine Ketones (NEGATIVE) Urine Nitrite (NEGATIVE) Urine Bilirubin (NEGATIVE) Urine Urobilinogen (0-1) mg/dL Urine Leukocytes (NEGATIVE) Urine WBC (Auto) Urine RBC (Auto) U Epithel Cells (Auto) Urine Bacteria (Auto) Urine RBC (0-5) Jayden/ul Ur Culture Indicated? Urine Glucose (NEGATIVE) mg/dL - Progress Progress: improved - Departure Departure Disposition: Home Clinical Impression: Abdominal pain Condition: Stable Critical Care Time: No Referrals: MELVA DEGROOT [Primary Care Provider] - Follow up/PCP as directed Prescriptions: Metoclopramide HCl 10 mg [Reglan 10 MG] 10 mg PO Q6H 30 Days #120 tablet
[2022-06-22 00:15] LABS: Amphetamine,Urine NEGATIVE (NEGATIVE); Barbiturate,Urine NEGATIVE (NEGATIVE); Benzodiazepine,Urine NEGATIVE (NEGATIVE); Cocaine,Urine NEGATIVE (NEGATIVE); Methadone,Urine NEGATIVE (NEGATIVE); Opiate,Urine NEGATIVE (NEGATIVE); PCP,Urine NEGATIVE (NEGATIVE); THC,Urine POSITIVE (NEGATIVE)
[2022-06-22 00:25] LABS: Urine Cultured Indicated? YES
[2022-06-22 01:14] VITALS: BP 116/84; PULSE 76; O2SAT 98
--- NOTE | 2022-06-22 08:49 | XRAY ---
Indication: Abdomen pain, dehydration, nausea, vomiting, and low back pain 1 week.. Multiple contiguous axial images obtained through the abdomen and pelvis using 100 cc Isovue 370 contrast. Comparison: May 15, 2022. Lung bases remain clear. Heart not enlarged. Again gastric bypass surgery. Noncontrasted stomach and bowel loops remain nonobstructed. Normal appendix. Again minimal scattered colonic diverticulosis,, fatty hepatomegaly, splenomegaly, and cholecystectomy. 2.2 cm dominant right ovary cyst. No free fluid/air. Remaining liver, pancreas, spleen, adrenal glands, kidneys, ureters, bladder, uterus, and aorta are unremarkable. No pathologic retroperitoneal lymphadenopathy. Osseous structures intact. Impression: 1. Again bariatric surgery without complications, colonic diverticulosis, fatty hepatomegaly, and splenomegaly. 2. Remaining CT abdomen/pelvis with contrast exam continues to be negative.
--- NOTE | 2022-06-22 08:55 | XRAY ---
Indication: Abdomen pain, dehydration, nausea, and vomiting. Comparison: April 18, 2022 Portable chest again demonstrates normal heart, lungs, and bony thorax.
== END 2022-06-22 01:14 | disposition home or self-care (01) ==
LOC: ED 17:15
DX: R10.13 Epigastric pain (principal); R11.2 Nausea with vomiting, unspecified; R19.7 Diarrhea, unspecified; Z98.84 Bariatric surgery status; I10 Essential (primary) hypertension; Z79.899 Other long term (current) drug therapy
CPT/HCPCS: 36000; 36415; 71045; 74177; 80053; 80307; 81015; 82150; 83605; 83690; 84703; 85025; 85610; 87086; 96360; 96361; 96374; 96375; 99284; J2405; J3010

== ENCOUNTER 2022-06-27 14:21 | Inpatient (IN) | payer OTHER ==
[2022-06-27] MEDS ORDERED: Lactated Ringers 1,000 ML IV ONE (15:30)
[2022-06-27 15:41] LABS: Absolute Neutrophil Ct (ANC) 2.75 x10^3/uL (1.4-6.9); Basophil (Absolute #) 0.02 x10^3/uL (0-0.4); Eosinophil (Absolute #) 0.04 x10^3/uL (0-0.5); Hematocrit 43.6 % (35-47); Hemoglobin 13.6 g/dL (12.0-16.0); Lymphocyte (Absolute #) 0.79 x10^3/uL (1.0-4.6); Lymphocytes % 19.6 % (24.0-44.0); Mean Corpuscular Hemoglobin 26.5 pg (26-32); Mean Corpuscular Hgb Concent. 31.2 g/dL (32-36); Mean Platelet Volume 12.6 fL (7.5-11.0); Monocyte (Absolute #) 0.43 x10^3/uL (0.0-1.3); Monocytes % 10.6 % (0.0-12.0); Neutrophil % 68.1 % (36.0-66.0); Platelet Count 226 x10^3/uL (150-450); Red Blood Count 5.13 x10^6/uL (4.1-5.4); Red Cell Distribution Width 15.4 % (11.5-14.0)
[2022-06-27 16:03] LABS: INFLUENZA A NEGATIVE (NEGATIVE); INFLUENZA B NEGATIVE (NEGATIVE); RESPIRATORY SYNCTIAL VIRUS NEGATIVE (Negative); SARS-CoV-2 Xpert Express NEGATIVE (NEGATIVE)
[2022-06-27] MEDS: Zofran 4 MG/2 ML VIAL IV SCH ×2 (16:49→20:37)
[2022-06-27 17:01] LABS: ALBUMIN 3.7 g/dL (3.5-5.0); ALKALINE PHOSPHATASE 97 U/L (38-126); AMYLASE 66 U/L (30-110); ANION GAP 15.5 MEQ/L (5-15); BLOOD UREA NITROGEN 6 mg/dL (7-17); CHLORIDE 99 mmol/L (98-107); Carbon Dioxide 26 mmol/L (22-30); Creatinine 1 0.49 mg/dL (0.52-1.04); EST GLOMERULAR FILTRATION RATE > 60.0 ML/MIN; Folate (Folic Acid) 4.86 ng/mL (2.76 - >20); Glucose 92 mg/dL (74-106); LIPASE 133 U/L (23-300); Potassium 3.2 mmol/L (3.5-5.1); SGOT/AST 70 U/L (14-36); SGPT/ALT 52 U/L (0-35); SODIUM 137 mmol/L (137-145); Vitamin B12 706 pg/mL (239-931)
[2022-06-27] MEDS ORDERED: CYANOCOBALAMIN IM SCH (17:15)
[2022-06-27] MEDS: Dextrose 5% -0.45 NaCl 1000 ML 1,000 ML IV SCH (20:50)
[2022-06-27] MEDS: Hydromorphone 1 mg/ml Injection IV PRN (22:59)
[2022-06-28] MEDS: Zofran 4 MG/2 ML VIAL IV SCH ×4 (00:45→11:44)
[2022-06-28 01:41] LABS: Bacteria PACKED /HPF (NEGATIVE); Calcium Oxalate Crystals 0-2 /HPF (NEGATIVE); Epithelial Cells FEW /HPF (FEW); Mucus MANY /HPF (NEGATIVE); WBC 26-50 /HPF (0-5)
[2022-06-28 01:47] LABS: Appearance SLIGHTLY CLOUDY (CLEAR); Bilirubin LARGE (NEGATIVE); Dipstick done @ ? MAIN LAB; Glucose NEGATIVE (NEGATIVE); Ketones MODERATE-40 (NEGATIVE); Nitrite NEGATIVE (NEGATIVE); Ph 5.5 (5-6); Protein,Urine Dip 100 (Negative); RBC MODERATE Ery/ul (0-5); Specific Gravity >=1.030 (1.005-1.025); Urobilinogen 1 mg/dL (0-1)
[2022-06-28 01:48] LABS: Urine Cultured Indicated? ORDERED SEPARATELY
[2022-06-28] MEDS: Dextrose 5% -0.45 NaCl 1000 ML 1,000 ML IV SCH ×3 (04:34→22:01)
[2022-06-28] MEDS: Hydromorphone 1 mg/ml Injection IV PRN ×4 (04:35→21:50)
[2022-06-28 05:38] LABS: Basophil (Absolute #) 0.02 x10^3/uL (0-0.4); Eosinophil % 2.1 % (0.00-5.0); Eosinophil (Absolute #) 0.11 x10^3/uL (0-0.5); Hematocrit 39.5 % (35-47); Hemoglobin 12.8 g/dL (12.0-16.0); Lymphocyte (Absolute #) 1.78 x10^3/uL (1.0-4.6); Lymphocytes % 33.6 % (24.0-44.0); Mean Corpuscular Hemoglobin 26.6 pg (26-32); Mean Corpuscular Hgb Concent. 32.4 g/dL (32-36); Mean Platelet Volume 12.8 fL (7.5-11.0); Monocyte (Absolute #) 0.76 x10^3/uL (0.0-1.3); Monocytes % 14.3 % (0.0-12.0); Platelet Count 207 x10^3/uL (150-450); Red Blood Count 4.82 x10^6/uL (4.1-5.4); Red Cell Distribution Width 15.7 % (11.5-14.0); White Blood Count 5.3 x10^3/uL (4.0-10.5)
[2022-06-28 06:36] LABS: Slide Review 1 YES
[2022-06-28 06:40] LABS: ALBUMIN 3.1 g/dL (3.5-5.0); ALKALINE PHOSPHATASE 88 U/L (38-126); ANION GAP 12.4 MEQ/L (5-15); BLOOD UREA NITROGEN 5 mg/dL (7-17); CHLORIDE 101 mmol/L (98-107); Calcium 8.9 mg/dL (8.4-10.2); Carbon Dioxide 26 mmol/L (22-30); Creatinine 1 0.48 mg/dL (0.52-1.04); EST GLOMERULAR FILTRATION RATE > 60.0 ML/MIN; Glucose 96 mg/dL (74-106); Potassium 3.5 mmol/L (3.5-5.1); SGOT/AST 63 U/L (14-36); SGPT/ALT 48 U/L (0-35); SODIUM 136 mmol/L (137-145)
--- NOTE | 2022-06-28 08:34 | XRAY ---
Indication: Nausea and vomiting. Gastric bypass surgery March 2022. Comparison: June 21, 2022 PA/lateral chest again demonstrates normal heart, lungs, and bony thorax.
--- NOTE | 2022-06-28 08:35 | XRAY ---
Indication: Nausea and vomiting. Gastric bypass surgery March 2022. Comparison: CT abdomen/pelvis June 13, 2022 KUB nonacute and nonobstructed with incidental cholecystectomy clips and left abdomen suture material. Solid organs and osseous structures unremarkable.
--- NOTE | 2022-06-28 12:47 | PCM.HP.ADD ---
Addendum to History & Physical - History & Physical Addendum Addendum to History & Physical: This certifies that the History & Physical in the electronic chart reflects the current health status of the patient. If there are changes in the H&P these changes/exceptions are listed as follows.
--- NOTE | 2022-06-28 12:51 | PCM.NOTE ---
Date and Time: 06/28/22 1247 Subjective Assessment: Still feels terrible, was just vomiting (clear vomitus visible in bag). Pain med works but doesn't last long enough. Still having 8/10 epigastric abd pain, she thinks from all the vomiting. - Review of Systems Constitutional: No Fever Abdominal/Gastrointestinal: Abdominal Pain, Nausea, Vomiting Objective Exam General Appearance: moderate distress (lying in bed with washcloth on head), alert Neurologic Exam: oriented x 3, cooperative Skin Exam: normal color, warm, dry, No rash Eye Exam: eyes nml inspection Ears, Nose, Throat Exam: moist mucous membranes Neck Exam: normal inspection Respiratory Exam: normal breath sounds, lungs clear, No crackles/rales, No rhonchi, No wheezing Cardiovascular Exam: regular rate/rhythm, normal heart sounds, No murmur Gastrointestinal/Abdomen Exam: soft, normal bowel sounds, tenderness (epigastrum, mild), No distention, No mass, No guarding, No rebound Extremity Exam: No pedal edema, No swelling Back Exam: normal inspection, No rash OBJECTIVE DATA Vital Signs: Vital Signs - 24 hr Temp Pulse Resp BP Pulse Ox 06/28/22 11:54 97.0 F 70 16 121/71 95 06/28/22 07:25 97.3 F 66 17 132/79 95 06/28/22 04:00 98.4 F 77 18 139/82 93 L 06/27/22 23:53 97.5 F 82 18 121/68 96 06/27/22 20:00 97.1 F 77 18 134/78 99 06/27/22 14:51 97.1 F 68 18 132/73 99 Pain Assessment - Last Documented Pain Intensity 9 Pain Scale Used 0-10 Pain Scale Intake and Output: Intake & Output 06/26/22 06/27/22 06/28/22 06/29/22 11:59 11:59 11:59 11:59 Intake Total 1753 Output Total 75 Balance 1678 Weight 169.5 kg Lab Results: Lab Results-Last 24 Hours 06/27/22 06/27/22 06/27/22 Range/Units 15:00 15:35 15:35 WBC 4.0 (4.0-10.5) x10^3/uL RBC 5.13 (4.1-5.4) x10^6/uL Hgb 13.6 (12.0-16.0) g/dL Hct 43.6 (35-47) % MCV 85.0 (78-100) fL MCH 26.5 (26-32) pg MCHC 31.2 L (32-36) g/dL RDW 15.4 H (11.5-14.0) % Plt Count 226 (150-450) x10^3/uL MPV 12.6 H (7.5-11.0) fL Gran % 68.1 H (36.0-66.0) % Immature Gran % (Auto) 0.2 (0.00-0.4) % Nucleat RBC Rel Count 0.0 (0.00-0.1) % Eos # (Auto) 0.04 (0-0.5) x10^3/uL Immature Gran # (Auto) 0.01 (0.00-0.03) x10^3u/L Absolute Lymphs (auto) 0.79 L (1.0-4.6) x10^3/uL Absolute Monos (auto) 0.43 (0.0-1.3) x10^3/uL Absolute Nucleated RBC 0.00 (0.00-0.01) x10^3u/L Lymphocytes % 19.6 L (24.0-44.0) % Monocytes % 10.6 (0.0-12.0) % Eosinophils % 1.0 (0.00-5.0) % Basophils % 0.5 (0.0-0.4) % Absolute Granulocytes 2.75 (1.4-6.9) x10^3/uL Basophils # 0.02 (0-0.4) x10^3/uL Sodium 137 (137-145) mmol/L Potassium 3.2 L (3.5-5.1) mmol/L Chloride 99 (98-107) mmol/L Carbon Dioxide 26 (22-30) mmol/L Anion Gap 15.5 H (5-15) MEQ/L BUN 6 L (7-17) mg/dL Creatinine 0.49 L (0.52-1.04) mg/dL Estimated GFR > 60.0 ML/MIN Glucose 92 (74-106) mg/dL Calcium 9.0 (8.4-10.2) mg/dL Total Bilirubin 1.10 (0.2-1.3) mg/dL AST 70 H (14-36) U/L ALT 52 H (0-35) U/L Alkaline Phosphatase 97 (38-126) U/L Serum Total Protein 8.0 (6.3-8.2) g/dL Albumin 3.7 (3.5-5.0) g/dL Amylase 66 (30-110) U/L Lipase 133 (23-300) U/L Vitamin B12 706 (239-931) pg/mL 25-OH Vitamin D Total (30-100) ng/mL Folic Acid 4.86 (2.76 - >20) ng/mL Serum , Qual (Negative) Urinalys Dipstick Clnc Urine Color (YELLOW) Urine Appearance (CLEAR) Urine pH (5-6) Ur Specific [place] (1.005-1.025) POC Urine Protein Conf (Negative) Urine Ketones (NEGATIVE) Urine Nitrite (NEGATIVE) Urine Bilirubin (NEGATIVE) Urine Urobilinogen (0-1) mg/dL Urine Leukocytes (NEGATIVE) Urine WBC (Auto) (0-5) /HPF Urine RBC (Auto) (0-2) /HPF U Epithel Cells (Auto) (FEW) /HPF Urine Bacteria (Auto) (NEGATIVE) /HPF Urine RBC (0-5) Jayden/ul Calcium Oxalate Crystal (NEGATIVE) /HPF Urine Mucus (Auto) (NEGATIVE) /HPF Ur Culture Indicated? Urine Glucose (NEGATIVE) mg/dL Influenza Type A Ag NEGATIVE (NEGATIVE) Influenza Type B Ag NEGATIVE (NEGATIVE) RSV (PCR) NEGATIVE (Negative) SARS-CoV-2 (PCR) NEGATIVE (NEGATIVE) Slides for Path Review 06/27/22 06/27/22 06/28/22 Range/Units 15:35 19:00 01:15 WBC (4.0-10.5) x10^3/uL RBC (4.1-5.4) x10^6/uL Hgb (12.0-16.0) g/dL Hct (35-47) % MCV (78-100) fL MCH (26-32) pg MCHC (32-36) g/dL RDW (11.5-14.0) % Plt Count (150-450) x10^3/uL MPV (7.5-11.0) fL Gran % (36.0-66.0) % Immature Gran % (Auto) (0.00-0.4) % Nucleat RBC Rel Count (0.00-0.1) % Eos # (Auto) (0-0.5) x10^3/uL Immature Gran # (Auto) (0.00-0.03) x10^3u/L Absolute Lymphs (auto) (1.0-4.6) x10^3/uL Absolute Monos (auto) (0.0-1.3) x10^3/uL Absolute Nucleated RBC (0.00-0.01) x10^3u/L Lymphocytes % (24.0-44.0) % Monocytes % (0.0-12.0) % Eosinophils % (0.00-5.0) % Basophils % (0.0-0.4) % Absolute Granulocytes (1.4-6.9) x10^3/uL Basophils # (0-0.4) x10^3/uL Sodium (137-145) mmol/L Potassium (3.5-5.1) mmol/L Chloride (98-107) mmol/L Carbon Dioxide (22-30) mmol/L Anion Gap (5-15) MEQ/L BUN (7-17) mg/dL Creatinine (0.52-1.04) mg/dL Estimated GFR ML/MIN Glucose (74-106) mg/dL Calcium (8.4-10.2) mg/dL Total Bilirubin (0.2-1.3) mg/dL AST (14-36) U/L ALT (0-35) U/L Alkaline Phosphatase (38-126) U/L Serum Total Protein (6.3-8.2) g/dL Albumin (3.5-5.0) g/dL Amylase (30-110) U/L Lipase (23-300) U/L Vitamin B12 (239-931) pg/mL 25-OH Vitamin D Total 19.9 L (30-100) ng/mL Folic Acid (2.76 - >20) ng/mL Serum , Qual NEGATIVE (Negative) Urinalys Dipstick Clnc MAIN LAB Urine Color DARK YELLOW (YELLOW) Urine Appearance SLIGHTLY CLOUDY A (CLEAR) Urine pH 5.5 (5-6) Ur Specific [place] >=1.030 A (1.005-1.025) POC Urine Protein Conf 100 A (Negative) Urine Ketones MODERATE-40 A (NEGATIVE) Urine Nitrite NEGATIVE (NEGATIVE) Urine Bilirubin LARGE A (NEGATIVE) Urine Urobilinogen 1 A (0-1) mg/dL Urine Leukocytes NEGATIVE (NEGATIVE) Urine WBC (Auto) 26-50 A (0-5) /HPF Urine RBC (Auto) NONE (0-2) /HPF U Epithel Cells (Auto) FEW (FEW) /HPF Urine Bacteria (Auto) PACKED A (NEGATIVE) /HPF Urine RBC MODERATE A (0-5) Jayden/ul Calcium Oxalate Crystal 0-2 (NEGATIVE) /HPF Urine Mucus (Auto) MANY A (NEGATIVE) /HPF Ur Culture Indicated? ORDERED SEPARATELY Urine Glucose NEGATIVE (NEGATIVE) mg/dL Influenza Type A Ag (NEGATIVE) Influenza Type B Ag (NEGATIVE) RSV (PCR) (Negative) SARS-CoV-2 (PCR) (NEGATIVE) Slides for Path Review 06/28/22 06/28/22 Range/Units 04:46 04:46 WBC 5.3 (4.0-10.5) x10^3/uL RBC 4.82 (4.1-5.4) x10^6/uL Hgb 12.8 (12.0-16.0) g/dL Hct 39.5 (35-47) % MCV 82.0 (78-100) fL MCH 26.6 (26-32) pg MCHC 32.4 (32-36) g/dL RDW 15.7 H (11.5-14.0) % Plt Count 207 (150-450) x10^3/uL MPV 12.8 H (7.5-11.0) fL Gran % 49.0 (36.0-66.0) % Immature Gran % (Auto) 0.6 H (0.00-0.4) % Nucleat RBC Rel Count 0.0 (0.00-0.1) % Eos # (Auto) 0.11 (0-0.5) x10^3/uL Immature Gran # (Auto) 0.03 (0.00-0.03) x10^3u/L Absolute Lymphs (auto) 1.78 (1.0-4.6) x10^3/uL Absolute Monos (auto) 0.76 (0.0-1.3) x10^3/uL Absolute Nucleated RBC 0.00 (0.00-0.01) x10^3u/L Lymphocytes % 33.6 (24.0-44.0) % Monocytes % 14.3 H (0.0-12.0) % Eosinophils % 2.1 (0.00-5.0) % Basophils % 0.4 (0.0-0.4) % Absolute Granulocytes 2.60 (1.4-6.9) x10^3/uL Basophils # 0.02 (0-0.4) x10^3/uL Sodium 136 L (137-145) mmol/L Potassium 3.5 (3.5-5.1) mmol/L Chloride 101 (98-107) mmol/L Carbon Dioxide 26 (22-30) mmol/L Anion Gap 12.4 (5-15) MEQ/L BUN 5 L (7-17) mg/dL Creatinine 0.48 L (0.52-1.04) mg/dL Estimated GFR > 60.0 ML/MIN Glucose 96 (74-106) mg/dL Calcium 8.9 (8.4-10.2) mg/dL Total Bilirubin 1.00 (0.2-1.3) mg/dL AST 63 H (14-36) U/L ALT 48 H (0-35) U/L Alkaline Phosphatase 88 (38-126) U/L Serum Total Protein 7.0 (6.3-8.2) g/dL Albumin 3.1 L (3.5-5.0) g/dL Amylase (30-110) U/L Lipase (23-300) U/L Vitamin B12 (239-931) pg/mL 25-OH Vitamin D Total (30-100) ng/mL Folic Acid (2.76 - >20) ng/mL Serum , Qual (Negative) Urinalys Dipstick Clnc Urine Color (YELLOW) Urine Appearance (CLEAR) Urine pH (5-6) Ur Specific [place] (1.005-1.025) POC Urine Protein Conf (Negative) Urine Ketones (NEGATIVE) Urine Nitrite (NEGATIVE) Urine Bilirubin (NEGATIVE) Urine Urobilinogen (0-1) mg/dL Urine Leukocytes (NEGATIVE) Urine WBC (Auto) (0-5) /HPF Urine RBC (Auto) (0-2) /HPF U Epithel Cells (Auto) (FEW) /HPF Urine Bacteria (Auto) (NEGATIVE) /HPF Urine RBC (0-5) Jayden/ul Calcium Oxalate Crystal (NEGATIVE) /HPF Urine Mucus (Auto) (NEGATIVE) /HPF Ur Culture Indicated? Urine Glucose (NEGATIVE) mg/dL Influenza Type A Ag (NEGATIVE) Influenza Type B Ag (NEGATIVE) RSV (PCR) (Negative) SARS-CoV-2 (PCR) (NEGATIVE) Slides for Path Review YES Radiology Exams: Radiology Procedures Category Date Time Status CHEST 2 VIEWS (PA AND LAT) Routine Exams 06/27/22 15:30 Completed KUB Routine Exams 06/27/22 15:30 Completed Assessment/Plan (1) Abdominal pain Current Visit: No Status: Acute Qualifiers: Abdominal location: epigastric Qualified Code(s): R10.13 - Epigastric pain Assessment & Plan: may be related to vomiting. Labs are nonacute. She had CT abd/pelvis on 06/22/22 that was nonacute. If persistent or worsening, would do CT again. She did have KUB that was nonacute. Code(s): R10.9 - UNSPECIFIED ABDOMINAL PAIN (2) Nausea and vomiting Current Visit: No Status: Acute Code(s): R11.2 - NAUSEA WITH VOMITING, UNSPECIFIED (3) UTI (urinary tract infection) Current Visit: No Status: Acute Qualifiers: Urinary tract infection type: acute cystitis Hematuria presence: without hematuria Qualified Code(s): N30.00 - Acute cystitis without hematuria Assessment & Plan: culture pending, will go ahead and treat. Code(s): N39.0 - URINARY TRACT INFECTION, SITE NOT SPECIFIED (4) Morbid obesity Current Visit: No Status: Chronic Assessment & Plan: s/p gastric bypass surgery. Code(s): E66.01 - MORBID (SEVERE) OBESITY DUE TO EXCESS CALORIES
[2022-06-28] MEDS: Levofloxacin 500MG/100ML D5W 500 MG/100 ML BAG IV SCH (13:33)
[2022-06-28] MEDS: Zofran 4 MG/2 ML VIAL IV PRN ×2 (15:15→21:50)
[2022-06-28] MEDS: BENADRYL 50 MG/ML IV PRN (18:08)
[2022-06-28] MEDS: Compazine 10 MG/2 ML IV PRN (18:08)
[2022-06-29] MEDS: Compazine 10 MG/2 ML IV PRN ×3 (03:16→22:11)
[2022-06-29] MEDS: Hydromorphone 1 mg/ml Injection IV PRN ×5 (03:16→22:10)
[2022-06-29 05:25] LABS: Absolute Neutrophil Ct (ANC) 1.37 x10^3/uL (1.4-6.9); Basophil (Absolute #) 0.02 x10^3/uL (0-0.4); Eosinophil % 3.6 % (0.00-5.0); Eosinophil (Absolute #) 0.11 x10^3/uL (0-0.5); Hematocrit 38.2 % (35-47); Hemoglobin 12.2 g/dL (12.0-16.0); Lymphocytes % 36.3 % (24.0-44.0); Mean Cell Volume 82.9 fL (78-100); Mean Corpuscular Hemoglobin 26.5 pg (26-32); Mean Corpuscular Hgb Concent. 31.9 g/dL (32-36); Mean Platelet Volume 12.8 fL (7.5-11.0); Monocyte (Absolute #) 0.42 x10^3/uL (0.0-1.3); Monocytes % 13.9 % (0.0-12.0); Neutrophil % 45.2 % (36.0-66.0); Platelet Count 195 x10^3/uL (150-450); Red Blood Count 4.61 x10^6/uL (4.1-5.4); Red Cell Distribution Width 15.7 % (11.5-14.0)
[2022-06-29 05:54] LABS: ALBUMIN 2.9 g/dL (3.5-5.0); ALKALINE PHOSPHATASE 76 U/L (38-126); BLOOD UREA NITROGEN 3 mg/dL (7-17); CHLORIDE 101 mmol/L (98-107); Calcium 8.6 mg/dL (8.4-10.2); Carbon Dioxide 27 mmol/L (22-30); Creatinine 1 0.48 mg/dL (0.52-1.04); EST GLOMERULAR FILTRATION RATE > 60.0 ML/MIN; Glucose 114 mg/dL (74-106); SGOT/AST 61 U/L (14-36); SGPT/ALT 50 U/L (0-35); SODIUM 133 mmol/L (137-145); Total Protein 6.6 g/dL (6.3-8.2)
[2022-06-29 06:02] LABS: Potassium 2.8 mmol/L (3.5-5.1)
[2022-06-29] MEDS ORDERED: MAGNESIUM SULF 2 G/50 ML BAG 2 GM/50 ML PIGGYBACK IV ONE (06:16)
[2022-06-29] MEDS: Dextrose 5% -0.45 NaCl 1000 ML 1,000 ML IV SCH ×2 (06:53→17:55)
[2022-06-29] MEDS ORDERED: Klor Con PO SCH (07:00)
[2022-06-29] MEDS ORDERED: Compazine 10 MG/2 ML ONE (07:02)
[2022-06-29] MEDS: POTASSIUM CHLORIDE 20 mEq IN WATER 100ML 100 ML IV SCH ×2 (08:11→10:04)
[2022-06-29] MEDS ORDERED: K-LYTE PO SCH (08:30)
[2022-06-29] MEDS: Zofran 4 MG/2 ML VIAL IV PRN ×2 (08:41→18:01)
[2022-06-29] MEDS: Levofloxacin 500MG/100ML D5W 500 MG/100 ML BAG IV SCH (10:02)
--- NOTE | 2022-06-29 13:17 | PCM.NOTE ---
Date and Time: 06/29/22 1314 Subjective Assessment: Feeling "OK-kathy", abd pain is 7/10 a little better than at admission. Still vomiting intermittently (last was just prior to 7am, before my visit at 0800) - Review of Systems Constitutional: No Fever Abdominal/Gastrointestinal: Abdominal Pain, Nausea, Vomiting Objective Exam General Appearance: mild distress, alert Neurologic Exam: oriented x 3, cooperative Skin Exam: normal color, warm, dry, No rash Eye Exam: eyes nml inspection Ears, Nose, Throat Exam: moist mucous membranes Neck Exam: normal inspection Respiratory Exam: normal breath sounds, lungs clear, No crackles/rales, No rhonchi, No wheezing Cardiovascular Exam: regular rate/rhythm, normal heart sounds, No murmur Gastrointestinal/Abdomen Exam: soft, normal bowel sounds, tenderness (Epigstrum (and mildly in RUQ)), No distention, No mass, No guarding, No rebound Extremity Exam: normal inspection, No pedal edema, No swelling OBJECTIVE DATA Vital Signs: Vital Signs - 24 hr Temp Pulse Resp BP Pulse Ox 06/29/22 11:17 96.6 F 77 18 102/52 98 06/29/22 07:04 97.1 F 65 16 109/55 96 06/29/22 04:00 97.3 F 77 18 116/68 94 L 06/28/22 23:37 97.0 F 67 16 117/58 95 06/28/22 20:00 97.8 F 67 16 120/79 95 06/28/22 16:00 98.0 F 70 17 137/74 95 Pain Assessment - Last Documented Pain Intensity 8 Pain Scale Used [facility] Intake and Output: Intake & Output 06/27/22 06/28/22 06/29/22 06/30/22 11:59 11:59 11:59 11:59 Intake Total 1753 1829 Output Total 75 1250 Balance 1678 579 Weight 169.5 kg Lab Results: Lab Results-Last 24 Hours 06/29/22 06/29/22 06/29/22 Range/Units 04:55 04:55 06:04 WBC 3.0 L (4.0-10.5) x10^3/uL RBC 4.61 (4.1-5.4) x10^6/uL Hgb 12.2 (12.0-16.0) g/dL Hct 38.2 (35-47) % MCV 82.9 (78-100) fL MCH 26.5 (26-32) pg MCHC 31.9 L (32-36) g/dL RDW 15.7 H (11.5-14.0) % Plt Count 195 (150-450) x10^3/uL MPV 12.8 H (7.5-11.0) fL Gran % 45.2 (36.0-66.0) % Immature Gran % (Auto) 0.3 (0.00-0.4) % Nucleat RBC Rel Count 0.0 (0.00-0.1) % Eos # (Auto) 0.11 (0-0.5) x10^3/uL Immature Gran # (Auto) 0.01 (0.00-0.03) x10^3u/L Absolute Lymphs (auto) 1.10 (1.0-4.6) x10^3/uL Absolute Monos (auto) 0.42 (0.0-1.3) x10^3/uL Absolute Nucleated RBC 0.00 (0.00-0.01) x10^3u/L Lymphocytes % 36.3 (24.0-44.0) % Monocytes % 13.9 H (0.0-12.0) % Eosinophils % 3.6 (0.00-5.0) % Basophils % 0.7 (0.0-0.4) % Absolute Granulocytes 1.37 L (1.4-6.9) x10^3/uL Basophils # 0.02 (0-0.4) x10^3/uL Sodium 133 L (137-145) mmol/L Potassium 2.8 L* (3.5-5.1) mmol/L Chloride 101 (98-107) mmol/L Carbon Dioxide 27 (22-30) mmol/L Anion Gap 8.0 (5-15) MEQ/L BUN 3 L (7-17) mg/dL Creatinine 0.48 L (0.52-1.04) mg/dL Estimated GFR > 60.0 ML/MIN Glucose 114 H (74-106) mg/dL Calcium 8.6 (8.4-10.2) mg/dL Magnesium 1.5 L (1.6-2.3) mg/dL Total Bilirubin 0.80 (0.2-1.3) mg/dL AST 61 H (14-36) U/L ALT 50 H (0-35) U/L Alkaline Phosphatase 76 (38-126) U/L Serum Total Protein 6.6 (6.3-8.2) g/dL Albumin 2.9 L (3.5-5.0) g/dL 06/29/22 Range/Units 10:00 WBC (4.0-10.5) x10^3/uL RBC (4.1-5.4) x10^6/uL Hgb (12.0-16.0) g/dL Hct (35-47) % MCV (78-100) fL MCH (26-32) pg MCHC (32-36) g/dL RDW (11.5-14.0) % Plt Count (150-450) x10^3/uL MPV (7.5-11.0) fL Gran % (36.0-66.0) % Immature Gran % (Auto) (0.00-0.4) % Nucleat RBC Rel Count (0.00-0.1) % Eos # (Auto) (0-0.5) x10^3/uL Immature Gran # (Auto) (0.00-0.03) x10^3u/L Absolute Lymphs (auto) (1.0-4.6) x10^3/uL Absolute Monos (auto) (0.0-1.3) x10^3/uL Absolute Nucleated RBC (0.00-0.01) x10^3u/L Lymphocytes % (24.0-44.0) % Monocytes % (0.0-12.0) % Eosinophils % (0.00-5.0) % Basophils % (0.0-0.4) % Absolute Granulocytes (1.4-6.9) x10^3/uL Basophils # (0-0.4) x10^3/uL Sodium (137-145) mmol/L Potassium 3.5 D (3.5-5.1) mmol/L Chloride (98-107) mmol/L Carbon Dioxide (22-30) mmol/L Anion Gap (5-15) MEQ/L BUN (7-17) mg/dL Creatinine (0.52-1.04) mg/dL Estimated GFR ML/MIN Glucose (74-106) mg/dL Calcium (8.4-10.2) mg/dL Magnesium (1.6-2.3) mg/dL Total Bilirubin (0.2-1.3) mg/dL AST (14-36) U/L ALT (0-35) U/L Alkaline Phosphatase (38-126) U/L Serum Total Protein (6.3-8.2) g/dL Albumin (3.5-5.0) g/dL Radiology Exams: Radiology Procedures Category Date Time Status CHEST 2 VIEWS (PA AND LAT) Routine Exams 06/27/22 15:30 Completed KUB Routine Exams 06/27/22 15:30 Completed Multi-Disciplinary Progress Notes: Multi-Disciplinary Progress Notes 06/29/22 12:53 Case Management Note by Kayleen Gan REVIEWED CHART- DO NOT ANTICIPATE ANY CHANGES IN DC PLAN AT THIS TIME Initialized on 06/29/22 12:53 - END OF NOTE Assessment/Plan (1) Abdominal pain Current Visit: No Status: Acute Qualifiers: Abdominal location: epigastric Qualified Code(s): R10.13 - Epigastric pain Assessment & Plan: has improved a bit. She said her gastric bypass surgeon had messaged her and wants her to get an EGD. I assume they will want to perform it, so she is waiting to see if they want her to go to their facility now. Code(s): R10.9 - UNSPECIFIED ABDOMINAL PAIN (2) Nausea and vomiting Current Visit: No Status: Acute Assessment & Plan: Still persistent. Code(s): R11.2 - NAUSEA WITH VOMITING, UNSPECIFIED (3) UTI (urinary tract infection) Current Visit: No Status: Acute Qualifiers: Urinary tract infection type: acute cystitis Hematuria presence: without hematuria Qualified Code(s): N30.00 - Acute cystitis without hematuria Assessment & Plan: On IV rocephin; UCx final mixed alicia, but will continue 3d of treatment. Code(s): N39.0 - URINARY TRACT INFECTION, SITE NOT SPECIFIED (4) Morbid obesity Current Visit: No Status: Chronic Code(s): E66.01 - MORBID (SEVERE) OBESITY DUE TO EXCESS CALORIES
[2022-06-29] MEDS: POTASSIUM CHLORIDE 20 mEq IN WATER 100ML 20 MEQ/100 ML BAG IV SCH ×4 (13:48→20:02)
[2022-06-29] MEDS ORDERED: Cyanocobalamin B-12 1000 MCG/ML IM SCH (17:30)
[2022-06-30] MEDS: Hydromorphone 1 mg/ml Injection IV PRN ×6 (03:06→21:21)
[2022-06-30] MEDS: Dextrose 5% -0.45 NaCl 1000 ML 1,000 ML IV SCH ×4 (03:09→22:26)
[2022-06-30] MEDS: Zofran 4 MG/2 ML VIAL IV PRN ×3 (03:09→16:46)
[2022-06-30 06:13] LABS: Absolute Neutrophil Ct (ANC) 1.48 x10^3/uL (1.4-6.9); Basophil (Absolute #) 0.01 x10^3/uL (0-0.4); Eosinophil % 3.4 % (0.00-5.0); Eosinophil (Absolute #) 0.11 x10^3/uL (0-0.5); Hematocrit 38.6 % (35-47); Hemoglobin 12.1 g/dL (12.0-16.0); Lymphocyte (Absolute #) 1.18 x10^3/uL (1.0-4.6); Lymphocytes % 36.5 % (24.0-44.0); Mean Cell Volume 84.8 fL (78-100); Mean Corpuscular Hemoglobin 26.6 pg (26-32); Mean Corpuscular Hgb Concent. 31.3 g/dL (32-36); Mean Platelet Volume 12.9 fL (7.5-11.0); Monocyte (Absolute #) 0.44 x10^3/uL (0.0-1.3); Monocytes % 13.6 % (0.0-12.0); Neutrophil % 45.9 % (36.0-66.0); Platelet Count 159 x10^3/uL (150-450); Red Blood Count 4.55 x10^6/uL (4.1-5.4); Red Cell Distribution Width 15.9 % (11.5-14.0); White Blood Count 3.2 x10^3/uL (4.0-10.5)
[2022-06-30 06:50] LABS: ALBUMIN 2.7 g/dL (3.5-5.0); ALKALINE PHOSPHATASE 75 U/L (38-126); ANION GAP 6.3 MEQ/L (5-15); CHLORIDE 106 mmol/L (98-107); Calcium 8.4 mg/dL (8.4-10.2); Carbon Dioxide 28 mmol/L (22-30); Creatinine 1 0.51 mg/dL (0.52-1.04); EST GLOMERULAR FILTRATION RATE > 60.0 ML/MIN; Glucose 96 mg/dL (74-106); MAGNESIUM 1.9 mg/dL (1.6-2.3); Potassium 3.5 mmol/L (3.5-5.1); SGOT/AST 84 U/L (14-36); SGPT/ALT 65 U/L (0-35); SODIUM 136 mmol/L (137-145); Total Protein 6.4 g/dL (6.3-8.2)
[2022-06-30 06:56] LABS: BLOOD UREA NITROGEN < 2 mg/dL (7-17)
[2022-06-30] MEDS: Compazine 10 MG/2 ML IV PRN ×3 (08:10→21:14)
[2022-06-30 08:52] LABS: Slide Review 1 YES
[2022-06-30] MEDS: Levofloxacin 500MG/100ML D5W 500 MG/100 ML BAG IV SCH (11:07)
--- NOTE | 2022-06-30 15:25 | PCM.NOTE ---
Date and Time: 06/30/22 1519 Subjective Assessment: Pt is feeling a little better, but still vomiting often. She did tolerate jello x 2 yesterday. Pain was 8/10 at her exam at 06:20; had last had pain medication at 0330. - Review of Systems Constitutional: No Fever Abdominal/Gastrointestinal: Abdominal Pain, Nausea, Vomiting Objective Exam General Appearance: mild distress (after exam, pt has dry heaves), alert, obese Neurologic Exam: oriented x 3, cooperative Skin Exam: normal color, warm, dry, No rash Eye Exam: eyes nml inspection Ears, Nose, Throat Exam: moist mucous membranes Neck Exam: normal inspection Respiratory Exam: normal breath sounds, lungs clear, No crackles/rales, No rhonchi, No wheezing Cardiovascular Exam: regular rate/rhythm, normal heart sounds, No murmur Gastrointestinal/Abdomen Exam: soft, normal bowel sounds, tenderness (eigastrum/LUQ), No distention, No mass, No guarding, No rebound Extremity Exam: normal inspection, No pedal edema, No swelling Back Exam: normal inspection, No rash OBJECTIVE DATA Vital Signs: Vital Signs - 24 hr Temp Pulse Resp BP Pulse Ox 06/30/22 11:42 97.6 F 95 H 16 115/59 95 06/30/22 07:39 97.6 F 83 16 127/73 95 06/30/22 03:53 97.7 F 91 H 20 120/56 97 06/30/22 00:00 98.7 F 79 20 116/59 95 06/29/22 20:00 97.0 F 86 18 124/68 95 06/29/22 15:41 96.7 F 76 17 125/60 95 Pain Assessment - Last Documented Pain Intensity 5 Pain Scale Used 0-10 Pain Scale Intake and Output: Intake & Output 06/28/22 06/29/22 06/30/22 07/01/22 11:59 11:59 11:59 11:59 Intake Total 1753 1829 4109 0 Output Total 75 1250 1000 Balance 6808 976 0360 0 Weight 169.5 kg Lab Results: Lab Results-Last 24 Hours 06/29/22 06/29/22 06/30/22 Range/Units 18:29 23:10 01:32 WBC (4.0-10.5) x10^3/uL RBC (4.1-5.4) x10^6/uL Hgb (12.0-16.0) g/dL Hct (35-47) % MCV (78-100) fL MCH (26-32) pg MCHC (32-36) g/dL RDW (11.5-14.0) % Plt Count (150-450) x10^3/uL MPV (7.5-11.0) fL Gran % (36.0-66.0) % Immature Gran % (Auto) (0.00-0.4) % Nucleat RBC Rel Count (0.00-0.1) % Eos # (Auto) (0-0.5) x10^3/uL Immature Gran # (Auto) (0.00-0.03) x10^3u/L Absolute Lymphs (auto) (1.0-4.6) x10^3/uL Absolute Monos (auto) (0.0-1.3) x10^3/uL Absolute Nucleated RBC (0.00-0.01) x10^3u/L Lymphocytes % (24.0-44.0) % Monocytes % (0.0-12.0) % Eosinophils % (0.00-5.0) % Basophils % (0.0-0.4) % Absolute Granulocytes (1.4-6.9) x10^3/uL Basophils # (0-0.4) x10^3/uL Sodium (137-145) mmol/L Potassium 3.8 3.7 3.7 (3.5-5.1) mmol/L Chloride (98-107) mmol/L Carbon Dioxide (22-30) mmol/L Anion Gap (5-15) MEQ/L BUN (7-17) mg/dL Creatinine (0.52-1.04) mg/dL Estimated GFR ML/MIN Glucose (74-106) mg/dL Calcium (8.4-10.2) mg/dL Magnesium (1.6-2.3) mg/dL Total Bilirubin (0.2-1.3) mg/dL AST (14-36) U/L ALT (0-35) U/L Alkaline Phosphatase (38-126) U/L Serum Total Protein (6.3-8.2) g/dL Albumin (3.5-5.0) g/dL Slides for Path Review 06/30/22 06/30/22 Range/Units 05:30 05:30 WBC 3.2 L (4.0-10.5) x10^3/uL RBC 4.55 (4.1-5.4) x10^6/uL Hgb 12.1 (12.0-16.0) g/dL Hct 38.6 (35-47) % MCV 84.8 (78-100) fL MCH 26.6 (26-32) pg MCHC 31.3 L (32-36) g/dL RDW 15.9 H (11.5-14.0) % Plt Count 159 (150-450) x10^3/uL MPV 12.9 H (7.5-11.0) fL Gran % 45.9 (36.0-66.0) % Immature Gran % (Auto) 0.3 (0.00-0.4) % Nucleat RBC Rel Count 0.0 (0.00-0.1) % Eos # (Auto) 0.11 (0-0.5) x10^3/uL Immature Gran # (Auto) 0.01 (0.00-0.03) x10^3u/L Absolute Lymphs (auto) 1.18 (1.0-4.6) x10^3/uL Absolute Monos (auto) 0.44 (0.0-1.3) x10^3/uL Absolute Nucleated RBC 0.00 (0.00-0.01) x10^3u/L Lymphocytes % 36.5 (24.0-44.0) % Monocytes % 13.6 H (0.0-12.0) % Eosinophils % 3.4 (0.00-5.0) % Basophils % 0.3 (0.0-0.4) % Absolute Granulocytes 1.48 (1.4-6.9) x10^3/uL Basophils # 0.01 (0-0.4) x10^3/uL Sodium 136 L (137-145) mmol/L Potassium 3.5 (3.5-5.1) mmol/L Chloride 106 (98-107) mmol/L Carbon Dioxide 28 (22-30) mmol/L Anion Gap 6.3 (5-15) MEQ/L BUN < 2 L (7-17) mg/dL Creatinine 0.51 L (0.52-1.04) mg/dL Estimated GFR > 60.0 ML/MIN Glucose 96 (74-106) mg/dL Calcium 8.4 (8.4-10.2) mg/dL Magnesium 1.9 (1.6-2.3) mg/dL Total Bilirubin 0.60 (0.2-1.3) mg/dL AST 84 H (14-36) U/L ALT 65 H (0-35) U/L Alkaline Phosphatase 75 (38-126) U/L Serum Total Protein 6.4 (6.3-8.2) g/dL Albumin 2.7 L (3.5-5.0) g/dL Slides for Path Review YES Radiology Exams: Radiology Procedures Category Date Time Status ECHO W/2D AND DOPPLER [US] Routine Exams 06/30/22 08:00 Taken Multi-Disciplinary Progress Notes: Multi-Disciplinary Progress Notes 06/30/22 13:10 Case Management Note by Kayleen Gan S/W PATIENT- SHE CONTINUES TO DENY ANY NEW NEEDS AT TIME OF DC. SHE PLANS TO RETURN HOME TO HER PLF AT TIME OF DC Initialized on 06/30/22 13:10 - END OF NOTE Assessment/Plan (1) Abdominal pain Current Visit: No Status: Acute Qualifiers: Abdominal location: epigastric Qualified Code(s): R10.13 - Epigastric pain Assessment & Plan: May be from all the vomiting; do agree with plan of EGD but Dr. Ruiz (gastric bypass surgeon, [facility], ) would want to do it. Unsure if he wants her transferred, but I suspect he'll want to make her an outpatient appointment. Will go ahead and repeat CT scan since her last was over 1 week ago (it was negative).Her exam is nonacute. Code(s): R10.9 - UNSPECIFIED ABDOMINAL PAIN (2) Nausea and vomiting Current Visit: No Status: Acute Qualifiers: Vomiting type: unspecified Qualified Code(s): R11.2 - Nausea with vomiting, unspecified Code(s): R11.2 - NAUSEA WITH VOMITING, UNSPECIFIED (3) UTI (urinary tract infection) Current Visit: No Status: Acute Qualifiers: Urinary tract infection type: acute cystitis Hematuria presence: without hematuria Qualified Code(s): N30.00 - Acute cystitis without hematuria Assessment & Plan: Treated with 3d IV levaquin, although culture ended up negative. Haven't seen much improvement in patient's condition on the levaquin. Code(s): N39.0 - URINARY TRACT INFECTION, SITE NOT SPECIFIED (4) Morbid obesity Current Visit: No Status: Chronic Code(s): E66.01 - MORBID (SEVERE) OBESITY DUE TO EXCESS CALORIES
--- NOTE | 2022-06-30 17:51 | XRAY ---
Indication: Abdomen pain 1 month. Nausea and vomiting. Multiple contiguous axial images obtained through abdomen and pelvis prior to and following 100 cc Isovue 370 contrast as ordered. Comparison: May 05, May 15, and June 21, 2022 Lung bases remain clear. Heart not enlarged. Noncontrasted images again negative for pathologic visceral calcification/calculi. Again gastric bypass surgery. Noncontrasted stomach and bowel loops remain nonobstructed with normal appendix. Again minimal scattered colonic diverticulosis, 23 cm fatty of hepatomegaly, 15 cm splenomegaly, 2.3 cm dominant right ovary cyst, and cholecystectomy. No free fluid/air. Postcontrast images demonstrates normal visceral enhancement and renal excretion. Remaining liver, pancreas, spleen, adrenal glands, kidneys, ureters, bladder, uterus, and aorta are unremarkable. No pathologic retroperitoneal lymphadenopathy. Impression: No change compared to the last 3 CT abdomen/pelvis exams dating back to May 05, 2022. Again gastric bypass surgery without complications, minimal colonic diverticulosis, fatty hepatomegaly, and splenomegaly. No new/acute findings.
[2022-07-01] MEDS: Hydromorphone 1 mg/ml Injection IV PRN ×5 (00:56→20:34)
[2022-07-01] MEDS: Zofran 4 MG/2 ML VIAL IV PRN ×3 (00:56→15:05)
[2022-07-01] MEDS: Compazine 10 MG/2 ML IV PRN ×3 (05:54→19:38)
[2022-07-01] MEDS: Dextrose 5% -0.45 NaCl 1000 ML 1,000 ML IV SCH (05:58)
[2022-07-01 06:02] LABS: Absolute Neutrophil Ct (ANC) 1.85 x10^3/uL (1.4-6.9); Basophil (Absolute #) 0.02 x10^3/uL (0-0.4); Eosinophil % 3.1 % (0.00-5.0); Eosinophil (Absolute #) 0.11 x10^3/uL (0-0.5); Hematocrit 38.3 % (35-47); Hemoglobin 11.8 g/dL (12.0-16.0); Lymphocyte (Absolute #) 1.05 x10^3/uL (1.0-4.6); Lymphocytes % 29.7 % (24.0-44.0); Mean Cell Volume 85.3 fL (78-100); Mean Corpuscular Hemoglobin 26.3 pg (26-32); Mean Corpuscular Hgb Concent. 30.8 g/dL (32-36); Mean Platelet Volume 12.3 fL (7.5-11.0); Monocytes % 14.1 % (0.0-12.0); Neutrophil % 52.2 % (36.0-66.0); Platelet Count 171 x10^3/uL (150-450); Red Blood Count 4.49 x10^6/uL (4.1-5.4); Red Cell Distribution Width 15.6 % (11.5-14.0); White Blood Count 3.5 x10^3/uL (4.0-10.5)
[2022-07-01 06:37] LABS: ALBUMIN 2.8 g/dL (3.5-5.0); ALKALINE PHOSPHATASE 75 U/L (38-126); ANION GAP 6.9 MEQ/L (5-15); CHLORIDE 103 mmol/L (98-107); Calcium 8.3 mg/dL (8.4-10.2); Carbon Dioxide 28 mmol/L (22-30); Creatinine 1 0.49 mg/dL (0.52-1.04); EST GLOMERULAR FILTRATION RATE > 60.0 ML/MIN; Glucose 104 mg/dL (74-106); Potassium 3.4 mmol/L (3.5-5.1); SGOT/AST 107 U/L (14-36); SGPT/ALT 88 U/L (0-35); SODIUM 135 mmol/L (137-145); Total Protein 6.3 g/dL (6.3-8.2)
[2022-07-01 06:51] LABS: BLOOD UREA NITROGEN < 2 mg/dL (7-17)
[2022-07-01] MEDS: D5W/0.45NS W/ 20mEq KCl 1000 ML 1,000 ML IV SCH ×2 (11:43→19:38)
[2022-07-01] MEDS ORDERED: POTASSIUM CHLORIDE 20 mEq IN WATER 100ML 20 MEQ/100 ML BAG IV ONE (12:00)
[2022-07-01] MEDS: BENADRYL 50 MG/ML IV PRN (20:35)
[2022-07-02] MEDS: Hydromorphone 1 mg/ml Injection IV PRN ×6 (00:11→20:15)
[2022-07-02] MEDS: Compazine 10 MG/2 ML IV PRN ×5 (00:12→23:23)
[2022-07-02] MEDS: BENADRYL 50 MG/ML IV PRN ×2 (00:12→23:23)
[2022-07-02] MEDS: D5W/0.45NS W/ 20mEq KCl 1000 ML 1,000 ML IV SCH ×3 (03:27→20:38)
[2022-07-02 06:30] LABS: Absolute Neutrophil Ct (ANC) 2.22 x10^3/uL (1.4-6.9); Basophil (Absolute #) 0.02 x10^3/uL (0-0.4); Eosinophil % 2.4 % (0.00-5.0); Hematocrit 36.9 % (35-47); Hemoglobin 11.8 g/dL (12.0-16.0); Lymphocyte (Absolute #) 1.26 x10^3/uL (1.0-4.6); Mean Cell Volume 84.2 fL (78-100); Mean Corpuscular Hemoglobin 26.9 pg (26-32); Mean Platelet Volume 12.9 fL (7.5-11.0); Monocyte (Absolute #) 0.59 x10^3/uL (0.0-1.3); Neutrophil % 52.9 % (36.0-66.0); Platelet Count 183 x10^3/uL (150-450); Red Blood Count 4.38 x10^6/uL (4.1-5.4); Red Cell Distribution Width 15.9 % (11.5-14.0); White Blood Count 4.2 x10^3/uL (4.0-10.5)
[2022-07-02 06:55] LABS: ALBUMIN 2.6 g/dL (3.5-5.0); ALKALINE PHOSPHATASE 72 U/L (38-126); ANION GAP 6.3 MEQ/L (5-15); CHLORIDE 106 mmol/L (98-107); Calcium 8.2 mg/dL (8.4-10.2); Carbon Dioxide 27 mmol/L (22-30); Creatinine 1 0.44 mg/dL (0.52-1.04); EST GLOMERULAR FILTRATION RATE > 60.0 ML/MIN; Glucose 97 mg/dL (74-106); Potassium 3.5 mmol/L (3.5-5.1); SGOT/AST 75 U/L (14-36); SGPT/ALT 80 U/L (0-35); SODIUM 136 mmol/L (137-145)
[2022-07-02 07:25] LABS: BLOOD UREA NITROGEN < 2 mg/dL (7-17)
[2022-07-02] MEDS: Zofran 4 MG/2 ML VIAL IV PRN ×2 (12:05→20:15)
[2022-07-03] MEDS: Hydromorphone 1 mg/ml Injection IV PRN ×5 (02:34→21:26)
[2022-07-03] MEDS: Zofran 4 MG/2 ML VIAL IV PRN ×3 (02:34→18:07)
[2022-07-03] MEDS: D5W/0.45NS W/ 20mEq KCl 1000 ML 1,000 ML IV SCH (05:25)
[2022-07-03] MEDS: Compazine 10 MG/2 ML IV PRN ×3 (05:25→21:26)
[2022-07-03 05:30] LABS: Absolute Neutrophil Ct (ANC) 1.97 x10^3/uL (1.4-6.9); Basophil (Absolute #) 0.02 x10^3/uL (0-0.4); Eosinophil % 3.7 % (0.00-5.0); Eosinophil (Absolute #) 0.14 x10^3/uL (0-0.5); Hematocrit 38.1 % (35-47); Hemoglobin 12.1 g/dL (12.0-16.0); Lymphocytes % 29.3 % (24.0-44.0); Mean Cell Volume 85.2 fL (78-100); Mean Corpuscular Hemoglobin 27.1 pg (26-32); Mean Corpuscular Hgb Concent. 31.8 g/dL (32-36); Mean Platelet Volume 12.5 fL (7.5-11.0); Monocyte (Absolute #) 0.52 x10^3/uL (0.0-1.3); Monocytes % 13.8 % (0.0-12.0); Neutrophil % 52.4 % (36.0-66.0); Platelet Count 182 x10^3/uL (150-450); Red Blood Count 4.47 x10^6/uL (4.1-5.4); Red Cell Distribution Width 16.2 % (11.5-14.0); White Blood Count 3.8 x10^3/uL (4.0-10.5)
[2022-07-03 06:12] LABS: ALBUMIN 2.5 g/dL (3.5-5.0); ALKALINE PHOSPHATASE 73 U/L (38-126); ANION GAP 5.9 MEQ/L (5-15); CHLORIDE 104 mmol/L (98-107); Calcium 8.3 mg/dL (8.4-10.2); Carbon Dioxide 28 mmol/L (22-30); Creatinine 1 0.43 mg/dL (0.52-1.04); EST GLOMERULAR FILTRATION RATE > 60.0 ML/MIN; Glucose 96 mg/dL (74-106); Potassium 4.2 mmol/L (3.5-5.1); SGOT/AST 71 U/L (14-36); SGPT/ALT 75 U/L (0-35); SODIUM 134 mmol/L (137-145); Total Protein 5.8 g/dL (6.3-8.2)
[2022-07-03 06:14] LABS: BLOOD UREA NITROGEN < 2 mg/dL (7-17)
[2022-07-03] MEDS: Tums EX 750 MG PO SCH ×2 (12:04→21:26)
--- NOTE | 2022-07-03 12:57 | PCM.NOTE ---
Date and Time: 07/03/22 1251 Subjective Assessment: Pt is still not feeling well, very nauseated today. She tolerated two bites of jello and some broth yesterday. Abd pain is 7-8/10 this morning. She c/o tingling in bilat LE - has been intermittent on L for 1 week and constant for the past day; tingly/cramping, L ant and post thigh to ankle. Now there is some paresthsia on the RLE as well, in the anterior thigh. - Review of Systems Constitutional: No Fever Abdominal/Gastrointestinal: Abdominal Pain, Nausea, Vomiting Objective Exam General Appearance: mild distress, alert Neurologic Exam: oriented x 3, cooperative Skin Exam: normal color, warm, dry, No rash Eye Exam: eyes nml inspection Ears, Nose, Throat Exam: moist mucous membranes Neck Exam: normal inspection Respiratory Exam: normal breath sounds, lungs clear, No crackles/rales, No rhonchi, No wheezing Cardiovascular Exam: regular rate/rhythm, normal heart sounds, No murmur Gastrointestinal/Abdomen Exam: soft, normal bowel sounds, tenderness (generalized, slightly worse in epigastrum), No distention, No mass, No guarding, No rebound Extremity Exam: normal inspection, other (moves in the bed as usual, although this is not much at baseline.), No pedal edema, No swelling OBJECTIVE DATA Vital Signs: Vital Signs - 24 hr Temp Pulse Resp BP Pulse Ox 07/03/22 11:42 97.2 F 87 18 121/68 95 07/03/22 07:33 97.3 F 91 H 18 120/70 96 07/03/22 06:38 94 L 07/03/22 04:00 98.0 F 90 18 127/65 96 07/02/22 23:48 97.9 F 93 H 16 117/59 94 L 07/02/22 20:00 97.1 F 94 H 18 120/61 93 L 07/02/22 19:23 95 07/02/22 15:24 96.8 F 81 16 126/66 96 Pain Assessment - Last Documented Pain Intensity 7 Pain Scale Used [facility] Intake and Output: Intake & Output 07/01/22 07/02/22 07/03/22 07/04/22 11:59 11:59 11:59 11:59 Intake Total 3180 3240 3785 Output Total 100 1625 2950 Balance 3080 1615 835 Weight 176.2 kg 175.8 kg Lab Results: Lab Results-Last 24 Hours 07/03/22 07/03/22 07/03/22 Range/Units 04:37 04:37 04:37 WBC 3.8 L (4.0-10.5) x10^3/uL RBC 4.47 (4.1-5.4) x10^6/uL Hgb 12.1 (12.0-16.0) g/dL Hct 38.1 (35-47) % MCV 85.2 (78-100) fL MCH 27.1 (26-32) pg MCHC 31.8 L (32-36) g/dL RDW 16.2 H (11.5-14.0) % Plt Count 182 (150-450) x10^3/uL MPV 12.5 H (7.5-11.0) fL Gran % 52.4 (36.0-66.0) % Immature Gran % (Auto) 0.3 (0.00-0.4) % Nucleat RBC Rel Count 0.0 (0.00-0.1) % Eos # (Auto) 0.14 (0-0.5) x10^3/uL Immature Gran # (Auto) 0.01 (0.00-0.03) x10^3u/L Absolute Lymphs (auto) 1.10 (1.0-4.6) x10^3/uL Absolute Monos (auto) 0.52 (0.0-1.3) x10^3/uL Absolute Nucleated RBC 0.00 (0.00-0.01) x10^3u/L Lymphocytes % 29.3 (24.0-44.0) % Monocytes % 13.8 H (0.0-12.0) % Eosinophils % 3.7 (0.00-5.0) % Basophils % 0.5 (0.0-0.4) % Absolute Granulocytes 1.97 (1.4-6.9) x10^3/uL Basophils # 0.02 (0-0.4) x10^3/uL Sodium 134 L (137-145) mmol/L Potassium 4.2 (3.5-5.1) mmol/L Chloride 104 (98-107) mmol/L Carbon Dioxide 28 (22-30) mmol/L Anion Gap 5.9 (5-15) MEQ/L BUN < 2 L (7-17) mg/dL Creatinine 0.43 L (0.52-1.04) mg/dL Estimated GFR > 60.0 ML/MIN Glucose 96 (74-106) mg/dL Calcium 8.3 L (8.4-10.2) mg/dL Magnesium 1.5 L (1.6-2.3) mg/dL Total Bilirubin 0.70 (0.2-1.3) mg/dL AST 71 H (14-36) U/L ALT 75 H (0-35) U/L Alkaline Phosphatase 73 (38-126) U/L Serum Total Protein 5.8 L (6.3-8.2) g/dL Albumin 2.5 L (3.5-5.0) g/dL Radiology Exams: Radiology Procedures Category Date Time Status MRI L-SPINE WITHOUT CONTRAST [MRI] Routine Exams 07/03/22 12:48 Ordered Assessment/Plan (1) Abdominal pain Current Visit: No Status: Acute Qualifiers: Abdominal location: epigastric Qualified Code(s): R10.13 - Epigastric pain Assessment & Plan: Adding PPI. CT repeat on Sunday was nonacute. Is on IV dilaudid. I have spoken with her bariatric surgeon, Dr. Dianna Ruiz. She would like to do an EGD on the patient - since their hospital is on diversion, she would like the pt to come up tomorrow at noon and have an EGD at 1 pm. Pt is to be NPO 8h prior to procedure. Pt's is to take her as she will need a ride home. Code(s): R10.9 - UNSPECIFIED ABDOMINAL PAIN (2) Nausea and vomiting Current Visit: No Status: Acute Qualifiers: Vomiting type: unspecified Qualified Code(s): R11.2 - Nausea with vomiting, unspecified Assessment & Plan: intractable. On zofran and benadryl Code(s): R11.2 - NAUSEA WITH VOMITING, UNSPECIFIED (3) Morbid obesity Current Visit: No Status: Chronic Code(s): E66.01 - MORBID (SEVERE) OBESITY DUE TO EXCESS CALORIES
[2022-07-03] MEDS ORDERED: PROTONIX 40 MG IV IV SCH (13:00)
[2022-07-03] MEDS: Dextrose 5%-Lr IV Solution 1000 ML 1,000 ML IV SCH ×2 (13:05→21:32)
[2022-07-04] MEDS: Hydromorphone 1 mg/ml Injection IV PRN ×3 (00:36→08:05)
[2022-07-04] MEDS ORDERED: Bactroban OINTMENT ONE (00:39)
[2022-07-04] MEDS: Zofran 4 MG/2 ML VIAL IV PRN ×2 (00:41→08:05)
[2022-07-04] MEDS ORDERED: Bactroban OINTMENT TP PRN (00:45)
[2022-07-04] MEDS: Compazine 10 MG/2 ML IV PRN (04:30)
[2022-07-04 06:41] LABS: Absolute Neutrophil Ct (ANC) 2.51 x10^3/uL (1.4-6.9); Basophil (Absolute #) 0.02 x10^3/uL (0-0.4); Eosinophil % 2.1 % (0.00-5.0); Eosinophil (Absolute #) 0.09 x10^3/uL (0-0.5); Hematocrit 38.1 % (35-47); Hemoglobin 11.9 g/dL (12.0-16.0); Lymphocyte (Absolute #) 1.09 x10^3/uL (1.0-4.6); Lymphocytes % 25.1 % (24.0-44.0); Mean Cell Volume 84.7 fL (78-100); Mean Corpuscular Hemoglobin 26.4 pg (26-32); Mean Corpuscular Hgb Concent. 31.2 g/dL (32-36); Mean Platelet Volume 11.4 fL (7.5-11.0); Monocyte (Absolute #) 0.62 x10^3/uL (0.0-1.3); Monocytes % 14.3 % (0.0-12.0); Neutrophil % 57.8 % (36.0-66.0); Platelet Count 194 x10^3/uL (150-450); Red Cell Distribution Width 15.9 % (11.5-14.0); White Blood Count 4.3 x10^3/uL (4.0-10.5)
[2022-07-04 07:04] VITALS: BP 118/68; PULSE 108; O2SAT 94
[2022-07-04 07:12] LABS: ALBUMIN 2.6 g/dL (3.5-5.0); ALKALINE PHOSPHATASE 81 U/L (38-126); ANION GAP 8.2 MEQ/L (5-15); CHLORIDE 104 mmol/L (98-107); Calcium 8.5 mg/dL (8.4-10.2); Carbon Dioxide 27 mmol/L (22-30); Creatinine 1 0.47 mg/dL (0.52-1.04); EST GLOMERULAR FILTRATION RATE > 60.0 ML/MIN; Glucose 96 mg/dL (74-106); Potassium 3.9 mmol/L (3.5-5.1); SGOT/AST 58 U/L (14-36); SGPT/ALT 67 U/L (0-35); SODIUM 135 mmol/L (137-145); Total Protein 6.2 g/dL (6.3-8.2)
[2022-07-04 07:15] LABS: BLOOD UREA NITROGEN 2 mg/dL (7-17)
--- NOTE | 2022-07-04 07:43 | ECHO ---
DATE OF PROCEDURE: 06/30/2022 CLINICAL INFORMATION: Tachycardia. The M-mode 2D, and Doppler echocardiogram including color flow Doppler shows the heart rate 76 beats/minute. The left ventricle is normal in size. There is no thrombus present. The wall thickness is normal. There is normal contractility of the left ventricle. The ejection fraction is calculated to be 79%. The right ventricle is not well visualized. The left atrium is normal in size. The interatrial septum and right atrium are not well visualized. The aortic valve opens well. There is no aortic regurgitation. The mitral valve is thickened. There is mild tricuspid regurgitation. The right ventricular systolic pressure is calculated to be 35 mm of Mercury. The pulmonic valve is not well visualized. The aortic root is normal. There is no pericardial effusion present. IMPRESSION: 1) NORMAL CONTRACTILITY OF THE LEFT VENTRICLE. 2) MILD TRICUSPID REGURGITATION. 3) MILD PULMONARY HYPERTENSION.
--- NOTE | 2022-07-04 08:07 | PCM.DS ---
Discharge Summary Date of Admission: 06/30/22 06:20 Admitting Physician: MELVA DEGROOT Consults: Consults on Case 07/03/22 12:59 Consult Neurology ROUTINE Primary Care Provider: MELVA DEGROOT Allergies Allergies amoxicillin trihydrate [From Augmentin] Allergy (Intermediate, Verified 06/21/22 19:09) Hives cefaclor [From Ceclor] Allergy (Intermediate, Verified 06/21/22 19:09) Hives ciprofloxacin [From Cipro] Adverse Reaction (Intermediate, Verified 06/21/22 19:09) nausea vomiting enalapril Adverse Reaction (Intermediate, Verified 06/21/22 19:09) Cough ibuprofen Adverse Reaction (Verified 06/21/22 19:09) hx of renal failure, advised by PCP to avoid Hospital Summary - Hospital Course Hospital Course: Pt is a 27 yo female pt of mine from [facility], with morbid obesity (s/p bariatric surgery in march 2022), HTN, migraines, and splenomegaly who was admitted directly from office with intractable nausea and vomiting and abdominal pain. Her sodium was 136. WBC 3.2. Hgb nl. CXR was neg and KUB was nonacute and nonobstructed. She has had frequent episodes of nausea and vomiting since her surgery, but has been able to manage them outpatient until now. She was started on IV fluids, IV antiemetics, and IV dilaudid for abdominal pain. She thought the pain was related to her vomiting. She had echocardiogram which showed normal contractility L ventricle. Repeated CT scan abd/pelvis with and without contrast (previously done 06/22/22) but it was nonacute. She has had 4 scans between Apr 2022 and now. Pt started complaining of lower extremity paresthesias, "pins and needles," that started about a week ago intermittently and have become constant in the past few days. She is still able to move the legs but her sensation to light touch is decreased. MRI was unable to be done (she is unfortunately too large for our equipment) and teleneurology consult was ordered but unable to be done as well. I spoke with pt's bariatric surgeon, Dr. Dianna Ruiz at [facility] she agreed to do EGD on patient today at 1 pm, so pt is being discharged. She is still not tolerating po, was vomiting this morning after getting dilaudid. Would like pain medication prior to discharge; has had no issues with hypersomnolence so we will do that. She is being driving up by her mother and in the company of her . - Vitals & Intake/Output Vital Signs: Vital Signs Temperature 97.9 F 07/04/22 07:03 Pulse Rate 108 H 07/04/22 07:03 Respiratory Rate 16 07/04/22 07:03 Blood Pressure 118/68 07/04/22 07:03 O2 Sat by Pulse Oximetry 94 L 07/04/22 07:03 Intake & Output: Intake & Output 07/01/22 07/02/22 07/03/22 07/04/22 11:59 11:59 11:59 11:59 Intake Total 3180 3240 3785 1957 Output Total 100 1625 2950 1300 Balance 3080 1615 835 657 Weight 176.2 kg 175.8 kg 175.8 kg - Lab Result Diagrams: 07/04/22 06:35 07/04/22 06:35 Lab Results-Last 24 Hrs: Lab Results-Last 24 Hours 07/03/22 07/04/22 07/04/22 Range/Units 04:37 06:35 06:35 WBC 4.3 (4.0-10.5) x10^3/uL RBC 4.50 (4.1-5.4) x10^6/uL Hgb 11.9 L (12.0-16.0) g/dL Hct 38.1 (35-47) % MCV 84.7 (78-100) fL MCH 26.4 (26-32) pg MCHC 31.2 L (32-36) g/dL RDW 15.9 H (11.5-14.0) % Plt Count 194 (150-450) x10^3/uL MPV 11.4 H (7.5-11.0) fL Gran % 57.8 (36.0-66.0) % Immature Gran % (Auto) 0.2 (0.00-0.4) % Nucleat RBC Rel Count 0.0 (0.00-0.1) % Eos # (Auto) 0.09 (0-0.5) x10^3/uL Immature Gran # (Auto) 0.01 (0.00-0.03) x10^3u/L Absolute Lymphs (auto) 1.09 (1.0-4.6) x10^3/uL Absolute Monos (auto) 0.62 (0.0-1.3) x10^3/uL Absolute Nucleated RBC 0.00 (0.00-0.01) x10^3u/L Lymphocytes % 25.1 (24.0-44.0) % Monocytes % 14.3 H (0.0-12.0) % Eosinophils % 2.1 (0.00-5.0) % Basophils % 0.5 (0.0-0.4) % Absolute Granulocytes 2.51 (1.4-6.9) x10^3/uL Basophils # 0.02 (0-0.4) x10^3/uL Sodium 135 L (137-145) mmol/L Potassium 3.9 (3.5-5.1) mmol/L Chloride 104 (98-107) mmol/L Carbon Dioxide 27 (22-30) mmol/L Anion Gap 8.2 (5-15) MEQ/L BUN 2 L (7-17) mg/dL Creatinine 0.47 L (0.52-1.04) mg/dL Estimated GFR > 60.0 ML/MIN Glucose 96 (74-106) mg/dL Calcium 8.5 (8.4-10.2) mg/dL Magnesium 1.5 L (1.6-2.3) mg/dL Total Bilirubin 1.00 (0.2-1.3) mg/dL AST 58 H (14-36) U/L ALT 67 H (0-35) U/L Alkaline Phosphatase 81 (38-126) U/L Serum Total Protein 6.2 L (6.3-8.2) g/dL Albumin 2.6 L (3.5-5.0) g/dL Micro Results-Entire Visit: Microbiology 06/28/22 01:15 Urine Culture - Final Urine, Void MIXED ROGELIO; 3 OR MORE TYPES. NO PREDOMINANT ORGANISM. NO FURTHER WORKUP. PLEASE RESUBMIT IF CLINICALLY INDICATED. Discharge Exam General Appearance: mild distress, obese Neurologic Exam: alert, oriented x 3, cooperative Eye Exam: eyes nml inspection Ears, Nose, Throat Exam: moist mucous membranes Neck Exam: normal inspection Respiratory Exam: normal breath sounds, lungs clear, No crackles/rales, No rhonchi, No wheezing Cardiovascular Exam: regular rate/rhythm, normal heart sounds, No murmur Gastrointestinal/Abdomen Exam: soft, normal bowel sounds, tenderness (diffuse; worse in epigastrum), No distention, No mass, No guarding, No rebound Back Exam: normal inspection, No rash Extremity Exam: normal inspection, other (motor function intact LE bilat. There is patchy decreased sensation to light touch bilaterally which is more prominent in proximal legs (L2-L3 distribution). Appearance of legs is normal. Patellar reflex 1+ on R, but absent on L.), No swelling, No tenderness Final Diagnosis/Problem List - Final Discharge Diagnosis/Problem (1) Abdominal pain Current Visit: No Status: Acute Assessment & Plan: persistent. She is having EGD today with her bariatric surgeon, thank you. Will call and update the office on patient's condition at discharge. Code(s): R10.9 - UNSPECIFIED ABDOMINAL PAIN (2) Nausea and vomiting Current Visit: No Status: Acute Assessment & Plan: persistent. Code(s): R11.2 - NAUSEA WITH VOMITING, UNSPECIFIED (3) Morbid obesity Current Visit: No Status: Chronic Code(s): E66.01 - MORBID (SEVERE) OBESITY DUE TO EXCESS CALORIES (4) Paresthesia of bilateral legs Current Visit: Yes Status: Acute Assessment & Plan: Unsure the etiology. Have been unable to initiate neuro workup. Could be related to nutritional deficiency, certainly. Will go ahead and draw B12/folate and TSH, RPR. Pt may need MRI L-S spine and EMG. Code(s): R20.2 - PARESTHESIA OF SKIN (5) Hypocalcemia Current Visit: Yes Status: Acute Assessment & Plan: started pt on TUMS and PTH pending. Code(s): E83.51 - HYPOCALCEMIA - Discharge Disposition: Home, Self-Care Condition: Stable Prescriptions: New Mupirocin [Bactroban OINTMENT] 1 gm TP DAILY PRN PRN Reason: Redness/Irritation Continue Cyanocobalamin (Vitamin B-12) [Liquid B-12] 1 ea UD Discontinued Metoclopramide HCl 10 mg [Reglan 10 MG] 10 mg PO Q6H 30 Days #120 tablet Follow up with: MELVA DEGROOT [Primary Care Provider] -
[2022-07-04 10:43] LABS: Folate (Folic Acid) 3.72 ng/mL (2.76 - >20); TSH, 3RD Generation 2.64 mIU/L (0.47-4.68)
[2022-07-05 09:21] LABS: RPR Non Reactive (Non Reactive)
== END 2022-07-04 09:18 | disposition home or self-care (01) | DRG 392 ==
LOC: MED SURG 14:31 → OBSVTOIN 06-30 06:20
PROVIDERS: ADMIT Family Medicine; ATTEND Family Medicine
DX: R10.9 Unspecified abdominal pain (principal); N39.0 Urinary tract infection, site not specified; R11.2 Nausea with vomiting, unspecified; E66.01 Morbid (severe) obesity due to excess calories; R20.2 Paresthesia of skin; E83.51 Hypocalcemia; Z79.899 Other long term (current) drug therapy; Z20.828 Contact with and (suspected) exposure to other viral communicable diseases
CPT/HCPCS: 0241U; 36415; 71046; 74018; 74178; 80053; 81015; 82150; 82306; 82607; 82746; 82947; 83690; 83735; 83970; 84132; 84443; 84703; 85025; 86592; 87086; 93268; 93306; 94762; 36410; J1170; J1200; J1956; J2405; J3420; J3480; A9270-GY; G0378; J3475

== ENCOUNTER 2022-07-20 14:41 | Emergency (ER) | payer OTHER ==
[2022-07-20] MEDS ORDERED: Sodium Chloride 0.9% 1000 ML 1,000 ML IV STA (15:55)
[2022-07-20] MEDS ORDERED: MORPHINE SULFATE 4 MG INJ IV ONE (15:55)
[2022-07-20] MEDS ORDERED: Zofran 4 MG/2 ML VIAL IV ONE (15:55)
[2022-07-20 16:18] LABS: Absolute Neutrophil Ct (ANC) 2.47 x10^3/uL (1.4-6.9); BASOPHIL % 0.8 % (0.0-0.4); Basophil (Absolute #) 0.03 x10^3/uL (0-0.4); Eosinophil % 1.3 % (0.00-5.0); Eosinophil (Absolute #) 0.05 x10^3/uL (0-0.5); Hematocrit 37.9 % (35-47); Hemoglobin 11.8 g/dL (12.0-16.0); IMMATURE GRAN # 0.01 x10^3u/L (0.00-0.03); IMMATURE GRAN % 0.3 % (0.00-0.4); Lymphocyte (Absolute #) 0.77 x10^3/uL (1.0-4.6); Lymphocytes % 20.6 % (24.0-44.0); Mean Cell Volume 88.1 fL (78-100); Mean Corpuscular Hemoglobin 27.4 pg (26-32); Mean Corpuscular Hgb Concent. 31.1 g/dL (32-36); Mean Platelet Volume 11.3 fL (7.5-11.0); Monocytes % 10.7 % (0.0-12.0); Neutrophil % 66.3 % (36.0-66.0); Platelet Count 205 x10^3/uL (150-450); Red Cell Distribution Width 17.9 % (11.5-14.0); White Blood Count 3.7 x10^3/uL (4.0-10.5)
[2022-07-20 16:24] LABS: ALBUMIN 2.8 g/dL (3.5-5.0); ALKALINE PHOSPHATASE 82 U/L (38-126); ANION GAP 8.2 MEQ/L (5-15); CHLORIDE 107 mmol/L (98-107); Calcium 8.1 mg/dL (8.4-10.2); Carbon Dioxide 27 mmol/L (22-30); Creatinine 1 0.45 mg/dL (0.52-1.04); EST GLOMERULAR FILTRATION RATE > 60.0 ML/MIN; Glucose 86 mg/dL (74-106); Potassium 3.4 mmol/L (3.5-5.1); SGOT/AST 108 U/L (14-36); SGPT/ALT 75 U/L (0-35); SODIUM 139 mmol/L (137-145); Total Protein 6.1 g/dL (6.3-8.2)
[2022-07-20] MEDS ORDERED: Zofran 4 MG/2 ML VIAL ONE (16:34)
[2022-07-20] MEDS ORDERED: MORPHINE SULFATE 4 MG INJ ONE (16:34)
[2022-07-20] MEDS ORDERED: Sodium Chloride 0.9% 1000 ML 1,000 ML ONE (16:34)
[2022-07-20 16:40] LABS: BLOOD UREA NITROGEN 2 mg/dL (7-17)
--- NOTE | 2022-07-20 17:01 | ERPHSYRPT ---
- History of Present Illness Time Seen by Provider: 07/20/22 14:42 Source: patient Exam Limitations: no limitations Patient Subjective Stated Complaint: pt here for pain to head and neck since a spinal tap on sunday, she states she has tests done for pain and numbness lower legs Triage Nursing Assessment: pt alert,crying and moaning out , resp easy, skin w/d/p. able to undress and get to bed on own Physician History: 27-year-old morbidly obese female with history of bariatric surgery with recent lumbar puncture done at [facility] for lower extremity numbness and tingling sensation which is going on for more than a month with subsequent admission, was discharged yesterday presented with headache neck pain and upper back pain. Denies any lower back pain or increased numbness weakness or difficulty ambulation which is new from previous. Patient report headache is moderate to severe, more with movements and sitting up and gets better with lying down flat. No visual disturbance. Timing/Duration: day(s) (4), gradual onset, worse Quality: sharpness Head Pain Location: global Severity of Pain-Max: moderate Severity of Pain-Current: moderate Recent Head Trauma: no recent headache/trauma Modifying Factors: Worsens With: movement Associated Symptoms: neck pain, sensitive to light, No confusion, No fever/ chills, No loss of consciousness, No speech problems, No stiff neck, No trouble walking, No vision changes, No visual disturbance, No weakness Previous symptoms: no prior history Allergies/Adverse Reactions: amoxicillin trihydrate [From Augmentin] Allergy (Intermediate, Verified 07/20/22 14:55) Hives cefaclor [From Ceclor] Allergy (Intermediate, Verified 07/20/22 14:55) Hives ciprofloxacin [From Cipro] Adverse Reaction (Intermediate, Verified 07/20/22 14:55) nausea vomiting enalapril Adverse Reaction (Intermediate, Verified 07/20/22 14:55) Cough ibuprofen Adverse Reaction (Verified 07/20/22 14:55) hx of renal failure, advised by PCP to avoid Home Medications: Gabapentin [Neurontin ] 100 mg PO TID 07/20/22 [History] Omeprazole 40 mg PO DAILY 07/20/22 [History] Sucralfate 1 ea ACHS 07/20/22 [History] Hx Tetanus, Diphtheria Vaccination/Date Given: Yes Hx Influenza Vaccination/Date Given: No Hx Pneumococcal Vaccination/Date Given: No Immunizations Up to Date: Yes Travel Risk - International Travel Have you traveled outside of the country in past 3 weeks: No - Coronavirus Screening Are you exhibiting any of the following symptoms?: No - Vaccine Status Have you recieved a Covid-19 vaccination: No Check Inspector: Pfizer - Vaccination Dates Date of 2cond Vaccination (if applicable): 2020 - Review of Systems Constitutional: No Symptoms Eyes: No Symptoms Ears, Nose, & Throat: No Symptoms Respiratory: No Symptoms Cardiac: No Symptoms Abdominal/Gastrointestinal: Nausea, Vomiting Genitourinary Symptoms: No Symptoms Musculoskeletal: Back Pain, Neck Pain Skin: No Symptoms Neurological: Headache Psychological: No Symptoms Endocrine: No Symptoms Hematologic/Lymphatic: No Symptoms Immunological/Allergic: No Symptoms - Past Medical History Pertinent Past Medical History: Yes Neurological History: Migraines ENT History: No Pertinent History Cardiac History: Hypertension Respiratory History: No Pertinent History Endocrine Medical History: No Pertinent History Musculoskeletal History: Other GI Medical History: Pancreatitis History: Other Psycho-Social History: Anxiety, Depression Female Reproductive Disorders: No Pertinent History Other Medical History: ovarian cysts,PANCREATITIS AND CHOLECYSTITIS, urinary retention 10/2015. KIDNEY FAILURE IN 01/2017, low iron levels. Gastric bypass april 04 2022. - Past Surgical History Past Surgical History: Yes (gastric bypass apr 04 2022) Neuro Surgical History: No Pertinent History Cardiac: No Pertinent History Respiratory: No Pertinent History Gastrointestinal: Cholecystectomy, Other Genitourinary: No Pertinent History Musculoskeletal: Orthopedic Surgery Female Surgical History: No Pertinent History Other Surgical History: ERCP, rt knee, gastric bypass apr 04, 2022 - Social History Smoking Status: Former smoker How long have you smoked: 6 yrs Exposure to second hand smoke: No Drug Use: none Patient Lives Alone: Yes Significant Family History: no pertinent family hx - Female History Hx Last Menstrual Period: 2 days ago Hx Now: No - Nursing Vital Signs Nursing Vital Signs: Initial Vital Signs Pulse Rate 66 07/20/22 16:28 Respiratory Rate 20 07/20/22 16:28 Blood Pressure 148/84 07/20/22 16:28 O2 Sat by Pulse Oximetry 98 07/20/22 16:28 Pain Scale Pain Intensity [Head] 10 Pain Intensity 4 - Physical Exam General Appearance: no apparent distress, alert Eye Exam: PERRL/EOMI Ears, Nose, Throat Exam: normal ENT inspection Neck Exam: normal inspection, non-tender, supple, full range of motion, No meningismus Respiratory Exam: normal breath sounds, lungs clear Cardiovascular Exam: regular rate/rhythm, normal heart sounds Gastrointestinal/Abdominal Exam: soft, normal bowel sounds, No tenderness Extremity Exam: normal inspection, normal range of motion Mental Status Exam: alert, oriented x 3, 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 Exam: normal hearing, normal speech, PERRL Coordination/Gait Exam: normal finger to nose, normal cerebellar function Motor/Sensory Exam: no motor deficit, no sensory deficit, no pronator drift DTR Exam: bicep (R): 2+, bicep (L): 2+, knee (R): 2+, knee (L): 2+ Skin Exam: normal color SpO2 Interpretation: normal SpO2: 98 O2 Delivery: Room Air Ordered Tests: Active Orders 24 hr Category Date Time Status IV Insertion STAT Care 07/20/22 15:55 Active CBC W DIFF Stat Lab 07/20/22 16:04 Completed CMP Stat Lab 07/20/22 16:04 Completed Lactic Acid Stat Lab 07/20/22 15:55 Completed Medication Summary Discontinued Medications Generic Name Dose Route Start Last Admin Trade Name Freq PRN Reason Stop Dose Admin Sodium Chloride 1,000 mls @ 999 mls/hr 07/20/22 15:55 07/20/22 18:19 Sodium Chloride 0.9% 1000 Ml IV 07/20/22 16:55 Infused .Q1H1M STA Infusion Sodium Chloride Confirm 07/20/22 16:34 Sodium Chloride 0.9% 1000 Ml Administered 07/20/22 16:35 Dose 1,000 mls @ ud .ROUTE .STK-MED ONE Morphine Sulfate 4 mg 07/20/22 15:55 07/20/22 16:39 Morphine Sulfate 4 Mg/Ml Injection IV 07/20/22 15:56 4 mg STAT ONE Administration Morphine Sulfate Confirm 07/20/22 16:34 Morphine Sulfate 4 Mg/Ml Injection Administered 07/20/22 16:35 Dose 4 mg .ROUTE .STK-MED ONE Ondansetron HCl 4 mg 07/20/22 15:55 07/20/22 16:40 Ondansetron Hcl 4 Mg/2 Ml Vial IV 07/20/22 15:56 4 mg STAT ONE Administration Ondansetron HCl Confirm 07/20/22 16:34 Ondansetron Hcl 4 Mg/2 Ml Vial Administered 07/20/22 16:35 Dose 4 mg .ROUTE .K-MED ONE Lab/Rad Data: Laboratory Result Diagrams 07/20/22 16:04 07/20/22 16:04 Laboratory Results 07/20/22 07/20/22 07/20/22 Range/Units 16:04 16:04 15:55 WBC 3.7 L (4.0-10.5) x10^3/uL RBC 4.30 (4.1-5.4) x10^6/uL Hgb 11.8 L (12.0-16.0) g/dL Hct 37.9 (35-47) % MCV 88.1 (78-100) fL MCH 27.4 (26-32) pg MCHC 31.1 L (32-36) g/dL RDW 17.9 H (11.5-14.0) % Plt Count 205 (150-450) x10^3/uL MPV 11.3 H (7.5-11.0) fL Gran % 66.3 H (36.0-66.0) % Immature Gran % (Auto) 0.3 (0.00-0.4) % Nucleat RBC Rel Count 0.0 (0.00-0.1) % Eos # (Auto) 0.05 (0-0.5) x10^3/uL Immature Gran # (Auto) 0.01 (0.00-0.03) x10^3u/L Absolute Lymphs (auto) 0.77 L (1.0-4.6) x10^3/uL Absolute Monos (auto) 0.40 (0.0-1.3) x10^3/uL Absolute Nucleated RBC 0.00 (0.00-0.01) x10^3u/L Lymphocytes % 20.6 L (24.0-44.0) % Monocytes % 10.7 (0.0-12.0) % Eosinophils % 1.3 (0.00-5.0) % Basophils % 0.8 (0.0-0.4) % Absolute Granulocytes 2.47 (1.4-6.9) x10^3/uL Basophils # 0.03 (0-0.4) x10^3/uL Sodium 139 (137-145) mmol/L Potassium 3.4 L (3.5-5.1) mmol/L Chloride 107 (98-107) mmol/L Carbon Dioxide 27 (22-30) mmol/L Anion Gap 8.2 (5-15) MEQ/L BUN 2 L (7-17) mg/dL Creatinine 0.45 L (0.52-1.04) mg/dL Estimated GFR > 60.0 ML/MIN Glucose 86 (74-106) mg/dL Lactic Acid 0.7 (0.4-2.0) Calcium 8.1 L (8.4-10.2) mg/dL Total Bilirubin 0.50 (0.2-1.3) mg/dL AST 108 H (14-36) U/L ALT 75 H (0-35) U/L Alkaline Phosphatase 82 (38-126) U/L Serum Total Protein 6.1 L (6.3-8.2) g/dL Albumin 2.8 L (3.5-5.0) g/dL - Progress Progress: improved, re-examined Air Movement: good Progress Note: 07/20/22 17:02 27-year-old female with recent lumbar puncture for lower extremity numbness and tingling sensation for more than a month with negative CSF for meningitis, was evaluated by neurology, was discharged yesterday presented today with increasing headache and neck pain. Pain is more with getting up, movement and better with lying on the back/flat bed. No increase numbness or weakness. Patient is given symptomatic treatment. No signs of meningitis. I have called [facility] and have obtained medical record, reviewed which showed that patient had a thorough work-up done and was negative. Patient was offered blood patch which she refused yesterday. They are calling anesthesiologist and will call us back. She is given morphine and Zofran in here along with fluids and is feelin g better. 07/20/22 19:47 [facility] called multiple times, spoke with transfer center and powerhouse mechanic helper, no anesthesiologist available to do blood patch today. Patient is feeling better. He recommended that it would be done by Dr. Thayer, also that patient refused to have blood patch to be done yesterday. Plan discussed with patient who understand and agrees with going to [facility] tomorrow morning for blood patch. She has nonfocal neuro exam throughout stay in the ER but she has some tingling in lower extremities which is chronic. Patient is thoroughly counseled about signs symptoms of worsening needing return to ER which she seems understanding. Blood Culture(s) Obtained: No Antibiotics given: No Discussed with : Other Counseled pt/family regarding: lab results, diagnosis, need for follow-up - Departure Departure Disposition: Home Clinical Impression: Spinal headache Condition: Stable Critical Care Time: No Referrals: MELVA DEGROOT [Primary Care Provider] - Follow Up with PCP/3 days Instructions: Spinal Headache Additional Instructions: Keep yourself well-hydrated. Take caffeinated drinks. Sleep on flat bed on your back. Follow-up with [facility] tomorrow between 7308 AM for blood patch as scheduled. Take Tylenol as needed. Return to ER for intractable headache, visual disturbance, numbness tingling focal weakness etc.
[2022-07-20 19:49] VITALS: O2SAT 98
[2022-07-20 20:27] VITALS: BP 133/79; PULSE 85
== END 2022-07-20 20:28 | disposition home or self-care (01) ==
LOC: ED 14:41
DX: G97.1 Other reaction to spinal and lumbar puncture (principal); R51.9 Headache, unspecified; M54.2 Cervicalgia; M54.6 Pain in thoracic spine; I10 Essential (primary) hypertension; Z79.899 Other long term (current) drug therapy
CPT/HCPCS: 36000; 36415; 80053; 83605; 85025; 96360; 96374; 96375; 99284; J2270; J2405

== ENCOUNTER 2023-04-12 10:34 | Day surgery (SDC) | payer OTHER ==
[2023-04-12] MEDS ORDERED: Sodium Chloride 0.9(Preservative Free) 10 ML IJ ONE (10:35)
[2023-04-12] MEDS ORDERED: Depo-Medrol 40 MG/ML IM ONE (10:35)
[2023-04-12 11:49] LABS: HCG URINE TEST NEGATIVE (NEGATIVE)
[2023-04-12] MEDS ORDERED: DIPRIVAN 200 MG/20 ML IV ONE ×2 (13:09→13:16)
[2023-04-12] MEDS ORDERED: Lactated Ringers 1,000 ML IV ONE (14:28)
--- NOTE | 2023-04-12 16:29 | XRAY ---
Indication: Right L4-S1 transforaminal DYLON. Intraoperative fluoroscopy provided for 37 seconds. 7 digital spot image submitted for interpretation demonstrates posterior needle tips projecting over the expected right L4 and L5 nerve roots. Small amount of contrast injected for needle tip placement. Correlate with intraoperative findings/report.
--- NOTE | 2023-04-12 16:37 | XRAY ---
37 seconds of fluoroscopy was used in surgery for a right L4-S1 transforaminal DYLON.
== END 2023-04-12 13:40 | disposition home or self-care (01) ==
LOC: SDC-PAIN 10:34
PROVIDERS: ATTEND Psychiatry & Neurology Pain Medicine
DX: M54.16 Radiculopathy, lumbar region (principal)
CPT/HCPCS: 64483; 64484; 72100; 77003; 81025; J1030; J2704; Q9966

== ENCOUNTER 2023-07-04 10:25 | Day surgery (SDC) | payer OTHER ==
[2023-07-04] MEDS ORDERED: Decadron 4 MG INJ IV ONE (10:26)
[2023-07-04] MEDS ORDERED: Sodium Chloride 0.9(Preservative Free) 10 ML IJ ONE (10:26)
[2023-07-04 10:53] LABS: HCG URINE TEST NEGATIVE (NEGATIVE)
[2023-07-04] MEDS ORDERED: DIPRIVAN 200 MG/20 ML IV ONE (12:16)
[2023-07-04] MEDS ORDERED: MORPHINE SULFATE 2 MG INJ ONE (12:30)
[2023-07-04] MEDS ORDERED: Lactated Ringers 1,000 ML IV ONE (14:09)
--- NOTE | 2023-07-04 14:43 | XRAY ---
Indication: Left L4-S1 transforaminal DYLON. Intraoperative fluoroscopy provided for 27 seconds. 7 digital spot image submitted for interpretation demonstrates posterior needle tips projecting over the expected left L4 and L5 nerve roots. Small amount of contrast injected for needle tip placement. Correlate with intraoperative findings/report.
--- NOTE | 2023-07-04 14:44 | XRAY ---
27 seconds of fluoroscopy was used in surgery for a left L4-S1 transforaminal DYLON.
== END 2023-07-04 12:46 | disposition home or self-care (01) ==
LOC: SDC-PAIN 10:25
PROVIDERS: ATTEND Psychiatry & Neurology Pain Medicine
DX: M54.16 Radiculopathy, lumbar region (principal)
CPT/HCPCS: 64483; 64484; 72100; 77003; 81025; J1100; J2270; J2704; Q9966

== ENCOUNTER 2023-10-10 10:59 | Day surgery (SDC) | payer OTHER ==
[2023-10-10] MEDS ORDERED: Depo-Medrol 40 MG/ML IM ONE (11:00)
[2023-10-10] MEDS ORDERED: LIDOCAINE HCL 1% 50 MG/5 ML VL PF IJ ONE (11:00)
[2023-10-10] MEDS ORDERED: Sodium Chloride 0.9(Preservative Free) 10 ML IJ ONE (11:00)
[2023-10-10 11:18] LABS: HCG URINE TEST NEGATIVE (NEGATIVE)
[2023-10-10] MEDS ORDERED: DIPRIVAN 200 MG/20 ML IV ONE (12:34)
[2023-10-10] MEDS ORDERED: MORPHINE SULFATE 2 MG INJ ONE ×2 (12:56→13:12)
--- NOTE | 2023-10-10 13:13 | XRAY ---
22 seconds of fluoroscopy was used in surgery for a lumbar DYLON.
[2023-10-10] MEDS ORDERED: Lactated Ringers 1,000 ML IV ONE (13:46)
--- NOTE | 2023-10-11 13:25 | XRAY ---
22 seconds of fluoroscopy was used in surgery for a lumbar DYLON.
== END 2023-10-10 13:32 | disposition home or self-care (01) ==
LOC: SDC-PAIN 10:59
PROVIDERS: ATTEND Psychiatry & Neurology Pain Medicine
DX: M54.16 Radiculopathy, lumbar region (principal)
CPT/HCPCS: 62323; 72100; 77003; 81025; J1010; J2001; J2270; J2704; Q9966